=== PATIENT | male | born 1940 | race Caucasian/White ===

== ENCOUNTER 2018-05-24 06:57 | Observation (INO) ==
[2018-05-24] MEDS ORDERED: LIDOCAINE HCL 1% 20 ML VIAL ONE (07:24)
[2018-05-24] MEDS ORDERED: HEPARIN (PORCINE) 1000 UNIT/ML 10 ML (CATH LAB USE ONLY) ONE (08:11)
[2018-05-24] MEDS ORDERED: NiCARDipine HCL INJ 2.5 MG/ML 10 ML AMP ONE (08:11)
[2018-05-24] MEDS ORDERED: fentaNYL citrate 100 MCG/2 ML VIAL ONE (08:12)
[2018-05-24] MEDS ORDERED: MIDAZOLAM HCL 1 MG/ML 2ML VIAL ONE (08:12)
[2018-05-24] MEDS ORDERED: NITROGLYCERIN/D5W 100MCG/ML 20ML SYR ONE (08:12)
--- NOTE | 2018-05-24 08:14 | History & Physical Bridge Note ---
Date of Service May 24, 2018 History & Physical Bridge Note I have examined the patient, reviewed the History & Physical and in the interval since the performance of the History & Physical I have noted the following changes of clinical significance: no changes noted
--- NOTE | 2018-05-24 08:15 | Pre Anesthesia Assessment ---
Date of Service May 24, 2018 Pre Sedation Assessment Vital Signs Temp Pulse Resp BP Pulse Ox 05/24/18 07:22 36.5 C 85 16 192/105 H 97 Cardiovascular RRR, no murmur, no edema Respiratory normal respiratory effort, lungs clear to auscultation Pre-Sedation Airway Assessment Smoking Status: Former smoker Hx Sleep Apnea: No Short, Thick Neck: Yes Thyromental Distance: > or= 3.5 Finger Breadths Oral Cavity: + WNL Mallampati Class: III ASA: ASA3 NPO Status Date of Last Intake of Fluids: 05/23/18 Time of Last Intake of Fluids: 19:00 Date of Last Intake of Solid Food: 05/23/18 Time of Last Intake of Solid Foods: 19:00 Procedure Planning Contraindications for Sedation: none Current Medications Reviewed: Yes Notes The planned sedation has been discussed with the patient. Informed Consent was obtained. I have identified the patient, determined the appropriateness of sedation and have assessed the patient immediately prior to the procedure. All medicine(s) and interventions are by my order.
--- NOTE | 2018-05-24 09:49 | Post Anesthesia Assessment ---
Date of Service May 24, 2018 Post Sedation Assessment Vital Signs Temp Pulse Resp BP Pulse Ox 05/24/18 07:22 36.5 C 85 16 192/105 H 97 Post Sedation Plan On clinical assessment, the patient appears to have tolerated the sedation without complications. Patient is recovering as anticipated. Patient will continue to be monitored by nursing and may be discharged when sedation discharge criteria are met per below protocol. Upon Completions of procedure and additional 15 minutes continue every 5 minute vital signs and the P.A.R. score; then discharge to a Phase I or Fast Track to Phase II per the following guidelines: * Discharge Patient to appropriate Phase II area if PAR is 8 or greater or return to pre- procedure baseline. The post - procedure orders will be as directed. * If PAR score is less than 8 or not return to pre-procedure baseline then patient will follow Phase I monitoring till PAR is reached for Phase II. The Phase I may be done in procedure room or may call to secure a Phase I area. * If naloxone or flumazenil are used for reversal, hold in Phase I for continued monitoring from when last reversal dose was given for a minimum of 60 minutes or longer pending the nurse and/or physician discretion of patient condition before discharge to Phase II. Please call the Sedation Physician to re-evaluate and complete post-note for discharge to Phase II area. Do NOT discharge from procedure sedation or Phase 1 until post- sedation evaluation note is complete by procedure /sedation MD Sedation Discharge Instructions to be given to the patient at discharge to home.
--- NOTE | 2018-05-24 09:49 | Cardiac Catheterization ---
Cardiac Cath Procedure Full Procedure Date May 24, 2018 Pre-Procedure Diagnosis Pre-Procedure Diagnosis: Positive Stress Test and CAD AUC Score AUC Score: 7 Post-Procedure Diagnosis Post-Procedure Diagnosis: Severe CAD Procedure(s) Performed Procedure(s) Performed: Coronary Angiography and Left Heart Cath Head Of Precision Targeting Henrique Malloy DO Supervisor Mold Yard(s) Mary RTR Estimated Blood Loss Estimated Blood Loss: 5cc Medication(s) Medication(s): Fentanyl, Lidocaine 1% and Versed Summary of Findings 80% proximal LAD 80% mid PDA 60-70% proximal OM2 Hemodynamics Rest Ao:: 147/66/102 Final Ao: 175/83/121 LV: 171/6/25 Recommendations Recommendations: PCI without planned CABG Radiation Exposure (mGy) 1200 Contrast (mls) 65 Anesthesia Moderate sedation. Start 08. 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 Cardiac Status Clinical evaluation leading to the procedure CAD Presenation: Positive Stress Test Anginal Classification: CCS II Heart Failure: No Coronary Anatomy Dominant: Right Left Main (% Stenosis): Normal LAD (% Stenosis): Proximal (80%, ulcerated) D1 (% Stenosis): Ostial (60%, small 1.5mm vessel) D2 (% Stenosis): Mid (mild luminal irregularities, 10%, small 1.5mm vessel) Circumflex (% Stenosis): Mid (20%) and Distal (10%) OM1 (% Stenosis): Normal OM2 (% Stenosis): Proximal (60-70%) OM3 (% Stenosis): Ostial (50%, small 2mm vessel ) L PL1 (% Stenosis): Ostial (10%) RCA (% Stenosis): Proximal (40%), Mid (30%) and Distal (10%) R PDA (% Stenosis): Mid (80%) R PL1 (% Stenosis): Normal R PL2 (% Stenosis): Normal Diagnostic Physicians Name: Henrique Malloy DO Status: Elective Closure Device Percutaneous Entry Location: Radial (Unable to advance wire during access due to excessive radial spasm. Sheath was not placed.) Recommendations: PCI without planned CABG Intraprocedure Events Significant Disection: No Perforation: No
[2018-05-24] MEDS ORDERED: CLOPIDOGREL BISULFATE 300 MG TAB ONE (10:26)
--- NOTE | 2018-05-24 10:32 | Post Anesthesia Assessment ---
Date of Service May 24, 2018 Post Sedation Assessment Vital Signs Temp Pulse Resp BP Pulse Ox 05/24/18 07:22 36.5 C 85 16 192/105 H 97 Recovery Score Activity: Moves 4 extremities Respiration: Deep Breath/Cough Circulation: +/-20% PreAnes Value Consciousness: Fully Awake Oxygen Saturation: O2 needed for >90% Discharge Sedation Level of Care: Fast Track Phase II Post Sedation Plan On clinical assessment, the patient appears to have tolerated the sedation without complications. Patient is recovering as anticipated. Patient will continue to be monitored by nursing and may be discharged when sedation discharge criteria are met per below protocol. Upon Completions of procedure and additional 15 minutes continue every 5 minute vital signs and the P.A.R. score; then discharge to a Phase I or Fast Track to Phase II per the following guidelines: * Discharge Patient to appropriate Phase II area if PAR is 8 or greater or return to pre- procedure baseline. The post - procedure orders will be as directed. * If PAR score is less than 8 or not return to pre-procedure baseline then patient will follow Phase I monitoring till PAR is reached for Phase II. The Phase I may be done in procedure room or may call to secure a Phase I area. * If naloxone or flumazenil are used for reversal, hold in Phase I for continued monitoring from when last reversal dose was given for a minimum of 60 minutes or longer pending the nurse and/or physician discretion of patient condition before discharge to Phase II. Please call the Sedation Physician to re-evaluate and complete post-note for discharge to Phase II area. Do NOT discharge from procedure sedation or Phase 1 until post- sedation evaluation note is complete by procedure /sedation MD Sedation Discharge Instructions to be given to the patient at discharge to home.
--- NOTE | 2018-05-24 10:38 | Cardiac Catheterization ---
Cardiac Cath Procedure Full Procedure Date May 24, 2018 Pre-Procedure Diagnosis Pre-Procedure Diagnosis: Positive Stress Test and CAD AUC Score AUC Score: 7 Post-Procedure Diagnosis Post-Procedure Diagnosis: Severe CAD Procedure(s) Performed Procedure(s) Performed: Coronary Angiography and Left Heart Cath Coordinator Mining Products Dewey Gorman MD Bag Cutter(s) Mary RTR Estimated Blood Loss Estimated Blood Loss: 10 Medication(s) Medication(s): Fentanyl, Heparin, Lidocaine 1%, Nicardipine, Nitroglycerin and Versed Summary of Findings 80% proximal LAD 80% mid PDA 60-70% proximal OM2 Indication: Abnormal stress test Access: 6 [place] right common femoral artery Catheters: EBU 4 guide, a guide liner Findings: For full details of patient's coronary angiography please cath report dictated by Dr. Malloy. Briefly, patient found to have multi vessel disease including a 80% diffuse stenosis involving his proximal to mid LAD. Decision to proceed with PCI. -- PCI -- Antithrombotic therapy: Heparin, clopidogrel Procedure: Left main cannulated with EBU 4.0 guide BMW wire passed across lesion into distal vessel Proximal/mid LAD lesion predilated with 2.5 compliant balloon LARA used to assess extent of disease, calcification. Noted to have severe disease extending almost to the ostium and past second diagonal in the mid segment with moderate calcification prior to second diagonal. With the aid of a guide liner a 3.0 x 38 mm Oswaldo drug-eluting stent was delivered across the lesion Stent post-dilated with 3.5 noncompliant balloon to high atmospheres LARA confirmed well-appossed, well expanded stent with no edge complications IC vasodilators administered for spasm Post procedure SURESH 3 flow, stent well expanded with minimal residual stenosis and no apparent cardiac complications. Arterial Closure: Angio-Seal Summary: 1. Successful PCI of proximal to mid LAD with single drug-eluting stent (3.0 x 38 mm Oswaldo; postdilated with 3.5 NC) Recommendations: To PCU for continued monitoring Loaded with clopidogrel 600 mg in laborer powerhouse Continue dual-antiplatelet therapy for at least 6 months Continue statin, and ASCVD risk factor modification Consult cardiac Rehab Hemodynamics Rest Ao:: 186/90/130 Final Ao: 167/77/113 LV: Recommendations Recommendations: PCI without planned CABG Specimens Specimens: None Radiation Exposure (mGy) 3726 Contrast (mls) 150 OPTi Fluids (cc crystalloids) Fluids (cc crystalloids): 215 Drains Drains: None Anesthesia Moderate Procedural Complication(s) None Disposition PCU 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 Cardiac Status Clinical evaluation leading to the procedure CAD Presenation: Positive Stress Test Anginal Classification: CCS II Heart Failure: No Cardiogenic Shock within 24 Hours: No Cardiac Arrest within 24 Hours: No Imaging Studies Past 6 Months: Yes Stress Studies Past 6 Months: Yes Stress Testing w/SPECT MPI: Yes - Positive Diagnostic Physicians Name: Gama Status: Elective Closure Device Percutaneous Entry Location: Radial Closure Device: Angio-Seal Recommendations: PCI without planned CABG PCI Indication: + Stress Test Lesion Segment Name: Proximal LAD Culprit Artery: Yes Stenosis Prior to Rx (%): 80-90 Chronic Total Occlusion: No IVUS: Yes FFR: No Pre-Procedure SURESH Flow: 3 Previously Treated Lesion: No Lesion Complexity: High/C Lesion Length (mm): 30 Thrombus Present: No Bifurcation Lesion: Yes Guidewire Across Lesion: Stenosis Post-Procedure (%): 0 Post-Procedure SURESH Flow : 3 Devices(s) Deployed: Yes Yes Intraprocedure Events Significant Disection: No Perforation: No
[2018-05-24] MEDS ORDERED: ONDANSETRON INJ 2 MG/ML 2 ML VIAL IV PRN (10:46)
[2018-05-24] MEDS ORDERED: ACETAMINOPHEN 325 MG TAB PO PRN (10:46)
[2018-05-24] MEDS ORDERED: SODIUM CHLORIDE 0.9% 1000ML 1,000 ML IV SCH (11:00)
[2018-05-24] MEDS: CARVEDILOL 6.25 MG TAB PO SCH ×2 (14:15→20:36)
[2018-05-24] MEDS: LOSARTAN POTASSIUM 25 MG TAB PO SCH (14:15)
[2018-05-24] MEDS ORDERED: ALLOPURINOL 100 MG TAB PO SCH (21:00)
[2018-05-24] MEDS ORDERED: LOVASTATIN 20 MG TAB PO SCH (21:00)
[2018-05-24] MEDS ORDERED: ASPIRIN 81 MG ECTAB PO SCH (21:00)
[2018-05-24] MEDS ORDERED: ATENOLOL 25 MG TABLET PO SCH (21:00)
[2018-05-24] MEDS ORDERED: CHOLECALCIFEROL 1,000 UNITS TAB PO SCH (21:00)
[2018-05-25 06:31] LABS: Basophils # (auto) 0.02 K/uL (0-0.2); Basophils % (auto) 0.3 %; Eosinophils # (auto) 0.18 K/uL (0-0.5); Eosinophils % (auto) 2.4 %; Hematocrit (blood only) 40.4 % (42-52); Immature Granulocytes # (auto) 0.02 K/uL (0.00-0.02); Immature Granulocytes % (auto) 0.3 %; Lymphocytes # (auto) 1.88 K/uL (1.2-3.4); Mean Corpuscular Hgb Conc 34.7 g/dL (32-36); Mean Corpuscular Volume 97.1 fL (80-100); Mean Platelet Volume 11.3 fL (7.4-10.4); Monocytes % (auto) 9.3 %; Neutrophils # (auto) 4.72 K/uL (1.4-6.5); Neutrophils % (auto) 62.7 %; Platelet Count 180 K/uL (130-400); RDW Coefficient of Variation 12.8 % (11.5-14.5); RDW Standard Deviation 45.5 fL (36.4-46.3); Red Blood Count 4.16 M/uL (4.7-6.1); White Blood Count 7.52 K/uL (4.8-10.8)
[2018-05-25 07:07] LABS: BUN Creatinine Ratio 19.9 (10-20); Calcium 9.2 mg/dl (8.5-10.1); Est GFR (African American) 76.4; Potassium 3.9 mmol/L (3.5-5.1)
[2018-05-25] MEDS: LOSARTAN POTASSIUM 25 MG TAB PO SCH (08:28)
[2018-05-25] MEDS: CARVEDILOL 6.25 MG TAB PO SCH (08:28)
--- NOTE | 2018-05-25 08:53 | Cardiology Progress Note ---
Date of Service May 25, 2018 Assessment & Plan (1) Presence of drug coated stent in LAD coronary artery: Continue dual antiplatelet therapy for 1 year post drug-eluting stent implantation, however, would consider single antiplatelet therapy after 6 months if necessary. Cardiac catheterization demonstrate residual moderate proximal obtuse marginal branch vessel disease as well as severe mid right PDA disease which was not amenable to PCI. Post LAD stent implantation there was likely plaque shift with now 30-40% ostial LAD stenosis. Patient remains asymptomatic. (2) Abnormal nuclear stress test: (3) Dyslipidemia, goal LDL below 70: Lovastatin discontinued in favor of atorvastatin. (4) Hypertension: Blood pressure labile during hospitalization. Atenolol discontinued in favor of carvedilol. Losartan titrated to 25 mg daily. Subjective Patient seen and examined at the bedside. No chest discomfort overnight. Feels well from a cardiovascular perspective. Blood pressure improved. Atenolol discontinued in favor of carvedilol. Losartan titrated to 25 mg daily. Lovastatin also discontinued in favor of atorvastatin. Patient has questions regarding alcohol use. Offers no other concerns/complaints at this time. Review of Systems All systems reviewed & are unremarkable except as noted in HPI & below Physical Exam 2 Vital Signs (Past 24 Hours): Last Vital Signs Temp 36.9 C 05/25/18 08:03 Pulse 74 05/25/18 08:03 Resp 18 05/25/18 08:03 BP 149/70 H 05/25/18 08:03 Pulse Ox 96 05/25/18 08:03 Physical Exam: General: NAD, AAO x3, well nourished. HEENT: Normocephalic. Atraumatic. Conjunctiva pink, no scleral icterus. Neck: No carotid bruits, the carotid upstrokes are brisk. No JVD. No HJR Heart: Regular normal S-1 and S-2 no S-3 or S-4 gallop. No murmurs or rub appreciated. PMI is not displaced. No RV heave. Lungs: Clear bilateral without rales , rhonchi, or wheeze. Abdomen: Normal bowel sounds. Soft. Nontender. No masses or organomegaly. No abdominal bruits. Extremities: No clubbing, cyanosis, or edema. Pulses: radial=2/4, Dorsalis pedis =2/4, posterior tibial=2/4. Neuro: Cranial nerves grossly intact. No focal motor deficit. _ (1) Hypertension Hypertension type: essential hypertension Qualified Code(s): I10 - Essential (primary) hypertension
[2018-05-25] MEDS ORDERED: CLOPIDOGREL BISULFATE 75 MG TAB PO SCH (09:00)
[2018-05-25] MEDS ORDERED: ATORVASTATIN 40 MG TAB PO SCH (09:00)
[2018-05-25] MEDS ORDERED: LOSARTAN POTASSIUM 25 MG TAB PO SCH (09:00)
--- NOTE | 2018-05-25 11:27 | Discharge Summary ---
Date of Service May 25, 2018 Admission HPI Patient admitted for cardiac catheterization due to abnormal Lexiscan nuclear stress test. Lexiscan nuclear stress test performed in setting of preoperative for stratification. Stress test suggested apical ischemia with elevated TID index. Admission Exam Per Admitting Provider General: NAD, AAO x3, well nourished. HEENT: Normocephalic. Atraumatic. Conjunctiva pink, no scleral icterus. Neck: No carotid bruits, the carotid upstrokes are brisk. No JVD. No HJR Heart: Regular normal S-1 and S-2 no S-3 or S-4 gallop. No murmurs or rub appreciated. PMI is not displaced. No RV heave. Lungs: Clear bilateral without rales , rhonchi, or wheeze. Abdomen: Normal bowel sounds. Soft. Nontender. No masses or organomegaly. No abdominal bruits. Extremities: No clubbing, cyanosis, or edema. Pulses: radial=2/4, Dorsalis pedis =2/4, posterior tibial=2/4. Neuro: Cranial nerves grossly intact. No focal motor deficit. Principal Diagnosis Principal Diagnosis CAD s/p DESHAWN to proximal LAD. Residual 40% ostial LAD, 70-80% mid RPDA, and 60% proximal OM managed medically. Discharge Exam General: NAD, AAO x3, well nourished. HEENT: Normocephalic. Atraumatic. Conjunctiva pink, no scleral icterus. Neck: No carotid bruits, the carotid upstrokes are brisk. No JVD. No HJR Heart: Regular normal S-1 and S-2 no S-3 or S-4 gallop. No murmurs or rub appreciated. PMI is not displaced. No RV heave. Lungs: Clear bilateral without rales , rhonchi, or wheeze. Abdomen: Normal bowel sounds. Soft. Nontender. No masses or organomegaly. No abdominal bruits. Extremities: No clubbing, cyanosis, or edema. Pulses: radial=2/4, Dorsalis pedis =2/4, posterior tibial=2/4. Neuro: Cranial nerves grossly intact. No focal motor deficit. Discharge Data Allergies Allergy/AdvReac Type Severity Reaction Status Date / Time KAYLI Inhibitors Allergy Unknown pt unsure Verified 05/03/18 11:34 Procedures Performed Operation Date: 05/24/18 08:00 Actual Procedures p Cath, Left with Cors and Vent - DO nikita Ace Cineradiography w/Routine Exam - DO nikita Ace IVUS Coronary Single Vessel - Dewey Gorman MD s Drug Eluting Stent SGl Vessel - Dewey Gorman MD Ordered Studies 05/24/18 06:59 CL Cath Imgs for PACS use only Routine Hospital Course (1) Presence of drug coated stent in LAD coronary artery: Continue dual antiplatelet therapy for 1 year post drug-eluting stent implantation, however, would consider single antiplatelet therapy after 6 months if necessary. Cardiac catheterization demonstrate residual moderate proximal obtuse marginal branch vessel disease as well as severe mid right PDA disease which was not amenable to PCI. Post LAD stent implantation there was likely plaque shift with now 30-40% ostial LAD stenosis. Patient remains asymptomatic. Outpatient cardiology follow-up in 3-4 weeks. Patient provided with prescriptions for atorvastatin, clopidogrel, carvedilol, and increased dose of losartan. Atenolol and lovastatin discontinued during hospitalization. (2) Abnormal nuclear stress test: (3) Dyslipidemia, goal LDL below 70: Lovastatin discontinued in favor of atorvastatin. (4) Hypertension: Blood pressure labile during hospitalization. Atenolol discontinued in favor of carvedilol. Losartan titrated to 25 mg daily. Total Time Total Time Spent Total Time Spent (In Minutes): 40 minutes Total Time Includes: Examination of the Patient, Discharge Planning, Medication Reconciliation and Communication With Other Providers Discharge Plan Discharge Items Patient Disposition: Home - Self-Care Reason For Visit: PCI Discharge Goals: Improve disease control Activity: Per 'Additional Instructions' section Non-emergency contact: Primary Care Provider and College Intern Call non-emergency contact if: you have any medication questions, your symptoms worsen and your pain is not controlled Follow-up/Referrals: Rafael Koehler DO [Primary Care Provider] - Diet: Carb Consistent or DM2 and Heart Healthy Addtl Provider Instructions: ACTIVITY RECOMMENDATIONS: Excess manipulation of the wrist should be avoided for the next 24-48 hours. * No lifting over 5 pounds for 5 days. * No strenuous activity such as bowling or tennis for 5 days. * Keep the site of the procedure covered with a bandage for 24 hours. *You may shower the day after the procedure. Do not take a tub bath or submerge the puncture site in water for the next 3 days. *Do not operate any motorized equipment for 3 days. *Limit stair climbing to 2 trips per day. SPECIAL CARE INSTRUCTIONS: The site may be slightly bruised and sore following your procedure. Should any of the following occur, contact the Dr. who performed your procedure. 1. Redness/inflammation, swelling, chills, or fever, or colored drainage at procedure site within 3-7 days after your procedure. 2. Coldness, discoloration, ongoing numbness, severe pain, or swelling. Expect mild tingling of hand and tenderness at the puncture site for up to three days. If this persists beyond three days, or other symptoms develop, notify the Dr. who performed your procedure. BLEEDING: If the procedure site on your wrist begins to bleed, do not panic 1. Place palm of hand just slightly above the insertion site to stop the bleeding. You may be able to feel your pulse as you hold pressure. Proceed to hospital for further evaluation. * If the bleeding from your groin, if there is a large amount of bleeding or spurting, call 911 ([address] drive yourself to the hospital). SKIN IRRITATION: * You may experience some redness and/or swelling in the area where radiation was administered. If any skin irritation occurs, please contact your family physician. FOLLOW UP VISIT: Keep any scheduled doctor appointments. Prescriptions: New atorvastatin 40 mg Tablet 40 mg PO QAM Qty: 30 RF: 6 carvedilol 6.25 mg Tablet 6.25 mg PO BID Qty: 60 RF: 6 clopidogrel 75 mg Tablet 75 mg PO QAM Qty: 30 RF: 6 losartan 25 mg Tablet 25 mg PO QAM Qty: 30 RF: 6 Continue allopurinol [Zyloprim] 100 mg Tablet 100 mg PO QPM RF: 0 aspirin [Aspirin Low Dose] 81 mg Tablet,Delayed Release (Dr/Ec) 81 mg PO QPM RF: 0 omeprazole magnesium [Prilosec OTC] 20 mg Tablet,Delayed Release (Dr/Ec) 20 mg PO QAM RF: 0 cholecalciferol (vitamin D3) [Vitamin D3] 2,000 unit Tablet 2,000 unit PO QPM RF: 0 Discontinued meloxicam [Mobic] 15 mg Tablet 15 mg PO QPM RF: 0 lovastatin 40 mg Tablet 40 mg PO PM RF: 0 atenolol [Tenormin] 25 mg Tablet 25 mg PO QPM RF: 0 losartan [Cozaar] 25 mg Tablet 12.5 mg PO QAM RF: 0 indomethacin 50 mg Capsule 50 mg PO TID RF: 0 Stand-Alone Forms: [facility]/Other Patient Handouts: Atorvastatin Calcium Oral tablet, Clopidogrel Bisulfate Oral tablet, Carvedilol Oral tablet, Stent Coronary Discharge Orders: Discharge Order (Routine); Ordered 05/25/18 Ordered By: Henrique Malloy Admission Data Admit Date/Time: 05/24/18 09:29 Attending Provider: Henrique Malloy Admit Provider: Henrique Malloy Primary Care Provider: Rafael Koehler Service: Telemetry Other Interventions: Discharge Summary Assessment (RN) Last Done: 05/25/18 09:10 DC Date/Time DO NOT enter until pt leaves facility: 05/25/18 11:03
== END 2018-05-25 11:03 | disposition home or self-care (01) ==
LOC: 2S 06:57 → CC 06:57

== ENCOUNTER 2019-07-02 06:30 | Inpatient (IN) ==
--- NOTE | 2019-06-12 16:34 | PAT Medication Instructions ---
Medication Instructions Date of Service June 12, 2019 Home Medications Medication Instructions Recorded carvedilol 6.25 mg PO BID #60 tab 05/25/18 losartan 25 mg PO QAM #30 tab 05/25/18 Prilosec OTC 20 mg PO QAM allopurinol [Zyloprim] 100 mg PO QAM aspirin [Aspirin Low Dose] 81 mg PO QPM cholecalciferol (vitamin D3) [Vitamin D3] 2,000 unit PO DAILY carvedilol 6.25 mg PO BID losartan 25 mg PO QAM atorvastatin 80 mg PO QAM benzonatate 100 mg PO UD PRN DO NOT take the morning of surgery cholecalciferol (vitamin D3) [Vitamin D3] 2,000 unit PO DAILY losartan 25 mg PO QAM benzonatate 100 mg PO UD PRN Take morning of surgery With a small sip of water, OTHERWISE NOTHING TO EAT OR DRINK AFTER MIDNIGHT: Prilosec OTC 20 mg PO QAM allopurinol [Zyloprim] 100 mg PO QAM carvedilol 6.25 mg PO BID atorvastatin 80 mg PO QAM Take evening before surgery aspirin [Aspirin Low Dose] 81 mg PO QPM carvedilol 6.25 mg PO BID benzonatate 100 mg PO UD PRN Other Notes If you have any questions please call us at [phone] or [phone] or [phone] or [phone]
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
[2019-06-13 15:12] LABS: Basophils # (auto) 0.02 K/uL (0-0.2); Basophils % (auto) 0.2 %; Eosinophils # (auto) 0.35 K/uL (0-0.5); Eosinophils % (auto) 4.1 %; Hematocrit (blood only) 40.6 % (42-52); Hemoglobin 13.7 g/dL (14.0-18.0); Immature Granulocytes # (auto) 0.06 K/uL (0.00-0.02); Immature Granulocytes % (auto) 0.7 %; Lymphocytes % (auto) 20.8 %; Mean Corpuscular Hemoglobin 33.6 pg (25-34); Mean Corpuscular Hgb Conc 33.7 g/dL (32-36); Mean Corpuscular Volume 99.5 fL (80-100); Mean Platelet Volume 11.3 fL (7.4-10.4); Monocytes # (auto) 1.16 K/uL (0.11-0.59); Monocytes % (auto) 13.4 %; Neutrophils # (auto) 5.25 K/uL (1.4-6.5); Neutrophils % (auto) 60.8 %; Platelet Count 206 K/uL (130-400); RDW Coefficient of Variation 13.4 % (11.5-14.5); RDW Standard Deviation 48.1 fL (36.4-46.3); Red Blood Count 4.08 M/uL (4.7-6.1); White Blood Count 8.64 K/uL (4.8-10.8)
[2019-06-13 15:24] LABS: BUN Creatinine Ratio 21.5 (10-20); Calcium 10.1 mg/dl (8.5-10.1); Creatinine Clr Calc Pharmacy 48.4 ml/min; Est GFR (Non-African American) 61.3; Potassium 4.5 mmol/L (3.5-5.1)
[2019-06-13 15:25] LABS: C Reactive Protein 0.72 mg/dl (0-0.29); Partial Thromboplastin Time 25.8 Seconds (21.0-31.0); Prothrombin Time 10.7 Seconds (9.0-12.0)
--- NOTE | 2019-06-27 23:34 | History and Physical Report ---
DATE OF ADMISSION: 07/02/2019 CHIEF COMPLAINT: Left knee pain, discomfort and instability. HISTORY OF PRESENT ILLNESS: The patient is an 79-year-old gentleman who presents for surgical treatment of his left knee. I had actually seen him a year ago and scheduled for surgery, but had to be canceled due to some cardiac issues. He had a cardiac stent placed about a year ago. He was on Plavix for a while and now off. He is asymptomatic from the cardiac standpoint and would like his left knee replaced. He is bothered by pain and discomfort, also instability. He has had injections, which help some with pain, do not help the instability. Shots have become less successful over time. He is concerned about falling. He would like to have his knee replaced. The patient does have a history of a knee arthroscopy 21 years ago in [place]. He also had his right knee replaced 17 years ago. PAST MEDICAL HISTORY: Includes, 1. Right bundle branch block. 2. Coronary artery disease status post cardiac stent placement a year ago. 3. Hypertension. 4. Diverticulitis. 5. COPD. 6. Gastroesophageal reflux disease. PAST SURGICAL HISTORY: Include, 1. Cardiac stent placement a year ago. 2. Shoulder surgery. 3. Colon procedure for intussusception. 4. Right knee replacement 17 years ago in [place]. 5. Left knee scope 20 years ago in [place]. ALLERGIES: None. CURRENT MEDICINES: Include: 1. Atenolol. 2. Prilosec. 3. Lovastatin. 4. Allopurinol. 5. Indomethacin. 6. Tylenol. 7. Vitamin D. 8. Aspirin. 9. Meloxicam. SOCIAL HISTORY: This is an 79-year-old male. He is . He does not smoke. FAMILY HISTORY: Noncontributory. REVIEW OF SYSTEMS: Significant for cardiac stent placement a year ago. He was initially put on Plavix but now off. Denies any current chest pain or shortness of breath. No history of DVT or PE. He did have a recent echo which showed no ischemia, but a scarred area of his heart. PHYSICAL EXAMINATION: GENERAL: Shows a pleasant elderly male. He looks to be in pretty good health. HEENT: Benign. NECK: Supple, no lymphadenopathy. LUNGS: Clear to auscultation. HEART: Has a regular rate and rhythm. ABDOMEN: Soft, nontender, nondistended. EXTREMITIES: Grossly neurovascularly intact except as follows: Examination of the left leg reveals the patient ambulates independently. Comes in wearing a knee support. He has got slight valgus alignment to his knee. He has got small knee effusion. Range of motion is 0-125. He does have a little bit of varus valgus laxity. A little bit of posterior laxity as well. Negative anterior drawer. No pivot shift. No pain with hip motion. He is neurologically intact. X-RAYS: X-rays of the left knee reviewed. Shows advanced left knee tricompartment DJD. He has got posterior tibial subluxation. ASSESSMENT: An 79-year-old male with left knee degenerative joint disease and instability and failed conservative care. We had scheduled him for surgery in the past but canceled due to cardiac issues. He now would like to proceed. PLAN: We are going to make sure he is cleared cardiac mc. Assuming he gets cleared, we will proceed with a left total knee replacement. The risks and benefits of this procedure were explained to the patient including, but not limited to, DVT, PE, , infection, neurological injury, vascular injury, bleeding problem, pain, limited range of motion, stiffness, failure to relieve symptoms, incomplete relief of symptoms, need for further surgery in the future, fracture, leg length inequality, nerve palsy, etc. The patient understands and desires to proceed. Informed consent was obtained. As far as discharge plans, he is hoping to be discharged to home using the [facility] home health program.
[~2019-07-02 06:30] MED LIST: ACETAMINOPHEN 500 MG TAB PO SCH; BUPIVACAINE 0.5 % 5 MG/1 ML PF 10ML VIAL ONE; BUPIVACAINE LIPOSOME/PF 266 MG, BUPIVACAINE/EPINEPHRINE 50 ML, SODIUM CHLORIDE 0.9% 30 ... INFIL SCH; CEFAZOLIN 2000MG 2,000 MG/15 ML SYR IV SCH; FAMOTIDINE 20 MG TAB PO SCH; GABAPENTIN 300 MG CAP PO SCH; LR 500ML BOLUS, THEN 15ML/HR IV SCH; LR 60ML/HR IV SCH; METOCLOPRAMIDE HCL 10 MG TABLET PO SCH; SCOPOLAMINE 1.5 MG TDSY TD SCH; TRANEXAMIC ACID 1,000 MG **IV Intra-op IV SCH
--- NOTE | 2019-07-02 06:52 | History & Physical Bridge Note ---
Date of Service July 02, 2019 History & Physical Bridge Note I have examined the patient, reviewed the History & Physical and in the interval since the performance of the History & Physical I have noted the following changes of clinical significance: no changes noted
[2019-07-02] MEDS ORDERED: MIDAZOLAM HCL 1 MG/ML 2ML VIAL ONE (07:38)
[2019-07-02] MEDS ORDERED: fentaNYL citrate 100 MCG/2 ML VIAL ONE (07:39)
[2019-07-02] MEDS ORDERED: BUPIVACAINE LIPOSOME 1.3% 266 MG/20 ML VIAL ONE (09:01)
[2019-07-02] MEDS ORDERED: BUPIVACAINE/EPINEPHRINE 0.25% 1:200,000 30 ML VIAL ONE (09:01)
[2019-07-02] MEDS ORDERED: SODIUM CHLORIDE 0.9% PF 50 ML VIAL ONE (09:01)
[2019-07-02] MEDS ORDERED: BACITRACIN INJ 50,000 UNIT VIAL ONE (09:01)
[2019-07-02] MEDS ORDERED: PROPOFOL IV EMULSION 10 MG/ML 20 ML VIAL IV ONE (10:02)
[2019-07-02] MEDS ORDERED: LIDOCAINE HCL 2% 2 ML VIAL/AMP(20MG/ML) INFIL ONE (10:02)
[2019-07-02] MEDS ORDERED: PHENYLEPHRINE 100MCG/ML 5ML SYR ONE (10:03)
[2019-07-02] MEDS ORDERED: ONDANSETRON INJ 2 MG/ML 2 ML VIAL ONE (10:03)
--- NOTE | 2019-07-02 11:02 | Post Operative Brief Note ---
PG Immediate Post Op with CF Date of Surgery July 02, 2019 Pre & Post Diagnosis Operation Date: 07/02/19 08:50 Pre-Op Diagnosis: Left Knee Advanced Degenerative Joint Disease Post-Op Diagnosis: Left Knee Advanced Degenerative Joint Disease I identified the patient and participated in the time-out.: Yes Procedure Operation Date: 07/02/19 08:50 Actual Procedures p Left Total Knee Arthroplasty(Left) - Noe Snow MD Surgeon Noe Snow MD Regional Engineer Jorden, PAC Estimated Blood Loss 50 Findings Consistent with Post-Op Diagnosis Fluids 1500 cc Specimens Specimen Description: A. Left Knee Bone and Tissue Drains Herman Catheter (A 16 Indonesian herman catheter was inserted by KRISTIN Mauro, without difficulty, clear yellow urine obtained, output to be monitored by Anesthesia.) Anesthesia Type Spinal MAC Complications none Disposition Accompanied Patient To Recovery: No Disposition: Recovery Room
--- NOTE | 2019-07-02 11:16 | Operative Report ---
Post Operative Report Pre & Post Diagnosis Operation Date: 07/02/19 08:50 Pre-Op Diagnosis: Left Knee Advanced Degenerative Joint Disease Post-Op Diagnosis: Left Knee Advanced Degenerative Joint Disease I identified the patient and participated in the time-out.: Yes Procedure Operation Date: 07/02/19 08:50 Actual Procedures p Left Total Knee Arthroplasty(Left) - Noe Snow MD Surgeon Noe Snow MD Neuro Intensivist Physician Jorden, PAC Estimated Blood Loss 50 Findings Consistent with Post-Op Diagnosis Operative findings revealed advanced left knee tricompartment DJD. He had grade 4 disease in all 3 compartments. He did not have the eburnation but just cartilage loss. He had a valgus deformity to his knee. He had a very dysplastic bone septic of the tibia with very hypoplastic tibial plateau and a reverse angle to the articular surface along with a very distally a displaced the tibial tubercle. Fluids 1500 cc. Specimens Left knee sent for pathology. Drains None. Anesthesia Type Spinal MAC Complications none Disposition Accompanied Patient To Recovery: No Disposition: Recovery Room Indications Patient is an 79-year-old fairly active gentleman is had a long history of knee problems. He underwent a right knee replacement done many years ago in [place]. O over the past several years he developed increased pain discomfort and deformity in his left knee. Failed conservative care. That we had actually scheduled for knee replacement a year ago but his work-up showed some coronary artery disease and he had a stent placed. He is now been cleared for surgery would like to proceed with left knee replacement. Description of Procedure Operative implants consisted of: 1. Biomet Vanguard size 62.5 left Po stabilized femoral component. 2. Biomet size 63 tibial tray. 3. 18 mm posterior bite polyethylene insert. 4. 28 x 8 all poly-patella. Patient was taken to the operating room identified and placed on the operating room table in the supine position. All contact areas were meticulously padded. A spinal anesthetic and abductor canal block had been provided in the holding area. Argueta catheter was placed in sterile fashion. Left thigh tip was then placed in the left lower extremity was then prepped and draped in usual sterile fashion. The left leg was elevated and exsanguinated with the use of an Esmarch and a turn was placed at 300 mmHg. An anterior approach to the left knee was then performed to longitudinal incision centered over the patella. Sharp dissection was carried through subcutaneous tissues down to the extensor mechanism. Medial parapatellar arthrotomy incision was made. Some subperiosteal dissection was carried out medially. The fat pad was resected from each patella tendon. Lateral patellofemoral ligament was released. Patella was subluxated laterally and the knee was flexed. The osteophytes were taken off the distal femur. The ACL and PCL were then released from the distal femur the tibia subluxated anteriorly. External tibial alignment jig was then placed in the interface the tibia and adjusted 12 mm medially. The proximal tibial cut was made to remove about 4 to 5 mm of bone from the most efficient aspect medial side. He had a reverse slope to his tibia so I took a fairly significant piece off posteriorly. The tibia had a very dysplastic appearance and it sized to a size 63. We had to downsize in order to not have overhang. Attention drawn the femur. The distal femur was entered with sharp drill bit and the iintramedullary canal was suction. A left 5 degree valgus cutting guide was placed. This femoral cutting block was pinned in place. Distal femoral cut was made to take an additional 3 mm of bone off the distal femur. Femur was then sized to a size 62.5. We did downsize this slightly. The AP cutting block was pinned parallel to the epicondylar axis which was 6 degrees of external rotation. The anterior cut, anterior chamfer, posterior cut, posterior chamfer cuts were made. Box cutting guide was placed and just slightly lateral and the box cut was made. The knee was flexed. The remnants of the medial lateral menisci were excised. The osteophytes were taken off the posterior aspect of the femur. I did have to release the popliteus knee in order to equalize the flexion gap. A trial femoral component was placed for the tibial tray was pinned in maximum external rotation and the drill and stem punch we used to create defect in proximal tib- fib tibial tray. The knee was then trialed an 18 mm insert fit most appropriately. Attention drawn the patella. The patella was cleaned of all soft tissue. Patella thickness measured 20 mm in thickness and was cut down 13 to a size of a size 28 patella. Locals were drilled for the 28 patella. Lateral osteophyte was removed. Patella button was placed. Knee was taken through range of motion patella tracked nicely with no thumbs test. Attention drawn toward placing the permanent components. All trial components were removed. Bone plug was placed in the disc femur limit blood loss put a double batch Palacos G cement was mixed. Biomet Vanguard size 62.5 left posterior by femoral component, size 63 tibial tray, and 18 mm posterior box polyethylene insert, and a 28 x 8 all poly-patella then cement in place. Knee was brought out into full extension total cement hardened. Final cement check was then performed. Pericapsular tissues were injected with total 100 cc of combination of 20 cc of Exparel, 30 cc of normal saline, 50 cc of quarter percent Marcaine with epinephrine. Patient did receive 1 g of tranexamic acid per the tourniquet was then let down for final tourniquet time of 62 minutes. Hemostasis assured use electrocautery. The wounds once again irrigated and the extensor mechanism then closed with combination 1 PDS suture #1 Vicryl suture in a [id number] fashion. Extensor mechanism checked found to be intact the subcutaneous tissue then closed with 2 Dexon suture in a buried interrupted fashion skin was closed skin freddy. Leg was then cleaned dried a sterile dressing composed of Xeroform, 4 x 4's, sterile cast padding, Yariel bandage were applied. Patient then transferred to the recovery in stable condition. Patient tolerated the procedure well no complications. I attest to the content of the Intraoperative Record and any orders documented therein. Any exceptions are noted below.
--- NOTE | 2019-07-02 11:33 | XRay Report ---
XR knee LT 1 or 2V routine HISTORY: 79 years-old Male Surgical Post Op left knee total joint arthroplasty. History of degenerat rohini joint disease COMPARISON: Left knee radiographs 05/03/2018 TECHNIQUE: 2 views of the left knee FINDINGS: Left knee total joint arthroplasty and patella resurfacing. Satisfactory alignment without acute frac ture or retained foreign body. Anterior midline skin freddy are noted along with surgical drainage c atheter and expected postsurgical soft tissue swelling with deep tissue air. Vascular calcifications are noted. IMPRESSION: Satisfactory alignment of the left knee total joint arthroplasty with expected postsurgic al findings. ACT 112: Negative or not required by law. The above report was generated using voice recognition software. It may contain grammatical, syntax o r spelling errors. Electronically signed by: Kwaku Ross M.D. 07/02/2019 11:32 AM
--- NOTE | 2019-07-02 12:06 | Anesthesiology Progress Note ---
Date of Service July 02, 2019 Anesthesia Post Procedure Vital Signs Vital Signs: Temp Pulse Pulse Resp BP Pulse Ox 07/02/19 11:55 61 12 147/77 H 97 07/02/19 11:45 55 L 12 146/80 H 96 07/02/19 11:35 55 L 18 148/81 H 95 07/02/19 11:25 61 12 149/71 H 97 07/02/19 11:15 63 18 129/83 96 07/02/19 11:08 98.6 F 65 18 119/65 96 07/02/19 07:22 97.7 F 78 18 183/92 H 97 Transfer of Care Handoff Completed per policy Notes Mental Status: alert / awake / arousable and participated in evaluation Patient Amnestic to Procedure: Yes Nausea / Vomiting: adequately controlled Pain: adequately controlled Airway Patency, RR, SpO2: stable & adequate BP & HR: stable & adequate Hydration State: stable & adequate Neuraxial Anesthesia: was administered and sensory block is resolving Anesthetic Complications: no major complications apparent and Pt Satisfied with anesthetic care
[2019-07-02] MEDS ORDERED: fentaNYL citrate 100 MCG/2 ML VIAL IV PRN (12:31)
[2019-07-02] MEDS ORDERED: ePHEDrine sulfate 50 MG/ML AMP IV PRN (12:31)
[2019-07-02] MEDS ORDERED: ONDANSETRON INJ 2 MG/ML 2 ML VIAL IV PRN ×2 (12:31→12:42)
[2019-07-02] MEDS ORDERED: ATROPINE SULFATE 0.1 MG/ML 10ML SYR IV PRN (12:31)
[2019-07-02] MEDS ORDERED: ALUMINUM/MAGNESIUM SUSP 30 ML UDC PO PRN (12:42)
[2019-07-02] MEDS ORDERED: METOCLOPRAMIDE HCL INJ 5 MG/ML 2 ML VIAL IV PRN (12:42)
[2019-07-02] MEDS ORDERED: HYDROmorphone INJ 0.5 MG/0.5 ML SYR IV PRN (12:42)
[2019-07-02] MEDS ORDERED: bisacodyL 10 MG SUPP PR PRN (12:42)
[2019-07-02] MEDS ORDERED: TAMSULOSIN HCL 0.4 MG CAP PO PRN (12:42)
[2019-07-02] MEDS ORDERED: NALOXONE HCL 0.4 MG/1 ML VIAL/CARP IV PRN (12:42)
[2019-07-02] MEDS ORDERED: BENZONATATE 100 MG CAPSULE PO PRN (12:42)
[2019-07-02] MEDS ORDERED: MAGNESIUM HYDROXIDE SUSP 30 ML UDC PO PRN (12:42)
[2019-07-02] MEDS: SODIUM CHLORIDE 0.9% 1000ML 1,000 ML IV SCH ×2 (13:54→22:19)
[2019-07-02] MEDS: ACETAMINOPHEN 500 MG TAB PO SCH ×2 (13:55→22:19)
[2019-07-02] MEDS: KETOROLAC TROMETHAMINE 15 MG/ML VIAL IV SCH ×2 (13:55→19:27)
[2019-07-02] MEDS: CHECK SCOPOLAMINE PATCH PLACEMENT SCH (16:31)
[2019-07-02] MEDS: CEFAZOLIN 1000MG 1,000 MG/7.5 ML SYR IV SCH (16:32)
[2019-07-02] MEDS ORDERED: TRANEXAMIC ACID / 0.7% NACL 1,000 MG/100 ML BAG IV SCH (17:06)
--- NOTE | 2019-07-02 18:04 | Progress Note ---
DATE: 07/02/2019 SUBJECTIVE: An 79-year-old elderly gentleman postop from a left knee replacement. He is doing well. Not having any pain yet. Just getting the function and feeling back in his legs. No chest pain or shortness of breath. Not feeling dizzy or lightheaded. OBJECTIVE: VITAL SIGNS: Temperature 36.4. Vital signs stable. GENERAL: Pleasant elderly male. He is sitting up in bed, appears awake, alert and oriented. LUNGS: Clear to auscultation. HEART: Has a regular rate and rhythm. ABDOMEN: Soft, nontender, nondistended. EXTREMITIES: Grossly neurovascularly intact except as follows: Examination of the left lower extremity reveals the leg to be well aligned. Dressing is clean, dry and intact. There is no drainage. He can dorsiflex and plantarflex his foot and his toes appropriately. Still has a limited numbness to sensation. He has got brisk refill. X-RAYS: X-rays of the left knee from recovery room were reviewed. It shows left cemented posterior stabilized total knee arthroplasty. Components are in good position. There are no signs of problems. ASSESSMENT: An 79-year-old gentleman postop from a left knee replacement, doing pretty well. Pain is controlled. He is neurologically intact. PLAN: 1. DVT prophylaxis including thigh-high TEDs, SCDs, and aspirin twice a day. 2. PT/OT. Weight bear as tolerated. Left total knee protocol. 3. Pain control, doing well with current pain regimen. 4. IV antibiotics x24 hours. 5. Disposition: He is planning to be discharged home with some home health once adequately recovered and medically stable.
[2019-07-02] MEDS: ASCORBIC ACID 500 MG TAB PO SCH (18:13)
[2019-07-02] MEDS: FERROUS GLUCONATE 324 MG TAB PO SCH (18:13)
[2019-07-02] MEDS: ASPIRIN 81 MG ECTAB PO SCH (20:04)
[2019-07-02] MEDS: carvediloL 6.25 MG TAB PO SCH (20:04)
[2019-07-02] MEDS: SENNA 8.6 MG TAB PO SCH (20:04)
[2019-07-02] MEDS: DOCUSATE SODIUM 100 MG CAP PO SCH (20:04)
[2019-07-03] MEDS: CEFAZOLIN 1000MG 1,000 MG/7.5 ML SYR IV SCH (01:24)
[2019-07-03] MEDS: KETOROLAC TROMETHAMINE 15 MG/ML VIAL IV SCH ×4 (01:25→19:45)
[2019-07-03] MEDS: CHECK SCOPOLAMINE PATCH PLACEMENT SCH (01:25)
[2019-07-03] MEDS: ACETAMINOPHEN 500 MG TAB PO SCH ×3 (05:09→21:26)
[2019-07-03 06:09] LABS: Hematocrit (blood only) 37.3 % (42-52); Hemoglobin 12.5 g/dL (14.0-18.0); Mean Corpuscular Hemoglobin 33.7 pg (25-34); Mean Corpuscular Hgb Conc 33.5 g/dL (32-36); Mean Corpuscular Volume 100.5 fL (80-100); Mean Platelet Volume 12.1 fL (7.4-10.4); Platelet Count 121 K/uL (130-400); RDW Coefficient of Variation 13.7 % (11.5-14.5); RDW Standard Deviation 49.8 fL (36.4-46.3); Red Blood Count 3.71 M/uL (4.7-6.1); White Blood Count 8.12 K/uL (4.8-10.8)
[2019-07-03 06:10] LABS: Platelet Estimate Decreased (Normal)
[2019-07-03 06:19] LABS: BUN Creatinine Ratio 20.2 (10-20); Calcium 8.5 mg/dl (8.5-10.1); Creatinine Clr Calc Pharmacy 49.7 ml/min; Est GFR (African American) 73.4; Est GFR (Non-African American) 63.3; Potassium 4.2 mmol/L (3.5-5.1)
[2019-07-03] MEDS: carvediloL 6.25 MG TAB PO SCH ×2 (08:55→21:23)
[2019-07-03] MEDS: DOCUSATE SODIUM 100 MG CAP PO SCH ×2 (08:55→21:24)
[2019-07-03] MEDS: FERROUS GLUCONATE 324 MG TAB PO SCH ×2 (08:55→17:55)
[2019-07-03] MEDS: CHOLECALCIFEROL 1,000 UNITS 25 MCG TAB PO SCH (08:55)
[2019-07-03] MEDS: LOSARTAN POTASSIUM 25 MG TAB PO SCH (08:55)
[2019-07-03] MEDS: ASPIRIN 81 MG ECTAB PO SCH ×2 (08:55→21:25)
[2019-07-03] MEDS: PANTOprazole 40 MG TAB PO SCH (08:55)
[2019-07-03] MEDS: allopurinoL 100 MG TAB PO SCH (08:56)
[2019-07-03] MEDS: ATORVASTATIN 40 MG TAB PO SCH (08:56)
[2019-07-03] MEDS: ASCORBIC ACID 500 MG TAB PO SCH ×2 (08:56→17:54)
[2019-07-03] MEDS: MULTIVITAMIN TAB PO SCH (08:56)
[2019-07-03] MEDS: TRAMADOL HCL 50 MG TABLET PO PRN ×2 (09:10→18:41)
--- NOTE | 2019-07-03 14:53 | Progress Note ---
DATE: 07/03/2019 SUBJECTIVE: 79-year-old gentleman postop day #1 from a left knee replacement. He is doing well. Therapy has gone well. His pain is controlled. No chest pain or shortness of breath. Not feeling dizzy or lightheaded. OBJECTIVE: VITAL SIGNS: Temperature 36.5. Vital signs stable. GENERAL: Shows a pleasant elderly male. He is sitting up in bed and talking his and looks pretty comfortable. EXTREMITIES: Examination of the left leg reveals it to be well aligned. Dressing is clean, dry, and intact. He can dorsiflex and plantarflex his foot appropriately. He is neurologically intact. LABORATORY DATA: Hemoglobin is 12.5. Hematocrit 37.3. Electrolytes are stable. ASSESSMENT: An 79-year-old gentleman postop day #1 from a left knee replacement, doing pretty well. Pain is controlled. He is neurologically intact. PLAN: 1. DVT prophylaxis including thigh-high TEDs, SCDs, and aspirin twice a day. 2. PT/OT. Weight bear as tolerated. Left total knee protocol. 3. Pain control, doing pretty well with current pain regimen. 4. Disposition: Plan to discharge to home with some home health once adequately recovered and medically stable.
[2019-07-03] MEDS: SENNA 8.6 MG TAB PO SCH (21:25)
[2019-07-04] MEDS: KETOROLAC TROMETHAMINE 15 MG/ML VIAL IV SCH ×2 (01:45→08:20)
[2019-07-04] MEDS: ACETAMINOPHEN 500 MG TAB PO SCH (05:46)
--- NOTE | 2019-07-04 08:08 | Progress Note ---
DATE: 07/04/2019 SUBJECTIVE: An 79-year-old gentleman postop day 2 from a left knee replacement. He is doing pretty well. Pain is controlled. Therapy has gone pretty well. He tells me he is ready to go home. Denies any chest pain or shortness of breath. Not feeling dizzy or lightheaded. OBJECTIVE: VITAL SIGNS: Temperature 36.5. Vital signs stable. GENERAL: Shows a pleasant elderly male. He is lying in bed, looks pretty comfortable. He is awake, alert and oriented. EXTREMITIES: Examination of the left leg reveals the leg to be well aligned. Dressing is clean, dry and intact. Fairly mild swelling. He can dorsiflex and plantarflex his foot appropriately. He is neurologically intact. ASSESSMENT: An 79-year-old gentleman postop day 2 from left knee replacement, doing pretty well. His pain is controlled. He is neurologically intact. He has had no cardiac issues. PLAN: 1. DVT prophylaxis including thigh-high TEDs, SCDs, and aspirin twice a day. 2. PT/OT. Weight bear as tolerated. Left total knee protocol. 3. Pain control, doing well with current pain regimen. 4. Disposition: Plan to discharge to home with some home health later today.
[2019-07-04] MEDS: allopurinoL 100 MG TAB PO SCH (08:20)
[2019-07-04] MEDS: CHOLECALCIFEROL 1,000 UNITS 25 MCG TAB PO SCH (08:20)
[2019-07-04] MEDS: ATORVASTATIN 40 MG TAB PO SCH (08:21)
[2019-07-04] MEDS: ASCORBIC ACID 500 MG TAB PO SCH (08:21)
[2019-07-04] MEDS: ASPIRIN 81 MG ECTAB PO SCH (08:21)
[2019-07-04] MEDS: PANTOprazole 40 MG TAB PO SCH (08:21)
[2019-07-04] MEDS: FERROUS GLUCONATE 324 MG TAB PO SCH (08:21)
[2019-07-04] MEDS: LOSARTAN POTASSIUM 25 MG TAB PO SCH (08:21)
[2019-07-04] MEDS: carvediloL 6.25 MG TAB PO SCH (08:21)
[2019-07-04] MEDS: MULTIVITAMIN TAB PO SCH (08:21)
[2019-07-04] MEDS: DOCUSATE SODIUM 100 MG CAP PO SCH (08:22)
--- NOTE | 2019-07-08 15:46 | Discharge Summary ---
ADMITTING PHYSICIAN AND SURGEON: Dr. Noe Snow. ADMITTING DIAGNOSIS: Left knee degenerative joint disease. SURGERY PERFORMED: Left total knee arthroplasty. SECONDARY DIAGNOSES: Right bundle branch block, coronary artery disease, hypertension, diverticulitis, COPD, gastroesophageal reflux disease. CONSULTS: None obtained. HISTORY AND PHYSICAL EXAMINATION: Well-documented in the patient's chart. HOSPITAL COURSE: The patient was admitted on 07/02/2019, underwent total knee arthroplasty, tolerated the procedure well. There were no complications. He was transferred to the PACU postoperatively and later to the orthopedic floor for further care. He was given Ancef for antibiotic prophylaxis, OKSANA stockings, SCDs and aspirin for DVT prophylaxis. Hemoglobin, hematocrit and vital signs were monitored during his hospital stay and remained stable, did not require any blood transfusions. There were no complications. By postoperative day 2, he was tolerating a regular diet, pain was controlled with oral pain medicine. He was participating in physical therapy. On postop day 2, he was discharged home, set up with home health services, given printed discharge instructions as well as new prescriptions for extra strength Tylenol, aspirin and tramadol. Continue his home medicines. Continue physical therapy, weightbearing as tolerated, OKSANA stockings. Follow up approximately 2 weeks postop or sooner if there are any problems or concerns.
== END 2019-07-04 10:32 | disposition home health service (06) | DRG 470 ==
LOC: ASU 06:30 → 3E 11:07

== ENCOUNTER 2021-05-09 03:42 | Inpatient (IN) ==
--- NOTE | 2021-05-09 04:16 | Emergency Department Note ---
Impression & Plan Elevated troponin, Anxiety ADMIT ED Provider Note HPI: The patient is an 81-year-old gentleman who presents the emergency department with multiple issues. Patient states that he has felt very anxious and "off" for the past 2 weeks. His is at the bedside and provides further history. She states that the patient is been very low energy, states that he recently was diagnosed with some form of bladder cancer which she believes has been the inciting event causing him to be feeling more depressed and anxious. Patient states over the past 2 weeks he has felt very anxious, states that he is having difficulty sleeping tonight. Patient states he has felt a sensation of chest "pressure" that is been on and off for the past several weeks as well. States it is fairly dull, states it worsens when he lays flat. Patient also states he has had a headache now for 5 days. States it is resolved with Tylenol. On arrival to the ED the patient has no focal deficits, he is alert and oriented, he is otherwise in no acute distress. ROS: -Psychiatric: Anxiety -Cardio: Nonspecific chest discomfort -Neuro: Headaches *10 point review systems was conducted and is otherwise negative unless stated above *Outpatient medications and allergy history reviewed PE: General: Alert, NAD HEENT: Normocephalic, atraumatic, trachea midline Eyes: Extraocular eye movement is intact, no scleral erythema Pulmonary: Clear to auscultation bilaterally, no wheezing Cardio: Regular rate and rhythm GI: Abdomen is soft, nontender : No suprapubic tenderness MSK: No evidence of trauma or malformation of the extremities, no edema Skin: No evidence of rash Neuro: Alert, no focal deficits Psychiatric: Cooperative emergency medicine medical director: - An order was placed for continuous cardiac monitoring - Patient was noted to be in sinus rhythm with rate of 75 frequent PVCs noted EKG: Rate: 76 Rhythm: Sinus rhythm Intervals: QTC 515 ms, otherwise within normal limits ST changes: No ST elevation Time: 0431 CT HEAD: Impression: No acute intracranial hemorrhage. Chronic periventricular ischemic demyelination changes seen due to small vessel disease. Radiologist: Drake Younger MD Medical Decision Making: Patient presented to the emergency department with multiple issues, stating he has been having some anxiety and difficulty sleeping tonight. He does complain of various physical issues as well including a headache for 5 days, states he is also had some intermittent chest "pressure". Patient is hemodynamically stable on arrival, he is otherwise in no acute distress. I did obtain CT imaging of the head that does not show any evidence of an acute intracranial process. Lab work is obtained that appears largely baseline however troponin was slightly elevated at 0.12. Patient does not have any active chest pressure but he does complain of some intermittent chest pressure is atypical in nature over the past 2 weeks. Patient does have a history of coronary artery disease. Given this he was given aspirin here in the ED, will plan for admission to the hospitalist service through [facility] for further care. Patient is in agreement to the above plan, on my reassessment he is feeling a nxious, he was given a dose of oral Ativan for this, will defer heparin drip at this time to the inpatient service. He is not actively having chest pain at this time. Patient and his at the bedside were updated and informed of the above, they are in agreement to the above plan for admission. Patient was admitted in stable condition. COVID-19 test is pending at the time of admission. * Diagnosis: Anxiety, atypical chest discomfort, elevated troponin * Disposition: Admission Critical care time: 32 minutes -Management of elevated troponin in the setting of intermittent chest disco mfort, interpretation of diagnostic studies including EKG, time spent at the bedside, discussion with the patient and family, discussion with other healthcare providers and arrangement of admission Kai Abarca DO Emergency Medicine Past Med/Surg History Medical History Aortic root enlargement CAD (coronary artery disease) DJD (degenerative joint disease) GERD (gastroesophageal reflux disease) Gout High cholesterol Hypertension Ischemic cardiomyopathy Urinary frequency Surgical History H/O exploratory laparotomy History of cardiac cath History of colonoscopy History of left knee replacement History of surgery Hx of hernia repair Hx of shoulder surgery Status post right knee replacement Family History Sister No problems noted. Brother No problems noted. Other Diabetes Social History Smoking Status: Former smoker Second Hand Exposure: Yes (SPOUSE USED TO SMOKE); Hx Alcohol Use: Yes (3-4 glasses wine before dinner) Alcohol type: wine Hx Substance Use: No Preferred Language: [place] Communication Ability: Effective Sleep Tech Required: No Beliefs That Will Affect Care: None marital status: Current Living Situation: Spouse current occupational status: retired Feels Safe at Home: Yes Assistive Devices: Cane Allergies Allergies Allergy/AdvReac Type Severity Reaction Status Date / Time KAYLI Inhibitors Allergy Unknown Pt Verified 04/12/21 12:50 unsure-UNKNOWN Home Meds Home Medications Medication Instructions Recorded Confirmed allopurinol 100 mg tablet 100 mg PO QAM 04/30/18 04/12/21 (Zyloprim) cholecalciferol (vitamin D3) 50 2,000 unit PO QPM 04/30/18 04/12/21 mcg (2,000 unit) tablet (Vitamin D3) omeprazole magnesium 20 mg 20 mg PO QAM 04/30/18 04/12/21 tablet,delayed release (Prilosec OTC) atorvastatin 40 mg tablet (Lipitor) 80 mg PO QAM 06/11/19 04/12/21 aspirin 81 mg tablet,delayed 81 mg PO QPM 01/11/21 04/12/21 release isosorbide mononitrate 30 mg 30 mg PO QAM 01/11/21 04/12/21 tablet,extended release 24 hr losartan 25 mg tablet (Cozaar) 25 mg PO BID 01/11/21 04/12/21 tamsulosin 0.4 mg capsule 0.4 mg PO QPM 01/11/21 04/12/21 carvedilol 6.25 mg tablet (Coreg) 6.25 mg PO BID 01/25/21 04/12/21 Previous Rx's Medication Instructions Recorded amoxicillin 500 mg tablet 2,000 mg PO ONCE #4 tab 12/26/19 oxybutynin chloride 5 mg tablet 5 mg PO Q8H PRN #20 tab 01/25/21 oxycodone-acetaminophen 7.5 mg-325 1 tab PO Q8H PRN #7 tab 01/25/21 mg tablet (Percocet) phenazopyridine 200 mg tablet 200 mg PO Q8H PRN #10 tab 01/25/21 (Pyridium) Results & Data (ED) Vital Signs Vital Signs - 24 hr 05/09/21 03:53 Temperature 36.6 C Temperature Source Temporal Artery Scan Pulse Rate 74 Respiratory Rate 20 Blood Pressure 174/91 H Blood Pressure Mean 118 Pulse Oximetry 96 Oxygen Delivery Method Room Air Sepsis Recent Fever Within 48 Hours No Sepsis New/Unexplained Change in Mental Status N/A Sepsis Action Taken by Nursing No Action Required Laboratory Data Result diagrams: 05/09/21 05:35 05/09/21 05:35 Lab Results 05/09/21 05/09/21 Range/Units 05:35 05:35 WBC 6.44 (4.8-10.8) K/uL RBC 3.89 L (4.7-6.1) M/uL Hgb 13.1 L (14.0-18.0) g/dL Hct 39.4 L (42-52) % MCV 101.3 H (80-100) fL MCH 33.7 (25-34) pg MCHC 33.2 (32-36) g/dL RDW Std Deviation 51.7 H (36.4-46.3) fL RDW Coeff of Dominic 14.0 (11.5-14.5) % Plt Count 141 (130-400) K/uL MPV 11.7 H (7.4-10.4) fL Immature Gran % (Auto) 0.0 % Neut % (Auto) 63.0 % Lymph % (Auto) 24.1 % [place] % (Auto) 10.1 % Eos % (Auto) 2.5 % Baso % (Auto) 0.3 % Neut # (Auto) 4.06 (1.4-6.5) K/uL Lymph # (Auto) 1.55 (1.2-3.4) K/uL [place] # (Auto) 0.65 H (0.11-0.59) K/uL Eos # (Auto) 0.16 (0-0.5) K/uL Baso # (Auto) 0.02 (0-0.2) K/uL Immature Gran # (Auto) 0.00 (0.00-0.02) K/uL Sodium 138 (136-145) mmol/L Potassium 4.1 (3.5-5.1) mmol/L Chloride 108 H (98-107) mmol/L Carbon Dioxide 25 (21-32) mmol/L Anion Gap 5.0 (3-11) BUN 22 H (7-18) mg/dl Creatinine 1.05 (0.6-1.4) mg/dl Est Cr Clr Drug Dosing 49.8 ml/min Est GFR ( Amer) 75.7 ml/min Est GFR (Non-Af Amer) 65.3 ml/min BUN/Creatinine Ratio 20.7 H (10-20) Glucose 95 (70-99) mg/dl Calcium 9.4 (8.5-10.1) mg/dl Total Bilirubin 0.6 (0.2-1) mg/dl AST 43 H (15-37) U/L ALT 60 (12-78) Alkaline Phosphatase 74 (45-117) U/L Troponin I 0.120 H* (0-0.045) ng/ml Total Protein 6.7 (6.4-8.2) gm/dl Albumin 3.4 (3.4-5.0) gm/dl Globulin 3.3 (2.5-4.0) gm/dl Albumin/Globulin Ratio 1.0 (0.9-2) Lipase 183 (73-393) U/L TSH 2.880 (0.300-4.500) uIu/ml Discharge Plan Visit Data Chief Complaint: Anxiety Stated Complaint: ANXIETY,CAN'T SLEEP,HEADACHES ED Provider: Kai Abarca Discharge Problem: Elevated troponin, Anxiety Forms Stand Alone Forms: My [facility], Suicide Prevention Resources Prescriptions Prescriptions: No Action amoxicillin 500 mg tablet 2,000 mg PO ONCE Qty: 4 RF: 3 allopurinol [Zyloprim] 100 mg Tablet 100 mg PO QAM RF: 0 omeprazole magnesium [Prilosec OTC] 20 mg Tablet,Delayed Release (Dr/Ec) 20 mg PO QAM RF: 0 cholecalciferol (vitamin D3) [Vitamin D3] 2,000 unit Tablet 2,000 unit PO QPM RF: 0 atorvastatin [Lipitor] 40 mg tablet 80 mg PO QAM RF: 0 losartan [Cozaar] 25 mg tablet 25 mg PO BID RF: 0 tamsulosin 0.4 mg capsule 0.4 mg PO QPM RF: 0 aspirin [Aspir-81] 81 mg Tablet,Delayed Release (Dr/Ec) 81 mg PO QPM RF: 0 isosorbide mononitrate 30 mg Tablet Extended Release 24 Hr 30 mg PO QAM RF: 0 oxycodone-acetaminophen [Percocet] 7.5-325 mg tablet 1 tab PO Q8H PRN (Reason: pain) Qty: 7 RF: 0 carvedilol [Coreg] 6.25 mg tablet 6.25 mg PO BID RF: 0 phenazopyridine [Pyridium] 200 mg tablet 200 mg PO Q8H PRN (Reason: pain) Qty: 10 RF: 0 oxybutynin chloride 5 mg tablet 5 mg PO Q8H PRN (Reason: bladder spasms) Qty: 20 RF: 0 Referrals Referrals: Rafael Koehler DO [Physician] -
[2021-05-09 05:53] LABS: Basophils # (auto) 0.02 K/uL (0-0.2); Basophils % (auto) 0.3 %; Eosinophils # (auto) 0.16 K/uL (0-0.5); Eosinophils % (auto) 2.5 %; Hematocrit (blood only) 39.4 % (42-52); Hemoglobin 13.1 g/dL (14.0-18.0); Lymphocytes # (auto) 1.55 K/uL (1.2-3.4); Lymphocytes % (auto) 24.1 %; Mean Corpuscular Hemoglobin 33.7 pg (25-34); Mean Corpuscular Hgb Conc 33.2 g/dL (32-36); Mean Corpuscular Volume 101.3 fL (80-100); Mean Platelet Volume 11.7 fL (7.4-10.4); Monocytes # (auto) 0.65 K/uL (0.11-0.59); Monocytes % (auto) 10.1 %; Neutrophils # (auto) 4.06 K/uL (1.4-6.5); Platelet Count 141 K/uL (130-400); RDW Standard Deviation 51.7 fL (36.4-46.3); Red Blood Count 3.89 M/uL (4.7-6.1); White Blood Count 6.44 K/uL (4.8-10.8)
[2021-05-09 06:10] LABS: Albumin Level 3.4 gm/dl (3.4-5.0); BUN Creatinine Ratio 20.7 (10-20); Calcium 9.4 mg/dl (8.5-10.1); Creatinine Clr Calc Pharmacy 49.8 ml/min; Est GFR (African American) 75.7 ml/min; Est GFR (Non-African American) 65.3 ml/min; Potassium 4.1 mmol/L (3.5-5.1)
[2021-05-09 06:24] LABS: Bilirubin,Total 0.6 mg/dl (0.2-1); Globulin 3.3 gm/dl (2.5-4.0); Thyroid Stimulating Hormone 2.88 uIu/ml (0.300-4.500); Total Protein 6.7 gm/dl (6.4-8.2); Troponin I 0.12 ng/ml (0-0.045)
[2021-05-09] MEDS ORDERED: ASPIRIN CHEW 324 MG PO STA (06:38)
[2021-05-09] MEDS ORDERED: LORazepam 0.5 MG TAB PO STA (06:51)
[2021-05-09 07:08] LABS: Appearance Urine Clear (Clear); Bacteria Urine Automated Negative (Negative); Bilirubin Urine Negative (Negative); Blood Urine Negative (Negative); Color Urine Yellow; Epithelial Cell Urine Auto >30 /lpf (0-5); Glucose Urine UA Negative (Negative); Ketones Urine Trace (Negative); Leukocyte Esterase Urine Negative (Negative); Nitrite Urine Negative (Negative); Protein Urine 1+ (Negative); RBC Urine Automated 0-4 /hpf (0-4); Specific Gravity Urine 1.023 (1.000-1.030); Urobilinogen Urine Negative (Negative)
[2021-05-09] MEDS ORDERED: Heparin IV Adult Wt-Based Standard WITH Bolus Protocol IV STA (09:12)
--- NOTE | 2021-05-09 09:12 | CT Scan Report ---
CT OF THE HEAD WITHOUT CONTRAST CLINICAL HISTORY: Headache x 5 days COMPARISON STUDY: Head CT January 10, 2020. CT DOSE: 614.27 mGy.cm TECHNIQUE: Helical axial images of the head were obtained without IV contrast. Automated exposure con trol was utilized for the study. A dose lowering technique was utilized adhering to the principles o f ALARA. FINDINGS: No acute intracranial hemorrhage, midline shift or mass effect is present. Extensive white matter hypodensities are similar to prior exam. The ventricular system is unremarkable. The basal cis terns are patent. No extra-axial collections are present. There are no findings to suggest acute dura l sinus thrombosis or acute territorial infarct. No significant calvarial abnormalities are present. Visualized portions of the sinuses and mastoid air cells are clear. IMPRESSION: No acute intracranial findings. No significant change in appearance of the brain. ACT 112: Negative or not required by law. Electronically signed by: Radu Palmer M.D. 05/09/2021 9:10 AM
--- NOTE | 2021-05-09 09:13 | XRay Report ---
XR chest 1V portable CLINICAL HISTORY: Atypical chest pain. COMPARISON STUDY: Chest CT January 10, 2020. Chest radiograph January 14, 2021. FINDINGS: Lung volumes are normal. There is no pneumothorax or pleural effusion. Mild left basilar op acity is noted. Cardiomegaly is unchanged. There is no evidence for pulmonary edema. IMPRESSION: 1. Mild left basilar opacity which favors atelectasis. 2. Cardiomegaly without evidence for pulmonary edema. ACT 112: Negative or not required by law. Electronically signed by: Radu Palmer M.D. 05/09/2021 9:12 AM
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
[2021-05-09] MEDS ORDERED: Heparin IVP from UFH Protocol (WITH Bolus) IV ONE (09:45)
[2021-05-09] MEDS ORDERED: Heparin Adult STANDARD Wt-Based Dextrose 5% 25,000 units/500 mL IV SCH (09:45)
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
[2021-05-09] MEDS ORDERED: METOPROLOL TARTRATE 1 MG/ML VIAL IV STA ×2 (10:32→23:35)
[2021-05-09] MEDS: NITROGLYCERIN 2% OINTMENT 30GM TUBE EXT SCH ×4 (10:45→23:54)
[2021-05-09] MEDS: METOPROLOL TARTRATE 50 MG TAB PO SCH ×2 (10:45→21:59)
[2021-05-09] MEDS: ATORVASTATIN 40 MG TAB PO SCH (12:10)
[2021-05-09] MEDS: ISOSORBIDE MONO EXTENDED REL 30 MG TABCR PO SCH (12:10)
[2021-05-09] MEDS: LOSARTAN POTASSIUM 50 MG TAB PO SCH ×2 (12:10→21:59)
--- NOTE | 2021-05-09 13:07 | Electrocardiogram Report ---
Test Reason : Blood Pressure : / mmHG Vent. Rate : 076 BPM Atrial Rate : 076 BPM P-R Int : 160 ms QRS Dur : 136 ms QT Int : 458 ms P-R-T Axes : 057 -31 -20 degrees QTc Int : 515 ms Sinus rhythm with frequent Premature ventricular complexes Left axis deviation Right bundle branch block Moderate voltage criteria for LVH, may be normal variant Abnormal ECG When compared with ECG of 14-JAN-2021 12:42, Premature ventricular complexes are now Present Confirmed by Jag Warner ([id number]) on 05/09/2021 1:07:25 PM Referred By: REFERRED SELF Confirmed By:Jag Warner
[2021-05-09] MEDS ORDERED: OXYBUTYNIN CHLORIDE 5 MG TAB PO PRN (17:49)
[2021-05-09] MEDS ORDERED: PHENAZOPYRIDINE HCL 200 MG TAB PO PRN (17:49)
[2021-05-09] MEDS: ACETAMINOPHEN 325 MG TAB PO PRN (19:50)
[2021-05-09] MEDS: TAMSULOSIN HCL 0.4 MG CAP PO SCH (21:15)
[2021-05-09] MEDS: allopurinoL 100 MG TAB PO SCH ×2 (21:15→21:20)
[2021-05-09] MEDS: HEPARIN SOD 5,000 UNIT/0.5 ML VIAL SQ SCH (21:16)
[2021-05-09] MEDS: CHOLECALCIFEROL 1,000 UNITS 25 MCG TAB PO SCH (21:16)
[2021-05-09] MEDS: LORazepam 0.5 MG TAB PO PRN (21:59)
[2021-05-09] MEDS ORDERED: Nursing to Pharmacy Communication SCH (23:00)
[2021-05-09] MEDS ORDERED: LORazepam 0.25 MG/0.5 ML VIAL IV STA (23:34)
[2021-05-10] MEDS ORDERED: MAGNESIUM SULFATE / D5W 1 GM/100 ML BAG IV ONE (01:45)
[2021-05-10] MEDS: LOSARTAN POTASSIUM 50 MG TAB PO SCH ×2 (04:34→19:54)
[2021-05-10] MEDS: HEPARIN SOD 5,000 UNIT/0.5 ML VIAL SQ SCH ×3 (05:48→21:41)
[2021-05-10] MEDS: NITROGLYCERIN 2% OINTMENT 30GM TUBE EXT SCH ×4 (05:49→23:58)
[2021-05-10] MEDS: METOPROLOL TARTRATE 50 MG TAB PO SCH ×2 (07:47→19:53)
[2021-05-10] MEDS: PANTOprazole 40 MG TAB PO SCH (07:47)
[2021-05-10] MEDS: allopurinoL 100 MG TAB PO SCH (07:47)
[2021-05-10 09:08] LABS: Hematocrit (blood only) 46.7 % (42-52); Hemoglobin 15.3 g/dL (14.0-18.0); Mean Corpuscular Hemoglobin 33.4 pg (25-34); Mean Corpuscular Hgb Conc 32.8 g/dL (32-36); Mean Platelet Volume 12.1 fL (7.4-10.4); Platelet Count 154 K/uL (130-400); RDW Coefficient of Variation 14.1 % (11.5-14.5); RDW Standard Deviation 52.3 fL (36.4-46.3); Red Blood Count 4.58 M/uL (4.7-6.1); White Blood Count 7.34 K/uL (4.8-10.8)
[2021-05-10 09:40] LABS: BUN Creatinine Ratio 18.4 (10-20); Calcium 9.8 mg/dl (8.5-10.1); Est GFR (African American) 72.4 ml/min; Est GFR (Non-African American) 62.4 ml/min; Potassium 3.8 mmol/L (3.5-5.1)
[2021-05-10 09:45] LABS: Troponin I 0.143 ng/ml (0-0.045)
[2021-05-10] MEDS: ATORVASTATIN 40 MG TAB PO SCH (09:45)
[2021-05-10] MEDS: ISOSORBIDE MONO EXTENDED REL 30 MG TABCR PO SCH (09:45)
--- NOTE | 2021-05-10 09:53 | Cardiology Progress Note ---
Date of Service May 10, 2021 Assessment & Plan (1) Hypertensive urgency: (2) Elevated troponin: (3) Presence of drug coated stent in LAD coronary artery: (4) Frequent PVCs: Plan: 81-year-old patient with history of coronary disease presented to the emergency department with hypertensive urgency, symptomatic PVCs, and chest pressure. Troponins mildly elevated. No new regional wall motion abnormality per echocardiogram with evidence of hypertensive heart disease. No ischemic ECG changes. Carvedilol discontinued in favor of metoprolol for treatment of symptomatic premature ventricular complexes. PVC burden has improved overnight. Resting heart rate now in the 60-70s. Losartan titrated to 50 mg twice daily. Blood pressure remains elevated this morning, however, patient has not received a.m. dose of isosorbide monohydrate. Consider addition of low-dose calcium channel lori therapy, amlodipine 2.5 mg daily, pending assessment of blood pressure today. Repeat twelve-lead ECG. Review of outpatient medical records reveals recent nuclear stress test negative for inducible ischemia. Patient has a known severe right posterior descending artery stenosis which is not amenable to PCI. There is no evidence of anterior ischemia per Lexiscan nuclear stress test. Continue inpatient management. Possible discharge in 24-48 hours. Admission and Anticipated Discharge Date Admission Date: May 09, 2021 Subjective Patient seen and examined at the bedside. Slept well last night. Telemetry reveals sinus rhythm with a heart rate ranging from 60-70 bpm with occasional premature ventricular complexes. Palpitations improved with transition of carvedilol to metoprolol. Blood pressure elevated this morning. Patient admits to anxiety and headaches prior to admission. Recently completed treatment for bladder cancer on . Denies orthopnea, PND, or lower extremity edema. Echocardiogram demonstrating hypertensive heart disease with preserved LV systolic function. Review of Systems Review of Systems: All systems reviewed & are unremarkable except as noted in Subjective Physical Exam Constitutional: well developed and well nourished; not ill appearing Respiratory: normal respiratory effort; no respiratory distress and no labored breathing Auscultation: lungs clear to auscultation bilaterally; no crackles, no rales, no rhonchi and no wheezes Cardiovascular: Rate/Rhythm: regular rate and regular rhythm (Occasional ectopy) Heart Sounds: normal S1 and normal S2; no murmur Vessels: no JVD and no carotid bruit Gastrointestinal (Abdomen): Inspection/Auscultation: abdomen normal to inspection and normal bowel sounds; abdomen not distended Percussion/Palpation: abdomen soft; abdomen nontender, no guarding and abdomen not rigid Neurologic: CN's II-XI intact bilaterally and moves all extremities; no focal motor deficits Motor/Sensory: no tremor Psychiatric: A+Ox3, euthymic affect Results & Data ([facility]) Vital Signs (Past 12 Hours) Vital Signs Temp Pulse Pulse Resp BP BP BP 05/10/21 07:46 36.9 C 88 18 196/114 H 05/10/21 07:13 80 05/10/21 06:20 161/73 H 05/10/21 05:46 71 183/88 H 05/10/21 04:34 184/93 H 05/10/21 04:17 73 174/89 H 05/10/21 03:15 36.6 C 76 18 167/78 H 05/10/21 01:10 65 120/74 05/10/21 00:32 77 103/62 05/09/21 23:55 81 172/98 H 05/09/21 23:48 88 88 187/110 H 187/110 H 05/09/21 22:50 36.9 C 89 16 180/92 H 05/09/21 22:49 189/95 H 05/09/21 22:19 87 05/09/21 21:57 93 H 209/84 H Pulse Ox 05/10/21 07:46 95 05/10/21 07:13 05/10/21 06:20 05/10/21 05:46 05/10/21 04:34 05/10/21 04:17 05/10/21 03:15 93 05/10/21 01:10 05/10/21 00:32 05/09/21 23:55 05/09/21 23:48 05/09/21 22:50 90 05/09/21 22:49 05/09/21 22:19 05/09/21 21:57
--- NOTE | 2021-05-10 15:59 | Hospitalist Progress Note ---
Date of Service May 10, 2021 Assessment & Plan (1) Elevated troponin: (2) Pressure in chest: Plan: Present on admission with intermittent pressure like chest pain that worsening when lying flat on his back and associated with SOB Possible related to hypertensive urgency Need to r/o ACS Troponin on admission 0.12 ->0.17->0.14 EKG showed frequent PVCs with no acute ischemic changes ( read by me) Received Aspirin 324 mg in the ER Cardiology on board On admission losartan increased to 50 mg twice daily and carvedilol was changed to metoprolol 50 mg twice daily Continue Nitropaste and Imdur Cardiology consult - Dr. Walker was notified Order was placed to start on IV heparin drip, but after discussed with cardiology heparin drip was discontinued Will keep NPO until eval by cardiology Continue losartan, aspirin, statin, and carvedilol and Imdur Check Lipid panel in am Continue monitor closely in Tele Hypertensive Urgency BP elevated might be due to anxiety case discussed with cardio that recommended to increase Losartan to 50mg BID Will start on nitro paste and metoprolol tartrate 50mg BID Will give IV Lopressor 5mg x1 Continue monitor BP Bladder Cancer Currently undergoing therapy with BCG Continue Flomax and Pyridium Anxiety Possible due to the recent health issues Consider SSRI, will defer to PCP received Ativan in the ER Will add prn Ativan while inpatient Headache Possible related to lack of sleep CT head showed no acute intracranial abnormality Tylenol prn Dyslipidemia Continue statin Will check Lipid panel in am Aortic root aneurysm Moderate aortic root enlargement, 4.[address], 4.3 cm prior echo 09/2020 DVT px on Heparin drip Code status Full code ( but does not want to stay connect on machine for too long ) Admission and Anticipated Discharge Date Admission Date: May 09, 2021 Subjective Patient was seen and examined for follow-up of pressure-like chest discomfort and elevated blood pressure Lying in bed with no acute distress Patient said that he had a good night sleep last night Denies any chest pain, palpitation, dizziness, shortness of breath. Review of Systems Review of Systems: All systems reviewed & are unremarkable except as noted in Subjective Physical Exam Physical Exam: General- No acute distress Head- atraumatic Eyes- PERRL, EOMI, ENT- oropharynx clear Neck- supple, no JVD Lungs- clear to auscultation Heart- regular rhythm; no murmur Abdomen- normal bowel sounds, soft, nontender Extremities- no calf tenderness Neuro- alert, oriented x 3; PERRL, EOMI; no facial palsy; no dysarthria Skin- warm & dry Results & Data Results & Data ([facility]) Vital Signs (Past 12 Hours) Vital Signs Temp Pulse Pulse Resp BP BP Pulse Ox 05/10/21 14:53 69 05/10/21 12:00 36.9 C 70 20 164/81 H 98 05/10/21 09:48 79 145/75 H 05/10/21 07:46 36.9 C 88 18 196/114 H 95 05/10/21 07:13 80 05/10/21 06:20 161/73 H 05/10/21 05:46 71 183/88 H 05/10/21 04:34 184/93 H 05/10/21 04:17 73 174/89 H
--- NOTE | 2021-05-10 16:00 | Electrocardiogram Report ---
Test Reason : Blood Pressure : / mmHG Vent. Rate : 063 BPM Atrial Rate : 063 BPM P-R Int : 180 ms QRS Dur : 136 ms QT Int : 468 ms P-R-T Axes : 088 -30 -49 degrees QTc Int : 478 ms Sinus rhythm with Premature atrial complexes Left axis deviation Non-specific intra-ventricular conduction block Cannot rule out Septal infarct , age undetermined T wave abnormality, consider anterolateral ischemia Abnormal ECG When compared with ECG of 09-MAY-2021 04:31, Premature ventricular complexes are no longer Present Premature atrial complexes are now Present Non-specific intra-ventricular conduction block has replaced Right bundle branch block Minimal criteria for Septal infarct are now Present Confirmed by Jag Warner ([id number]) on 05/10/2021 3:59:29 PM Referred By: REFERRED SELF Confirmed By:Jag Warner
[2021-05-10] MEDS: CHOLECALCIFEROL 1,000 UNITS 25 MCG TAB PO SCH (19:53)
[2021-05-10] MEDS: ASPIRIN 81 MG ECTAB PO SCH (19:53)
[2021-05-10] MEDS: TAMSULOSIN HCL 0.4 MG CAP PO SCH (19:53)
[2021-05-10] MEDS: LORazepam 0.5 MG TAB PO PRN (19:56)
[2021-05-11] MEDS: NITROGLYCERIN 2% OINTMENT 30GM TUBE EXT SCH (06:01)
[2021-05-11] MEDS: HEPARIN SOD 5,000 UNIT/0.5 ML VIAL SQ SCH ×3 (06:01→21:11)
[2021-05-11 08:57] LABS: BUN Creatinine Ratio 16.9 (10-20); Calcium 9.2 mg/dl (8.5-10.1); Creatinine Clr Calc Pharmacy 52.9 ml/min; Est GFR (African American) 81.3 ml/min; Est GFR (Non-African American) 70.1 ml/min; Magnesium 1.8 mg/dl (1.8-2.4); Potassium 3.9 mmol/L (3.5-5.1)
[2021-05-11] MEDS: LOSARTAN POTASSIUM 50 MG TAB PO SCH ×2 (09:01→20:21)
[2021-05-11] MEDS: PANTOprazole 40 MG TAB PO SCH (09:01)
[2021-05-11] MEDS: ISOSORBIDE MONO EXTENDED REL 30 MG TABCR PO SCH (09:01)
[2021-05-11] MEDS: METOPROLOL TARTRATE 25 MG TAB PO SCH ×2 (09:01→20:20)
[2021-05-11] MEDS: ATORVASTATIN 40 MG TAB PO SCH (09:01)
[2021-05-11] MEDS: allopurinoL 100 MG TAB PO SCH (09:01)
--- NOTE | 2021-05-11 09:29 | Cardiology Progress Note ---
Date of Service May 11, 2021 Assessment & Plan (1) Hypertensive urgency: (2) Elevated troponin: (3) Presence of drug coated stent in LAD coronary artery: (4) Frequent PVCs: Plan: Titrate metoprolol to 75 mg twice daily. Continue isosorbide monohydrate 30 mg daily, and losartan 50 mg twice daily (titrated from 25 mg twice daily on admission). Consider addition of low-dose calcium channel lori therapy, amlodipine 2.5 mg daily, pending assessment of blood pressure today. Review of outpatient medical records reveals recent nuclear stress test negative for inducible ischemia. Patient has a known severe right posterior descending artery stenosis which is not amenable to PCI. There is no evidence of anterior ischemia per Lexiscan nuclear stress test. No new regional wall motion abnormalities per resting echocardiogram this admission. Monitor blood pressure today. Consider discharge later today if blood pressure improved. Discontinue Ativan due to confusion/sundowning reported last evening. Admission and Anticipated Discharge Date Admission Date: May 09, 2021 Subjective Patient seen and examined at the bedside. Received a dose of Ativan last night with resultant confusion. Notes some chest discomfort in the evening as well. Denies orthopnea or PND. Telemetry reveals sinus rhythm with PACs and PVCs. B lood pressure remains labile and elevated this morning. He has yet to receive his a.m. medications. Requesting discharge if possible. Review of Systems Review of Systems: All systems reviewed & are unremarkable except as noted in Subjective Physical Exam Constitutional: well developed and well nourished; not ill appearing Respiratory: normal respiratory effort; no respiratory distress and no labored breathing Auscultation: lungs clear to auscultation bilaterally; no crackles, no rales, no rhonchi and no wheezes Cardiovascular: Rate/Rhythm: regular rate and regular rhythm (Occasional ectopy) Heart Sounds: normal S1 and normal S2; no murmur Vessels: no JVD and no carotid bruit Gastrointestinal (Abdomen): Inspection/Auscultation: abdomen normal to inspection and normal bowel sounds; abdomen not distended Percussion/Palpation: abdomen soft; abdomen nontender, no guarding and abdomen not rigid Neurologic: CN's II-XI intact bilaterally and moves all extremities; no focal motor deficits Motor/Sensory: no tremor Psychiatric: A+Ox3, euthymic affect Results & Data ([facility]) Vital Signs (Past 12 Hours) Vital Signs Temp Pulse Pulse Resp BP BP Pulse Ox 05/11/21 07:43 87 05/11/21 07:09 36.7 C 96 H 20 190/79 H 96 05/11/21 03:30 36.6 C 72 20 161/87 H 95 05/10/21 23:25 36.7 C 71 22 158/75 H 91
[2021-05-11] MEDS: ACETAMINOPHEN 325 MG TAB PO PRN (20:19)
[2021-05-11] MEDS: CHOLECALCIFEROL 1,000 UNITS 25 MCG TAB PO SCH (20:20)
[2021-05-11] MEDS: TAMSULOSIN HCL 0.4 MG CAP PO SCH (20:21)
[2021-05-11] MEDS: ASPIRIN 81 MG ECTAB PO SCH (20:22)
[2021-05-11] MEDS ORDERED: MELATONIN 3 MG TAB PO PRN (21:19)
--- NOTE | 2021-05-11 23:10 | Hospitalist Progress Note ---
Date of Service May 11, 2021 Assessment & Plan (1) Elevated troponin: (2) Pressure in chest: Plan: Present on admission with intermittent pressure like chest pain that worsening when lying flat on his back and associated with SOB Possible related to hypertensive urgency Need to r/o ACS Troponin on admission 0.12 ->0.17->0.14 EKG showed frequent PVCs with no acute ischemic changes ( read by me) Received Aspirin 324 mg in the ER, continue aspirin 81 mg daily Cardiology on board losartan increased to 50 mg twice daily and carvedilol was changed to metoprolol 50 mg twice daily Metoprolol increased to 75mg BID Discontinued Nitropaste Clinically improved significantly Continue monitor closely in Tele Hypertensive Urgency BP elevated might be due to anxiety Continue losartan to 50mg BID Metoprolol increased to 75 mg twice daily Continue monitor BP Bladder Cancer Currently undergoing therapy with BCG Continue Flomax and Pyridium Anxiety Possible due to the recent health issues Consider SSRI, will defer to PCP Ativan discontinued since patient became confused after received Ativan Headache Possible related to lack of sleep CT head showed no acute intracranial abnormality Tylenol prn Resolved Dyslipidemia Continue statin Chol 145/ LDL 55 and HDL 65 Aortic root aneurysm Moderate aortic root enlargement, 4.[address], 4.3 cm prior echo 09/2020 DVT px onHeparin subcu Code status Full code ( but does not want to stay connect on machine for too long ) Disposition Plan to discharge home if blood pressure stable Admission and Anticipated Discharge Date Admission Date: May 09, 2021 Subjective Patient was seen and examined for follow-up of pressure-like chest discomfort and elevated blood pressure Lying in bed with no acute distress BP has been fluctuated Denies any chest pain, palpitation, dizziness, shortness of breath. Review of Systems Review of Systems: All systems reviewed & are unremarkable except as noted in Subjective Physical Exam Physical Exam: General- No acute distress Head- atraumatic Eyes- PERRL, EOMI, ENT- oropharynx clear Neck- supple, no JVD Lungs- clear to auscultation Heart- regular rhythm; no murmur Abdomen- normal bowel sounds, soft, nontender Extremities- no calf tenderness Neuro- alert, oriented x 3; PERRL, EOMI; no facial palsy; no dysarthria Skin- warm & dry Results & Data Results & Data ([facility]) Vital Signs (Past 12 Hours) Vital Signs Temp Pulse Pulse Resp BP Pulse Ox 12/07/21 19:41 36.5 C 62 22 162/75 H 96 05/11/21 16:10 67 05/11/21 14:51 36.4 C L 73 18 149/80 H 94
[2021-05-12] MEDS: HEPARIN SOD 5,000 UNIT/0.5 ML VIAL SQ SCH (05:26)
[2021-05-12] MEDS: LOSARTAN POTASSIUM 50 MG TAB PO SCH (08:17)
[2021-05-12] MEDS: PANTOprazole 40 MG TAB PO SCH (08:17)
[2021-05-12] MEDS: ISOSORBIDE MONO EXTENDED REL 30 MG TABCR PO SCH (08:18)
[2021-05-12] MEDS: METOPROLOL TARTRATE 25 MG TAB PO SCH (08:18)
[2021-05-12] MEDS: allopurinoL 100 MG TAB PO SCH (08:18)
[2021-05-12] MEDS: ATORVASTATIN 40 MG TAB PO SCH (08:19)
--- NOTE | 2021-05-12 10:38 | Cardiology Progress Note ---
Date of Service May 12, 2021 Assessment & Plan (1) Hypertensive urgency: (2) Elevated troponin: (3) Presence of drug coated stent in LAD coronary artery: (4) Frequent PVCs: Plan: Continue metoprolol 75 mg twice daily, isosorbide monohydrate 30 mg daily, and losartan 50 mg twice daily (titrated from 25 mg twice daily on admission). Consider addition of low-dose calcium channel lori therapy, amlodipine 2.5 mg daily, in the outpatient setting. Recent nuclear stress test negative for inducible ischemia 09/29/20. Patient has a known severe right posterior descending artery stenosis which is not amenable to PCI. Continue medical management. Outpatient cardiology follow-up in 2 weeks. Addendum: Contacted by nursing due to bradycardia. ECG demonstrating sinus bradycardia. Reduce metoprolol tartrate to 50 mg twice daily. Admission and Anticipated Discharge Date Admission Date: May 11, 2021 Subjective Patient seen and examined the bedside. Reports feeling anxious last evening. No recurrent chest discomfort or unusual shortness of breath. Telemetry reveals sinus rhythm with frequent premature supraventricular complexes. Patient denies palpitations, lightheadedness, or dizziness. Review of Systems Review of Systems: All systems reviewed & are unremarkable except as noted in Subjective Physical Exam Constitutional: well developed and well nourished; not ill appearing Respiratory: normal respiratory effort; no respiratory distress and no labored breathing Auscultation: lungs clear to auscultation bilaterally; no crackles, no rales, no rhonchi and no wheezes Cardiovascular: Rate/Rhythm: regular rate and regular rhythm (Occasional ectopy) Heart Sounds: normal S1 and normal S2; no murmur Vessels: no JVD and no carotid bruit Gastrointestinal (Abdomen): Inspection/Auscultation: abdomen normal to inspection and normal bowel sounds; abdomen not distended Percussion/Palpation: abdomen soft; abdomen nontender, no guarding and abdomen not rigid Neurologic: CN's II-XI intact bilaterally and moves all extremities; no focal motor deficits Motor/Sensory: no tremor Psychiatric: A+Ox3, euthymic affect Results & Data ([facility]) Vital Signs (Past 12 Hours) Vital Signs Temp Pulse Pulse Pulse Resp BP BP 05/12/21 08:19 70 47 L 140/76 05/12/21 07:50 77 05/12/21 03:29 36.6 C 80 18 154/79 H 05/11/21 23:27 36.4 C L 61 18 141/69 H 05/11/21 22:36 83 Pulse Ox 05/12/21 08:19 05/12/21 07:50 05/12/21 03:29 91 05/11/21 23:27 95 05/11/21 22:36
--- NOTE | 2021-05-12 16:18 | Electrocardiogram Report ---
Test Reason : Blood Pressure : / mmHG Vent. Rate : 048 BPM Atrial Rate : 048 BPM P-R Int : 176 ms QRS Dur : 134 ms QT Int : 504 ms P-R-T Axes : 102 -30 -47 degrees QTc Int : 450 ms Sinus bradycardia Left axis deviation Left ventricular hypertrophy with QRS widening Cannot rule out Septal infarct (cited on or before 10-MAY-2021) T wave abnormality, consider anterolateral ischemia T wave abnormality, consider inferior ischemia Abnormal ECG When compared with ECG of 10-MAY-2021 09:34, Premature atrial complexes are no longer Present Confirmed by Jag Warner ([id number]) on 05/12/2021 4:18:05 PM Referred By: REFERRED SELF Confirmed By:Jag Warner
[2021-05-12] MEDS ORDERED: METOPROLOL TARTRATE 50 MG TAB PO SCH (21:00)
== END 2021-05-12 14:54 | disposition home or self-care (01) | DRG 305 ==
LOC: ED 03:42 → EDINP 03:42 → 2S 17:40 → SUATTDRO 05-11 23:42

== ENCOUNTER 2021-05-19 10:40 | Observation (INO) ==
--- NOTE | 2021-05-19 12:17 | XRay Report ---
XR chest 1V portable HISTORY: 81 years-old Male Chest Pain acute atypical chest pain with weakness COMPARISON: Chest radiograph 05/09/2021 TECHNIQUE: Portable AP view the chest FINDINGS: Cardiac silhouette is mildly enlarged. Ill-defined opacity of the right lung apex is likely artifactu al. Unchanged interstitial coarsening. Chronic blunting of the costophrenic angles. Mild linear left basilar atelectasis/scarring. No pneumothorax, overt pulmonary edema or lobar airspace consolidation. Degenerative changes of the shoulders and spine. IMPRESSION: Cardiomegaly with mild left basilar atelectasis/scarring. ACT 112: Negative or not required by law. The above report was generated using voice recognition software. It may contain grammatical, syntax o r spelling errors. Electronically signed by: Kory Ross M.D. 05/19/2021 12:16 PM
[2021-05-19 12:26] LABS: Basophils # (auto) 0.02 K/uL (0-0.2); Basophils % (auto) 0.2 %; Eosinophils # (auto) 0.24 K/uL (0-0.5); Eosinophils % (auto) 2.6 %; Hematocrit (blood only) 38.9 % (42-52); Hemoglobin 12.5 g/dL (14.0-18.0); Immature Granulocytes # (auto) 0.03 K/uL (0.00-0.02); Immature Granulocytes % (auto) 0.3 %; Lymphocytes # (auto) 1.79 K/uL (1.2-3.4); Lymphocytes % (auto) 19.4 %; Mean Corpuscular Hemoglobin 32.6 pg (25-34); Mean Corpuscular Hgb Conc 32.1 g/dL (32-36); Mean Corpuscular Volume 101.6 fL (80-100); Monocytes % (auto) 15.2 %; Neutrophils # (auto) 5.75 K/uL (1.4-6.5); Neutrophils % (auto) 62.3 %; Platelet Count 181 K/uL (130-400); RDW Coefficient of Variation 14.1 % (11.5-14.5); RDW Standard Deviation 52.6 fL (36.4-46.3); Red Blood Count 3.83 M/uL (4.7-6.1); White Blood Count 9.23 K/uL (4.8-10.8)
[2021-05-19 13:15] LABS: Albumin Level 3.2 gm/dl (3.4-5.0); BUN Creatinine Ratio 20.7 (10-20); Calcium 9.6 mg/dl (8.5-10.1); Creatinine Clr Calc Pharmacy 51.3 ml/min; Est GFR (African American) 78.4 ml/min; Est GFR (Non-African American) 67.7 ml/min
[2021-05-19 13:23] LABS: Albumin Globulin Ratio 0.9 (0.9-2); Bilirubin,Total 0.6 mg/dl (0.2-1); Globulin 3.4 gm/dl (2.5-4.0); Total Protein 6.6 gm/dl (6.4-8.2); Troponin I 0.059 ng/ml (0-0.045)
[2021-05-19 13:58] LABS: Potassium 4.3 mmol/L (3.5-5.1)
[2021-05-19] MEDS ORDERED: FUROSEMIDE 40 MG/4 ML VIAL IV ONE (14:24)
[2021-05-19] MEDS ORDERED: AMIODARONE 200 MG TAB PO ONE (14:26)
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
[2021-05-19] MEDS ORDERED: NITROGLYCERIN SL 0.4 MG/TAB TAB SL PRN (17:32)
[2021-05-19] MEDS ORDERED: ACETAMINOPHEN 325 MG TAB PO PRN (17:32)
[2021-05-19] MEDS ORDERED: PHENAZOPYRIDINE HCL 200 MG TAB PO PRN (17:32)
[2021-05-19] MEDS ORDERED: OXYBUTYNIN CHLORIDE 5 MG TAB PO PRN (17:32)
[2021-05-19] MEDS: LOSARTAN POTASSIUM 50 MG TAB PO SCH (20:05)
[2021-05-19] MEDS: TAMSULOSIN HCL 0.4 MG CAP PO SCH (20:05)
[2021-05-19] MEDS: AMIODARONE 200 MG TAB PO SCH (20:05)
[2021-05-19] MEDS: CHOLECALCIFEROL 1,000 UNITS 25 MCG TAB PO SCH (20:05)
[2021-05-19] MEDS: HEPARIN SOD 5,000 UNIT/0.5 ML VIAL SQ SCH (20:06)
[2021-05-19] MEDS: ASPIRIN 81 MG ECTAB PO SCH (20:06)
[2021-05-19] MEDS: carvediloL 6.25 MG TAB PO SCH (20:06)
[2021-05-20 03:07] LABS: Hematocrit (blood only) 39.4 % (42-52); Hemoglobin 13.1 g/dL (14.0-18.0); Mean Corpuscular Hemoglobin 33.8 pg (25-34); Mean Corpuscular Hgb Conc 33.2 g/dL (32-36); Mean Corpuscular Volume 101.5 fL (80-100); Mean Platelet Volume 11.4 fL (7.4-10.4); Platelet Count 173 K/uL (130-400); RDW Coefficient of Variation 13.9 % (11.5-14.5); RDW Standard Deviation 52.1 fL (36.4-46.3); Red Blood Count 3.88 M/uL (4.7-6.1); White Blood Count 8.02 K/uL (4.8-10.8)
[2021-05-20 03:26] LABS: BUN Creatinine Ratio 20.1 (10-20); Calcium 9.7 mg/dl (8.5-10.1); Creatinine Clr Calc Pharmacy 43.6 ml/min; Est GFR (African American) 64.4 ml/min; Est GFR (Non-African American) 55.6 ml/min; Potassium 3.7 mmol/L (3.5-5.1)
[2021-05-20 03:40] LABS: Troponin I 0.066 ng/ml (0-0.045)
[2021-05-20] MEDS: AMIODARONE 200 MG TAB PO SCH ×3 (07:07→22:27)
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
[2021-05-20] MEDS: allopurinoL 100 MG TAB PO SCH (09:12)
[2021-05-20] MEDS: ATORVASTATIN 40 MG TAB PO SCH (09:12)
[2021-05-20] MEDS: ISOSORBIDE MONO EXTENDED REL 30 MG TABCR PO SCH (09:13)
[2021-05-20] MEDS: HEPARIN SOD 5,000 UNIT/0.5 ML VIAL SQ SCH ×2 (09:15→20:58)
[2021-05-20] MEDS: LOSARTAN POTASSIUM 50 MG TAB PO SCH ×2 (09:20→20:54)
[2021-05-20] MEDS: PANTOprazole 40 MG TAB PO SCH (09:20)
[2021-05-20] MEDS: carvediloL 6.25 MG TAB PO SCH ×2 (10:10→20:55)
--- NOTE | 2021-05-20 10:14 | Cardiology Progress Note ---
Date of Service May 20, 2021 Assessment & Plan (1) Frequent PVCs: (2) PAC (premature atrial contraction): (3) Pressure in chest: (4) Elevated troponin: (5) Acute on chronic heart failure with preserved ejection fraction (HFpEF): Plan: Add furosemide 20 mg with 10 mEq of potassium supplementation daily. Metoprolol discontinued in favor of carvedilol to improve blood pressure control. Continue amiodarone 200 mg twice daily for suppression of frequent ventricular and supraventricular ectopy. Repeat LFTs and TSH in 3 months. Continue to monitor blood pressure until after lunch. If patient remains asymptomatic with reasonably controlled blood pressure, he may be discharged to home with close outpatient cardiology follow-up in 1 week. All questions answered to patient satisfaction. He is agreeable to the current plan. Admission and Anticipated Discharge Date Admission Date: May 19, 2021 Subjective Patient seen and examined at bedside. Received 40 mg of intravenous Lasix yesterday in the ER with significant diuresis per discussion with patient. His urine output was not recorded. Was able to sleep last night without recurrent chest pressure or orthopnea. Telemetry continues to demonstrate frequent PVCs and PACs. Received 2 doses of amiodarone thus far. Metoprolol transition to carvedilol. Blood pressure remains elevated, however, labile. Review of Systems Review of Systems: All systems reviewed & are unremarkable except as noted in Subjective Physical Exam Constitutional: well developed and well nourished; no acute distress Respiratory: normal respiratory effort; no respiratory distress, no labored breathing and no retractions Auscultation: no crackles, no rales, no rhonchi and no wheezes Cardiovascular: Rate/Rhythm: regular rate and regular rhythm Heart Sounds: normal S1, normal S2 and + murmur (2/6 systolic ejection murmur heard best at the base) Gastrointestinal (Abdomen): Inspection/Auscultation: abdomen normal to inspection and normal bowel sounds; abdomen not distended Percussion/Palpation: abdomen soft; abdomen nontender, no guarding and abdomen not rigid Neurologic: CN's II-XI intact bilaterally and moves all extremities; no focal motor deficits Motor/Sensory: no tremor Psychiatric: A+Ox3, euthymic affect Results & Data ([facility]) Vital Signs (Past 12 Hours) Vital Signs Temp Pulse Resp BP Pulse Ox 05/20/21 09:25 36.7 C 82 20 160/100 H 97 05/20/21 07:51 36.8 C 67 20 160/108 H 96 05/20/21 05:15 71 18 149/87 H 97 05/20/21 00:47 68 18 148/78 H 95
[2021-05-20] MEDS ORDERED: FUROSEMIDE 40 MG/4 ML VIAL IV ONE (14:33)
--- NOTE | 2021-05-20 15:21 | Hospitalist Progress Note ---
Date of Service May 20, 2021 Assessment & Plan (1) Pressure in chest: (2) Frequent PVCs: (3) CAD (coronary artery disease): Plan: Patient is 81 yr male with H/O CAD s/p stent LAD, H/O severe right posterior descending artery stenosis not amenable to PCI and managed medically, history negative nuclear stress 09/29/2020, history PVCs, HTN, dyslipidemia, bladder CA, anxiety, H/0 aortic root aneurysm, presented to ER with complaint of orthopnea and chest pain. Symptomatic Ventricular and Supraventricular ectopy Continue Amiodarone 200mg BID Metoprolol discontinued Started on Carvedilol Monitor electrolytes and replace as needed Appreciate Cardiology Input CAD S/P Stent Continue aspirin, isosorbide, losartan, atorvastatin Cardiology on board (4) Acute on chronic heart failure with preserved ejection fraction (HFpEF): Plan: CXR: Cardiomegaly with mild left basilar atelectasis/scarring. Received IV lasix Monitor I's & O's, daily weight, low sodium diet Continue diuretics (5) Hypertension: Plan: Stable Continue losartan, carvedilol Monitor (6) Dyslipidemia: Plan: Continue atorvastatin (7) Bladder cancer: Plan: Following with [facility] urology Continue Flomax (8) Aortic root enlargement: Plan: Moderate aortic root enlargement, 4.[address], 4.3 cm prior echo 09/2020 Monitor DVT Px Heparin SQ Code Status Full Code Admission and Anticipated Discharge Date Admission Date: May 19, 2021 Subjective Patient is seen and examined at bedside States chest pain resolved Reports transient dyspnea this afternoon Denies any dizziness, nausea, vomiting, abd pain Discussed with Cardiology today Offers no other complaints Review of Systems Review of Systems: All systems reviewed & are unremarkable except as noted in Subjective Physical Exam Physical Exam: Physical Exam: Vitals signs as noted above General Appearance:Moderately built and nourished, no apparent distress Head: normocephalic, Atraumatic Eyes: normal inspection, EOMI Neck: supple, Trachea midline Respiratory/Chest: Normal breath sounds, Basal Crackles Cardiovascular: S1, S2, + murmur Abdomen/GI:Soft, Non tender, Bowel sounds present Extremities/Musculoskeletal:normal inspection, no edema Neurologic/Psych:AAOX3, grossly no focal neurological deficits Skin: normal color, warm Results & Data Results & Data ([facility]) Vital Signs (Past 12 Hours) Vital Signs Temp Pulse Resp BP Pulse Ox 05/20/21 14:43 69 20 130/53 L 97 05/20/21 11:21 36.9 C 73 20 130/53 L 94 05/20/21 09:25 36.7 C 82 20 160/100 H 97 05/20/21 07:51 36.8 C 67 20 160/108 H 96 05/20/21 05:15 71 18 149/87 H 97 Laboratory Results Short CBC 05/20/21 Range/Units 02:56 WBC 8.02 (4.8-10.8) K/uL Hgb 13.1 L (14.0-18.0) g/dL Hct 39.4 L (42-52) % Plt Count 173 (130-400) K/uL BMP 05/20/21 02:56 Sodium 140 Potassium 3.7 Chloride 107 Carbon Dioxide 29 BUN 24 H Creatinine 1.20 Glucose 91 Calcium 9.7 Cardiac Enzymes 05/19/21 05/20/21 05/20/21 Range/Units 18:06 02:56 02:56 Troponin I 0.068 H* Cancelled 0.066 H* (0-0.045) ng/ml (1) Hypertension Hypertension type: essential hypertension Qualified Code(s): I10 - Essential (primary) hypertension
[2021-05-20] MEDS: TAMSULOSIN HCL 0.4 MG CAP PO SCH (20:54)
[2021-05-20] MEDS: CHOLECALCIFEROL 1,000 UNITS 25 MCG TAB PO SCH (20:54)
[2021-05-20] MEDS: ASPIRIN 81 MG ECTAB PO SCH (20:58)
[2021-05-21] MEDS: AMIODARONE 200 MG TAB PO SCH (05:55)
[2021-05-21 08:37] LABS: BUN Creatinine Ratio 18.3 (10-20); Calcium 9.9 mg/dl (8.5-10.1); Creatinine Clr Calc Pharmacy 37.9 ml/min; Est GFR (African American) 54.4 ml/min; Est GFR (Non-African American) 46.9 ml/min; Potassium 3.9 mmol/L (3.5-5.1)
[2021-05-21] MEDS: LOSARTAN POTASSIUM 50 MG TAB PO SCH (08:40)
[2021-05-21] MEDS: PANTOprazole 40 MG TAB PO SCH (08:41)
[2021-05-21] MEDS: ATORVASTATIN 40 MG TAB PO SCH (08:41)
[2021-05-21] MEDS: allopurinoL 100 MG TAB PO SCH (08:41)
[2021-05-21] MEDS: ISOSORBIDE MONO EXTENDED REL 30 MG TABCR PO SCH (08:41)
[2021-05-21] MEDS: HEPARIN SOD 5,000 UNIT/0.5 ML VIAL SQ SCH (08:42)
[2021-05-21] MEDS ORDERED: FUROSEMIDE 20 MG TAB PO SCH (09:00)
[2021-05-21] MEDS: carvediloL 6.25 MG TAB PO SCH (10:17)
--- NOTE | 2021-05-21 10:44 | Cardiology Progress Note ---
Date of Service May 21, 2021 Assessment & Plan (1) Frequent PVCs: (2) PAC (premature atrial contraction): (3) Pressure in chest: (4) Elevated troponin: (5) Acute on chronic heart failure with preserved ejection fraction (HFpEF): Plan: Continue furosemide 20 mg daily. Repeat basic metabolic panel as an outpatient in 1 week. Metoprolol discontinued in favor of carvedilol. Blood pressure control improved. Continue amiodarone 200 mg twice daily for suppression of frequent ventricular and supraventricular ectopy. Repeat LFTs and TSH in 3 months. Patient may be discharged to home. Outpatient cardiology follow-up in 1 week. All questions answered to patient satisfaction. He is agreeable to the current plan. Admission and Anticipated Discharge Date Admission Date: May 19, 2021 Subjective Patient seen examined the bedside. Slept well overnight. No recurrent chest discomfort or palpitations. Telemetry reveals sinus rhythm with frequent PACs and PVCs. Blood pressure control improved. Review of Systems Review of Systems: All systems reviewed & are unremarkable except as noted in Subjective Physical Exam Constitutional: well developed and well nourished; no acute distress Respiratory: normal respiratory effort; no respiratory distress, no labored breathing and no retractions Auscultation: no crackles, no rales, no rhonchi and no wheezes Cardiovascular: Rate/Rhythm: regular rate and regular rhythm Heart Sounds: normal S1, normal S2 and + murmur (2/6 systolic ejection murmur heard best at the base) Gastrointestinal (Abdomen): Inspection/Auscultation: abdomen normal to inspection and normal bowel sounds; abdomen not distended Percussion/Palpation: abdomen soft; abdomen nontender, no guarding and abdomen not rigid Neurologic: CN's II-XI intact bilaterally and moves all extremities; no focal motor deficits Motor/Sensory: no tremor Psychiatric: A+Ox3, euthymic affect Results & Data ([facility]) Vital Signs (Past 12 Hours) Vital Signs Temp Pulse Pulse Pulse Resp BP Pulse Ox 05/21/21 10:15 50 L 123/65 05/21/21 07:36 36.8 C 55 L 56 L 18 144/70 H 97 05/21/21 04:00 36.7 C 60 18 114/60 95
--- NOTE | 2021-05-21 12:25 | Hospitalist Progress Note ---
Date of Service May 21, 2021 Assessment & Plan (1) Pressure in chest: (2) Frequent PVCs: (3) CAD (coronary artery disease): Plan: Patient is 81 yr male with H/O CAD s/p stent LAD, H/O severe right posterior descending artery stenosis not amenable to PCI and managed medically, history negative nuclear stress 09/29/2020, history PVCs, HTN, dyslipidemia, bladder CA, anxiety, H/0 aortic root aneurysm, presented to ER with complaint of orthopnea and chest pain. Symptomatic Ventricular and Supraventricular ectopy Continue Amiodarone 200mg BID Metoprolol discontinued Started on Carvedilol Monitor electrolytes and replace as needed Appreciate Cardiology Input Needs repeat LFTs and TSH in 3 months Needs repeat BMP in 1 week Needs follow up with Cardiology upon discharge in 1 week CAD S/P Stent Continue aspirin, isosorbide, losartan, atorvastatin Cardiology on board (4) Acute on chronic heart failure with preserved ejection fraction (HFpEF): Plan: CXR: Cardiomegaly with mild left basilar atelectasis/scarring. Received IV lasix Monitor I's & O's, daily weight, low sodium diet Continue lasix 20mg daily (5) Hypertension: Plan: Stable Continue losartan, carvedilol Monitor (6) Dyslipidemia: Plan: Continue atorvastatin (7) Bladder cancer: Plan: [place] [facility] [place] Continue Flomax (8) Aortic root enlargement: Plan: Moderate aortic root enlargement, 4.[address], 4.3 cm prior echo 09/2020 Monitor DVT Px Heparin SQ Code Status Full Code Admission and Anticipated Discharge Date Admission Date: May 19, 2021 Subjective Patient is seen and examined at bedside Doing well today Offers no new complaints Denies chest pain, dyspnea, dizziness, nausea, abd pain Eager to get discharged Review of Systems Review of Systems: All systems reviewed & are unremarkable except as noted in Subjective Physical Exam Physical Exam: Physical Exam: Vitals signs as noted above General Appearance:Moderately built and nourished, no apparent distress Head: normocephalic, Atraumatic Eyes: normal inspection, EOMI Neck: supple, Trachea midline Respiratory/Chest: Normal breath sounds, CTA Cardiovascular: S1, S2, + murmur Abdomen/GI:Soft, Non tender, Bowel sounds present Extremities/Musculoskeletal:normal inspection, no edema Neurologic/Psych:AAOX3, grossly no focal neurological deficits Skin: normal color, warm Results & Data Results & Data ([facility]) Vital Signs (Past 12 Hours) Vital Signs Temp Pulse Pulse Pulse Resp BP Pulse Ox 05/21/21 11:16 36.5 C 58 L 17 130/72 95 05/21/21 10:15 50 L 123/65 05/21/21 07:36 36.8 C 55 L 56 L 18 144/70 H 97 05/21/21 04:00 36.7 C 60 18 114/60 95 Laboratory Results BMP 05/21/21 08:00 Sodium 138 Potassium 3.9 Chloride 104 Carbon Dioxide 28 BUN 25 H Creatinine 1.38 Glucose 105 H Calcium 9.9 (1) Hypertension Hypertension type: essential hypertension Qualified Code(s): I10 - Essential (primary) hypertension
--- NOTE | 2021-05-21 12:37 | Discharge Summary ---
Date of Service May 21, 2021 Admission HPI Per Admitting Provider Patient is 81 y/o M with PMH CAD s/p stent LAD, H/O severe right posterior descending artery stenosis not amenable to PCI and managed medically, history negative nuclear stress 09/29/2020, history PVCs, HTN, dyslipidemia, bladder CA, anxiety, H/0 aortic root aneurysm, presented to ER with complaint of orthopnea and chest pain. Patient with recent hospitalization 05/09/2021-05/12/2021 for chest pain, elevated troponin, hypertensive urgency. During hospitalization carvedilol was changed to metoprolol and his losartan was increased. Patient states since discharge has had continued intermittent chest pain. He reports past 3 days has been having difficulty sleeping and reports palpitations. He states he has been having exertional shortness of breath last several days. Denies any chest pain currently. Denies fever/chills, diaphoresis, N/V/D/C, PARK, dizziness, syncope, vision changes, neck pain, cough, sore throat, choking, otalgia, rhinorrhea, abdominal pain, paresthesias, weakness, extremity weakness, extremity edema, rashes, urinary symptoms. Today in ER pt afebrile, vitals stable. Troponin: 0.059 (was 0.1 during last admission). EKG: sinus bradycardia, rate 56, PVCs, inverted T waves inferior also seen on prior EKG 05/12/21. Cardiology -Dr Malloy recommends medication changes with discontinuation of metoprolol and starting amiodarone. Admission Exam Per Admitting Provider Physical Exam Physical Exam: General: no distress, WDWN Head: normocephalic, atraumatic Eyes: conjunctiva non-injected, anicteric, exophthalmus ENT: normal inspection external ears, nose, mucous membranes moist Neck: supple, trachea midline Lungs: clear, no respiratory distress, +rales bases CV: RRR, +systolic murmur, no pretibial edema Abd: normal BS, soft, non-tender Ext: no cyanosis, no calf tenderness Neuro: A&O x 3, no focal deficits noted, normal affect Skin: warm, dry Principal Diagnosis Symptomatic Ventricular and Supraventricular ectopy Acute on chronic heart failure with preserved ejection fraction Discharge Data Allergies Allergy/AdvReac Type Severity Reaction Status Date / Time KAYLI Inhibitors Allergy Unknown Pt Verified 05/09/21 07:18 unsure-UNKNOWN Consultations 05/19/21 14:24 Consult Cardiology Stat 05/19/21 14:27 ED Decision to Admit Stat 05/19/21 17:32 Consult Cardiology Routine Hospital Course (1) Pressure in chest: (2) Frequent PVCs: (3) CAD (coronary artery disease): Patient is 81 yr male with H/O CAD s/p stent LAD, H/O severe right posterior descending artery stenosis not amenable to PCI and managed medically, history negative nuclear stress 09/29/2020, history PVCs, HTN, dyslipidemia, bladder CA, anxiety, H/0 aortic root aneurysm, presented to ER with complaint of orthopnea and chest pain. Symptomatic Ventricular and Supraventricular ectopy Continue Amiodarone 200mg BID Metoprolol discontinued Started on Carvedilol Monitor electrolytes and replace as needed Appreciate Cardiology Input Needs repeat LFTs and TSH in 3 months Needs repeat BMP in 1 week Needs follow up with Cardiology upon discharge in 1 week CAD S/P Stent Continue aspirin, isosorbide, losartan, atorvastatin Cardiology on board (4) Acute on chronic heart failure with preserved ejection fraction (HFpEF): CXR: Cardiomegaly with mild left basilar atelectasis/scarring. Received IV lasix Monitor I's & O's, daily weight, low sodium diet Continue lasix 20mg daily (5) Hypertension: Stable Continue losartan, carvedilol Monitor (6) Dyslipidemia: Continue atorvastatin (7) Bladder cancer: Following with [facility] [place]rology Continue Flomax (8) Aortic root enlargement: Moderate aortic root enlargement, 4.[address], 4.3 cm prior echo 09/2020 Monitor DVT Px Heparin SQ Code Status Full Code Total Time Total Time Spent Total Time Spent (In Minutes): 40 minutes Discharge Plan Discharge Items Patient Disposition: Home - Self-Care Reason For Visit: CP Discharge Diagnosis: Symptomatic Ventricular and Supraventricular ectopy Acute on chronic heart failure with preserved ejection fraction Activity: Per Instructions section Exercise/Sports: Gradually increase as tolerated Non-emergency contact: Primary Care Provider and Scrubber System Attendant Call non-emergency contact if: you have any medication questions, your symptoms worsen, your pain is concerning for you and you have a fever Follow-up/Referrals: [facility] Cardiology [Other] (The [facility] will call you for an appointment for follow up.) Roberta Monroy MD [Primary Care Provider] - (Date & Time 05/26/2021 2:20 PM Provider Cuco Alamo PA-C Department General Internal Medicine [facility] ) Diet: Heart Healthy Addtl Attending Provider Instructions: Follow-up with your primary care physician on 05/26/2021 2:20 PM Follow-up with your Scrubber System Attendant Dr. Malloy on 05/26/21 at 8:00 AM Get Blood Test: 1) basic metabolic panel in 1 week and follow-up with your physician with results 2) liver function test, TSH in 3 months Seek immediate medical attention if your symptoms reoccur or worsen Please take all medications as instructed on discharge list below. Please call if you have any questions or problems. You can reach a [facility] hospitalist on duty at [facility] 24 hours a day by calling [phone] Call your Primary Care doctor if any of the following symptoms or problems start or get worse: * Shortness of breath or difficulty breathing * Wake up at night short of breath * Chest pain * Cough * Swelling of your hands, feet, or legs * More fatigued or tired with your normal activity * Palpitations - sudden fast heart beats WEIGHT * Weigh yourself every morning after using the bathroom. * Use the same scale. * Wear the same amount of clothing. * Write your weight down on a chart. * Call your Primary Care doctor if you gain more than 2-3 pounds in 1-2 days. MEDICATIONS * Use this discharge instruction sheet for medication instructions. * Take your medications at the time your doctor ordered. * Do not skip a dose of your medicines. * If you miss a dose of medicine, take it as soon as possible, but DO NOT DOUBLE A DOSE. * Read your medicine information when you get home. * Know all of the side effects of your medicine. If in doubt, ask your pharmacist * Call your Primary Care doctor's office if you have any side effects. * Be sure all of your doctors know what medicine and herbs you take (including cold, flu, and herbal medicine). Take the following with you to your follow-up doctor appointments: * Weight Chart * Medication List * List of questions Do not drink excessive alcohol, beer or wine. Pending Studies at Discharge: No Stand-Alone Forms: My [facility], Smoking Cessation Medications and DC Order Prescriptions: New amiodarone 200 mg Tablet 200 mg PO BID Qty: 60 RF: 0 carvedilol 6.25 mg Tablet 6.25 mg PO BID Qty: 60 RF: 0 furosemide 20 mg Tablet 20 mg PO QAM Qty: 30 RF: 0 Continued allopurinol [Zyloprim] 100 mg Tablet 100 mg PO QAM RF: 0 omeprazole magnesium [Prilosec OTC] 20 mg Tablet,Delayed Release (Dr/Ec) 20 mg PO QAM RF: 0 cholecalciferol (vitamin D3) [Vitamin D3] 2,000 unit Tablet 2,000 unit PO QPM RF: 0 atorvastatin [Lipitor] 40 mg tablet 80 mg PO QAM RF: 0 tamsulosin 0.4 mg capsule 0.4 mg PO QPM RF: 0 aspirin 81 mg Tablet,Delayed Release (Dr/Ec) 81 mg PO QPM RF: 0 isosorbide mononitrate 30 mg Tablet Extended Release 24 Hr 30 mg PO QAM RF: 0 phenazopyridine [Pyridium] 200 mg tablet 200 mg PO Q8H PRN (Reason: pain) Qty: 10 RF: 0 oxybutynin chloride 5 mg tablet 5 mg PO Q8H PRN (Reason: bladder spasms) Qty: 20 RF: 0 losartan 50 mg Tablet 50 mg PO BID 30 Days Qty: 60 RF: 2 Discontinued metoprolol tartrate 50 mg Tablet 50 mg PO BID 30 Days Qty: 60 RF: 2 Discharge Orders: Discharge Order (Routine); Ordered 05/21/21 Ordered By: Curt Hernandez Admission Data Admit Date/Time: 05/19/21 14:53 Attending Provider: Curt Hernandez Admit Provider: Andriy Loco Primary Care Provider: Roberta Monroy Other Providers: Henrique Malloy ; Andriy Loco
--- NOTE | 2021-05-21 20:33 | Electrocardiogram Report ---
Test Reason : Blood Pressure : / mmHG Vent. Rate : 056 BPM Atrial Rate : 056 BPM P-R Int : 168 ms QRS Dur : 136 ms QT Int : 488 ms P-R-T Axes : 065 -25 -31 degrees QTc Int : 470 ms Sinus bradycardia with occasional Premature ventricular complexes Left ventricular hypertrophy with QRS widening Cannot rule out Septal infarct (cited on or before 10-MAY-2021) Abnormal ECG When compared with ECG of 12-MAY-2021 11:41, Premature ventricular complexes are now Present Nonspecific T wave abnormality has replaced inverted T waves in Anterior leads Confirmed by German Bansal ([id number]) on 05/21/2021 8:33:07 PM Referred By: REFERRED SELF Confirmed By:German Bansal
[2021-05-21] MEDS ORDERED: AMIODARONE 200 MG TAB PO SCH (21:00)
--- NOTE | 2021-05-21 22:18 | Electrocardiogram Report ---
Test Reason : Blood Pressure : / mmHG Vent. Rate : 059 BPM Atrial Rate : 059 BPM P-R Int : 176 ms QRS Dur : 134 ms QT Int : 496 ms P-R-T Axes : 035 -34 -36 degrees QTc Int : 491 ms Sinus bradycardia with Premature atrial complexes Left axis deviation Right bundle branch block Minimal voltage criteria for LVH, may be normal variant Abnormal ECG When compared with ECG of 19-MAY-2021 12:17, (unconfirmed) Premature ventricular complexes are no longer Present Premature atrial complexes are now Present Right bundle branch block is now Present Minimal criteria for Septal infarct are no longer Present Confirmed by German Bansal ([id number]) on 05/21/2021 10:17:28 PM Referred By: REFERRED SELF Confirmed By:German Bansal
== END 2021-05-21 15:00 | disposition home or self-care (01) ==
LOC: EDINP 10:40 → ED 10:40 → SUATTDRO 14:53 → 2N 17:10

== ENCOUNTER 2021-11-14 13:37 | Observation (INO) ==
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
[2021-11-14 14:08] LABS: Basophils # (auto) 0.04 K/uL (0-0.2); Basophils % (auto) 0.5 %; Eosinophils # (auto) 0.68 K/uL (0-0.5); Eosinophils % (auto) 8.3 %; Hematocrit (blood only) 39.3 % (42-52); Hemoglobin 12.9 g/dL (14.0-18.0); Immature Granulocytes # (auto) 0.04 K/uL (0.00-0.02); Immature Granulocytes % (auto) 0.5 %; Lymphocytes # (auto) 1.28 K/uL (1.2-3.4); Lymphocytes % (auto) 15.6 %; Mean Corpuscular Hemoglobin 32.8 pg (25-34); Mean Corpuscular Hgb Conc 32.8 g/dL (32-36); Mean Platelet Volume 11.2 fL (7.4-10.4); Monocytes # (auto) 0.94 K/uL (0.11-0.59); Monocytes % (auto) 11.5 %; Neutrophils # (auto) 5.22 K/uL (1.4-6.5); Neutrophils % (auto) 63.6 %; Platelet Count 186 K/uL (130-400); RDW Coefficient of Variation 14.1 % (11.5-14.5); RDW Standard Deviation 51.3 fL (36.4-46.3); Red Blood Count 3.93 M/uL (4.7-6.1)
--- NOTE | 2021-11-14 14:11 | XRay Report ---
XR chest 1V portable CLINICAL HISTORY: syncope. Evaluate cardiopulmonary status COMPARISON STUDY: 05/19/2021 TECHNIQUE: 1 view of the chest FINDINGS: Single frontal view of the chest demonstrates the cardiomediastinal silhouette to be within normal li mits. There is a decreased inspiratory effort with elevation of the hemidiaphragms and crowding of th e bronchovascular markings at the lung bases and centrally. The lungs are clear of alveolar opacities . There is no evidence for pleural effusion. There is no evidence for vascular congestion. There is n o acute osseous pathology. IMPRESSION: 1. There is a decreased inspiratory effort with otherwise no acute chest disease. ACT 112: Negative or not required by law. Electronically signed by: Ubaldo Flores M.D. 11/14/2021 2:09 PM
[2021-11-14 14:24] LABS: Albumin Globulin Ratio 1.7 (0.9-2); Albumin Level 4.2 gm/dl (3.4-5.0); Bilirubin,Total 0.6 mg/dl (0.2-1.0); Calcium 9.9 mg/dl (8.5-10.1); Creatinine Clr Calc Pharmacy 35.6 ml/min; Est GFR (African American) 50.4 ml/min; Est GFR (Non-African American) 43.5 ml/min; Globulin 2.5 gm/dl (2.5-4.0); Magnesium 1.9 mg/dl (1.7-2.4); Potassium 4.5 mmol/L (3.5-5.1); Total Protein 6.7 gm/dl (6.0-8.3)
[2021-11-14 14:29] LABS: Troponin I High Sensitivity 41.2 pg/ml (0-20)
[2021-11-14 14:38] LABS: Thyroid Stimulating Hormone 11.095 uIu/ml (0.300-4.500)
--- NOTE | 2021-11-14 14:57 | CT Scan Report ---
CT head/brain wo con CLINICAL HISTORY: syncope COMPARISON STUDY: 05/09/2021 CT DOSE: 614.27 mGy.cm TECHNIQUE: Standard CT of the Brain was performed without IV contrast. A dose lowering technique was utilized adhering to the principles of ALARA. FINDINGS: Extraaxial space: There is no evidence for subdural hematoma. There are no extra-axial fluid collecti ons. Ventricles and cisterns: The ventricles are mildly to moderately dilated bilaterally. There is no rupesh dence for midline shift or mass effect. Parenchyma: There is no subarachnoid or intraparenchymal hemorrhage. There is no evidence for an acut e infarct or cerebral edema. There is mild cerebral cortical atrophy and decreased attenuation in the periventricular white matter representing remote small vessel disease. There are no gross mass lesio ns. Osseous structures: There is no evidence for an acute fracture. The visualized paranasal sinuses are clear. The mastoid air cells are clear bilaterally. Soft tissues: There is no evidence for focal soft tissue swelling. IMPRESSION: 1. No acute intracerebral pathology. 2. Cerebral cortical atrophy and remote small vessel disease. ACT 112: Negative or not required by law. Electronically signed by: Ubaldo Flores M.D. 11/14/2021 2:54 PM
[2021-11-14 15:17] LABS: T4 Free Thyroxine 0.97 ng/dl (0.61-1.60)
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
--- NOTE | 2021-11-14 17:32 | Electrocardiogram Report ---
Test Reason : Blood Pressure : / mmHG Vent. Rate : 048 BPM Atrial Rate : 048 BPM P-R Int : 208 ms QRS Dur : 150 ms QT Int : 572 ms P-R-T Axes : 043 -22 -12 degrees QTc Int : 510 ms Sinus bradycardia Right bundle branch block Moderate voltage criteria for LVH, may be normal variant Abnormal ECG When compared with ECG of 21-MAY-2021 20:21, Premature ventricular complexes are no longer Present Premature supraventricular complexes are no longer Present Vent. rate has decreased BY 31 BPM T wave inversion no longer evident in Anterior leads Confirmed by Vincent Owens ([id number]) on 11/14/2021 5:32:15 PM Referred By: REFERRED SELF Confirmed By:Hilario Owens
[2021-11-14 18:04] LABS: D Dimer 2160 ug/L FEU (0-500)
[2021-11-14] MEDS ORDERED: OPTIRAY 320 125ml IV ONE (19:13)
[2021-11-14] MEDS: ATORVASTATIN 40 MG TAB PO SCH (20:04)
[2021-11-14] MEDS: CHOLECALCIFEROL 1,000 UNITS 25 MCG TAB PO SCH (20:04)
[2021-11-14] MEDS: TAMSULOSIN HCL 0.4 MG CAP PO SCH (20:04)
[2021-11-14] MEDS: ASPIRIN 81 MG ECTAB PO SCH (20:05)
[2021-11-14] MEDS: LOSARTAN POTASSIUM 50 MG TAB PO SCH (20:05)
[2021-11-14] MEDS: carvediloL 6.25 MG TAB PO SCH (20:05)
--- NOTE | 2021-11-14 20:16 | CT Scan Report ---
CT angio chest PE protocol CLINICAL HISTORY: Shortness of breath. Syncopal episode. COMPARISON STUDY: Portable chest from 11/14/2021 CT DOSE: 319.40 mGy.cm TECHNIQUE: CT Angio of the chest was performed.followed by image post processing with coronal, and s agittal MIP reformats. Contrast Volume: Optiray 320, 102 ml FINDINGS: Vasculature: There is homogeneous perfusion of the pulmonary vasculature bilaterally. No intraluminal filling defects or evidence for pulmonary embolus is seen. Airway: The airway is clear. No endobronchial lesion is identified. Lungs: There is elevation of the hemidiaphragms with crowding the bronchovascular markings at the darren g bases. The lungs are otherwise clear of acute alveolar opacities, air bronchograms or pulmonary nod ules. Pleura: There is no evidence for pleural effusion. There is no evidence for pneumothorax. Mediastinum: There is no evidence for pathologic adenopathy. The heart size is within normal limits. There is prominent coronary artery calcification. The thoracic aorta is within normal limits. There i s atherosclerotic calcification of the aortic arch There is no evidence for pericardial effusion. Osseous structures: There is no acute osseous pathology. Impression: 1. No CTA evidence for pulmonary embolus. 2. No acute chest disease. 3. Elevation of hemidiaphragms with crowding the bronchovascular markings at the lung bases. 4. Coronary artery calcification. ACT 112: Negative or not required by law. Electronically signed by: Ubaldo Flores M.D. 11/14/2021 8:14 PM
[2021-11-14] MEDS: HEPARIN SOD 5,000 UNIT/0.5 ML VIAL SQ SCH (21:27)
[2021-11-15] MEDS: SERTRALINE HCL 50 MG TABLET PO SCH (07:36)
[2021-11-15] MEDS: allopurinoL 100 MG TAB PO SCH (07:37)
[2021-11-15] MEDS: ISOSORBIDE MONO EXTENDED REL 30 MG TABCR PO SCH (07:37)
[2021-11-15] MEDS: PANTOprazole 40 MG TAB PO SCH (07:37)
[2021-11-15] MEDS: LOSARTAN POTASSIUM 50 MG TAB PO SCH ×2 (07:37→20:14)
[2021-11-15] MEDS: AMIODARONE 200 MG TAB PO SCH (07:38)
[2021-11-15] MEDS: carvediloL 6.25 MG TAB PO SCH (07:38)
[2021-11-15 08:08] LABS: Appearance Urine Clear (Clear); Bacteria Urine Automated Negative (Negative); Bilirubin Urine Negative (Negative); Blood Urine Trace (Negative); Color Urine Yellow; Glucose Urine UA Negative (Negative); Ketones Urine Negative (Negative); Leukocyte Esterase Urine 1+ (Negative); Nitrite Urine Negative (Negative); Protein Urine Negative (Negative); RBC Urine Automated 0-4 /hpf (0-4); Specific Gravity Urine 1.037 (1.000-1.030); Urobilinogen Urine Negative (Negative); pH Urine 6.5 (4.5-7.5)
[2021-11-15 08:21] LABS: Basophils # (auto) 0.03 K/uL (0-0.2); Basophils % (auto) 0.3 %; Eosinophils # (auto) 0.44 K/uL (0-0.5); Eosinophils % (auto) 4.9 %; Hematocrit (blood only) 41.2 % (42-52); Hemoglobin 13.7 g/dL (14.0-18.0); Immature Granulocytes # (auto) 0.02 K/uL (0.00-0.02); Immature Granulocytes % (auto) 0.2 %; Lymphocytes # (auto) 1.64 K/uL (1.2-3.4); Lymphocytes % (auto) 18.4 %; Mean Corpuscular Hemoglobin 32.9 pg (25-34); Mean Corpuscular Hgb Conc 33.3 g/dL (32-36); Mean Corpuscular Volume 98.8 fL (80-100); Mean Platelet Volume 10.8 fL (7.4-10.4); Monocytes # (auto) 0.95 K/uL (0.11-0.59); Monocytes % (auto) 10.7 %; Neutrophils # (auto) 5.81 K/uL (1.4-6.5); Neutrophils % (auto) 65.5 %; Platelet Count 185 K/uL (130-400); RDW Coefficient of Variation 14.1 % (11.5-14.5); RDW Standard Deviation 50.4 fL (36.4-46.3); Red Blood Count 4.17 M/uL (4.7-6.1); White Blood Count 8.89 K/uL (4.8-10.8)
[2021-11-15] MEDS: HEPARIN SOD 5,000 UNIT/0.5 ML VIAL SQ SCH ×2 (08:21→20:44)
[2021-11-15 08:47] LABS: Troponin I High Sensitivity 49.1 pg/ml (0-20)
[2021-11-15 08:48] LABS: BUN Creatinine Ratio 19.7 (10-20); Calcium 10.2 mg/dl (8.5-10.1); Creatinine Clr Calc Pharmacy 41.2 ml/min; Est GFR (African American) 60.2 ml/min; Est GFR (Non-African American) 51.9 ml/min; Magnesium 1.9 mg/dl (1.7-2.4); Potassium 4.3 mmol/L (3.5-5.1)
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
[2021-11-15] MEDS: cefTRIAXone SODIUM 1,000 MG in DEXTROSE 5% 50 ML IV SCH (11:06)
[2021-11-15] MEDS ORDERED: HEPARIN (PORCINE) 1000 UNIT/ML 10 ML (CATH LAB USE ONLY) ONE ×2 (12:12→14:14)
[2021-11-15] MEDS ORDERED: niCARdipine HCL INJ 2.5 MG/ML 10 ML AMP ONE (12:12)
[2021-11-15] MEDS ORDERED: MIDAZOLAM HCL 1 MG/ML 2ML VIAL ONE ×2 (12:12→14:13)
[2021-11-15] MEDS ORDERED: fentaNYL citrate 100 MCG/2 ML VIAL ONE ×2 (12:12→14:13)
[2021-11-15] MEDS ORDERED: NITROGLYCERIN/D5W 100MCG/ML 20ML SYR ONE (12:13)
--- NOTE | 2021-11-15 13:19 | Pre Anesthesia Assessment ---
Date of Service November 15, 2021 Pre Sedation Assessment Vital Signs Temp Pulse Pulse Resp BP BP Pulse Ox 11/15/21 11:00 98.1 F 54 L 19 106/59 L 91 11/15/21 10:46 60 11/15/21 07:14 98.1 F 60 18 164/79 H 93 11/15/21 03:00 97.9 F 68 16 154/78 H 96 11/14/21 23:08 97.9 F 62 18 124/74 95 11/14/21 22:21 62 11/14/21 21:59 80 158/80 H 11/14/21 20:00 194/94 H 11/14/21 19:30 201/90 H 11/14/21 19:23 98.1 F 68 18 97 11/14/21 19:20 219/107 H 11/14/21 18:32 67 19 189/74 H 96 11/14/21 18:13 68 16 206/99 H 95 11/14/21 17:33 66 11/14/21 16:24 59 L 16 165/77 H 96 11/14/21 15:18 51 L 19 130/52 L 95 11/14/21 13:56 93 11/14/21 13:52 93 11/14/21 13:50 97.5 F L 49 L 14 124/73 93 Cardiovascular RRR, no murmur, no edema Respiratory normal respiratory effort, lungs clear to auscultation Pre-Sedation Airway Assessment Smoking Status: Never smoker Hx Sleep Apnea: No Hx Difficult Intubation: No Short, Thick Neck: No Thyromental Distance: > or= 3.5 Finger Breadths Oral Cavity: + WNL Mallampati Class: III ASA: ASA4 NPO Status Date of Last Intake of Fluids: 11/15/21 Time of Last Intake of Fluids: 08:00 Date of Last Intake of Solid Food: 11/15/21 Time of Last Intake of Solid Foods: 08:00 Procedure Planning Contraindications for Sedation: none Current Medications Reviewed: Yes Notes The planned sedation has been discussed with the patient. Informed Consent was obtained. I have identified the patient, determined the appropriateness of sedation and have assessed the patient immediately prior to the procedure. All medicine(s) and interventions are by my order.
--- NOTE | 2021-11-15 14:49 | Post Anesthesia Assessment ---
Date of Service November 15, 2021 Post Sedation Assessment Vital Signs Temp Pulse Pulse Resp BP Pulse Ox 11/15/21 14:43 54 L 15 119/71 92 11/15/21 11:00 98.1 F 54 L 19 106/59 L 91 11/15/21 10:46 60 11/15/21 07:14 98.1 F 60 18 164/79 H 93 11/15/21 03:00 97.9 F 68 16 154/78 H 96 11/14/21 23:08 97.9 F 62 18 124/74 95 11/14/21 22:21 62 11/14/21 21:59 80 158/80 H 11/14/21 20:00 194/94 H 11/14/21 19:30 201/90 H 11/14/21 19:23 98.1 F 68 18 97 11/14/21 19:20 219/107 H 11/14/21 18:32 67 19 189/74 H 96 11/14/21 18:13 68 16 206/99 H 95 11/14/21 17:33 66 11/14/21 16:24 59 L 16 165/77 H 96 11/14/21 15:18 51 L 19 130/52 L 95 Recovery Score Activity: Moves 4 extremities Respiration: Deep Breath/Cough Circulation: +/-20% PreAnes Value Consciousness: Fully Awake Oxygen Saturation: > 92% On Room Air Post Anesthesia Score: 10 Discharge Sedation Level of Care: Fast Track Phase II Post Sedation Plan On clinical assessment, the patient appears to have tolerated the sedation without complications. Patient is recovering as anticipated. Patient will continue to be monitored by nursing and may be discharged when sedation discharge criteria are met per below protocol. Upon Completions of procedure up to 15 minutes continue every 5 minute vital signs and the P.A.R. score; then discharge to a Phase I or Fast Track to Phase II per the following guidelines: * Discharge Patient to appropriate Phase II area if PAR is 8 or greater or return to pre- procedure baseline. The post - procedure orders will be as directed. * If PAR score is less than 8 or not return to pre-procedure baseline then patient will follow Phase I monitoring till PAR is reached for Phase II. The Phase I may be done in procedure room or may call to secure a Phase I area. * If naloxone or flumazenil are used for reversal, hold in Phase I for continued monitoring from when last reversal dose was given for a minimum of 60 minutes or longer pending the nurse and/or physician discretion of patient condition before discharge to Phase II. Please call the Sedation Physician to re-evaluate and complete post-note for discharge to Phase II area. Do NOT discharge from procedure sedation or Phase 1 until post- sedation evaluation note is complete by procedure /sedation MD Sedation Discharge Instructions to be given to the patient at discharge to home.
--- NOTE | 2021-11-15 15:07 | Cardiac Catheterization ---
[facility] Data: Lining [place]ch Cardiac Status Clinical evaluation leading to the procedure CAD Presenation: Sx unlikely to be ischemic Diagnostic Physicians Name: Vincent Gorman MD Closure Device Recommendations: Medical Therapy and/or Counseling Cardiac Cath Procedure Full Procedure Date November 15, 2021 Pre-Procedure Diagnosis Pre-Procedure Diagnosis: CAD and Cardiothoracic Symptom (Syncope) AUC Score AUC Score: 7 Post-Procedure Diagnosis Post-Procedure Diagnosis: Moderate CAD Procedure(s) Performed Procedure(s) Performed: Coronary Angiography and IVUS Farm Specialist Vincent Gorman MD Sub Acute Care Nurse(s) Van Estimated Blood Loss Estimated Blood Loss: 10 Medication(s) Medication(s): Fentanyl, Heparin, Lidocaine 1%, Nicardipine, Nitroglycerin and Versed Summary of Findings Indication: Syncope, new apical wall motion abnormality on echo. History of CAD with prior DESHAWN to proximal to mid LAD 05/2018. Access: 6 Fr right radial artery Catheters: Ada, diagnostic JL 4.5, EBU 4.0 Findings: LM -normal caliber, distal luminal irregularities LAD -medium caliber, 50% ostial stenosis, proximal to mid stent widely patent. Remainder of vessel without significant disease and extends to apex. Small D2 without significant disease. Circumflex -large caliber, 30% mid segment, distal vessel into large left PLB without disease. Medium OM1 with 50 to 60% proximal stenosis RCA -dominant, large caliber, 30 to 40% mid segment stenosis, distal vessel without disease. Medium RPDA with 50 to 60% mid segment stenosis. IVUS of LAD Initial attempt to cannulate left main with EBU 3.5 guide. EBU 3.5 guide became folded/twisted and unable to pass wire back through catheter Prior short sheath removed and 6 Fr 45 cm destination sheath slid over guide cath. Guide cath pulled back into destination sheath and axillary artery. Left main was then able to be cannulated with EBU 4.0 guide BMW wire placed into distal LAD [place] IVUS catheter placed into mid LAD Pullback revealed widely patent proximal LAD stent Ostial LAD with chronic, calcified eccentric plaque. Calculated CSA 5.0 mm2, measured stenosis 60-70%. Wire, catheter removed post procedure angiography revealed no complications. Arterial Closure: TR band Summary: 1. Moderate stable, chronic coronary artery disease -Calcified 60% ostial LAD (60 to 70% chronic, calcified disease by IVUS) Widely patent proximal to mid LAD stent 30% mid circumflex at takeoff of OM2 with 60% proximal OM2 disease 40% mid RCA. Small RPDA 60% mid Recommendations: No acute high risk CAD to explain syncopal event or new apical wall motion abnormality. Continue medical management of stable ischemic heart disease. If were to need PCI of ostial LAD disease in the future consider referral to tertiary center. Hemodynamics Rest Ao:: 142/70/102 Final Ao: 101/52/72 LV: -- Recommendations Recommendations: Medical Therapy and/or Counseling Specimens Specimens: None Radiation Exposure (mGy) 1422 Contrast (mls) 80 Anesthesia Moderate 2534-8921 Procedural Complication(s) None Disposition PCU I attest to the content of the Intraoperative Record and any orders documented therein. Any exceptions are noted below. [facility] Card Cath Procedure Codes Cardiac Catheterization Procedure 1: Cardiovascular Cath Procedures: 76124 Coronaries Therapeutic Services & Ancillary Proc Procedure 1: Cardiovascular Tx and Anc Procedures: 72236 IV Ultrasound (Coronary or Graft) Moderate Sedation Procedure 1: Sedation/Anesthesia: 30185 Mod Sedation by the same physician;Init15 Min Child Age 5 & Up Procedure 2: Sedation/Anesthesia: 70909 Mod Sedation by the same physician; Ea [id number] Minutes PG Care Time/CCT Total # of Minutes Spent Total Time Spent with Patient: Total time spent is greater than 50% in coordination of care (as documented) at patient's floor/unit and/or counseling patient:
[2021-11-15] MEDS ORDERED: SODIUM CHLORIDE 0.9% 1000ML 1,000 ML IV SCH (15:15)
--- NOTE | 2021-11-15 19:23 | Hospitalist Progress Note ---
Date of Service November 15, 2021 Assessment & Plan (1) Syncope: (2) Bladder tumor: Plan: #. Syncope- On the day of arrival, pt went for a walk w/ his for 5-10 min, came back feeling weak, while resting on the couch --> he passed out and doesn't remember until EMS was transfering him to "stretcher". Concern for cardiogenic. Work-up including labs, CT head, EKG unremarkable. Currently is in sinus rhythm. Admitting hs trops flat trended in 40s. C/t monitor on telemetry, orthostatic vitals, 11/15 ECHO: EF 45-50%, Gr 2 diastolic dysfxn. Anteroseptal and apical hypokinesis present. 11/15 s/p cardiac cath: Mod. stable CAD c/t monitor on tele. ? OP monitor. Card on board, appreciate recs. Carvedilol dose has been adjusted 3.125 mg twice daily Doubt seizure. Patient states he recently had PET/CT couple weeks ago and was said to be fine. Will have pacer pad in place. Check d dimer- if elevated, consider CT PE. #. Bladder cancer- on treatment [id number], due next monday. States recently had PET CT couple weeks ago #. UTI: admitting UA s/o UTI, f/u Cx, rocephin 11/15 #. Elevated TSH: #. 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 CKD3- Cr at baseline #. HTN- continue home meds with hold parameters #. 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 Follows with Dr Palma #. Chronic diastolic CHF- euvolemic. monitor #. DVT ppx- SCDs #. Dispo- Medsurg on tele #. Full code Admission and Anticipated Discharge Date Admission Date: November 14, 2021 Subjective Patient seen and examined at bedside as a follow-up of syncope and history of bladder cancer. Patient was lying in bed, on room air, NAD, no new acute events overnight. Patient reports eating okay. Patient denies any chest pain/headache/dizziness/belly pain/other review of symptoms. Patient reports feeling better back to baseline. Physical Exam Physical Exam: GENERAL: Alert and oriented x3. NAD, on RA. HEENT: No pallor, no icterus. Pupils equal, round and reactive to light. Oral mucosa moist. NECK: No JVD, no neck masses. HEART: S1 and S2 heard. Regular rate and rhythm. No murmur, no gallop. RESPIRATORY SYSTEM: Normal AP diameter. No accessory muscle use. No wheezing, no crackles. ABDOMEN: Soft, bowel sounds present, nontender, no distention. CENTRAL NERVOUS SYSTEM: No facial droop. Speech is clear. Obeys simple commands. Moves extremities. EXTREMITIES: No edema, no erythema seen. Results & Data Results & Data ([facility]) Vital Signs (Past 12 Hours) Vital Signs Temp Pulse Pulse Resp BP Pulse Ox 11/15/21 15:46 36.4 C L 52 L 19 113/67 96 11/15/21 15:44 55 L 11/15/21 15:02 55 L 15 110/56 L 92 11/15/21 14:54 52 L 15 96/53 L 94 11/15/21 14:43 54 L 15 119/71 92 11/15/21 11:00 36.7 C 54 L 19 106/59 L 91 11/15/21 10:46 60 11/15/21 07:14 36.7 C 60 18 164/79 H 93
[2021-11-15] MEDS: ATORVASTATIN 40 MG TAB PO SCH (20:09)
[2021-11-15] MEDS: ASPIRIN 81 MG ECTAB PO SCH (20:09)
[2021-11-15] MEDS: CHOLECALCIFEROL 1,000 UNITS 25 MCG TAB PO SCH (20:12)
[2021-11-15] MEDS: TAMSULOSIN HCL 0.4 MG CAP PO SCH (20:13)
[2021-11-15] MEDS: carvediloL 3.125 MG TAB PO SCH (20:44)
[2021-11-16] MEDS ORDERED: LEVOTHYROXINE SODIUM 50 MCG TABLET PO SCH (06:30)
[2021-11-16 07:02] LABS: Hematocrit (blood only) 38.4 % (42-52); Hemoglobin 12.8 g/dL (14.0-18.0); Mean Corpuscular Hemoglobin 32.8 pg (25-34); Mean Corpuscular Hgb Conc 33.3 g/dL (32-36); Mean Corpuscular Volume 98.5 fL (80-100); Mean Platelet Volume 11.2 fL (7.4-10.4); Platelet Count 179 K/uL (130-400); RDW Coefficient of Variation 14.3 % (11.5-14.5); RDW Standard Deviation 51.8 fL (36.4-46.3); White Blood Count 9.37 K/uL (4.8-10.8)
[2021-11-16 07:34] LABS: BUN Creatinine Ratio 17.5 (10-20); Calcium 9.8 mg/dl (8.5-10.1); Creatinine Clr Calc Pharmacy 41.5 ml/min; Est GFR (African American) 60.7 ml/min; Est GFR (Non-African American) 52.4 ml/min; Magnesium 1.8 mg/dl (1.7-2.4); Phosphorus 3.7 mg/dl (2.5-4.9); Potassium 4.1 mmol/L (3.5-5.1)
--- NOTE | 2021-11-16 07:50 | Cardiology Progress Note ---
Date of Service November 16, 2021 Assessment & Plan (1) Syncope: (2) Abnormal echocardiogram: (3) CAD (coronary artery disease): (4) Ischemic cardiomyopathy: (5) Chronic diastolic CHF (congestive heart failure), NYHA class 3: (6) Hypertension: Plan: New occurrence of syncope LOC ? x30-45 minutes from a seated position without pre/postdromal symptoms. New anteroseptal/apical WMA on inpatient echo with mildly reduced LVEF Known CAD, hx of LAD stent in 2018.- Cardiac cath on 11/15 showed no progression of chronic CAD. Medical management was advised. 1. Continue aspirin 81 mg daily as well as carvedilol, losartan, and Imdur as ordered. 2. During admission telemetry review was free of bradyarrhythmias, HB/Pauses, etc. Given his history and characteristics of his syncope there is certainly concern for arrhythmia. Bradycardia noted on monitor, reduce Coreg to 3.125 mg BID May need to consider outpatient monitor vs ? loop insert 3. Abnormal TSH, Free T4 normal- on chronic amiodarone therapy. Agree with thyroid supplementation. Case discussed with Dr. Elizabeth Cárdenas to [place] from cardiology standpoint, I will arrange follow up as an outpatient in our cardiology clinic. Admission and Anticipated Discharge Date Admission Date: November 14, 2021 Supervising Physician Co-Signing Physician Notes Patient seen and examined. Agree with plans as outlined above. No evidence of progression in ischemic heart disease by cardiac catheterization patient on appropriate medical therapies with adjustments as noted above Agree with plans for discharge today Subjective Medically complex 81-year-old male. Initially presented to the emergency department due to unexplained syncope from a seated position. Echocardiogram showed a new anterior septal/apical wall motion abnormality and patient underwent cardiac catheterization on 11/15. Imaging showed no progression of chronic CAD. He has a known calcified 60% ostial LAD lesion verified with IVUS. Proximal to mid LAD stent was widely patent. Commended medical management, summary copied below. Patient was hypotensive and bradycardic and carvedilol was reduced to 3.125 mg twice daily. Thyroid elevated at 11. Levothyroxine was started at 50 mcg daily by primary team. Chart reviewed. Tele reviewed. Patient seen and examined at bedside. Patient resting comfortably, eager to go home. Denies any acute concerns- no chest pain, shortness of breath, palpitations, dizziness, or syncope. Tele: SR 50-60s with PVCs Review of Systems Review of Systems: All systems reviewed & are unremarkable except as noted in HPI & below Physical Exam Physical Exam: General: No acute distress. A+Ox3. HEENT: Normocephalic. Atraumatic. Conjunctiva and sclera clear. NECK: No carotid bruits. No JVD. Carotid upstrokes are brisk. Heart: RRR. S1 and S2 noted without murmur, rubs, gallops. PMI non displaced. Lungs: Clear to auscultation. No wheezes, rhonchi, rales. Abdomen: Normal bowel sounds. Soft. Nontender. No masses or organomegaly. No abdominal bruits. Extremities: No edema. No clubbing or cyanosis. right radial cath side dressing c/d/i- no signs of hematoma. Good sensation. Pulses: radial=2/4, posterior tibial=2/4, dorsalis pedis = 2/4. NEURO: No focal deficits. PSYCH: Normal. Results & Data ([facility]) Vital Signs (Past 12 Hours) Vital Signs Temp Pulse Pulse Resp BP Pulse Ox 11/16/21 07:22 36.4 C L 56 L 18 164/79 H 94 11/16/21 07:09 58 L 11/16/21 04:30 36.7 C 57 L 14 166/80 H 95 11/16/21 04:17 59 L 11/15/21 22:32 36.5 C 57 L 20 147/69 H 96 Laboratory Results Cardiac Enzymes 11/15/21 Range/Units 07:54 Troponin I High Sens 49.1 H (0-20) pg/ml CBC 11/15/21 11/16/21 Range/Units 07:54 06:07 WBC 8.89 9.37 (4.8-10.8) K/uL RBC 4.17 L 3.90 L (4.7-6.1) M/uL Hgb 13.7 L 12.8 L (14.0-18.0) g/dL Hct 41.2 L 38.4 L (42-52) % Plt Count 185 179 (130-400) K/uL Neut # (Auto) 5.81 (1.4-6.5) K/uL Lymph # (Auto) 1.64 (1.2-3.4) K/uL [place] # (Auto) 0.95 H (0.11-0.59) K/uL Eos # (Auto) 0.44 (0-0.5) K/uL Baso # (Auto) 0.03 (0-0.2) K/uL Comprehensive Metabolic Panel 11/15/21 11/16/21 Range/Units 07:54 06:07 Sodium 137 136 (136-145) mmol/L Potassium 4.3 4.1 (3.5-5.1) mmol/L Chloride 105 103 (98-107) mmol/L Carbon Dioxide 25 28 (21-32) mmol/L BUN 25 H 22 (6-23) mg/dl Creatinine 1.27 1.26 (0.6-1.4) mg/dl Glucose 95 83 (70-99(Fasting)) mg/dl Calcium 10.2 H 9.8 (8.5-10.1) mg/dl Intake and Output 11/15/21 11/16/21 11/16/21 22:59 06:59 14:59 Intake Total 991.667 / 1346.667 Output Total 350 / 1300 700 / 1300 300 / 300 Balance 641.667 / 46.667 -700 / 46.667 -300 / -300 Intake: IV 716.667 / 776.667 Sodium Chloride 0.9% 1000ML 1, 716.667 / 716.667 000 ml @ 100 mls/hr IV .Q10H FIORDALIZA Rx#:[id number] Oral 275 / 570 Output: Urine 350 / 1300 700 / 1300 300 / 300 Diagnostic Findings Cardiac Cath 11/15/[address] Gorman 1. Moderate stable, chronic coronary artery disease -Calcified 60% ostial LAD (60 to 70% chronic, calcified disease by IVUS) Widely patent proximal to mid LAD stent 30% mid circumflex at takeoff of OM2 with 60% proximal OM2 disease 40% mid RCA. Small RPDA 60% mid Recommendations: No acute high risk CAD to explain syncopal event or new apical wall motion abnormality. Continue medical management of stable ischemic heart disease. If were to need PCI of ostial LAD disease in the future consider referral to tertiary center. (1) CAD (coronary artery disease) Associated angina: with unspecified form of angina Coronary Disease- Associated Artery/Lesion type: [place] artery [place] vs. transplanted heart: [place] heart Qualified Code(s): I25.119 - Atherosclerotic heart disease of [place] coronary artery with unspecified angina pectoris (2) Hypertension Hypertension type: primary hypertension Qualified Code(s): I10 - Essential (primary) hypertension
[2021-11-16] MEDS: LOSARTAN POTASSIUM 50 MG TAB PO SCH (09:37)
[2021-11-16] MEDS: AMIODARONE 200 MG TAB PO SCH (09:37)
[2021-11-16] MEDS: ISOSORBIDE MONO EXTENDED REL 30 MG TABCR PO SCH (09:37)
[2021-11-16] MEDS: allopurinoL 100 MG TAB PO SCH (09:37)
[2021-11-16] MEDS: SERTRALINE HCL 50 MG TABLET PO SCH (09:37)
[2021-11-16] MEDS: carvediloL 3.125 MG TAB PO SCH (09:38)
[2021-11-16] MEDS: HEPARIN SOD 5,000 UNIT/0.5 ML VIAL SQ SCH (09:38)
[2021-11-16] MEDS: PANTOprazole 40 MG TAB PO SCH (09:38)
[2021-11-16] MEDS: cefTRIAXone SODIUM 1,000 MG in DEXTROSE 5% 50 ML IV SCH (09:39)
--- NOTE | 2021-11-16 13:44 | Discharge Summary ---
Date of Service November 16, 2021 Admission HPI Per Admitting Provider 81 year old male with h/o bladder cancer currently under treatment, HTN, PVCs, CAD, who presented to the ED today after a syncopal episode at home. Patient went for a walk with his outside by his house and came back to the kitchen. While sitting in the kitchen, he passed out which he does not remember. Next thing he remembers is waking up on the floor with EMS by his side. No pre or postdromal symptoms. Denies any lightheadedness, dizziness, confusion, seizure- like activities, bowel bladder incontinence, tongue bite [place] fine immediately afterwards. No similar episode before. Presented to ED for evaluation. Currently feels fine. Took his morning medicines today. He had his breakfast. Admission Exam Per Admitting Provider General: Sitting comfortably in bed, not in distress, on room air HEENT: EOMI, GASPER, MMM Chest: Clear breath sounds bilaterally, no wheezes or crackles CVS: Regular rate and rhythm, normal heart sounds, no murmur Abdomen: Soft, non tender, not distended, normal bowel sounds Neuro: Awake, alert, oriented, conversing well, non focal Extremities: No cyanosis, clubbing or edema Principal Diagnosis Syncope, concern for arrhythmia. History of bladder cancer on treatment. UTI Discharge Exam GENERAL: Alert and oriented x3. NAD, on RA. HEENT: No pallor, no icterus. Pupils equal, round and reactive to light. Oral mucosa moist. NECK: No JVD, no neck masses. HEART: S1 and S2 heard. Regular rate and rhythm. No murmur, no gallop. RESPIRATORY SYSTEM: Normal AP diameter. No accessory muscle use. No wheezing, no crackles. ABDOMEN: Soft, bowel sounds present, nontender, no distention. CENTRAL NERVOUS SYSTEM: No facial droop. Speech is clear. Obeys simple commands. Moves extremities. EXTREMITIES: No edema, no erythema seen. Discharge Data Allergies Allergy/AdvReac Type Severity Reaction Status Date / Time No Known Allergies Allergy Unverified 11/14/21 15:47 Consultations 11/14/21 15:27 ED Decision to Admit Stat 11/14/21 15:49 Consult Cardiology Routine Procedures Performed Operation Date: 11/15/21 13:00 Actual Procedures p Cineradiography w/Routine Exam - Dewey Gorman MD p IVUS Coronary Single Vessel - Dewey Gorman MD s Cath, Coronaries ONLY (no LV) - Dewey Gorman MD Ordered Studies 11/14/21 13:53 CT head/brain wo con Stat 11/14/21 18:09 CT angio chest PE protocol Routine 11/15/21 11:07 CL Cath Imgs for PACS use only Routine 11/15/21 11:39 CL Cath Imgs for PACS use only Routine 11/15/21 14:55 CL IVUS Coronary Single Vessel Routine Hospital Course (1) Syncope: (2) Bladder tumor: 81 yo M was managed for the following: #. Syncope- On the day of arrival, pt went for a walk w/ his for 5-10 min, came back feeling weak, while resting on the couch --> he passed out and doesn't remember until EMS was transfering him to "stretcher". Concern for cardiogenic. Work-up including labs, CT head, EKG unremarkable. Currently is in sinus rhythm. Admitting hs trops flat trended in 40s. C/t monitor on telemetry, orthostatic vitals, 11/15 ECHO: EF 45-50%, Gr 2 diastolic dysfxn. Anteroseptal and apical hypokinesis present. 11/15 s/p cardiac cath: Mod. stable CAD Discussed with cardiology, patient will need likely outpatient heart rate m onitoring, patient need to follow-up with cardiology as an outpatient. Cardiology okay with discharge from the point of view. Patient not to drive until cleared by cardiology for concern of syncope likely due to arrhythmia. Carvedilol dose has been adjusted 3.125 mg twice daily Doubt seizure. Patient states he recently had PET/CT couple weeks ago and was said to be fine. D-dimer was elevated, CTA chest was negative for PE #. Bladder cancer- on treatment [id number], due next monday. States recently had PET CT couple weeks ago #. UTI: admitting UA s/o UTI, f/u Cx, rocephin 11/15. To be discharged on cefdinir for 3 more days. #. Elevated TSH: #. 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 CKD3- Cr at baseline #. HTN- continue home meds with hold parameters #. 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 Follows with Dr Palma #. Chronic diastolic CHF- euvolemic. monitor #. DVT ppx- SCDs #. Dispo- Medsurg on tele #. Full code Following instruction communicated to the patient at the point of discharge: Follow-up with your primary care physician within a week time. Follow-up with cardiology as an outpatient, cardiology office will be in contact with you. Because of concerns of your syncope likely due to arrhythmia, avoid driving until cleared by cardiology. You might need outpatient Zio patch monitoring or other forms of heart rate monitoring, further discussion as an outpatient with cardiology. Your carvedilol has been decreased to 3.125 mg twice a day. Follow-up for your bladder cancer treatment as prior. For UTI you will be discharged on few days of antibiotic, complete the course. You have been started on levothyroxine, a new medication for hypothyroidism. It is started for your likely amiodarone induced hypothyroidism. You will need a thyroid function test in 6 weeks, you will need further discussion with your PCP on dose adjustment of levothyroxine. Take your medications as prescribed. Total Time Total Time Spent Total Time Spent (In Minutes): 35 Discharge Plan Discharge Items Patient Disposition: Home - Self-Care Reason For Visit: SYNCOPE Discharge Diagnosis: Syncope, concern for arrhythmia. History of bladder cancer on treatment. UTI Activity: Resume your previous activity Activity Comment: Avoid driving until cleared by cardiology. Non-emergency contact: Primary Care Provider Call non-emergency contact if: you have any medication questions, your symptoms worsen and your temperature is above 101 Follow-up/Referrals: Roberta Segura MD [Primary Care Provider] - Diet: Heart Healthy Addtl Attending Provider Instructions: Follow-up with your primary care physician within a week time. Follow-up with cardiology as an outpatient, cardiology office will be in contact with you. Because of concerns of your syncope likely due to arrhythmia, avoid driving until cleared by cardiology. You might need outpatient Zio patch monitoring or other forms of heart rate monitoring, further discussion as an outpatient with cardiology. Your carvedilol has been decreased to 3.125 mg twice a day. Follow-up for your bladder cancer treatment as prior. For UTI you will be discharged on few days of antibiotic, complete the course. You have been started on levothyroxine, a new medication for hypothyroidism. It is started for your likely amiodarone induced hypothyroidism. You will need a thyroid function test in 6 weeks, you will need further discussion with your PCP on dose adjustment of levothyroxine. Take your medications as prescribed. Pending Studies at Discharge: Yes (Urine culture final results.) Stand-Alone Forms: My [facility], Smoking Cessation Medications and DC Order Prescriptions: New carvedilol 3.125 mg Tablet 3.125 mg PO BID Qty: 60 RF: 0 levothyroxine [Synthroid] 50 mcg Tablet 50 mcg PO DAILYBB Qty: 30 RF: 0 cefdinir 300 mg capsule 300 mg PO BID 3 Days Qty: 6 RF: 0 Continued allopurinol [Zyloprim] 100 mg Tablet 100 mg PO QAM RF: 0 omeprazole magnesium [Prilosec OTC] 20 mg Tablet,Delayed Release (Dr/Ec) 20 mg PO QAM RF: 0 cholecalciferol (vitamin D3) [Vitamin D3] 2,000 unit Tablet 2,000 unit PO QPM RF: 0 tamsulosin 0.4 mg capsule 0.4 mg PO QPM RF: 0 aspirin 81 mg Tablet,Delayed Release (Dr/Ec) 81 mg PO QPM RF: 0 isosorbide mononitrate 30 mg Tablet Extended Release 24 Hr 30 mg PO QAM RF: 0 atorvastatin 80 mg tablet 80 mg PO HS RF: 0 sertraline 50 mg tablet 50 mg PO QAM RF: 0 amiodarone 200 mg tablet 200 mg PO DAILY RF: 0 losartan 50 mg Tablet 50 mg PO BID 30 Days Qty: 60 RF: 2 Discontinued carvedilol 6.25 mg Tablet 6.25 mg PO BID Qty: 60 RF: 0 Discharge Orders: Discharge Order (Routine); Ordered 11/16/21 Ordered By: Lucas Hanley Admission Data Admit Date/Time: 11/14/21 17:56 Attending Provider: Lucas Hanley Admit Provider: Familia Mayo Primary Care Provider: Roberta Segura Other Providers: Familia Mayo ; Pedro Barrientos
== END 2021-11-16 15:11 | disposition home or self-care (01) ==
LOC: 2S 13:37 → ED 13:37 → SUATTDRO 17:56 → 2S 18:41
PROC: CLB.CCO (2021-11-15 13:00)

== ENCOUNTER 2023-12-20 12:00 | Inpatient (IN) ==
--- NOTE | 2023-12-20 12:47 | Emergency Department Note ---
Impression & Plan Near syncope, Acute kidney injury superimposed on chronic kidney disease, Non- ST elevation [place] (NSTEMI) ED Provider Note HISTORY OF PRESENT ILLNESS: Patient is an 83-year-old male presenting with hypotension. Patient reports that for the last 6 months every day at 10 AM he starts feeling woozy and lightheaded and goes to lay down for about an hour long nap. He states that he again gets the same sensation around 3 PM and lays down. He states that after about an hour he feels better and goes about his day. He states that today he was at the doctor's office to discuss potentially getting outpatient supplemental oxygen when he had another 1 of these episodes. His blood pressure was noted to be 68/42 in clinic. Patient denies any medication changes other than his Eliquis has been decreased recently. He denies any chest pain or shortness of breath with the episodes. He reports he feels lightheaded and dizzy and his vision gets a little bit blurry. On arrival to the ER, he reports his symptoms have completely resolved. He denies any recent fevers. Denies any nausea, vomiting or diarrhea. Reports has been eating and drinking without any issue. Patient reports a history of cardiac stent. He denies any history of DVT or PE. ROS: as above PHYSICAL EXAM: Constitutional: Patient appears in no acute distress. HENT: Head: Normocephalic and atraumatic. Eyes: EOMI, PERRL Mouth/Throat: Mucous membranes moist. Neck: Trachea midline. Neck supple. Cardiovascular: Paced. No murmurs, rubs or gallops. Intact distal pulses. Pulmonary/Chest: No respiratory distress. Breath sounds clear and equal bilaterally. No wheezes or rales. Abdominal: Abdomen soft, no tenderness, rebound or guarding. Musculoskeletal: No edema, tenderness or deformity noted. Skin: Warm and dry. No rash, erythema, pallor or cyanosis Psychiatric: Appropriate mood and affect for situation. Neurological: Alert and keenly responsive. CN II-XII grossly intact, moving all extremities equally and fully. MDM: - Vitals signs stable. - History obtained via patient. History as above. - Chronic conditions affecting care: CAD (s/p PCI); Afib; HTN; bladder cancer; HLD; hypothyroidism; hyperparathyroidism - Differential diagnoses include, but are not limited to: ACS; pneumonia; UTI; dehydration; dysrhythmia; electrolyte abnormality - Order placed for continuous cardiac monitoring. At this time, monitor showed rate of 60 bpm with paced rhythm, per my interpretation. - External medical records reviewed. [facility] internal medicine visit note from today was reviewed. Patient was seen for a follow-up appointment. He had a blood pressure of 60/42 and given his symptoms, they called 911 to get the patient sent to the ER. - EKG interpreted by myself showed atrial paced rhythm. Rate 84 bpm. - Laboratory workup interpreted by myself showed normal WBC; normal PT/INR; stable electrolytes; PIYUSH on CKD (Cr 1.68 - baseline around 1.4); elevated troponin (48.4); normal TSH; normal procalcitonin; normal lipase - UA negative for infection - Random cortisol level negative - CXR negative for pneumonia, per my interpretation - Unclear etiology for symptoms at this time. However, patient does look slightly dry on his laboratory workup. - Discussion was had with medical case worker about patient's case and need for admission - Hospitalist consulted for admission - Patient admitted to [facility] hospitalist service for further evaluation and management. ASSESSMENT AND PLAN: Diagnosis: near syncope; PIYUSH on CKD; NSTEMI Plan: admit Past Med/Surg History Problem List (Updated 12/20/23 @ 15:24 by Jessa Waters MD) Non-ST elevation [place] (NSTEMI) (Acute) Acute kidney injury superimposed on chronic kidney disease (Acute) Near syncope (Acute) Osteoporosis Pacemaker Medtronic, implanted 04/2022 at [facility]. Follows with Dr Ferraro. Pacer check 07/2022. Hypothyroidism Primary hyperparathyroidism Presence of drug coated stent in LAD coronary artery Dyslipidemia Ventricular ectopy present on electrocardiography (Acute) Chronic diastolic CHF (congestive heart failure), NYHA class 3 Aortic root enlargement Dilated ascending thoracic aorta, again measuring up to 4.1 cm in diameter per 09/[address] Normal caliber thoracic aorta with no evidence for a dissection per 06/[address] Bladder cancer (Acute) s/p surgery intervention and receives Keytruda infusion every 3 weeks (at [facility]) Hypertension (Acute) CAD (coronary artery disease) (Acute) CAD, status post DESHAWN to the prox LAD 05/24/2018 Plaque shifted noted at the time of intervention resulting in a 30-40% ostial LAD stenosis Residual 80% mid RPDA stenosis not amendable to PCI Chest heaviness, resolved with initiation of Imdur, negative nuclear stress 09/2020 Lexiscan nuclear stress demonstrated small posterior scar without ischemia, unchanged from 2019 and 2020 Stable moderate nonobstructive CAD per cardiac cath 11/2021 at [facility] Medical History (Updated 12/20/23 @ 15:24 by Jessa Waters MD) Hypercalcemia Anxiety "white coat syndrome" DJD (degenerative joint disease) GERD (gastroesophageal reflux disease) Well controlled and stable Gout No recent issues Surgical History (Updated 04/20/23 @ 16:52 by Jefferson Schumacher MD) Status post left knee replacement History of esophagogastroduodenoscopy (EGD) S/P cardiac pacemaker procedure 04/2022 History of bone marrow biopsy [facility] 2022 Status post right knee replacement History of surgery Multiple as child (r/t trauma, run over by tractor) History of cardiac cath 2017 > stent x1 11/2021 > no stents History of colonoscopy H/O exploratory laparotomy For intussusception Hx of hernia repair Hx of shoulder surgery right Family History Sister No problems noted. Brother No problems noted. Other Diabetes No family history of adverse response to anesthesia Social History Smoking Status: Never smoker Second Hand Exposure: No; Do You Dip or Chew Tobacco: No; Hx Alcohol Use: No (Quit 6+ months ago) Hx Substance Use: No Preferred Language: Maltese Communication Ability: Effective Abstracter Required: No Beliefs That Will Affect Care: None marital status: Current Living Situation: Spouse Current Living Situation Comment: current occupational status: retired Feels Safe at Home: Yes Assistive Devices: Cane Allergies Allergies Allergy/AdvReac Type Severity Reaction Status Date / Time KAYLI Inhibitors AdvReac Intermediate cough Verified 12/20/23 15:19 Home Meds Home Medications Medication Instructions Recorded Confirmed allopurinol 100 mg tablet 100 mg PO QAM 04/30/18 12/20/23 (Zyloprim) aspirin 81 mg tablet,delayed 81 mg PO QAM 01/11/21 12/20/23 release isosorbide mononitrate 30 mg 30 mg PO QAM 01/11/21 12/20/23 tablet,extended release 24 hr amiodarone 200 mg tablet (Pacerone) 200 mg PO QAM 11/14/21 12/20/23 atorvastatin 80 mg tablet (Lipitor) 80 mg PO QAM 11/14/21 12/20/23 ezetimibe 10 mg tablet (Zetia) 10 mg PO QAM 09/02/22 12/20/23 losartan 50 mg tablet (Cozaar) 50 mg PO DAILY 09/02/22 12/20/23 docusate sodium 100 mg capsule 100 mg PO BID 04/20/23 12/20/23 (Colace) acetaminophen 500 mg tablet 1,000 mg PO TID 12/20/23 12/20/23 (Tylenol Extra Strength) apixaban 5 mg tablet (Eliquis) 5 mg PO BID 12/20/23 12/20/23 bisacodyl 10 mg rectal suppository 10 mg PA DAILY PRN Constipation 12/20/23 12/20/23 carvedilol 6.25 mg tablet 6.25 mg PO BID 12/20/23 12/20/23 cholecalciferol (vitamin D3) 25 50 mcg PO QPM 12/20/23 12/20/23 mcg (1,000 unit) capsule (Vitamin D3) omeprazole 20 mg tablet,delayed 20 mg PO DAILY PRN 12/20/23 12/20/23 release HEARTBURN/INDIGESTION tamsulosin 0.4 mg capsule 0.4 mg PO QAM 12/20/23 12/20/23 wheat dextrin 1 gram chewable 1 tab PO DAILY 12/20/23 12/20/23 tablet (Benefiber Sugar Free (dextrin)) Previous Rx's Medication Instructions Recorded levothyroxine 50 mcg tablet 50 mcg PO DAILYBB #30 tabs 11/16/21 (Synthroid) Results & Data (ED) Vital Signs Vital Signs - 24 hr 12/20/23 12:00 12/20/23 12:03 12/20/23 12:09 Temperature 36.7 C Temperature Source Oral Pulse Rate 75 73 Pulse Rate from SpO2 Sensor Respiratory Rate 18 18 Blood Pressure 158/92 H 158/92 H Blood Pressure Mean 114 105 Pulse Oximetry 95 Oxygen Delivery Method Room Air Sepsis Recent Fever Within 48 Hours No Sepsis New/Unexplained Change in Mental Status No Sepsis Action Taken by Nursing No Action Required 12/20/23 12:30 12/20/23 12:30 12/20/23 12:30 Temperature Temperature Source Pulse Rate 61 Pulse Rate from SpO2 Sensor Respiratory Rate 20 Blood Pressure 102/66 102/66 Blood Pressure Mean 73 73 Pulse Oximetry Oxygen Delivery Method Sepsis Recent Fever Within 48 Hours Sepsis New/Unexplained Change in Mental Status Sepsis Action Taken by Nursing 12/20/23 12:33 12/20/23 12:41 12/20/23 13:00 Temperature Temperature Source Pulse Rate 83 Pulse Rate from SpO2 Sensor Respiratory Rate Blood Pressure 129/73 Blood Pressure Mean 91 Pulse Oximetry 95 Oxygen Delivery Method Room Air Sepsis Recent Fever Within 48 Hours Sepsis New/Unexplained Change in Mental Status Sepsis Action Taken by Nursing 12/20/23 13:03 12/20/23 13:24 12/20/23 13:30 Temperature Temperature Source Pulse Rate 60 65 Pulse Rate from SpO2 Sensor 65 Respiratory Rate 19 17 Blood Pressure 161/91 H Blood Pressure Mean 108 Pulse Oximetry 95 Oxygen Delivery Method Sepsis Recent Fever Within 48 Hours Sepsis New/Unexplained Change in Mental Status Sepsis Action Taken by Nursing 12/20/23 13:33 12/20/23 14:00 12/20/23 14:00 Temperature Temperature Source Pulse Rate 60 60 Pulse Rate from SpO2 Sensor 60 60 Respiratory Rate 17 16 Blood Pressure 151/82 H Blood Pressure Mean 96 Pulse Oximetry 97 94 Oxygen Delivery Method Sepsis Recent Fever Within 48 Hours Sepsis New/Unexplained Change in Mental Status Sepsis Action Taken by Nursing Laboratory Data 12/20/23 12:14 12/20/23 12:14 Lab Results 12/20/23 12/20/23 12/20/23 Range/Units 12:14 12:54 13:12 WBC 7.31 (4.8-10.8) K/ul RBC 3.73 L (4.70-6.10) M/uL Hgb 12.6 L (14.0-18.0) g/dl Hct 37.6 L (42.0-52.0) % MCV 100.8 H (80.0-100.0) fL MCH 33.8 (25.0-34.0) pg MCHC 33.5 (32.0-36.0) g/dL RDW Std Deviation 50.2 H (36.4-46.3) fL RDW Coeff of Dominic 13.6 (11.5-14.5) % Plt Count 175 (130-400) K/uL MPV 11.1 (9.4-12.4) fL Immature Gran % (Auto) 0.3 % Neut % (Auto) 61.9 % Lymph % (Auto) 21.9 % [place] % (Auto) 10.8 % Eos % (Auto) 4.7 % Baso % (Auto) 0.4 % Neut # (Auto) 4.53 (1.40-6.50) K/uL Lymph # (Auto) 1.60 (1.20-3.40) K/uL [place] # (Auto) 0.79 H (0.11-0.59) K/uL Eos # (Auto) 0.34 (0.00-0.50) K/uL Baso # (Auto) 0.03 (0.00-0.20) K/uL Immature Gran # (Auto) 0.02 (0.01-0.20) K/uL PT 11.1 (9.0-12.0) Seconds INR 1.0 (0.9-1.1) Sodium 137 (136-145) mmol/L Potassium 4.6 (3.5-5.1) mmol/L Chloride 104 (98-107) mmol/L Carbon Dioxide 27 (21-32) mmol/L Anion Gap 6 (3-11) BUN 30 H (6-23) mg/dl Creatinine 1.68 H (0.6-1.4) mg/dl Est Cr Clr Drug Dosing 30.1 ml/min Est GFR ( Amer) 42.3 ml/min Est GFR (Non-Af Amer) 36.5 ml/min BUN/Creatinine Ratio 17.9 (10-20) Glucose 113 H (70-99(Fasting)) mg/dl Lactate 1.5 (0.4-2.0) mmol/L Calcium 10.3 (8.6-10.3) mg/dl Magnesium 2.1 (1.7-2.4) mg/dl Total Bilirubin 0.6 (0.2-1.0) mg/dl AST 14 (13-39) U/L ALT 13 (7-52) U/L Alkaline Phosphatase 53 (34-104) U/L Total Creatine Kinase 74 (30-223) U/L Troponin I High Sens 48.4 H (0-20) pg/ml Total Protein 7.3 (6.0-8.3) gm/dl Albumin 4.2 (3.4-5.0) gm/dl Globulin 3.1 (2.5-4.0) gm/dl Albumin/Globulin Ratio 1.4 (0.9-2) Lipase 39 (11-82) U/L Procalcitonin 0.02 (0-0.5) ng/ml TSH 2.371 (0.300-4.500) uIu/ml Random Cortisol 10.18 mcg/dl Urine Color Yellow Urine Appearance Clear (Clear) Urine pH 6.5 (4.5-7.5) Ur Specific [place] 1.015 (1.000-1.030) Urine Protein Negative (Negative) Urine Glucose (UA) Negative (Negative) Urine Ketones Trace H (Negative) Urine Blood Negative (Negative) Urine Nitrite Negative (Negative) Urine Bilirubin Negative (Negative) Urine Urobilinogen Negative (Negative) Ur Leukocyte Esterase Trace H (Negative) Urine WBC (Auto) 0-5 (0-5) /hpf Urine RBC (Auto) 0-2 (0-2) /hpf U Hyaline Cast (Auto) 0-2 (0-2) /lpf U Epithel Cells (Auto) 0-2 (0-2) /hpf Urine Bacteria (Auto) None Seen (None Seen) 12/20/23 Range/Units 14:48 WBC (4.8-10.8) K/ul RBC (4.70-6.10) M/uL Hgb (14.0-18.0) g/dl Hct (42.0-52.0) % MCV (80.0-100.0) fL MCH (25.0-34.0) pg MCHC (32.0-36.0) g/dL RDW Std Deviation (36.4-46.3) fL RDW Coeff of Dominic (11.5-14.5) % Plt Count (130-400) K/uL MPV (9.4-12.4) fL Immature Gran % (Auto) % Neut % (Auto) % Lymph % (Auto) % [place] % (Auto) % Eos % (Auto) % Baso % (Auto) % Neut # (Auto) (1.40-6.50) K/uL Lymph # (Auto) (1.20-3.40) K/uL [place] # (Auto) (0.11-0.59) K/uL Eos # (Auto) (0.00-0.50) K/uL Baso # (Auto) (0.00-0.20) K/uL Immature Gran # (Auto) (0.01-0.20) K/uL PT (9.0-12.0) Seconds INR (0.9-1.1) Sodium (136-145) mmol/L Potassium (3.5-5.1) mmol/L Chloride (98-107) mmol/L Carbon Dioxide (21-32) mmol/L Anion Gap (3-11) BUN (6-23) mg/dl Creatinine (0.6-1.4) mg/dl Est Cr Clr Drug Dosing ml/min Est GFR ( Amer) ml/min Est GFR (Non-Af Amer) ml/min BUN/Creatinine Ratio (10-20) Glucose (70-99(Fasting)) mg/dl Lactate (0.4-2.0) mmol/L Calcium (8.6-10.3) mg/dl Magnesium (1.7-2.4) mg/dl Total Bilirubin (0.2-1.0) mg/dl AST (13-39) U/L ALT (7-52) U/L Alkaline Phosphatase (34-104) U/L Total Creatine Kinase (30-223) U/L Troponin I High Sens 38.6 H (0-20) pg/ml Total Protein (6.0-8.3) gm/dl Albumin (3.4-5.0) gm/dl Globulin (2.5-4.0) gm/dl Albumin/Globulin Ratio (0.9-2) Lipase (11-82) U/L Procalcitonin (0-0.5) ng/ml TSH (0.300-4.500) uIu/ml Random Cortisol mcg/dl Urine Color Urine Appearance (Clear) Urine pH (4.5-7.5) Ur Specific [place] (1.000-1.030) Urine Protein (Negative) Urine Glucose (UA) (Negative) Urine Ketones (Negative) Urine Blood (Negative) Urine Nitrite (Negative) Urine Bilirubin (Negative) Urine Urobilinogen (Negative) Ur Leukocyte Esterase (Negative) Urine WBC (Auto) (0-5) /hpf Urine RBC (Auto) (0-2) /hpf U Hyaline Cast (Auto) (0-2) /lpf U Epithel Cells (Auto) (0-2) /hpf Urine Bacteria (Auto) (None Seen) Administered Medications Discontinued Medications Sodium Chloride (Nss) 1,000 mls @ 999 mls/hr IV .[id number] ONE Stop: 12/20/23 15:15 Last Admin: 12/20/23 14:35 Dose: 999 mls/hr Documented By: DS Imaging Data Radiologist's Impression: Chest X-Ray 12/20/23 15:20 XR chest 1V portable CLINICAL HISTORY: hypotensive episode COMPARISON STUDY: Chest CT September 06, 2022. Chest radiograph and left rib series February 01, 2023. FINDINGS: Low lung unchanged. A right subclavian pacer remains in place. Cardiomegaly is unchanged. There is no evidence for pulmonary edema. There is no pneumothorax or pleural effusion. Mild left basilar opacity favors atelectasis. No consolidation is identified to suggest pneumonia. IMPRESSION: No acute cardiopulmonary findings. No change in appearance of the chest. ACT 112: Negative or not required by law. Electronically signed by: Raud Palmer M.D. 12/20/2023 3:46 PM Discharge Plan Visit Data Chief Complaint: Syncope (Near Syncope) ED Provider: Jessa Waters Discharge Problem: Near syncope, Acute kidney injury superimposed on chronic kidney disease, Non- ST elevation [place] (NSTEMI) Forms Stand Alone Forms: My [facility] Prescriptions Prescriptions: No Action docusate sodium [Colace] 100 mg capsule 100 mg PO BID allopurinol [Zyloprim] 100 mg Tablet 100 mg PO QAM aspirin 81 mg Tablet,Delayed Release (Dr/Ec) 81 mg PO QAM isosorbide mononitrate 30 mg Tablet Extended Release 24 Hr 30 mg PO QAM atorvastatin [Lipitor] 80 mg tablet 80 mg PO QAM amiodarone [Pacerone] 200 mg tablet 200 mg PO QAM levothyroxine [Synthroid] 50 mcg Tablet 50 mcg PO DAILYBB Qty: 30 0RF ezetimibe [Zetia] 10 mg Tablet 10 mg PO QAM losartan [Cozaar] 50 mg tablet 50 mg PO DAILY Rx Instructions: PER EXT MED HX. carvedilol 6.25 mg tablet 6.25 mg PO BID acetaminophen [Tylenol Extra Strength] 500 mg Tablet 1,000 mg PO TID bisacodyl 10 mg Suppository 10 mg PA DAILY MDD 1 SUPP/WEEK PRN (Reason: Constipation) cholecalciferol (vitamin D3) [Vitamin D3] 25 mcg (1,000 unit) Capsule 50 mcg PO QPM Benefiber Sugar Free (dextrin) 1 gram Tablet,Chewable 1 tab PO DAILY Rx Instructions: chew thoroughly before swallowing; do not swallow whole omeprazole 20 mg Tablet,Delayed Release (Dr/Ec) 20 mg PO DAILY PRN (Reason: HEARTBURN/INDIGESTION) Eliquis 5 mg Tablet 5 mg PO BID tamsulosin 0.4 mg capsule 0.4 mg PO QAM Referrals Referrals: Roberta Segura MD [Primary Care Provider] -
[2023-12-20 13:05] LABS: Basophils # (auto) 0.03 K/uL (0.00-0.20); Basophils % (auto) 0.4 %; Eosinophils # (auto) 0.34 K/uL (0.00-0.50); Eosinophils % (auto) 4.7 %; Hematocrit (blood only) 37.6 % (42.0-52.0); Hemoglobin 12.6 g/dl (14.0-18.0); Immature Granulocytes # (auto) 0.02 K/uL (0.01-0.20); Immature Granulocytes % (auto) 0.3 %; Lymphocytes % (auto) 21.9 %; Mean Corpuscular Hemoglobin 33.8 pg (25.0-34.0); Mean Corpuscular Hgb Conc 33.5 g/dL (32.0-36.0); Mean Corpuscular Volume 100.8 fL (80.0-100.0); Mean Platelet Volume 11.1 fL (9.4-12.4); Monocytes # (auto) 0.79 K/uL (0.11-0.59); Monocytes % (auto) 10.8 %; Neutrophils # (auto) 4.53 K/uL (1.40-6.50); Neutrophils % (auto) 61.9 %; Platelet Count 175 K/uL (130-400); RDW Coefficient of Variation 13.6 % (11.5-14.5); RDW Standard Deviation 50.2 fL (36.4-46.3); Red Blood Count 3.73 M/uL (4.70-6.10); White Blood Count 7.31 K/ul (4.8-10.8)
[2023-12-20 13:20] LABS: Albumin Globulin Ratio 1.4 (0.9-2); Albumin Level 4.2 gm/dl (3.4-5.0); BUN Creatinine Ratio 17.9 (10-20); Bilirubin,Total 0.6 mg/dl (0.2-1.0); Calcium 10.3 mg/dl (8.6-10.3); Creatinine Clr Calc Pharmacy 30.1 ml/min; Est GFR (African American) 42.3 ml/min; Est GFR (Non-African American) 36.5 ml/min; Globulin 3.1 gm/dl (2.5-4.0); Magnesium 2.1 mg/dl (1.7-2.4); Potassium 4.6 mmol/L (3.5-5.1); Total Protein 7.3 gm/dl (6.0-8.3)
[2023-12-20 13:25] LABS: Prothrombin Time 11.1 Seconds (9.0-12.0)
[2023-12-20 13:27] LABS: Troponin I High Sensitivity 48.4 pg/ml (0-20)
[2023-12-20 13:34] LABS: Thyroid Stimulating Hormone 2.371 uIu/ml (0.300-4.500)
[2023-12-20 13:45] LABS: Appearance Urine Clear (Clear); Bacteria Urine Automated None Seen (None Seen); Bilirubin Urine Negative (Negative); Blood Urine Negative (Negative); Cast Urine Automated 0-2 /lpf (0-2); Color Urine Yellow; Epithelial Cell Urine Auto 0-2 /hpf (0-2); Glucose Urine UA Negative (Negative); Ketones Urine Trace (Negative); Leukocyte Esterase Urine Trace (Negative); Nitrite Urine Negative (Negative); Protein Urine Negative (Negative); RBC Urine Automated 0-2 /hpf (0-2); Specific Gravity Urine 1.015 (1.000-1.030); Urobilinogen Urine Negative (Negative); WBC Urine Automated 0-5 /hpf (0-5); pH Urine 6.5 (4.5-7.5)
[2023-12-20] MEDS: SODIUM CHLORIDE 0.9% 1,000 ML IV ONE (14:35)
--- NOTE | 2023-12-20 14:49 | Electrocardiogram Report ---
Test Reason : Blood Pressure : / mmHG Vent. Rate : 084 BPM Atrial Rate : 084 BPM P-R Int : 292 ms QRS Dur : 170 ms QT Int : 438 ms P-R-T Axes : 000 -34 -08 degrees QTc Int : 517 ms Atrial-paced rhythm with prolonged AV conduction Left axis deviation Right bundle branch block Abnormal ECG When compared with ECG of 06-APR-2022 14:56, Electronic atrial pacemaker has replaced Sinus rhythm Confirmed by Jag Warner ([id number]) on 12/20/2023 2:49:08 PM Referred By: Confirmed By:Jag Warner
--- NOTE | 2023-12-20 15:26 | History & Physical Report ---
Date of Service December 20, 2023 Assessment & Plan (1) Near syncope: (2) CAD (coronary artery disease): (3) Hypertension: (4) Dyslipidemia: (5) Chronic diastolic CHF (congestive heart failure), NYHA class 3: (6) Pacemaker: (7) Bladder cancer: (8) Hypothyroidism: Plan: Syncope Chronic Diastolic CHF HTN HLD Atrial Fibrillation Cardiac Pacemaker in situ - Last echo completed in Jun 2023 showing EF of 55 %, grade II diastolic dysf unction, moderate aortic valve sclerosis, calcification of the left coronary f aortic calce cusp, mild aortic regurg, mild mitral regurg, mild tricuspid regurg, ascending thoracic aorta is mildly enlarged at 4.2 cm - Repect echo - BP meds including: carvedilol will reduce to 3.125, hold losartan, continue amiodarone for rate control - Orthostatic BPs, reported that it was 60/40 in outpt clinic, here is stable at 151/82 - Interrogate pacemaker - EKG reviewed and negative, old RBBB - Trend troponin, initial was 48--> 38, recheck 1 more set at 2000 - Lipids in Jun were normal - Cardiology consult for recurrent syncope - follows with [facility] [place] outpt - previously had a cardiac cath about 2 years ago when he presented for similar reasons, will defer to cards team if needs repeat cardiac cath/NPO after midnight. 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 1.6 on admission, chronic, stable Hx of Bladder Cancer - Following with Dr. Gonzalez outpatient urology -Recently underwent cystoscopy on 12/05/2023, pathology is negative for any malignancy seen, doing 3-month surveillance cystoscopies - hold tamsulosin in setting of profound hypotension, bladder scan prn DVT ppx: teds, scds, eliquis Lines: PIV x 1 FEN/GI: Allow HH diet for now CODE: DNR/DNI Dispo: From home, likely to remain in the hospital x 1-2 days A total of 77 minutes were spent with greater than 50% of that time face to face with the patient, personally reviewing all current laboratories, imaging studies, past medication reconciliation, outpatient chart review, and discussion with specialists to collaborate care for the patient with attending. Please see attending documentation for corrections and/or additions. History of Present Illness Chief Complaint: Syncopal episode Primary Care Provider: Roberta Segura MD This is an 83-year-old male with PMHx of atrial fibrillation, cardiac pacemaker in situ, CAD status post cardiac DESHAWN in LAD, history of hypotension, history of bladder cancer who presents to the hospital after being in the PCP office this morning where he had an episode of lightheadedness and dizziness. Patient has complaints of blurred vision/ floaters and weakness which started about 6 months ago, happening twice daily around 10 AM and again at 3 P. When this happens he then goes to lay down for 30 minutes to 1 hour and then feels improved. He does not recall if it is positional causing the dizziness. Denies any palpitations, flutter, or other issues with the weakness/visual changes, no chest pain. He takes his morning meds around 9am, and evening meds around 8 pm. Pt reports his appetite is good and is drinking without any issues. Patient is also on antihypertensive medications including Imdur, Coreg, and on amiodarone for rate control. His BP today was noted to be extremely low. In the clinic reported as 60/40. Upon EMS arrival to the clinic his blood pressure was normal, and he drove himself here to the ER as they recommended he come here for further workup. EKG is without any acute changes, blood pressure of 151/82. He thinks his pacemaker was interrogated last about 2 years ago. Allergies Allergy/AdvReac Type Severity Reaction Status Date / Time KAYLI Inhibitors AdvReac Intermediate cough Verified 12/20/23 15:19 Home Medications Medication Instructions Recorded Confirmed Type allopurinol 100 mg tablet 100 mg PO QAM 04/30/18 12/20/23 History (Zyloprim) aspirin 81 mg tablet,delayed 81 mg PO QAM 01/11/21 12/20/23 History release isosorbide mononitrate 30 mg 30 mg PO QAM 01/11/21 12/20/23 History tablet,extended release 24 hr amiodarone 200 mg tablet (Pacerone) 200 mg PO QAM 11/14/21 12/20/23 History atorvastatin 80 mg tablet (Lipitor) 80 mg PO QAM 11/14/21 12/20/23 History levothyroxine 50 mcg tablet 50 mcg PO DAILYBB #30 tabs 11/16/21 12/20/23 Rx (Synthroid) ezetimibe 10 mg tablet (Zetia) 10 mg PO QAM 09/02/22 12/20/23 History losartan 50 mg tablet (Cozaar) 50 mg PO DAILY 09/02/22 12/20/23 History docusate sodium 100 mg capsule 100 mg PO BID 04/20/23 12/20/23 History (Colace) acetaminophen 500 mg tablet 1,000 mg PO TID 12/20/23 12/20/23 History (Tylenol Extra Strength) apixaban 5 mg tablet (Eliquis) 5 mg PO BID 12/20/23 12/20/23 History bisacodyl 10 mg rectal suppository 10 mg WI DAILY PRN Constipation 12/20/23 12/20/23 History carvedilol 6.25 mg tablet 6.25 mg PO BID 12/20/23 12/20/23 History cholecalciferol (vitamin D3) 25 50 mcg PO QPM 12/20/23 12/20/23 History mcg (1,000 unit) capsule (Vitamin D3) omeprazole 20 mg tablet,delayed 20 mg PO DAILY PRN 12/20/23 12/20/23 History release HEARTBURN/INDIGESTION sertraline 50 mg tablet 50 mg PO DAILY 12/20/23 12/20/23 History tamsulosin 0.4 mg capsule 0.4 mg PO QAM 12/20/23 12/20/23 History wheat dextrin 1 gram chewable 1 tab PO DAILY 12/20/23 12/20/23 History tablet (Benefiber Sugar Free (dextrin)) Past Med/Surg History Problem List Non-ST elevation [place] (NSTEMI) (Acute) Acute kidney injury superimposed on chronic kidney disease (Acute) Near syncope (Acute) Osteoporosis Pacemaker Medtronic, implanted 04/2022 at [facility]. Follows with Dr Ferraro. Pacer check 07/2022. Hypothyroidism Primary hyperparathyroidism Presence of drug coated stent in LAD coronary artery Dyslipidemia Ventricular ectopy present on electrocardiography (Acute) Chronic diastolic CHF (congestive heart failure), NYHA class 3 Aortic root enlargement Dilated ascending thoracic aorta, again measuring up to 4.1 cm in diameter per 09/[address] Normal caliber thoracic aorta with no evidence for a dissection per 06/[address] Bladder cancer (Acute) s/p surgery intervention and receives Keytruda infusion every 3 weeks (at [facility]) Hypertension (Acute) CAD (coronary artery disease) (Acute) CAD, status post DESHAWN to the prox LAD 05/24/2018 Plaque shifted noted at the time of intervention resulting in a 30-40% ostial LAD stenosis Residual 80% mid RPDA stenosis not amendable to PCI Chest heaviness, resolved with initiation of Imdur, negative nuclear stress 09/2020 Lexiscan nuclear stress demonstrated small posterior scar without ischemia, unchanged from 2019 and 2020 Stable moderate nonobstructive CAD per cardiac cath 11/2021 at [facility] Medical History Hypercalcemia Anxiety "white coat syndrome" DJD (degenerative joint disease) GERD (gastroesophageal reflux disease) Well controlled and stable Gout No recent issues Surgical History Status post left knee replacement History of esophagogastroduodenoscopy (EGD) S/P cardiac pacemaker procedure 04/2022 History of bone marrow biopsy [facility] [place] 2022 Status post right knee replacement History of surgery Multiple as child (r/t trauma, run over by tractor) History of cardiac cath 2017 > stent x1 11/2021 > no stents History of colonoscopy H/O exploratory laparotomy For intussusception Hx of hernia repair Hx of shoulder surgery right Family History Sister No problems noted. Brother No problems noted. Other Diabetes No family history of adverse response to anesthesia Social History Smoking Status: Never smoker Second Hand Exposure: No; Do You Dip or Chew Tobacco: No; Hx Alcohol Use: No (Quit 6+ months ago) Hx Substance Use: No Preferred Language: Polish Communication Ability: Effective [employer] Required: No Beliefs That Will Affect Care: None marital status: Current Living Situation: Spouse Current Living Situation Comment: current occupational status: retired Feels Safe at Home: Yes Assistive Devices: Cane Review of Systems Review of Systems: Constitutional: No fever, sweats or chills, + dizziness Eyes: No diplopia, as per HPI with blurred vision/floaters prior to feeling dizziness ENT: normal hearing, no trouble swallowing Respiratory: No cough, sputum, dyspnea at rest or on exertion Cardiovascular: No chest pain, tightness or palpitations Abdomen: No pain, nausea, vomiting, diarrhea or constipation Musculoskeletal: No joint pain, calf pain, swelling Neurologic: No weakness, numbness/tingling, or balance problems Psychiatric: No anxiety or depression Skin: No rash or itch Physical Exam Physical Exam: General: awake, alert, no apparent distress Head: Normocephalic, atraumatic ENT: PERRL, EOMI, no pharyngeal exudate, mucous membranes moist Chest: Clear to auscultation, on room air, no adventitious breath sounds Cardiac: Regular rate and rhythm, no murmur, no JVD, normal peripheral pulses, good capillary refill Abdominal: NABS x 4 quadrants, soft, nondistended, nontender to palpation, no rebound or guarding Extremities: Normal inspection, no peripheral edema or erythema, calfs nontender to palpation Psych: Normal mood and affect Neuro: AAO x 3, strength intact bilaterally and rated 5/5, no motor deficits, s peech is clear, no peripheral sensory deficits Results & Data Results & Data Vital Signs (Past 12 Hours) Vital Signs Temp Pulse Resp BP Pulse Ox O2 Del Method 12/20/23 14:00 151/82 H 12/20/23 14:00 60 16 94 12/20/23 13:33 60 17 97 12/20/23 13:30 161/91 H 12/20/23 13:24 65 17 95 12/20/23 13:03 60 19 12/20/23 13:00 129/73 12/20/23 12:41 83 12/20/23 12:33 95 Room Air 12/20/23 12:30 102/66 12/20/23 12:30 102/66 12/20/23 12:30 61 20 12/20/23 12:09 73 18 12/20/23 12:03 158/92 H 12/20/23 12:00 36.7 C 75 18 158/92 H 95 Room Air Laboratory Results 0712/20/23 12/20/23 13:12 12:54 12:14 WBC 7.31 RBC 3.73 L Hgb 12.6 L Hct 37.6 L MCV 100.8 H MCH 33.8 MCHC 33.5 RDW Std Deviation 50.2 H RDW Coeff of Odminic 13.6 Plt Count 175 MPV 11.1 Immature Gran % (Auto) 0.3 Neut % (Auto) 61.9 Lymph % (Auto) 21.9 [place]k % (Auto) 10.8 Eos % (Auto) 4.7 Baso % (Auto) 0.4 Neut # (Auto) 4.53 Lymph # (Auto) 1.60 [place]k # (Auto) 0.79 H Eos # (Auto) 0.34 Baso # (Auto) 0.03 Immature Gran # (Auto) 0.02 PT 11.1 INR 1.0 Sodium 137 Potassium 4.6 Chloride 104 Carbon Dioxide 27 Anion Gap 6 BUN 30 H Creatinine 1.68 H Est Cr Clr Drug Dosing 30.1 Est GFR ( Amer) 42.3 Est GFR (Non-Af Amer) 36.5 BUN/Creatinine Ratio 17.9 Glucose 113 H Lactate 1.5 Calcium 10.3 Magnesium 2.1 Total Bilirubin 0.6 AST 14 ALT 13 Alkaline Phosphatase 53 Total Creatine Kinase 74 Troponin I High Sens 48.4 H Total Protein 7.3 Albumin 4.2 Globulin 3.1 Albumin/Globulin Ratio 1.4 Lipase 39 Procalcitonin 0.02 TSH 2.371 Random Cortisol 10.18 Urine Color Yellow Urine Appearance Clear Urine pH 6.5 Ur Specific [place] 1.015 Urine Protein Negative Urine Glucose (UA) Negative Urine Ketones Trace H Urine Blood Negative Urine Nitrite Negative Urine Bilirubin Negative Urine Urobilinogen Negative Ur Leukocyte Esterase Trace H Urine WBC (Auto) 0-5 Urine RBC (Auto) 0-2 U Hyaline Cast (Auto) 0-2 U Epithel Cells (Auto) 0-2 Urine Bacteria (Auto) None Seen ECG Additional Comments: Reviewed showing RBBB which is chronic, same from previous ekg in Apr 2022 Code Status & VTE Plan Code Status DNR/DNI Supervising Physician Co-Signing Physician Notes Patient is an 83-year-old male with history of paroxysmal A-fib on chronic anticoagulation with Eliquis, coronary artery disease, bladder cancer, gout, BPH, hypothyroidism and other medical problems presents with history of recurrent episodes of presyncopal which has been going on for at least last 6 months per patient. Patient states feeling very lightheaded dizzy/during the episodes and improves after lying down for few minutes. He also admits to have some floaters blurry vision during the episode but resolves. Denies any focal weakness, seizure-like activity, dizziness with change in position, bowel or bladder incontinence, palpitations, syncopal episodes, chest pain, dyspnea. Patient was noted to have blood pressure in 60s during his visit to his PCP office today. Please review HPI for complete details of presentation. I personally reviewed blood work and imaging studies. Chest x-ray showed no acute process. CT head currently pending. On exam patient is moderately built and nourished, elderly, no apparent distress, normocephalic atraumatic, EOMI, normal breath sounds, clear to auscultation, no pedal edema, abdomen soft, nontender, normal bowel sounds, alert, awake, oriented, grossly no focal deficits. Recurrent presyncopal episodes Likely orthostatic Hypotension on presentation Check resting echo Pacemaker and outpatient Check orthostatic vitals Will decrease carvedilol dose Will hold losartan, tamsulosin for now Monitor and adjust medications as needed Cardiology consulted Bladder scan as needed to monitor for any retention I personally interviewed and examined at bedside. Patient's care is coordinated with Oksana Weber PA-C. I have reviewed the advanced practitioner's documentation, and I agree with plan of care. Please refer to the documentation above for details of patient's presentation and for discussion of other issues. I spent a total of35 minutes coordinating, documenting, and providing care for this patient excluding time spent in the performance of separately billed services. (2) CAD (coronary artery disease) Associated angina: with unspecified form of angina Coronary Disease- Associated Artery/Lesion type: habematolel artery [place] vs. transplanted heart: habematolel heart Qualified Code(s): I25.119 - Atherosclerotic heart disease of habematolel coronary artery with unspecified angina pectoris (3) Hypertension Hypertension type: primary hypertension Qualified Code(s): I10 - Essential (primary) hypertension (7) Bladder cancer Bladder location: unspecified site Qualified Code(s): C67.9 - Malignant neoplasm of bladder, unspecified
--- NOTE | 2023-12-20 15:48 | XRay Report ---
XR chest 1V portable CLINICAL HISTORY: hypotensive episode COMPARISON STUDY: Chest CT September 06, 2022. Chest radiograph and left rib series February 01, 2023. FINDINGS: Low lung unchanged. A right subclavian pacer remains in place. Cardiomegaly is unchanged. T here is no evidence for pulmonary edema. There is no pneumothorax or pleural effusion. Mild left basi lar opacity favors atelectasis. No consolidation is identified to suggest pneumonia. IMPRESSION: No acute cardiopulmonary findings. No change in appearance of the chest. ACT 112: Negative or not required by law. Electronically signed by: Radu Palmer M.D. 12/20/2023 3:46 PM
[2023-12-20] MEDS ORDERED: bisacodyL 10 MG SUPP PR PRN (16:32)
[2023-12-20] MEDS ORDERED: ACETAMINOPHEN 325 MG TAB PO PRN (16:32)
[2023-12-20] MEDS ORDERED: ONDANSETRON INJ 2 MG/ML 2 ML VIAL IV PRN (16:32)
[2023-12-20] MEDS ORDERED: GLUCOSE 10 TAB/TUBE PO PRN (16:35)
[2023-12-20] MEDS ORDERED: CARBOHYDRATES FOR HYPOGLYCEMIA PO PRN (16:35)
[2023-12-20] MEDS ORDERED: GLUCAGON FOR INJ 1 MG VIAL SQ PRN (16:35)
[2023-12-20] MEDS ORDERED: GLUCOSE 40% GEL 15 GM TUBE PO PRN (16:35)
[2023-12-20] MEDS ORDERED: DEXTROSE 50% 50 ML SYRINGE IV PRN (16:35)
[2023-12-20] MEDS ORDERED: PANTOprazole 40 MG TAB PO PRN (16:47)
[2023-12-20] MEDS: SODIUM CHLORIDE 0.9% 1,000 ML IV STA (17:54)
[2023-12-20] MEDS: APIXABAN 5 MG TABLET PO SCH (20:56)
[2023-12-20] MEDS: DOCUSATE SODIUM 100 MG CAP PO SCH (20:56)
[2023-12-20] MEDS: CHOLECALCIFEROL 25 MCG (1000 UNITS) TAB PO SCH (20:56)
[2023-12-20] MEDS: carvediloL 3.125 MG TAB PO SCH (20:56)
[2023-12-20] MEDS: ACETAMINOPHEN 500 MG TAB PO SCH (20:56)
--- NOTE | 2023-12-20 21:50 | CT Scan Report ---
Exam(s): CT HEAD Without Contrast EXAM: CT Head Without Intravenous Contrast CLINICAL HISTORY: Reason for exam: Syncope. TECHNIQUE: Axial computed tomography images of the head/brain without intravenous contrast. CTDI is 36.05 mGy and DLP is 625.8 mGy-cm. Automated exposure control was utilized for the study. A dose lowering technique was utilized adhering to the principles of ALARA. COMPARISON: Comparison made to prior head CT from February 01, 2023. 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 No hemorrhage. Advanced nonspecific white matter changes. No edema. Ventricles: Moderate ventriculomegaly. Bones/joints: Unremarkable. No acute fracture. Soft tissues: Unremarkable. Sinuses: Unremarkable as visualized. No acute sinusitis. Mastoid air cells: Unremarkable as visualized. No mastoid effusion. IMPRESSION: No evidence of acute intracranial pathology. Electronically signed by: Rose Marie Sequeira MD 12/20/23 21:49 PM
[2023-12-21] MEDS: LEVOTHYROXINE SODIUM 50 MCG TABLET PO SCH (06:19)
[2023-12-21 06:41] LABS: Hematocrit (blood only) 37.2 % (42.0-52.0); Hemoglobin 12.3 g/dl (14.0-18.0); Mean Corpuscular Hemoglobin 33.2 pg (25.0-34.0); Mean Corpuscular Hgb Conc 33.1 g/dL (32.0-36.0); Mean Corpuscular Volume 100.3 fL (80.0-100.0); Mean Platelet Volume 10.5 fL (9.4-12.4); Platelet Count 162 K/uL (130-400); RDW Coefficient of Variation 13.4 % (11.5-14.5); RDW Standard Deviation 49.1 fL (36.4-46.3); Red Blood Count 3.71 M/uL (4.70-6.10); White Blood Count 6.82 K/ul (4.8-10.8)
[2023-12-21 07:00] LABS: BUN Creatinine Ratio 18.8 (10-20); Calcium 9.9 mg/dl (8.6-10.3); Creatinine Clr Calc Pharmacy 33.9 ml/min; Est GFR (African American) 48.9 ml/min; Est GFR (Non-African American) 42.2 ml/min; Potassium 4.6 mmol/L (3.5-5.1)
--- OUTSIDE RECORDS SUMMARY | 2023-12-21 07:20 | External Medical Summary | Summary of Care ---
Author Name Unknown Organization [facility] Address [address] [place] [address] Phone [phone] Care Team Providers Care Inter Com Installer Name Role Phone Roberta Segura MD Primary Care Provider [phone] Reason for Visit * Reason Comments Follow Up Twice a day vision g ets fuzzy, after patient lays down to rest for 30 min-has been happening about 6 months. Happens around 10am and 3pm. Hasn't had eye exam for one year Encounter Details Date Type Department Care Team (Late st Contact Info) Description 12/20/2023 10:40 AM EDT Office Visit General Internal Medicine [facility] [place] [address] [facility] [place] [address] Jayda Meade PA-C [address] [facility] [place] [address] Hypotension due to drugs*; Coronary artery disease involving north fork coronary artery of north fork heart without angina pectoris; Atrial fibrillation, unspecified type (HCC); Cardiac pacemaker in situ; Presence of drug coated stent in LAD coronary artery Allergies Active Allergy Reactions Criticality Noted Date Comments Yariel Inhibitors Cough Low 04/01/2008 Other reaction(s): Pt unsure-UNKNOWN Yariel Inhibitors Cough 01/10/2020 documented as of this encounter (statuses as of 12/20/2023) Medications Medication Sig Dispensed Refills Start Date End Date Status ASPIRIN 81 MG PO TABSIndications:HTN, goal to be determined one tab by mouth daily 34 5 5 Active TYLENOL 325 MG PO TABSIndications:Abdomi nal pain Two pills by mouth every 4 hours as needed for fever or pain 100 Tab 1 3 Active Additional Information Patient taking differently: 1,000 [id number], Informant: At Discharge, Reported on 04/18/2022 Tamsulosin HCl 0.4 MG Oral Capsule (Flomax) Take 1 Capsule by mouth in the morning. 1 Active Sertraline HCl 50 MG Oral Tablet (Zoloft)Indications:GA D (generalized anxiety disorder) TAKE 1 TABLET BY MOUTH ONCE DAILY 30 Tablet 11 2 Active Bisacodyl 10 MG Rectal Suppository (Dulcolax)Indications: Constipation, unspecified constipation type Administer 1 Suppository into the rectum daily as needed for Constipation. Do not use for more than 1 week. 10 Suppository 3 Active Docusate Sodium 100 MG Oral CapsuleIndications:Oth er constipation Take 1 Capsule by mouth in the morning and 1 Capsule before bedtime. 60 Capsule 11 3 Active Benefiber Oral PowderIndications:Othe r constipation 1 scoop in 8 oz water daily-st 11/25/2022 3 Active Additional Information Patient taking differently: gummies, Reported on 02/08/2023 Apixaban 5 MG Oral Tablet (Eliquis)Indications:N ew onset atrial fibrillation (HCC) Take 1 Tablet by mouth in the morning and 1 Tablet before bedtime. 60 Tablet 11 3 Active Carvedilol 6.25 MG Oral Tablet (Coreg)Indications:New onset atrial fibrillation (HCC),Coronary artery disease involving north fork coronary artery of north fork heart without angina pectoris,HTN, goal below 140/90 Take 1 Tablet by mouth in the morning and 1 Tablet before bedtime. 68 Tablet 11 3 Active Amiodarone HCl 200 MG Oral Tablet (Cordarone)Indications :Chest heaviness,Frequent PVCs TAKE 1 TABLET BY MOUTH ONCE DAILY 90 Tablet 3 3 Active Allopurinol 100 MG Oral Tablet (Zyloprim)Indications: Elevated uric acid in blood TAKE 1 TABLET BY MOUTH ONCE DAILY 90 Tablet 3 3 Active Omeprazole 20 MG Oral Capsule Delayed Release (PriLOSEC) --use as needed for heartburn (weaned off early 2022) 4 Active Vitamin D3 25 MCG (1000 UT) Oral Tablet (Vitamin D3)Indications:Hyperpa rathyroidism, primary (HCC),High risk for fracture due to osteoporosis by DEXA scan Take 2 Tablets by mouth every evening. --inc 07/14/2023 (goal VD 60 per Jorge) 1 Tablet 4 Active Atorvastatin Calcium 80 MG Oral Tablet (Lipitor)Indications:D yslipidemia, goal LDL below 160 TAKE 1 TABLET BY MOUTH ONCE DAILY 90 Tablet 3 4 Active Ezetimibe 10 MG Oral Tablet (Zetia)Indications:Dys lipidemia, goal LDL below 70 TAKE 1 TABLET BY MOUTH IN THE MORNING 90 Tablet 3 4 Active Levothyroxine Sodium 50 MCG Oral Tablet (Levoxyl)Indications:H ypothyroidism due to amiodarone Take 1 Tablet by mouth in the morning. (at least 30 min prior to breakfast or other meds). 100 Tablet 4 Active Isosorbide Mononitrate ER 30 MG Oral Tablet Extended Release 24 Hour (Imdur)Indications:Cor onary artery disease involving north fork coronary artery of north fork heart with angina pectoris (HCC),Chest heaviness,Aortic root enlargement (HCC),Dyslipidemia, goal LDL below 70,Right bundle branch block,Nonspecific abnormal electrocardiogram (ECG) (EKG) TAKE 1 TABLET BY MOUTH ONCE DAILY 90 Tablet 3 4 Active Losartan Potassium 50 MG Oral Tablet (Cozaar)Indications:Co ronary artery disease involving north fork coronary artery of north fork heart without angina pectoris,Hypotension due to drugs Take 0.5 Tablets by mouth every evening. --may from 07/15/2023 90 Tablet 4 Active documented as of this encounter (statuses as of 12/20/2023) Active Problems Problem Noted Date Diagnosed Date High risk for fracture due to osteoporosis by DE XA scan 08/17/2023 Hypercalcemia 07/21/2022 Overview: Per director recreation message- Bone Marrow Biopsy -Mgus with possible myelomaDr. 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 History of alcohol use 03/15/2022 Bronchiectasis without complication 03/15/2022 ISABELLA (generalized anxiety disorder) 09/13/2021 History of total bilateral knee replacement 09/03 History of gout 09/13/2021 BPH with obstruction/lower urinary tract symptom s 09/13/2021 Stage 3a chronic kidney disease 09/13/2021 Overview: Per CKD protocol Nonsustained paroxysmal ventricular tachycardia 06/14/2021 Frequent PVCs 06/14/2021 Pulmonary HTN 05/26/2021 Bladder cancer 05/26/2021 History of pneumothorax 01/15/2020 Overview: left History of fracture of rib 01/10/2020 Overview: 4th Aortic root enlargement 10/24/2018 Coronary artery disease invo lving north fork coronary artery of north fork heart without angina pectoris 06/14/2018 Presence of drug coated stent in LAD coronary ar steve 06/14/2018 Sensorineural hearing loss 01/14/2011 Chronic rhinitis 01/14/2011 History of tobacco use 01/14/2011 Dyslipidemia, goal LDL below 70 09/13/2010 Esophageal reflux 05/27/2008 COPD, mild 04/15/2008 NONTOX MULTINODUL GOITER 04/19/2006 Hyperparathyroidism, primary 04/19/2006 Overview: Nuclear Medicine Parathyroid Scan--05/01/07 --Impression: No definite parathyroid lesion is felt to be demonstrated by this exam ICD-10 update of inactive term Right bundle branch block 11/03/2004 Diverticulosis of colon Overview: 08/24--6 mm DCP, NBIH, tics. documented as of this encounter (statuses as of 12/20/2023) Resolved Problems Problem Noted Date Diagnosed Date Resolved Date Paroxysmal SVT (supraventricular tachycardia) 06/14/19 22 11/22/2021 Overview: More specified condition on pl Adjustment insomnia 06/14/2021 09/14/19 Fall from slip, trip, or stumble 01/10/2020 05/06/2020 Pneumomediastinum 01/10/2020 09/13/2021 Subcutaneous air 01/10/2020 01/27/2020 Primary osteoarthritis of left knee 06/14/2018 09/13/2021 CHRONIC IRRITATIVE PHARYNGITIS 01/14/2011 12/21/2016 Dyspnea and respiratory abnormality 01/14/2011 12/12/2017 Overview: ICD-10 update of inactive term Organic sleep disorder 01/14/201112/12 Chronic laryngitis 01/14/2011 7 HEART FAILURE, ETIOLOGY UNKNOWN 04/02/2009 02/08/2018 Overview: Per Heart Failure Taxonomy Protocol. EF 35 % VOICE DISTURBANCE,HOARSENESS 05/27/2008 12/12/2017 Chronic rhinitis 05/27/2008 11/27/2008 ACTIVE CASE MANAGEMENT-Selma Barker 02/05/2008 03/22/2010 Benign neoplasm of colon 05/03/200703/2018 Overview: adenomatous polyps--repeat 5 years CONGESTIVE HEART FAILURE 03/28/2006 Overview: Per Heart Failure Taxonomy Protocol. 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 documented as of this encounter (statuses as of 12/20/2023) Immunizations Name Administration Dates Next Due COVID-19 mRNA, LNP-s, No Pre serve, 2-Dose Series (Moderna) 08/06/2020,07/09/2020 COVID-19, mRNA, LNP-s, PF, B ooster, 100mcg/0.5mg (Moderna) 04/14/2021 H1N1 2009 Influenza, IM 05/26/2009 Pneumococcal Conjugate Vacc, 13 Valent (Prevnar) 11/05/2015 Pneumococcal Polysaccharide PPV23 (Pneumovax) 03/28/2006 Season Influenza, Quad, PF, Adjuvanted, 65+ Yrs, IM (FLUAD) 02/17/2020 Seasonal Influenza, PF, 6 M & above, IM , (FluLaval or Fluzone) 03/09/2018,03/05/2018 Seasonal Influenza, Quadriva lent Hd (Fluzone Hd) 03/16/2023,03/15/2022,03/05/2021 Seasonal Influenza, Quadriva lent, No Preserve, IM 02/17/2017 Seasonal Influenza, Split, I IV3, With Preserve, Inj 02/05/2015,02/17/2014,02/26/2013,03/05,02/21/2011,03/15/2010,03/12/20 09,04/01/2008,04/09/2007,03/28/2006 03/12/2010 Seasonal Influenza, Trivalen t, Adjuvanted, 65+ yrs 03/18/2019 Seasonal Influenza, Trivalen t, High Dose, No Preserve, IM 02/02/2016 TD - Tetanus/Diptheria (ADULT) 10/31/2007 TDAP (age 10 and older)(Boostrix) 01/10/2020, Varicella Zoster Vaccine (Adult) 08/07/2008 Zoster Vaccine Recombinant (Shingrix) 11/16/2020 ,05/27/2020 documented as of this encounter Social History Tobacco Use Types Packs/Day Years Used Date Smoking Tobacco: Never Smokeless Tobacco: Never Comments:1973 Alcohol Use Standard Drinks/Week Comments Not Currently 4 (1 standard drink = 0.6 oz pure alcohol) every day/3-5 glasses of wine per day PHQ-2 Answer Date Recorded PHQ Adult Total Score 0 11/25/2022 Hunger Vital Sign Answer Date Recorded Within the past 12 months, y ou worried that your food would run out before you got the money to buy more. Never true 11/26/19 23 Within the past 12 months, t he food you bought just didn't last and you didn't have money to get more. Never true 11/25/2022 Utilities Answer Date Recorded Do you have trouble paying y our heating, water, or electric bill? (Adult - for ages 18 years and over) Not on file 11/21/2023 Is your family able to pay t he heat, water, or electric bill? (Household - for ages 0-17 years) Not on file 11/21/2023 Does your family have access to good internet? (Household - for ages 0-17 years) Not on file 11/21/2023 Social Connections Answer Date Recorded How often do you feel lonely or isolated from those around you? (Adult - for ages 18 years and over) Not on file 11/21/2023 Sex and Gender Information Value Date Recorded Sex Assigned at Male 10/24/2018 1:07 PM EDT Gender Identity Male 10/24/2018 1:07 PM EDT Sexual Orientation Straight 10/24/2018 1: 07 PM EDT Job Start Date Occupation Industry Not on file Not on file Not on file documented as of this encounter Last Filed Vital Signs Vital Sign Reading Time Taken Comments Blood Pressure 78/40 12/20/2023 11:07 AM EDT Pulse 74 12/20/2023 10:49 AM EDT Temperature 36.3 C (97.4 F) 12/20/2023 10:49 AM E DT Respiratory Rate 16 12/20/2023 10:49 AM EDT Oxygen Saturation - - Inhaled Oxygen Concentration - - Weight 73.5 kg (162 lb) 12/20/2023 10:49 AM EDT Height 170.2 cm (5' 7") 12/20/2023 10:49 AM EDT Body Mass Index 25.37 12/20/2023 10:49 AM EDT documented in this encounter Functional Status Functional Status Response Date of Assess ment Are you deaf or do you have serious difficulty h earing? No 01/10/2020 Are you blind or do you have serious difficulty seeing, even when wearing glasses? No 01/10/2020 Do you have serious difficul ty walking or climbing stairs? (5 years old or older) No 01/10/2020 Do you have difficulty dress ing or bathing? (5 years old or older) No 01/10/2020 Because of a physical, menta l, or emotional condition, do you have difficulty doing errands alone such as visiting a doctor s office or shopping? (15 years old or older) No 01/10/20 20 Cognitive Status Response Date of Assessm ent Because of a physical, menta l, or emotional condition, do you have serious difficulty concentrating, remembering, or making decisions? (5 years old or older) No 01/10/2020 documented as of this encounter Progress Notes * Jayda Meade PA-C - 12/20/2023 10:58 AM EDT Images from the original note were not included. History of Present Illness Josue Adrian is a 83 year old male that presents for Follow Up (Twice a day vision gets fuzzy, after patient lays down to rest for 30 min-has been happening about 6 months. Happens around 10am and 3pm. Hasn't had eye exam for one year ) Pt here today with a c/o episodes of blurry vision. Started approx 6 months ago. Tends to occur twice per day--around 10 AM and again at 3 PM. Will also feel woozy at this time. He usually lays down for 30 min or so and then feels better. Pt with extensive cardiac hx--takes Eliquis for afib, has a pacemaker in place, as well as a stent.Is also on amiodarone, imdur, and coreg. Denies chest pain or SOB. No NVD. Denies any recent falls. Noted pt's BP is extremely low today. Pt accompanied by his today. Pt drove both of them here. is unable to drive due to macular degeneration. Review of Systems: See HPI for pertinent positives. All other review of systems is negative. Physical Exam Vitals: 12/20/23 1049 12/20/23 1107 Temp: 36.3 C (97.4 F) Pulse: 74 Resp: 16 BP: 60/42 78/40 BMI: 25.37 Physical Exam Constitutional: General: He is not in acute distress. Appearance: He is not diaphoretic. Cardiovascular: Rate and Rhythm: Normal rate and regular rhythm. Pulmonary: Effort: Pulmonary effort is normal. Breath sounds: Normal breath sounds. Musculoskeletal: Cervical back: Normal range of motion and neck supple. Skin: General: Skin is warm and dry. Neurological: General: No focal deficit present. Mental Status: He is alert. Mental status is at baseline. I have reviewed the following results: Assessment and Plan Hypotension due to drugs BP on recheck still very low. Given pt's comorbidities, cardiac hx, and the vision changes, pt needs to go to the ER for acute eval and care. Discussed case with Dr. Callaway who agrees with plan. Discussed with pt the safest way to get pt to ER is via ambulance--pt is agreeable with this. Coronary artery disease involving north fork coronary artery of north fork heart without angina pectoris Atrial fibrillation, unspecified type (HCC) Cardiac pacemaker in situ Presence of drug coated stent in LAD coronary artery Wrap-Up Nursing placed call to 911. Pt to go to ER from office for acute eval and management of his BP. Follow Up: Return if symptoms worsen or fail to improve. Time: I spent a total of 40-54 minutes (exact time 40 mins) on the date of service in preparation, delivery, and documentation of the care provided to Josue Adrian excluding any time spent in theperformance of separately billed services. documented in this encounter Nursing Notes * Alison Zhang LPN - 12/20/2023 10:49 AM EDT The patient has been properly identified by confirmation of name and date of . Chief Complaint Patient presents with Follow Up Twice a day vision gets fuzzy, after patient lays down to rest for 30 min-has been happening about 6 months. Happens around 10am and 3pm. Hasn't had eye exam for one year documented in this encounter Plan of Treatment Upcoming Encounters Date Type Department Care Team (Late st Contact Info) Description 01/08/2024 2:00 PM EDT Office Visit Orthopaedics [facility] [address] [place] [address] Storm Velasco DO [address] [place] [address] 02/14/2024 10:10 AM EDT Laboratory Laboratory [facility] [place] [address] [place] [address] [phone] [place] [facility] [address] [place] [address] [address] 02/21/2024 10:00 AM EDT Office Visit Hematology/Oncology [facility] [place] [address] [place] [phone] Kayley Bains MD [address] [facility] [place] [address] 02/26/2024 2:00 PM EDT Office Visit Cardiology, [facility] [address] [place] [address] Meche Nino PA-C [address] [facility] [id number] 08/08/2024 10:00 AM EST Office Visit Rheumatology [facility] [address] [place] [address] Cuco [place] PA-C [address] [place] [address] Health Maintenance Due Date Last Done Comments Albumin/Creatinine Ratio 1958 Alpha-1 Antitrypsin 1958 COVID-19 Vaccine ( season) 2023 04/14/2021, 08/06/2020, 07/09/2020 Depression Screening 11/26/2023 11/25/2022 *CXR OR CT FOR COPD EVER 12/17/2023 Influenza Vaccine (FLU shot) (#1) 2024 03/16/2023, 03/15/2022, 03/05/2021, Additional history exists CKD PHOS USE SMARTSET 48061 06/26/202406/06, 11/25/2022, 07/19/2022, Additional history exists DXA Scan 09/20/2024 09/20/2022, 09/03, 04/17/2012, Additional history exists CKD HGB USE SMARTSET 28243 10/17/202410/17, 06/26/2023, 06/26/2023, Additional history exists TSH 10/17/2024 10/18/2023, 06/06, 03/16/2023, Additional history exists O2 ASSESSMENT COMPLETED IN PAST YEAR FOR COPD 11/06/2024 11/07/2023 DTaP,Tdap,and Td Vaccines (3 - Td or Tdap) 01/09/2030 01/10/2020, 02/26/2013, 10/31/2007 Pneumococcal Vaccine: 65+ Years Completed 11/05/2015, 03/28/2006 Zoster Vaccines Completed 11/16/2020, 05/06, 08/07/2008 VITAMIN D LEVEL ONCE IN A LIFETIME-USE SMARTSET# [id number] Completed 06/26/2023, 11/25/2022, 07/19/2022, Additional history exists HPV (Gardasil) Vaccine Aged Out No lo nger eligible based on patient's age to complete this topic Hepatitis B Vaccine Aged Out No longe r eligible based on patient's age to complete this topic MENINGOCOCCAL (MENACTRA/MENVEO) Aged Out No longer eligible based on patient's age to complete this topic documented as of this encounter Medical Devices Not on filedocumented as of this encounter Visit Diagnoses Diagnosis Hypotension due to drugs- Primary Other iatrogenic hypotension Coronary artery disease involving north fork coronary artery of north fork heart without angina pectoris Atrial fibrillation, unspecified type (HCC) Cardiac pacemaker in situ Presence of drug coated stent in LAD coronary artery Postsurgical percutaneous transluminal coronary angioplasty status documented in this encounter Advance Directives * Full Code (Latest Code Status on File) Date Activated Date Inactivated Comments 01/10/2020 1:54 PM 01/17/2020 4:43 PM This order re flects the patients wishes and were consensually agreed upon. Question Answer Comments Discussion of Advance Directives occurred with: Not Discussed Does the patient have a Living Will? No Does the patient have Health Care Power of Attor oralia? No Care Teams Inter Com Installer Relationship Specialty Start Date End Date Roberta Segura MD [address] [facility] [place] [address] PCP - General Internal Medicine 03/05/21 documented as of this encounter
[2023-12-21] MEDS: ISOSORBIDE MONO EXTENDED REL 30 MG TABCR PO SCH (08:08)
[2023-12-21] MEDS: ASPIRIN 81 MG ECTAB PO SCH (08:08)
[2023-12-21] MEDS: EZETIMIBE 10 MG TAB PO SCH (08:08)
[2023-12-21] MEDS: SERTRALINE HCL 50 MG TABLET PO SCH (08:08)
[2023-12-21] MEDS: allopurinoL 100 MG TAB PO SCH (08:08)
[2023-12-21] MEDS: AMIODARONE 200 MG TAB PO SCH (08:08)
--- NOTE | 2023-12-21 08:20 | Cardiology Consultation ---
Date of Consultation December 21, 2023 Assessment & Plan (1) Near syncope: (2) Hypotension: (3) Elevated troponin: (4) Pacemaker: Plan Assessment: 83 year-old male presents with near-syncope symptoms and profound hypotension while in the PCP office. Presence of a Permanent pacemaker with most recent interrogation october 2023 demonstrating normal function. Request for cardiology evaluation. Plan: -Patient with cyclic near-syncopal symptoms including visual disturbances that are occurring daily around 10am with no regard to activity or rest. -Will obtain pacer interrogation today to assess for any arrhythmia or other concern. -Mild elevation in troponin in the absence of acute EKG changes or angina. Flat trend. Will obtain echocardiogram to assess overall structure and function. Assess for any new wall motion abnormality. -Euvolemic on exam. -Continue to monitor on telemetry and also with close BP monitoring. Suspect patient is having profound hypotension within 2 hours of taking his morning medications. 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 Dose adjustment with timing may be most appropriate. Give consideration to moving Losartan to evening dosing. -Continue Coreg, Losartan, Imdur,Amiodarone, Eliquis, ASA, and Zetia as per current dosing. -Exclude any possible infectious process such as UTI, per management of primary team Case has been discussed with Dr. Walker. Further recommendations regarding plan of care as per his assessment. I spent a total of 40 minutes on the date of service in preparation, delivery, documentation of the care provided to the patient excluding any time spent in the performance of separately billed services. RAMIREZ Corea [facility] Cardiology [facility] Supervising Physician Co-Signing Physician Notes Attending attestation: Case reviewed with the advanced practitioner. I have personally performed a history and physical examination on the patient. I have reviewed the advanced practitioner's documentation on the date of service referenced in note, and I agree with, and take responsibility for the plan of care. Subjective: Patient feeling subjectively improved at the time of my assessment at 6 PM on 12/21/2023 Data: Pacemaker interrogation reveals normal generator longevity, 12.2 years, stable lead impedance, no recent episodes of atrial fibrillation patient atrial paced 82.3% of the time, ventricular paced less than 0.1% of the time . no significant arrhythmias detected Echocardiogram with findings of small basal inferior and basal posterior wall motion abnormality with akinesis of the segments involved, LVEF 55%, mild aortic valve calcification without aortic stenosis, mild aortic regurgitation, mild tricuspid regurgitation, pulmonary systolic pressure mildly elevated, 48 mmHg, the aortic root is mildly elevated at 4.1 cm. Compared to previous study dated 11/15/2021 the inferior and posterior wall motion abnormality is unchanged. Impression/ Plan: Patient with labile hypertension, several systolic blood pressure readings first and this morning in excess of 200 mmHg, then, orthostatic vital signs taken during physical therapy and patient's systolic blood pressure decreased to the 90s with standing. Carvedilol dose reduced from 6.25 mg twice daily to 3.125 mg twice daily. It is noted that the patient had an extensive workup for syncope dating back to 2021. Cardiac catheterization performed that year in the setting of syncope and concerns of all motion abnormalities on echocardiogram, Zio patch revealed frequent PVCs and brief episodes of nonsustained VT in 2021, ultimately underwent implantation of dual-chamber permanent pacemaker and amiodarone added. No significant PVCs observed on telemetry thus far. Will observe blood pressure response while in hospital. I spent a total of [] minutes coordinating, documenting, and providing care for this patient excluding time spent in the performance of separately billed services or time spent by another provider. Noe Walker DO History of Present Illness Reason for Consultation: Recurrent Syncope Requesting Physician: Shobha Layton Attending Physician: Linda Doyle MD History of Present Illness HPI: Patient is a 83 year-old male who presents to the ED after being at the PCP office with complaints of lightheadedness and dizziness. PCP office reported blood pressures of 60/40 and he was sent for further evaluation. Patient has been having pre-syncopal symptoms for the past 6 months. He was last seen in our cardiology office and had reported similar symptoms describing "seeing spots in vision, both eyes, around 10am every morning" questioned if it is BP related, but does not check his BP. He was seen and evaluated by Abe kirk with no acute findings. chest Xray 12/20/23: IMPRESSION: No acute cardiopulmonary findings. No change in appearance of the chest. EKG on admission: Atrial Paced, left axis deviation, right BBB Rate 84 bpm PMHx: Past Medical History: 1. CAD, status post DESHAWN to the prox LAD 05/24/2018 a. Plaque shifted noted at the time of intervention resulting in a 30-40% ostial LAD stenosis b. Residual 80% mid RPDA stenosis not amendable to PCI c. Chest heaviness, resolved with initiation of Imdur, negative nuclear stress 09/2020 d. Lexiscan nuclear stress demonstrated small posterior scar without ischemia, unchanged from 2019 and 2020 e. Stable moderate nonobstructive CAD per cardiac cath 11/2021 at [facility] f. Ischemic cardiomyopathy, LVEF 45% 2. Chronic diastolic CHF, NYHA class 2-3 3. Palpitations, Frequent PVCs/sensed ventricular ectopy a. Improved on amiodarone, started 05/19 4. Syncope secondary to SSS, s/p dcp 04/06/[address] Nails 5. Moderate aortic root enlargement 6. Hypertensive heart disease with severe LVH 7. Dyslipidemia, LDL goal below 70 8. Mild mixed valvular heart disease 9. Bladder carcinoma, s/p immunotherapy treatments patient is resting comfortably in bed this morning without complaint. initial blood pressure reading was extremely high. Recheck after AM meds shows a dramatic difference. Patient had been hypertensive all night. Denies any chest pain, pressure, palpitations, shortness of breath, PND, pre-syncope, syncope or edema at time of today's exam. Review of telemetry shows Paced with no acute events overnight. Allergies Allergy/AdvReac Type Severity Reaction Status Date / Time KAYLI Inhibitors AdvReac Intermediate cough Verified 12/20/23 15:19 Home Medications Medication Instructions Recorded Confirmed Type allopurinol 100 mg tablet 100 mg PO QAM 04/30/18 12/20/23 History (Zyloprim) aspirin 81 mg tablet,delayed 81 mg PO QAM 01/11/21 12/20/23 History release isosorbide mononitrate 30 mg 30 mg PO QAM 01/11/21 12/20/23 History tablet,extended release 24 hr amiodarone 200 mg tablet (Pacerone) 200 mg PO QAM 11/14/21 12/20/23 History atorvastatin 80 mg tablet (Lipitor) 80 mg PO QAM 11/14/21 12/20/23 History levothyroxine 50 mcg tablet 50 mcg PO DAILYBB #30 tabs 11/16/21 12/20/23 Rx (Synthroid) ezetimibe 10 mg tablet (Zetia) 10 mg PO QAM 09/02/22 12/20/23 History losartan 50 mg tablet (Cozaar) 50 mg PO DAILY 09/02/22 12/20/23 History docusate sodium 100 mg capsule 100 mg PO BID 04/20/23 12/20/23 History (Colace) acetaminophen 500 mg tablet 1,000 mg PO TID 12/20/23 12/20/23 History (Tylenol Extra Strength) apixaban 5 mg tablet (Eliquis) 5 mg PO BID 12/20/23 12/20/23 History bisacodyl 10 mg rectal suppository 10 mg NV DAILY PRN Constipation 12/20/23 12/20/23 History carvedilol 6.25 mg tablet 6.25 mg PO BID 12/20/23 12/20/23 History cholecalciferol (vitamin D3) 25 50 mcg PO QPM 12/20/23 12/20/23 History mcg (1,000 unit) capsule (Vitamin D3) omeprazole 20 mg tablet,delayed 20 mg PO DAILY PRN 12/20/23 12/20/23 History release HEARTBURN/INDIGESTION sertraline 50 mg tablet 50 mg PO DAILY 12/20/23 12/20/23 History tamsulosin 0.4 mg capsule 0.4 mg PO HS 12/20/23 12/21/23 History wheat dextrin 1 gram chewable 1 tab PO DAILY 12/20/23 12/20/23 History tablet (Benefiber Sugar Free (dextrin)) Patient History Medical History Hypercalcemia Anxiety "white coat syndrome" DJD (degenerative joint disease) GERD (gastroesophageal reflux disease) Well controlled and stable Gout No recent issues Surgical History Status post left knee replacement History of esophagogastroduodenoscopy (EGD) S/P cardiac pacemaker procedure 04/2022 History of bone marrow biopsy [facility] [place] 2022 Status post right knee replacement History of surgery Multiple as child (r/t trauma, run over by tractor) History of cardiac cath 2017 > stent x1 11/2021 > no stents History of colonoscopy H/O exploratory laparotomy For intussusception Hx of hernia repair Hx of shoulder surgery right Family History Sister No problems noted. Brother No problems noted. Other Diabetes No family history of adverse response to anesthesia Social History Smoking Status: Never smoker Second Hand Exposure: No; Do You Dip or Chew Tobacco: No; Hx Alcohol Use: No (Quit 6+ months ago) Hx Substance Use: No Preferred Language: Guyanese Communication Ability: Effective Mutuel Clerk Required: No Beliefs That Will Affect Care: None marital status: Current Living Situation: Spouse Current Living Situation Comment: current occupational status: retired Feels Safe at Home: Yes Assistive Devices: Cane Review of Systems Review of Systems: All systems reviewed & are unremarkable except as noted in HPI & below Physical Exam Constitutional: well developed and well nourished; no acute distress and not ill appearing Respiratory: normal respiratory effort, lungs clear to auscultation Cardiovascular: Rate/Rhythm: regular rate and regular rhythm Heart Sounds: normal S1, normal S2 and + murmur (+1/6 systolic ) Vessels: dorsalis pedis pulses present; no JVD Skin: no rashes, warm and dry Psychiatric: A+Ox3, euthymic affect Results & Data Vital Signs (Past 12 Hours) Vital Signs Temp Pulse Pulse Resp BP Pulse Ox O2 Del Method 12/21/23 07:53 36.4 C L 73 18 207/108 H 97 Room Air 12/21/23 03:07 36.4 C L 60 16 174/84 H 96 Room Air 12/20/23 23:00 36.5 C 60 18 184/88 H 96 Room Air 12/20/23 21:50 60 Laboratory Results Cardiac Enzymes 12/20/23 12/20/23 Range/Units 14:48 20:00 Troponin I High Sens 38.6 H 48.8 H D (0-20) pg/ml CBC 12/21/23 Range/Units 06:18 WBC 6.82 (4.8-10.8) K/ul RBC 3.71 L (4.70-6.10) M/uL Hgb 12.3 L (14.0-18.0) g/dl Hct 37.2 L (42.0-52.0) % Plt Count 162 (130-400) K/uL Comprehensive Metabolic Panel 12/21/23 Range/Units 06:18 Sodium 140 (136-145) mmol/L Potassium 4.6 (3.5-5.1) mmol/L Chloride 107 (98-107) mmol/L Carbon Dioxide 27 (21-32) mmol/L BUN 28 H (6-23) mg/dl Creatinine 1.49 H (0.6-1.4) mg/dl Glucose 76 (70-99(Fasting)) mg/dl Calcium 9.9 (8.6-10.3) mg/dl Intake and Output 12/20/23 12/21/23 12/21/23 22:59 06:59 14:59 Intake Total 1000 / 1000 Output Total 100 / 1085 985 / 1085 Balance 900 / -85 -985 / -85 Intake: IV 1000 / 1000 Sodium Chloride 0.9% 1,000 ml @ 1000 / 1000 999 mls/hr IV .Q1H1M ONE Rx#: [id number] Output: Urine 100 / 1085 985 / 1085 Other: # Unmeasured Voids 1 Weight 73.6 kg 71.9 kg Weight Measurement Method [facility] Standing Scale Diagnostic Findings NM PYP scan 09/28/2324 Grade 0. Not suggestive of TTR amyloidosis. Echo 06/07/23 The examination is adequate to evaluate the referral indication. There was normal sinus rhythm during the examination. The wall thickness is severely increased in segments with normal wall motion. There is a moderate sized inferior and posterior wall motion abnormality with hypokinesis of the segments. The qualitative LV ejection fraction is 55-59% (normal). The left atrium is severely enlarged. The left ventricular diastolic function is moderately abnormal (grade II). Moderate aortic valve sclerosis is present. There is moderate focal calcification of the left coronary aortic valve cusp. Aortic stenosis is absent. Mild aortic valve regurgitation is present. Mild mitral regurgitation is present. Mild tricuspid regurgitation is present. The estimated pulmonary artery systolic pressure is 34mm Hg. The aortic root is mildly enlarged, 4.3 cm. The proximal ascending thoracic aorta is mildly enlarged, 4.2 cm. Compared to the report of the previous study dated 09/29/2022, the regional wall motion is relatively unchanged. The aortic root diameter was reported to be 4.3 cm at that time and the proximal ascending aorta diameter was reported to be 3.9 cm at that time. Cardiac cath 11/15/21 1. Moderate stable, Chronic CAD 2. Calcified 60% ostial LAD 3. Widely patent proximal to Mid-LAD stent 4. 30% mid circumflex at takeoff of Om@ with 60% proximal OM2 disease 5. 40% mid RCA. Small RPDA 60% mid. Most recent Heme/Onc Note Referred due to Abnormal SPEP/UPEP: November 07, 2023: ASSESSMENT: 83-year-old male with a complicated past medical history including COPD, coronary artery disease and history of heart failure, hypertensive heart disease, recurrent carcinoma of bladder failed BCG and was treated with the Keytruda. History is also significant for CKD was referred because of the abnormal urine immunofixation and elevated light chain. Patient's last echocardiogram was done on 06/07/2023 which shows normal ejection fraction and wall thickness increase with normal wall motion of the left ventricle. PYP scan was not suggestive of TTR amyloidosis. MRI of the heart is requested and the still pending. Patient has long history of coronary artery disease and heart problem. I do not think patient has cardiac amyloidosis. He also has history of underlying CKD with the elevated creatinine since 2020. I think the best option is to repeat his blood tests in 3 months including CBC, CMP, myeloma panel and 24 hour urine for Bence-Gorman protein and urine electrophoresis. Discussed with the patient and the in detail about diagnosis reviewed all the available blood tests and urine tests with him. After detailed discussion they agreed with the plan and requested test. We will also follow the result of the MRI of the heart. Device interrogation 10/18/2023: Normal Device Function Alerts or events: None Battery: 3.04V, 12.25 yrs Sensing, impedance and thresholds reviewed Programmed parameters reviewed Presenting rhythm APVS Heart Rate Histograms reviewed No significant changes noted
[2023-12-21 08:37] LABS: Folate (Folic Acid),Ser orPlas 13.45 ng/ml (>5.38)
[2023-12-21] MEDS: LOSARTAN POTASSIUM 50 MG TAB PO SCH (10:22)
[2023-12-21] MEDS: ATORVASTATIN 40 MG TAB PO SCH (10:22)
--- NOTE | 2023-12-21 12:24 | Hospitalist Progress Note ---
Date of Service December 21, 2023 Assessment & Plan (1) Near syncope: (2) CAD (coronary artery disease): (3) Hypertension: (4) Dyslipidemia: (5) Chronic diastolic CHF (congestive heart failure), NYHA class 3: (6) Pacemaker: (7) Bladder cancer: (8) Hypothyroidism: Plan: Syncope/Presyncope Chronic Diastolic CHF HTN HLD Atrial Fibrillation Cardiac Pacemaker in situ - repeat echo unchanged, EF 55% severe LVH pasp 48mmhg - BP meds including: carvedilol will reduce to 3.125, continue imdur, resume losartan as a.m. bp > 200 systolically, continue amiodarone for rate control - Orthostatic BPs, reported that it was 60/40 in outpt clinic, He was orthostatic in ED - Interrogate pacemaker - awaiting report - EKG reviewed and negative, old RBBB - Trend troponin, initial was 48--> 38-->48 - Lipids in Jun were normal - Cardiology consult for recurrent syncope - follows with [facility] as outpt -This a.m. pt SBP was > 200s, he received reduced dose coreg, imdur and losartan -He then worked with PT/OT and orthostatics were obtained, BP sitting 120/71, standing 97/63 HR 74 at around 1045ish* -will give 500ml fluid bolus and have staff repeat orthostatics, ? if imdur contributing -check BP q1hr to obtain more data points as BP fluctuating, discussed with Dr. Walker who agrees Hypothyroidism -Most recent TSH in October 2023 was 3.88, today is 2.37 -continue replacement CKD stg 3 - Baseline of 1.4-1.7 on outpt review - Cr. 1.6 on admission, 1.49 today -most recent outpt review cr has been 1.7 Hx of Bladder Cancer - Following with Dr. Gonzalez outpatient urology -Recently underwent cystoscopy on 12/05/2023, pathology is negative for any malignancy seen, doing 3-month surveillance cystoscopies - hold tamsulosin in setting of orthostasis, bladder scan prn DVT ppx: teds, scds, eliquis CODE: DNR/DNI Dispo: From home, likely to remain in the hospital x 1-2 days A total of 52 minutes was spent coordinating, documenting, and providing care for this patient excluding time spent in the performance of separately billed services. This included personally viewing all current laboratories and imaging studies, medication reconciliation, outpatient chart review, and discussion with specialists. Admission and Anticipated Discharge Date Admission Date: December 20, 2023 Supervising Physician Co-Signing Physician Notes I have discussed the case with the collaborating advanced practitioner. I agree with the above PN. I have reviewed and confirmed the patients medical history and the patients diagnosis and treatment plan with Abhilash GARCIA and agree with the information documented. Mr. Feliz admitted for evaluation of presyncopal episodes. Cardiology following. Reviewed recommendations. await pacer interogation, trend blood pressures and med timing, c/f hypotension post medication administration. will CTM and explore timing of medications. rest of plan as above I spent a total of 15 minutes coordinating, documenting, and providing care for this patient excluding time spent in the performance of separately billed services. All of the aforementioned completed outside of collaborating with the assigned advanced practitioner for a full treatment plan. I have reviewed the advanced practitioner's documentation, and I agree with, and take responsibility for the plan of care Subjective Pt was seen in room 231-1. F/U Dizziness/lightheaded/presyncope. He feels well resting in bed. He denies f/c/s, chest pain, sob, n/v/d. He is anxious to eat breakfast but upon my eval he was NPO awaiting cards eval. He states for the last 6 months he has been experiencing, "spells," at ~ 10 a.m. and 3p.m. where he feels lightheaded and dizziness. He has to go lay down and eventually sx resolve. He has had eye eval due to seeing, "spots," at [facility] and this was unremarkable. Review of Systems Review of Systems: All systems reviewed & are unremarkable except as noted in HPI & below Physical Exam Physical Exam: Gen: WD/WN, NAD, A&O x3 HEENT: Normocephalic, atraumatic, conjunctivae moist, sclerae anicteric, mucous membranes moist. Lung: Clear to Auscultation bilaterally, no wheezes/rales/rhonchi Heart: Regular rate, regular rhythm, no murmurs, rubs, or gallops Abdomen: Soft, NT, ND +BS x 4 Extremities: No edema Skin: Warm, no rash, negative turgor. Results & Data Results & Data Vital Signs (Past 12 Hours) Vital Signs Temp Pulse Resp BP Pulse Ox O2 Del Method 12/21/23 09:00 Room Air 12/21/23 07:53 36.4 C L 73 18 207/108 H 97 Room Air 12/21/23 03:07 36.4 C L 60 16 174/84 H 96 Room Air Laboratory Results I have independently reviewed and interpreted patient's labs, cbc, bmp, b12, folate Diagnostic Findings Echo:severe LVH, small sized basal inferior and posterior WMA with akinesis of basal segments, this is unchanged Medications Administered Current Inpatient Medications Acetaminophen (Acetaminophen 500 Mg Tab) 1,000 mg PO TID [facility] Stop: 01/19/24 20:59 Last Admin: 12/21/23 08:08 Dose: 1,000 mg Allopurinol (Allopurinol 100 Mg Tab) [facility] Stop: 01/20/24 08:59 Last Admin: 12/21/23 08:08 Dose: 100 mg Amiodarone HCl (Amiodarone 200 Mg Tab) 200 mg [facility] Stop: 01/20/24 08:59 Last Admin: 12/21/23 08:08 Dose: 200 mg Apixaban (Apixaban 5 Mg Tablet) 5 mg PO BID [facility] Stop: 01/19/24 20:59 Last Admin: 12/21/23 08:09 Dose: 5 mg Aspirin (Aspirin 81 Mg Ectab) 81 mg [facility] Stop: 01/20/24 08:59 Last Admin: 12/21/23 08:08 Dose: 81 mg Atorvastatin Calcium (Atorvastatin 40 Mg Tab) 80 [facility] Stop: 01/20/24 08:59 Last Admin: 12/21/23 10:22 Dose: 80 mg Bisacodyl (Bisacodyl 10 Mg Supp) 10 mg [place] DAILY PRN PRN Reason: Constipation Stop: 01/19/24 16:31 Carvedilol (Carvedilol 12.5 Mg Tab) 12.5 mg PO [facility]IDTHE [facility] Stop: 01/20/24 16:59 Dextrose (Dextrose 50% 50 Ml Syringe) 25 - 50 ml IV UD PRN; Protocol PRN Reason: Hypoglycemia Protocol Stop: 01/19/24 16:34 Docusate Sodium (Docusate Sodium 100 Mg Cap) 100 mg PO BID [facility] Stop: 01/19/24 20:59 Last Admin: 12/21/23 10:22 Dose: 100 mg Ezetimibe (Ezetimibe 10 Mg Tab) 10 mg PO QAM [facility] Stop: 01/20/24 08:59 Last Admin: 12/21/23 08:08 Dose: 10 mg Glucagon (Glucagon For Inj 1 Mg Vial) 1 mg SQ UD PRN; Protocol PRN Reason: Hypoglycemia Protocol Stop: 01/19/24 16:34 Glucose (Glucose 40% Gel 15 Gm Tube) 15 - 30 gm PO UD PRN; Protocol PRN Reason: Hypoglycemia Protocol Stop: 01/19/24 16:34 Glucose (Glucose 10 Tab/Tube) 4 - 8 tab PO UD PRN; Protocol PRN Reason: Hypoglycemia Treatment Stop: 01/19/24 16:34 Isosorbide Mononitrate (Isosorbide [place] Extended Rel 30 Mg Tabcr) 30 mg PO QAM [facility] Stop: 01/20/24 08:59 Last Admin: 12/21/23 08:08 Dose: 30 mg Levothyroxine Sodium (Levothyroxine Sodium 50 Mcg Tablet) 50 mcg PO DAILYBB [facility] Stop: 01/20/24 06:29 Last Admin: 12/21/23 06:19 Dose: 50 mcg Losartan Potassium (Losartan Potassium 50 Mg Tab) 50 mg PO DAILY [facility] Stop: 01/20/24 08:59 Last Admin: 12/21/23 10:22 Dose: 50 mg Miscellaneous (Carbohydrates For Hypoglycemia ) 15 - 30 gm PO UD PRN PRN Reason: Hypoglycemia Protocol Stop: 01/19/24 16:34 Ondansetron HCl (Ondansetron Inj 2 Mg/Ml 2 Ml Vial) 4 mg IV Q4H PRN PRN Reason: Nausea And Vomiting Stop: 01/19/24 16:31 Pantoprazole Sodium (Pantoprazole 40 Mg Tab) 40 mg PO DAILY PRN PRN Reason: HEARTBURN/INDIGESTION Stop: 01/19/24 16:46 Sertraline HCl (Sertraline Hcl 50 Mg Tablet) 50 mg PO DAILY [facility] Stop: 01/20/24 08:59 Last Admin: 12/21/23 08:08 Dose: 50 mg Vitamin D (Cholecalciferol 25 Mcg (1000 Units) Tab) 50 mcg PO QPM [facility] Stop: 01/19/24 20:59 Last Admin: 12/20/23 20:56 Dose: 50 mcg (2) CAD (coronary artery disease) Associated angina: with unspecified form of angina Coronary Disease- Associated Artery/Lesion type: [place] artery [place] vs. transplanted heart: [place] heart Qualified Code(s): I25.119 - Atherosclerotic heart disease of [place] coronary artery with unspecified angina pectoris (3) Hypertension Hypertension type: primary hypertension Qualified Code(s): I10 - Essential (primary) hypertension (7) Bladder cancer Bladder location: unspecified site Qualified Code(s): C67.9 - Malignant neoplasm of bladder, unspecified
[2023-12-21] MEDS: carvediloL 3.125 MG TAB PO ONE (12:41)
[2023-12-21] MEDS: SODIUM CHLORIDE 0.9% 500 ML IV ONE (13:13)
[2023-12-21] MEDS ORDERED: carvediloL 12.5 MG TAB PO SCH (17:00)
[2023-12-21] MEDS: carvediloL 3.125 MG TAB PO SCH (17:16)
--- NOTE | 2023-12-22 15:29 | Discharge Summary ---
Discharge Summary Date of Service December 22, 2023 Principal Dx & Hospital Course #1 = Principal Diagnosis (1) Near syncope: (2) CAD (coronary artery disease): (3) Hypertension: (4) Dyslipidemia: (5) Chronic diastolic CHF (congestive heart failure), NYHA class 3: (6) Pacemaker: (7) Bladder cancer: (8) Hypothyroidism: This is an 83-year-old male with PMHx of atrial fibrillation, cardiac pacemaker in situ, CAD status post cardiac DESHAWN in LAD, history of hypotension, history of bladder cancer who presents to the hospital after being in the PCP office this morning where he had an episode of lightheadedness and dizziness. Patient has complaints of blurred vision/ floaters and weakness which started about 6 months ago, happening twice daily around 10 AM and again at 3 P. When this happens he then goes to lay down for 30 minutes to 1 hour and then feels improved. He does not recall if it is positional causing the dizziness. Denies any palpitations, flutter, or other issues with the weakness/visual changes, no chest pain. He takes his morning meds around 9am, and evening meds around 8 pm. Pt reports his appetite is good and is drinking without any issues. Initially patient's carvedilol was reduced to 3.125 twice daily and his losartan was held. His Imdur was continued. In the morning on the day after admission his systolic blood pressure was greater than 200. His losartan was resumed and approximately an hour and a half after receiving medications he became orthostatic and systolic blood pressure ranged from 90-100. He was seen and evaluated by cardiology and was felt that symptoms likely were related to blood pressure me dications and therefore this needed adjusted. He received every hour blood pressures for 4 hours and his blood pressure remained labile. He did receive a 500 mL of IV fluid due to initial orthostasis. He underwent echocardiogram which revealed a preserved EF and a wall motion abnormality that was unchanged from echo in 2021. His pacemaker was interrogated and there was no concern for abnormal rhythm. It is also to note that patient underwent extensive workup for similar symptoms in 2021 including a cardiac catheterization as well as eventual pacemaker implantation. Cardiology recommends to continue Coreg at previous dose of 6.25 twice daily, discontinue isosorbide, change losartan from 50 mg daily to 25 mg twice daily and add Nitro-Dur 1% every 24 hours transdermal. Patient was educated regarding medication changes and is encouraged to monitor his blood pressure twice daily as well as if symptoms represent themselves. He is to keep a log of this and will need close follow-up with his primary care provider as well as cardiology. It is likely that further adjustments may need to be made. Patient was adamant to be discharged from hospital and would not remain present for further blood pressure monitoring to ensure accurate dosing. Notes For Next Care Provider Please follow up on patients blood pressure at follow up appointment. Pt is becoming orthostatic after morning medications. He will need close f/u with cardiology to continue to monitor this. Medication Changes From Visit STOP taking the medication, Isosorbide mononitrate. CHANGED MEDICATIONS: Losartan - This medication is no longer 50mg once daily, it is recommended you take this medication 25mg in the morning and 25mg at bedtime. A new prescription has been sent for this. NEW Medications: Nitro-Dur 0.1% apply transdermally once daily. If you start to feel lightheaded of dizzy immediately pull the patch off. Admission HPI Per Admitting Provider This is an 83-year-old male with PMHx of atrial fibrillation, cardiac pacemaker in situ, CAD status post cardiac DESHAWN in LAD, history of hypotension, history of bladder cancer who presents to the hospital after being in the PCP office this morning where he had an episode of lightheadedness and dizziness. Patient has complaints of blurred vision/ floaters and weakness which started about 6 months ago, happening twice daily around 10 AM and again at 3 P. When this happens he then goes to lay down for 30 minutes to 1 hour and then feels improved. He does not recall if it is positional causing the dizziness. Denies any palpitations, flutter, or other issues with the weakness/visual changes, no chest pain. He takes his morning meds around 9am, and evening meds around 8 pm. Pt reports his appetite is good and is drinking without any issues. Patient is also on antihypertensive medications including Imdur, Coreg, and on amiodarone for rate control. His BP today was noted to be extremely low. In the clinic reported as 60/40. Upon EMS arrival to the clinic his blood pressure was normal, and he drove himself here to the ER as they recommended he come here for further workup. EKG is without any acute changes, blood pressure of 151/82. He thinks his pacemaker was interrogated last about 2 years ago. Admission Exam Per Admitting Provider Physical Exam: General: awake, alert, no apparent distress Head: Normocephalic, atraumatic ENT: PERRL, EOMI, no pharyngeal exudate, mucous membranes moist Chest: Clear to auscultation, on room air, no adventitious breath sounds Cardiac: Regular rate and rhythm, no murmur, no JVD, normal peripheral pulses, good capillary refill Abdominal: NABS x 4 quadrants, soft, nondistended, nontender to palpation, no rebound or guarding Extremities: Normal inspection, no peripheral edema or erythema, calfs nontender to palpation Psych: Normal mood and affect Neuro: AAO x 3, strength intact bilaterally and rated 5/5, no motor deficits, speech is clear, no peripheral sensory deficits Discharge Exam Gen: WD/WN, NAD, A&O x3 HEENT: Normocephalic, atraumatic, conjunctivae moist, sclerae anicteric, mucous membranes moist. Lung: Clear to Auscultation bilaterally, no wheezes/rales/rhonchi Heart: Regular rate, regular rhythm, no murmurs, rubs, or gallops Abdomen: Soft, NT, ND +BS x 4 Extremities: No edema Skin: Warm, no rash, negative turgor. Updated Medication List Medication Instructions Recorded Confirmed Type allopurinol 100 mg tablet 100 mg PO QAM 04/30/18 12/20/23 History (Zyloprim) aspirin 81 mg tablet,delayed 81 mg PO QAM 01/11/21 12/20/23 History release amiodarone 200 mg tablet (Pacerone) 200 mg PO QAM 11/14/21 12/20/23 History atorvastatin 80 mg tablet (Lipitor) 80 mg PO QAM 11/14/21 12/20/23 History levothyroxine 50 mcg tablet 50 mcg PO DAILYBB #30 tabs 11/16/21 12/20/23 Rx (Synthroid) ezetimibe 10 mg tablet (Zetia) 10 mg PO QAM 09/02/22 12/20/23 History docusate sodium 100 mg capsule 100 mg PO BID 04/20/23 12/20/23 History (Colace) acetaminophen 500 mg tablet 1,000 mg PO TID 12/20/23 12/20/23 History (Tylenol Extra Strength) apixaban 5 mg tablet (Eliquis) 5 mg PO BID 12/20/23 12/20/23 History bisacodyl 10 mg rectal suppository 10 mg WA DAILY PRN Constipation 12/20/23 12/20/23 History cholecalciferol (vitamin D3) 25 50 mcg PO QPM 12/20/23 12/20/23 History mcg (1,000 unit) capsule (Vitamin D3) omeprazole 20 mg tablet,delayed 20 mg PO DAILY PRN 12/20/23 12/20/23 History release HEARTBURN/INDIGESTION sertraline 50 mg tablet 50 mg PO DAILY 12/20/23 12/20/23 History tamsulosin 0.4 mg capsule 0.4 mg PO HS 12/20/23 12/21/23 History wheat dextrin 1 gram chewable 1 tab PO DAILY 12/20/23 12/20/23 History tablet (Benefiber Sugar Free (dextrin)) carvedilol 6.25 mg tablet 3.125 mg (1/2 x 6.25 mg) PO BID 12/22/23 Rx #60 tabs losartan 25 mg tablet 25 mg PO BID #60 tabs 12/22/23 Rx nitroglycerin 0.1 mg/hr 1 patch transdermal DAILY #30 ea 12/22/23 Rx transdermal 24 hour patch (Nitro-Dur) Hospital Stay Data Consultations 12/20/23 15:22 ED Decision to Admit Stat 12/20/23 16:32 Consult Cardiology Routine Diagnostic Imagining Performed Chest X-Ray 12/20/23 15:20 XR chest 1V portable CLINICAL HISTORY: hypotensive episode COMPARISON STUDY: Chest CT September 06, 2022. Chest radiograph and left rib series February 01, 2023. FINDINGS: Low lung unchanged. A right subclavian pacer remains in place. Cardiomegaly is unchanged. There is no evidence for pulmonary edema. There is no pneumothorax or pleural effusion. Mild left basilar opacity favors atelectasis. No consolidation is identified to suggest pneumonia. IMPRESSION: No acute cardiopulmonary findings. No change in appearance of the chest. ACT 112: Negative or not required by law. Electronically signed by: Radu Palmer M.D. 12/20/2023 3:[address] 12/20/23 16:10 Exam(s): CT HEAD Without Contrast EXAM: CT Head Without Intravenous Contrast CLINICAL HISTORY: Reason for exam: Syncope. TECHNIQUE: Axial computed tomography images of the head/brain without intravenous contrast. CTDI is 36.05 mGy and DLP is 625.8 mGy-cm. Automated exposure control was utilized for the study. A dose lowering technique was utilized adhering to the principles of ALARA. COMPARISON: Comparison made to prior head CT from February 01, 2023. 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 No hemorrhage. Advanced nonspecific white matter changes. No edema. Ventricles: Moderate ventriculomegaly. Bones/joints: Unremarkable. No acute fracture. Soft tissues: Unremarkable. Sinuses: Unremarkable as visualized. No acute sinusitis. Mastoid air cells: Unremarkable as visualized. No mastoid effusion. IMPRESSION: No evidence of acute intracranial pathology. Electronically signed by: Rose Marie Sequeira MD 12/20/23 21:49 PM Pending Results Patient Have Any Pending Studies at Discharge: No Discharge Instructions Given to Patient (Per Discharging Provider) MEDICATION CHANGES: STOP taking the medication, Isosorbide mononitrate. CHANGED MEDICATIONS: Losartan - This medication is no longer 50mg once daily, it is recommended you take this medication 25mg in the morning and 25mg at bedtime. A new prescription has been sent for this. Coreg 6.25 to 3.125mg two times a day NEW Medications: Nitro-Dur 0.1% apply transdermally once daily. If you start to feel lightheaded of dizzy immediately pull the patch off. SUMMARY OF TEST RESULTS: You were admitted to the hospital due to feeling lightheaded and low blood pressure that occurs twice daily for the last several months. You were seen and evaluated by cardiology. It was felt this may be related to the timing of your blood pressure medications and these were adjusted. You had an US of your heart which showed a normal ejection fraction (pumping of the heart). This study was unchanged from your last echocardiogram in 2021. Your pacemaker was interrogated and no abnormal rhythms were found. PENDING TEST RESULTS: None RECOMMENDATIONS FOR FOLLOW-UP: Please follow up with your primary care provider as scheduled. It is also recommended you follow up with your Internal Sales Engineer upon discharge to continue to evaluate your blood pressure. Please obtain a blood pressure cuff and check your blood pressure twice daily, morning and evening. Please also check it when you feel lightheaded. Keep a log of this and take with you to your next Primary Care appointment. OTHER INSTRUCTIONS: Seek medical attention if you have: * temperature above 101 * chest pain or trouble breathing * abdominal pain, nausea, vomiting * diarrhea, dark stools or bloody stools * any unanswered questions or concerns Call 911 if symptoms are severe. Please take good care of yourself. It has been a pleasure taking care of you. Please take care of yourself. If you have any questions regarding your recent hospitalization please contact [facility] and request Shobha Sinhaist @ [phone]. Gracie Hung PA-C Total Time Total Time Spent Total Time Spent (In Minutes): 45 minutes Supervising Physician Co-Signing Physician Notes I have seen and discussed the case with the collaborating advanced practitioner. I agree with the above DC summary. I have reviewed and confirmed the patients medical history, the findings on physical examination, and the patients diagnosis and treatment plan with Abhilash GARCIA and agree with the information documented. I spent a total of 25 minutes coordinating, documenting, and providing care for this patient excluding time spent in the performance of separately billed services. All of the aforementioned completed outside of collaborating with the assigned advanced practitioner for a full treatment plan. Patient doing well and eager for discharge this afternoon. Pacemaker interrogation no significant arrhythmias detected Echocardiogram with findings of small basal inferior and basal posterior wall motion abnormality with akinesis of the segments involve Cardiology evaluated and suspects labile hypertension. Carvedilol dose reduced from 6.25 mg twice daily to 3.125 mg twice daily. Losartan changed to 25mg BID Nitro prn added Telemetry without arrhythmias.
[2023-12-22] MEDS ORDERED: LOSARTAN POTASSIUM 50 MG TAB PO SCH (21:00)
== END 2023-12-22 18:23 | disposition home or self-care (01) | DRG 312 ==
LOC: ED 12:00 → 2S 15:44 → SUATTDRO 15:44 → 2S 16:08

== ENCOUNTER 2024-08-03 11:14 | Inpatient (IN) ==
--- NOTE | 2024-08-03 11:21 | Emergency Department Note ---
Impression & Plan Upper GI bleed, Symptomatic anemia, Elevated troponin ED Provider Note NAME: SONJA ADRIAN AGE: 84 SEX: M : 1940 ARRIVES VIA: Ambulance INFORMANT: Patient ED PROVIDER(S): Howard Yeh DO CHIEF COMPLAINT: Weakness HPI: Patient is an 84-year-old male with a past medical history of osteoporosis, CAD with stent who presents to the ER as he felt weak this morning. He notes that every morning he checks his blood pressure. Then he takes his blood pressure medications. About half hour after taking his blood pressure medications he normally feels very weak. This comes and goes intermittently. Occurred today felt weaker than usual. He denies any dizziness. Did feel little lightheaded. No chest pain or shortness of breath preceding or following the event. No belly pain. No nausea, vomiting, or diarrhea. No dysuria, urgency, or frequency. This started around 830 lasted for about an hour. He is feeling better. No other exacerbating or remitting factors. EMS is present at bedside and provides additional history and notes that blood pressures were normal for them during transport. ADDITIONAL HISTORY OBTAINED:EMS is present at bedside and provides additional history and notes that blood pressures were normal for them during transport. Chronic Medical/Social Conditions Affecting Care: Per HPI PAST MEDICAL HISTORY:See Below PAST SURGICAL HISTORY:See Below FAMILY HISTORY:See Below SOCIAL HISTORY:See Below HOME MEDICATIONS:See Below ALLERGIES:See Below VITALS:See Below PHYSICAL EXAMINATION: GENERAL: Sitting up in bed, alert, well appearing, well nourished, no distress, non-toxic EYE EXAM: normal conjunctiva. PERRL and EOM's grossly intact. OROPHARYNX: no exudate, no erythema, lips, buccal mucosa, and tongue normal and mucous membranes are moist NECK: supple, no nuchal rigidity, no adenopathy, non-tender LUNGS: Clear to auscultation. Normal chest wall mechanics HEART: no murmurs, S1 normal and S2 normal ABDOMEN: abdomen soft, non-tender, normo-active bowel sounds, no masses, no rebound or guarding. RECTAL: HEM + black stools UPPER EXTREMITIES: upper extremities are grossly normal. LOWER EXTREMITIES: No pitting edema. NEURO EXAM: Normal sensorium, cranial nerves II-XII intact, normal speech, no weakness of arms, no weakness of legs. MEDICAL DECISION MAKING: Patient is a 84-year-old male who presents ER for the above-stated complaint. IV was established and blood work was obtained. Labs show no significant leukocytosis. Significant anemia at 6.5 down from 12. BMP with a creatinine 1.6 and an elevated BUN. Troponin mildly elevated. Rectal heme positive black stool. Patient was typed and crossed and ordered 2 units of PRBCs while in the ER. Discussed case with the hospitalist and patient was admitted for further workup of his upper GI bleed. Was placed on Protonix drip and bolus. Consults/Care Managements Discussions: Per [facility] Triage Nursing notes reviewed. Limited review of prior medical records performed Vital Signs: reviewed and remarkable for no significant abnormalities Differential diagnosis: Infection, dehydration, metabolic abnormality, hypo/hyperglycemia, electrolyte disturbance, anemia, hypoxia, cardiac sources, intracerebral event, toxicologic, neurologic, as well as other pathologies. ER treatment provided: See below Diagnostics interpreted by me include EKG and cardiac monitoring as listed below: -Cardiac Monitoring: An order was placed for continuous cardiac monitoring. The monitor shows a rate of 70 with paced rhythm. -ECG: Atrial paced rate of 77 Normal axis Right bundle branch block QTc 522 -Laboratory studies:Interpreted by me as stated above in MDM and shown below. Imaging studies: Xrays: As interpreted by me: Portable AP upright 1 view of the chest shows no focal infiltrate CTs show: none Procedures:none Critical Care: I have personally spent 44 minutes of critical care time in the direct management of this patient. This includes bedside care, interpretation of diagnostic studies, and testing, discussion with consultants, patient, and family members, and other required patient management activities. This 44 minutes is in excess of all separately billable procedures. 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 Normal caliber thoracic aorta with no evidence for a dissection per 06/[address] 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 Brother No problems noted. Other Diabetes No family history of adverse response to anesthesia Social History Smoking Status: Former smoker Second Hand Exposure: No; Do You Dip or Chew Tobacco: No; Hx Alcohol Use: No Hx Substance Use: No Preferred Language: Palestinian Communication Ability: Effective Smash Hand Required: No Beliefs That Will Affect Care: None marital status: Current Living Situation: Spouse Current Living Situation Comment: current occupational status: retired Feels Safe at Home: Yes Assistive Devices: Cane Allergies Allergies Allergy/AdvReac Type Severity Reaction Status Date / Time KAYLI Inhibitors AdvReac Intermediate cough Verified 12/20/23 15:19 Home Meds Home Medications Medication Instructions Recorded Confirmed allopurinol 100 mg tablet 100 mg PO UD 04/30/18 08/03/24 (Zyloprim) aspirin 81 mg tablet,delayed 81 mg PO QAM 01/11/21 08/03/24 release amiodarone 200 mg tablet (Pacerone) 200 mg PO QAM 11/14/21 08/03/24 atorvastatin 80 mg tablet (Lipitor) 80 mg PO UD 11/14/21 08/03/24 ezetimibe 10 mg tablet (Zetia) 10 mg PO QAM 09/02/22 08/03/24 docusate sodium 100 mg capsule 100 mg PO BID 04/20/23 08/03/24 (Colace) acetaminophen 500 mg tablet 1,000 mg PO TID 12/20/23 08/03/24 (Tylenol Extra Strength) apixaban 5 mg tablet (Eliquis) 5 mg PO BID 12/20/23 08/03/24 bisacodyl 10 mg rectal suppository 10 mg IA DAILY PRN Constipation 12/20/23 08/03/24 cholecalciferol (vitamin D3) 25 50 mcg PO QPM 12/20/23 08/03/24 mcg (1,000 unit) capsule (Vitamin D3) omeprazole 20 mg tablet,delayed 20 mg PO DAILY PRN 12/20/23 08/03/24 release HEARTBURN/INDIGESTION sertraline 50 mg tablet 50 mg PO UD 12/20/23 08/03/24 wheat dextrin 1 gram chewable 1 tab PO DAILY 12/20/23 08/03/24 tablet (Benefiber Sugar Free (dextrin)) carvedilol 6.25 mg tablet 3.125 mg PO UD 08/03/24 08/03/24 losartan 25 mg tablet 25 mg PO UD 08/03/24 08/03/24 metoprolol succinate 25 mg 0.5 mg PO HS 08/03/24 08/03/24 tablet,extended release 24 hr nitroglycerin 0.1 mg/hr 1 patch transdermal UD 08/03/24 08/03/24 transdermal 24 hour patch (Nitro-Dur) tamsulosin 0.4 mg capsule 0.4 mg PO HS 08/03/24 08/03/24 Previous Rx's Medication Instructions Recorded levothyroxine 50 mcg tablet 50 mcg PO DAILYBB #30 tabs 11/16/21 (Synthroid) Results & Data (ED) Vital Signs Vital Signs - 24 hr 08/03/24 11:21 08/03/24 11:33 08/03/24 11:39 Temperature 36.5 C Temperature Source Oral Pulse Rate 91 H 62 76 Pulse Rate from SpO2 Sensor 62 Respiratory Rate 16 14 15 Respiratory Effort / Characteristics Non-Labored Spontaneous Respiratory Depth Normal Respiratory Pattern Regular Blood Pressure 159/69 H Blood Pressure Mean 99 Blood Pressure Position Lying Pulse Oximetry 96 100 Oxygen Delivery Method Room Air Sepsis Recent Fever Within 48 Hours No Sepsis New/Unexplained Change in Mental Status N/A Sepsis Action Taken by Nursing No Action Required 08/03/24 11:41 08/03/24 11:45 08/03/24 12:09 Temperature Temperature Source Pulse Rate 61 60 Pulse Rate from SpO2 Sensor 61 62 Respiratory Rate 13 18 Respiratory Effort / Characteristics Respiratory Depth Respiratory Pattern Blood Pressure 134/73 Blood Pressure Mean 95 Blood Pressure Position Pulse Oximetry 100 98 Oxygen Delivery Method Sepsis Recent Fever Within 48 Hours Sepsis New/Unexplained Change in Mental Status Sepsis Action Taken by Nursing 08/03/24 12:15 08/03/24 12:30 08/03/24 12:30 Temperature Temperature Source Pulse Rate 67 60 Pulse Rate from SpO2 Sensor 67 Respiratory Rate 12 11 L Respiratory Effort / Characteristics Respiratory Depth Respiratory Pattern Blood Pressure 141/65 H Blood Pressure Mean 83 Blood Pressure Position Pulse Oximetry 97 Oxygen Delivery Method Sepsis Recent Fever Within 48 Hours Sepsis New/Unexplained Change in Mental Status Sepsis Action Taken by Nursing 08/03/24 12:34 08/03/24 13:03 08/03/24 13:18 Temperature Temperature Source Pulse Rate 60 65 60 Pulse Rate from SpO2 Sensor 60 Respiratory Rate 24 16 Respiratory Effort / Characteristics Respiratory Depth Respiratory Pattern Blood Pressure Blood Pressure Mean Blood Pressure Position Pulse Oximetry 96 Oxygen Delivery Method Sepsis Recent Fever Within 48 Hours Sepsis New/Unexplained Change in Mental Status Sepsis Action Taken by Nursing Laboratory Data 08/03/24 11:38 08/03/24 11:38 Lab Results 08/03/24 08/03/24 Range/Units 11:38 12:12 WBC 6.59 (4.8-10.8) K/ul RBC 2.16 L (4.70-6.10) M/uL Hgb 6.5 L* (14.0-18.0) g/dl Hct 20.9 L* (42.0-52.0) % MCV 96.8 (80.0-100.0) fL MCH 30.1 (25.0-34.0) pg MCHC 31.1 L (32.0-36.0) g/dL RDW Std Deviation 49.6 H (36.4-46.3) fL RDW Coeff of Dominic 13.9 (11.5-14.5) % Plt Count 213 (130-400) K/uL MPV 10.0 (9.4-12.4) fL Immature Gran % (Auto) 0.3 % Neut % (Auto) 67.2 % Lymph % (Auto) 20.9 % [place] % (Auto) 7.7 % Eos % (Auto) 3.6 % Baso % (Auto) 0.3 % Neut # (Auto) 4.42 (1.40-6.50) K/uL Lymph # (Auto) 1.38 (1.20-3.40) K/uL [place] # (Auto) 0.51 (0.11-0.59) K/uL Eos # (Auto) 0.24 (0.00-0.50) K/uL Baso # (Auto) 0.02 (0.00-0.20) K/uL Immature Gran # (Auto) 0.02 (0.01-0.20) K/uL Polychromasia 1+ Poikilocytosis Present Sodium 139 (136-145) mmol/L Potassium 4.0 (3.5-5.1) mmol/L Chloride 108 H (98-107) mmol/L Carbon Dioxide 26 (21-32) mmol/L Anion Gap 5 (3-11) BUN 34 H (6-23) mg/dl Creatinine 1.64 H (0.6-1.4) mg/dl Est Cr Clr Drug Dosing 30.2 ml/min eGFR 40.48 BUN/Creatinine Ratio 20.7 H (10-20) Glucose 95 (70-99(Fasting)) mg/dl Calcium 9.1 (8.6-10.3) mg/dl Total Bilirubin 0.4 (0.2-1.0) mg/dl AST 18 (13-39) U/L ALT 15 (7-52) U/L Alkaline Phosphatase 49 (34-104) U/L Troponin I High Sens 46.3 H (0-20) pg/ml Total Protein 6.6 (6.0-8.3) gm/dl Albumin 3.8 (3.4-5.0) gm/dl Globulin 2.8 (2.5-4.0) gm/dl Albumin/Globulin Ratio 1.4 (0.9-2) Lipase 49 (11-82) U/L Blood Type O Positive Antibody Screen NEGATIVE Crossmatch See Detail Administered Medications Discontinued Medications Sodium Chloride (Nss) 500 mls @ 999 mls/hr IV .Q31M ONE Stop: 08/03/24 11:51 Last Infusion: 08/03/24 16:27 Dose: Infused Documented By: Admin: 08/03/24 11:42 Dose: 999 mls/hr Documented By: MR Imaging Data Radiologist's Impression: Chest X-Ray 08/03/24 11:20 XR chest 1V portable CLINICAL HISTORY: Chest pain, nonspecific COMPARISON STUDY: Chest CT September 06, 2022. Chest radiograph December 20, 2023. FINDINGS: Right subclavian pacer is in place. Cardiomegaly is unchanged. There is no evidence for pulmonary edema. Mild left basilar opacity favors atelectasis. There is no consolidation to suggest pneumonia. IMPRESSION: No acute cardiopulmonary findings. No significant change in appearance of the chest. ACT 112: Negative or not required by law. Electronically signed by: Radu Palmer M.D. 08/03/2024 11:59 AM Discharge Plan Visit Data Chief Complaint: Weakness Stated Complaint: WEAKNESS, HTN ED Provider: Howard Yeh Discharge Problem: Upper GI bleed, Symptomatic anemia, Elevated troponin Patient Disposition: Admitted As Inpatient Discharge Instructions Interventions: ED Discharge Assessment Last Done: 08/03/24 15:55
--- OUTSIDE RECORDS SUMMARY | 2024-08-03 11:22 | External Medical Summary | Summary of Care ---
Author Name Unknown Organization [facility] Address [address] [place] [address] Phone [phone] Care Team Providers Care Roof Fixer Name Role Phone Roberta Segura MD Primary Care Provider [phone] Encounter Details Date Type Department Care Team (Late st Contact Info) Description 07/11/2024 Result Scan Unspecified Department Henrique Malloy, DO [address] [place] [address] <No scans attached> Allergies Active Allergy Reactions Criticality Noted Date Comments Yariel Inhibitors Cough Low 04/01/2008 Other reaction(s): Pt unsure-UNKNOWN Yariel Inhibitors Cough 01/10/2020 documented as of this encounter (statuses as of 07/11/2024) Medications ASPIRIN 81 MG PO TABSIndications: HTN, goal to be determined Take 1 Tablet by mouth. 01/01/24 Pt states takes twice daily morning and night 34 5 05/26/20 05 Active TYLENOL 325 MG PO TABSIndications: Abdominal pain Two pills by mouth every 4 hours as needed for fever or pain 100 Tab 1 02/27/20 13 Active Additional Information Patient taking differently: 1,000 [id number], Informant: At Discharge, Reported on 07/10/2024 Bisacodyl 10 MG Rectal Suppository (Dulcolax)Indica tions:Constipati on, unspecified constipation type Administer 1 Suppository into the rectum daily as needed for Constipation. Do not use for more than 1 week. 10 Suppository 09/23/19 23 Active Allopurinol 100 MG Oral Tablet (Zyloprim)Indica tions:Elevated uric acid in blood TAKE 1 TABLET BY MOUTH ONCE DAILY 90 Tablet 3 03/28/20 23 Active Vitamin D3 25 MCG (1000 UT) Oral Tablet (Vitamin D3)Indications:H yperparathyroidi sm, primary (HCC),High risk for fracture due to osteoporosis by DEXA scan Take 2 Tablets by mouth every evening. --inc 07/14/2023 (goal VD 60 per DrWinsome) 1 Tablet 07/14/19 24 Active Atorvastatin Calcium 80 MG Oral Tablet (Lipitor)Indicat ions:Dyslipidemi a, goal LDL below 160 TAKE 1 TABLET BY MOUTH ONCE DAILY 90 Tablet 3 10/16/19 24 Active Ezetimibe 10 MG Oral Tablet (Zetia)Indicatio ns:Dyslipidemia, goal LDL below 70 TAKE 1 TABLET BY MOUTH IN THE MORNING 90 Tablet 3 11/01/19 24 Active Tamsulosin HCl 0.4 MG Oral Capsule (Flomax) Take 1 Capsule by mouth at bedtime. 12/26/19 24 Active Benefiber Oral Tablet ChewableIndicati ons:Other constipation 2 daily--to inc to 3 2/d (6 g fiber/dose) up to 2 times daily 02/19/20 24 Active Apixaban 5 MG Oral Tablet (Eliquis)Indicat ions:New onset atrial fibrillation (HCC) Take 1 Tablet by mouth in the morning and 1 Tablet before bedtime. 180 Tablet 3 5 12:31 PM EST 02/22/20 24 Active Metoprolol Succinate ER 25 MG Oral Tablet Extended Release 24 Hour (toPROL XL) Take 0.5 Tablets by mouth every night at bedtime. 30 Tablet 5 03/19/20 24 Active Amiodarone HCl 200 MG Oral Tablet (Cordarone)Indic ations:Chest heaviness,Freque nt PVCs TAKE 1 TABLET BY MOUTH ONCE DAILY 90 Tablet 3 03/28/20 24 Active Levothyroxine Sodium 50 MCG Oral Tablet (Levoxyl)Indicat ions:Hypothyroid ism due to amiodarone Take 1 Tablet by mouth in the morning. (at least 30 min prior to breakfast or other meds). 100 Tablet 2 05/13/20 24 Active Diclofenac Sodium 1 % External Gel (Voltaren)Indica tions:Acute right-sided thoracic back pain Apply topically to affected area 3 times a day as needed for Pain, Mild. Apply to right mid back. 100 g 1 07/10/19 25 Active documented as of this encounter (statuses as of 07/11/2024) Active Problems Problem Noted Date Diagnosed Date Acute on chronic heart failu re with preserved ejection fraction (HFpEF) 05/10/2024 Acute renal failure 05/10/2024 Anxiety 05/10/2024 Chronic diastolic CHF (conge stive heart failure), NYHA class 3 05/10/2024 Constipation 05/10/2024 Diverticulitis 05/10/2024 DJD (degenerative joint disease) 05/10/2024 Dyslipidemia 05/10/2024 Fall 05/10/2024 Gout 05/10/2024 Hematuria 05/10/2024 Hypertension 05/10/2024 Near syncope 05/10/2024 Hypothyroidism 05/10/2024 Non-ST elevation [place] (NSTEMI) 05/10/2024 PAC (premature atrial contraction) 05/10/2024 Pacemaker 05/10/2024 S/P cardiac pacemaker procedure 05/10/2024 Syncope 05/10/2024 Urinary frequency 05/10/2024 Chronic kidney disease, stage 3b 01/15/2024 Overview: Per CKD protocol High risk for fracture due to osteoporosis by DE XA scan 08/17/2023 Hypercalcemia 07/21/2022 Overview (07/21/2022): Per maintenance scheduler message- Bone Marrow Biopsy -Mgus with possible myelomaDr. 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 History of alcohol use 03/15/2022 ISABELLA (generalized anxiety disorder) 09/13/2021 History of total bilateral knee replacement 09/03 History of gout 09/13/2021 BPH with obstruction/lower urinary tract symptom s 09/13/2021 Nonsustained paroxysmal ventricular tachycardia 06/14/2021 Frequent PVCs 06/14/2021 Pulmonary HTN 05/26/2021 Bladder cancer 05/26/2021 History of pneumothorax 01/15/2020 Overview (09/13/2021): left History of fracture of rib 01/10/2020 Overview (01/15/2020): 4th Aortic root enlargement 10/24/2018 Coronary artery disease invo lving [place] coronary artery of [place] heart without angina pectoris 06/14/2018 Presence of drug coated stent in LAD coronary ar steve 06/14/2018 Sensorineural hearing loss 01/14/2011 Chronic rhinitis 01/14/2011 History of tobacco use 01/14/2011 Dyslipidemia, goal LDL below 70 09/13/2010 Esophageal reflux 05/27/2008 COPD, mild 04/15/2008 NONTOX MULTINODUL GOITER 04/19/2006 Hyperparathyroidism, primary 04/19/2006 Overview (03/06/2017): Nuclear Medicine Parathyroid Scan--05/01/07 --Impression: No definite parathyroid lesion is felt to be demonstrated by this exam ICD-10 update of inactive term Right bundle branch block 11/03/2004 Diverticulosis of colon Overview (08/12/2021): 08/24--6 mm DCP, NBIH, tics. documented as of this encounter (statuses as of 07/11/2024) Resolved Problems Problem Noted Date Diagnosed Date Resolved Date Bronchiectasis without complication 03/15/2022 12/26/2023 Stage 3a chronic kidney disease 09/13/2021 01/18/2024 Overview: Per CKD protocol Paroxysmal SVT (supraventricular tachycardia) 06/14/19 22 11/22/2021 Overview (11/22/2021): More specified condition on pl Adjustment insomnia 06/14/2021 09/14/19 22 Fall from slip, trip, or stumble 01/10/2020 05/06/2020 Pneumomediastinum 01/10/2020 09/13/2021 Subcutaneous air 01/10/2020 01/27/2020 Primary osteoarthritis of left knee 06/14/2018 09/13/2021 CHRONIC IRRITATIVE PHARYNGITIS 01/14/2011 12/21/2016 Dyspnea and respiratory abnormality 01/14/2011 12/12/2017 Overview (03/28/2017): ICD-10 update of inactive term Organic sleep disorder 01/14/201112/12 Chronic laryngitis 01/14/2011 7 HEART FAILURE, ETIOLOGY UNKNOWN 04/02/2009 02/08/2018 Overview (04/02/2009): Per Heart Failure Taxonomy Protocol. EF 35 % VOICE DISTURBANCE,HOARSENESS 05/27/2008 12/12/2017 Chronic rhinitis 05/27/2008 11/27/2008 ACTIVE CASE MANAGEMENT-Selma Barker 02/05/2008 03/22/2010 Benign neoplasm of colon 05/03/200703/2018 Overview (05/08/2007): adenomatous polyps--repeat 5 years CONGESTIVE HEART FAILURE 03/28/2006 Overview (04/02/2009): Per Heart Failure Taxonomy Protocol. 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 documented as of this encounter (statuses as of 07/11/2024) Immunizations Name Administration Dates Next Due COVID-19 mRNA, LNP-s, No Pre serve, 2-Dose Series (Moderna) 08/06/2020,07/09/2020 COVID-19, mRNA, LNP-s, PF, B ooster, 100mcg/0.5mg (Moderna) 04/14/2021 H1N1 2009 Influenza, IM 05/26/2009 Pneumococcal Conjugate Vacc, 13 Valent (Prevnar) 11/05/2015 Pneumococcal Polysaccharide PPV23 (Pneumovax) 03/28/2006 Season Influenza, Quad, PF, Adjuvanted, 65+ Yrs, IM (FLUAD) 02/17/2020 Seasonal Influenza Vac., MDV , IM, 0.5 mL (Fluzone) 02/05/2015,02/17/2014,02/26/2013,03/05,02/21/2011,03/15/2010,03/12/20,04/01/2008,04/09/2007,03/28/2006 03/12/2010 Seasonal Influenza Virus Vac cine, Unspecified Formulation 03/15/2022 Seasonal Influenza, High Dos e, Trivalent, PF, IM (Fluzone HD) 02/06/2024,02/02/2016 Seasonal Influenza, PF, 6 M & above, IM , (FluLaval or Fluzone) 03/09/2018,03/05/2018 Seasonal Influenza, Quadriva lent Hd (Fluzone Hd) 03/16/2023,03/15/2022,03/05/2021 Seasonal Influenza, Quadriva lent, No Preserve, IM 02/17/2017 Seasonal Influenza, Trivalen t, Adjuvanted, 65+ YRS, PF, (Fluad) 03/18/2019 TD - Tetanus/Diptheria (ADULT) 10/31/2007 TDAP (age [...] Date Recorded PHQ Adult Total Score 0 12/26/2023 Hunger Vital Sign Answer Date Recorded Within the past 12 months, y ou worried that your food would run out before you got the money to buy more. Never true 12/26/19 24 Within the past 12 months, t he food you bought just didn't last and you didn't have money to get more. Never true 12/26/2023 Childcare Answer Date Recorded Do you feel overwhelmed with taking care of a child, family member or friend? No 12/26/2023 Does your family need help f inding childcare? (Household - for ages 0-17 years) Not on file 12/26/2023 Clothing Answer Date Recorded Have you been unable to get clothing when it was really needed? No 12/26/2023 Is your family able to get c lothes or diapers when needed? (Household - for ages 0-17 years) Not on file 12/26/2023 Personal Safety Answer Date Recorded Do you feel unsafe or have concerns for your saf ety? No 12/26/2023 Do you have concerns for you r family's safety? (Household - for ages 0-17 years) Not on file 12/26/2023 Utilities Answer Date Recorded Do you have trouble paying y our heating, water, or electric bill? No 12/26/2023 Is your family able to pay t he heat, water, or electric bill? (Household - for ages 0-17 years) Not on file 12/26/2023 Does your family have access to good internet? (Household - for ages 0-17 years) Not on file 12/26/2023 Employment Status Answer Date Recorded Are you unemployed or without regular income? No 12/26/2023 Does the household have a re gular source of income? (Household - for ages 0-17 years) Not on file 12/26/2023 Social Connections Answer Date Recorded How often do you feel lonely or isolated from th ose around you? Never 12/26/2023 Financial Resource Strain Answer Date R ecorded Do you have any trouble payi ng for your medications, or do you think you might in the future? No 12/26/2023 Does your family have troubl e paying for medicine? (Household - for ages 0-17 years) Not on file 12/26/2023 Transportation Needs Answer Date Record ed Do you have trouble getting a ride to medical visits or work? (Adult - for ages 18 years and over) Not on file 12/26/2023 Does your family have a hard time getting a ride to doctors visits? (Household - for ages 0-17 years) Not on file 12/26/2023 Has lack of transportation k ept you from medical appointments, meetings, work, or from getting things needed for daily living? Check all that apply. No 12/26/2023 Do you (or your family) have trouble finding or paying for a ride (transportation)? (Household - for ages 0-17 years) Not on file 12/26/2023 Housing Stability Answer Date Recorded Do you currently live in a s helter or have no steady place to sleep at night? No 12/26/2023 Do you think you are at risk of becoming homeless? (Adult - for ages 18 years and over) Not on file 12/26/2023 Does your family worry about paying for your home or becoming homeless? (Household - for ages 0-17 years) Not on file 0 12/26/2023 Are you homeless or worried that you might be in the future? No 12/26/2023 Are you (or your family) sammi eless or worried that you might be in the future? (Household - for ages 0-17 years) Not on file Food Insecurity Answer Date Recorded Do you need food for this week? No 12/26/2023 Are you able to get enough f ood for your family? (Household - for ages 0-17 years) Not on file 12/26/2023 Does your family need food t his week? (Household - for ages 0-17 years) Not on file 12/26/2023 Do you always have enough fo od for your family? (Household - for ages 0-17 years) Not on file 12/26/2023 Food Insecurity Answer Date Recorded Within the past 12 months, y ou worried that your food would run out before you got the money to buy more. Never true 12/26/19 24 Within the past 12 months, t he food you bought just didn't last and you didn't have money to get more. Never true 12/26/2023 Do you need food for this week? 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 Answer Date of Assessment Author No 01/10/2020 2:53 PM EDT Sandra Alejandro RN * Are you blind or do you have serious difficulty seeing, even when wearing glasses? Answer Date of Assessment Author No 01/10/2020 2:53 PM EDT Sandra Alejandro RN * Do you have serious difficulty walking or climbing stairs? (5 years old or older) Answer Date of Assessment Author No 01/10/2020 2:53 PM EDT Sandra Alejandro RN * Do you have difficulty dressing or bathing? (5 years old or older) Answer Date of Assessment Author No 01/10/2020 2:53 PM EDT Sandra Alejandro RN * Because of a physical, mental, or emotional condition, do you have difficulty doing errands alone such as visiting a doctors office or shopping? (15 years old or older) Answer Date of Assessment Author No 01/10/2020 2:53 PM EDT Sandra Alejandro RN documented as of this encounter Mental Status * Because of a physical, mental, or emotional condition, do you have serious difficulty concentrating, remembering, or making decisions? (5 years old or older) Answer Entry Date Author No 01/10/2020 2:53 PM EDT Sandra Alejandro RN documented in this encounter Plan of Treatment Upcoming Encounters Date Type Department Care Team (Late st Contact Info) Description 08/08/2024 10:00 AM EST Office Visit Rheumatology [facility] [address] [facility] [place] [phone] [place] PA-C [address] [facility] [place], [place] [address] 08/13/2024 10:00 AM EDT Laboratory Laboratory [facility] [address] [place] [phone] [facility] [address] [place], [place] [address] 08/14/2024 3:30 PM EDT Office Visit Cardiology, [facility] [address] [facility] [place] [address] Meche Nino PA-C [address] [place] [address] 08/20/2024 2:30 PM EDT Office Visit Hematology/Oncology [facility] [address] [facility] [place], [place] [phone] Kayley Bains MD [address] [facility] [place] [address] 08/26/2024 11:20 AM EDT Office Visit General Internal Medicine [facility] [address] [facility] [place] [address] Roberta Segura MD [address] [facility] [place], [place] [address] Health Maintenance Due Date Last Done Comments Alpha-1 Antitrypsin 1958 Adult Wellness Visit 11/16/2016 11/17/2015 COVID-19 Vaccine ( season) 2024 04/14/2021, 08/06/2020, 07/09/2020 DXA Scan 09/20/2024 09/20/2022, 09/03, 04/17/2012, Additional history exists Depression Screening 12/25/2024 12/26/2023 Albumin/Creatinine Ratio 02/13/2025 02/14/2024 CKD HGB USE SMARTSET 37171 02/13/202502/13, 02/14/2024, 10/18/2023, Additional history exists CKD PHOS USE SMARTSET 18624 02/13/202502/03, 06/26/2023, 11/25/2022, Additional history exists TSH 02/13/2025 02/14/2024, 10/03, 06/26/2023, Additional history exists O2 ASSESSMENT COMPLETED IN PAST YEAR FOR COPD 07/10/2025 07/10/2024 DTap/Tdap Vaccines (3 - Td or Tdap) 01/09/2030 01/10/2020, 02/26/2013, 10/31/2007 Pneumococcal Vaccine: 50+ Years Completed 11/05/2015, 03/28/2006 Zoster Vaccines Completed 11/16/2020, 05/06, 08/07/2008 Influenza Vaccine (FLU shot) Completed 08/2023, 02/06/2024, 03/16/2023, Additional history exists VITAMIN D LEVEL ONCE IN A LIFETIME-USE SMARTSET# [id number] Completed 02/14/2024, 06/26/2023, 11/25/2022, Additional history exists HPV (Gardasil) Vaccine Aged [...] Not on filedocumented as of this encounter Procedures Procedure Name Priority Date/Time Associated Diagnosis Comments CARDIOLOGY SCANNED RESULT 07/11/2024 documented in this encounter Results * CARDIOLOGY SCANNED RESULT (07/11/2024) 07/11/2024 Henrique Malloy DO OTHER Final Resul t documented in this encounter Advance Directives * [...] Power of Attor oralia? No Care Teams Roof Fixer Relationship Specialty Start Date End Date Roberta Segura MD [facility] [place] [address] PCP - General Internal Medicine 03/05/21 documented as of this encounter
--- OUTSIDE RECORDS SUMMARY | 2024-08-03 11:22 | External Medical Summary | Summary of Care ---
Author Name Unknown Organization [facility] Address [address] [place] [address] Phone [phone] Care Team Providers Care Paper Cone Maker Name Role Phone Roberta Segura MD Primary Care Provider [phone] Reason for Visit * Reason Onset Date Comments Fax Refill 07/18/2024 Encounter Details Date Type Department Care Team (Late st Contact Info) Description 07/18/2024 Telephone Cardiology, [facility] [address] [facility] [place] [address] Meche Nino PA-C [address] [facility] [place] [address] Fax Refill Allergies Active Allergy Reactions Criticality Noted Date Comments Yariel Inhibitors Cough Low 04/01/2008 Other reaction(s): Pt unsure-UNKNOWN Yariel Inhibitors Cough 01/10/2020 documented as of this encounter (statuses as of 07/18/2024) Medications ASPIRIN 81 MG PO TABSIndications: HTN, goal to be determined Take 1 Tablet by mouth. 01/01/24 Pt states takes twice daily morning and night 34 5 05/26/20 05 Active TYLENOL 325 MG PO TABSIndications: Abdominal pain Two pills by mouth every 4 hours as needed for fever or pain 100 Tab 1 02/27/20 13 Active Additional Information Patient taking differently: 1,000 [id number], Informant: At Discharge, Reported on 07/10/2024 Bisacodyl [...] (goal VD 60 per Jorge) 1 Tablet 07/14/19 24 Active Ezetimibe 10 MG Oral Tablet [...] back. 100 g 1 07/10/19 25 Active Atorvastatin Calcium 80 MG Oral Tablet (Lipitor)Indicat ions:Dyslipidemi a, goal LDL below 160 Take 1 Tablet by mouth in the morning. 90 Tablet 3 07/18/19 25 Active Atorvastatin Calcium 80 MG Oral Tablet (Lipitor)Indicat ions:Dyslipidemi a, goal LDL below 160 TAKE 1 TABLET BY MOUTH ONCE DAILY 90 Tablet 3 10/16/19 24 025 Discontin ued(Refil l) documented as of this encounter (statuses as of 07/18/2024) Active Problems Problem Noted Date Diagnosed Date Acute on chronic heart failu re with preserved ejection fraction (HFpEF) 05/10/2024 Acute renal failure 05/10/2024 Anxiety 05/10/2024 Chronic diastolic CHF (conge stive heart failure), NYHA class 3 05/10/2024 Constipation 05/10/2024 Diverticulitis 05/10/2024 DJD (degenerative joint disease) 05/10/2024 Dyslipidemia 05/10/2024 Fall 05/10/2024 Gout 05/10/2024 Hematuria 05/10/2024 Hypertension 05/10/2024 Near syncope 05/10/2024 Hypothyroidism 05/10/2024 Non-ST elevation MT (NSTEMI) 05/10/2024 PAC (premature atrial contraction) 05/10/2024 Pacemaker 05/10/2024 S/P cardiac pacemaker procedure 05/10/2024 Syncope 05/10/2024 Urinary frequency 05/10/2024 Chronic kidney disease, stage 3b 01/15/2024 Overview: Per CKD protocol High risk for fracture due to osteoporosis by DE XA scan 08/17/2023 Hypercalcemia 07/21/2022 Overview (07/21/2022): Per equipment scheduler message- Bone Marrow Biopsy -Mgus with [...] enlargement 10/24/2018 Coronary artery disease invo lving [place] coronary artery of [place] heart without angina pectoris 06/14/2018 Presence of [...] as of this encounter (statuses as of 07/18/2024) Resolved Problems Problem Noted Date Diagnosed Date Resolved Date Bronchiectasis without complication 03/15/2022 12/26/2023 Stage 3a chronic kidney disease 09/13/2021 01/18/2024 Overview: Per CKD protocol Paroxysmal SVT (supraventricular tachycardia) 06/14/1911/22/2021 Overview (11/22/2021): More specified condition on pl [...] as of this encounter (statuses as of 07/18/2024) Immunizations Name Administration Dates Next Due COVID-19 [...] Entry Date Author No 01/10/2020 2:53 PM SAIDAT Sandra Alejandro RN documented in this encounter Miscellaneous Notes * Telephone Encounter - Meche Nino PA-C - 07/18/2024 2:12 PM EST Order signed. * Telephone Encounter - Roland Main LPN - 07/18/2024 1:49 PM EST Did you pend patient's preferred pharmacy and medication before forwarding?yes [facility]acy: [facility] [address] Pending Prescriptions: Disp Refills Atorvastatin Calcium 80 MG Oral Tablet (L*90 Tab*3 Sig: Take 1 Tablet by mouth in the morning. Last Visit: 02/02/2024 (in office), Visit date not found (telemedicine) Next Visit: 08/14/2024 If no future appointments scheduled, and last appointment is greater than a year ago, please schedule patient for a follow-up appointment Last date the medication was ordered: 10/16/23 Is this request for a controlled substance?No Urine Drug Screen: Results for orders placed or performed during the hospital encounter of 01/10/20 TOX SCREEN, URINE, W/ CONFIRMATION Result Value Amphetamine POSITIVE (A) Benzodiazepines NEGATIVE THC-COOH Confirmation, U NEGATIVE Cocaine Metabolite NEGATIVE HYDROCODONE NEGATIVE Morphine / Codeine NEGATIVE METHADONE METABOLITE NEGATIVE OXYCODONE POSITIVE (A) TOX COMMENT THE ABOVE SCREENING RESULTS ARE PRESUMPTIVE AND CAN ONLY BE USED FOR MEDICAL PURPOSES. POSITIVE RESULTS REFLEX TO CONFIRMATORY TESTING. Cutoff Concentration *Note: Due to a large number of results and/or encounters for the requested time period, some results have not been displayed. A complete set of results can be found in Results Review. Patient Phone Numbers Labs: Lab Results Component Value Date/Time CREAT 1.4 (H) 02/14/2024 10:29 AM CREAT 1.24 09/13/2022 12:00 AM CREAT 0.9 01/17/2020 08:40 AM POTASSIUM 4.3 02/14/2024 10:29 AM POTASSIUM 4.4 09/13/2022 12:00 AM POTASSIUM 4.4 01/17/2020 08:40 AM TSH 2.16 02/14/2024 10:29 AM TSH 1.721 09/13/2022 12:00 AM TSH 1.43 01/11/2020 05:50 AM LDL 42 02/14/2024 10:29 AM LDL 39 06/26/2023 01:10 PM LDL 66 06/16/2020 08:30 AM LDL NOT APPLICABLE 06/16/2020 08:30 AM LDLCALC 60 06/21/2022 12:00 AM ALT 18 02/14/2024 10:29 AM ALT 22 01/14/2019 09:03 AM documented in this encounter Plan of Treatment Upcoming Encounters Date Type Department Care Team (Late st Contact Info) Description 08/08/2024 10:00 AM EST Office Visit Rheumatology [facility] [address] [facility] [place] [phone] Cuco Al[place] PA-C [address] [facility] [place] [address] 08/13/2024 10:00 AM EDT Laboratory Laboratory [facility] [address] [place] [phone] [facility] [address] [place] [address] 08/14/2024 3:30 PM EDT Office Visit Cardiology, [facility] [address] [facility] [place] [address] Meche Nino PA-C [address] [facility] [place] [id number] 08/20/2024 2:30 PM EDT Office Visit Hematology/Oncology [facility] [address] [place] [phone] Kayley Bains MD [address] [facility] [place] [address] 08/26/2024 11:20 AM EDT Office Visit General Internal Medicine [facility] [address] [place] [address] Roberta Segura MD [address] [facility] [place] [address] Health Maintenance Due Date Last Done Comments Alpha-1 Antitrypsin 1958 Adult Wellness Visit 11/16/2016 11/17/2015 COVID-19 Vaccine ( season) 2024 04/14/2021, 08/06/2020, 07/09/2020 DXA Scan 09/20/2024 09/20/2022, 09/03, 04/17/2012, Additional history exists Depression Screening 12/25/2024 12/26/2023 Albumin/Creatinine Ratio 02/13/2025 02/14/2024 CKD HGB USE SMARTSET 67566 02/13/202502/13, 02/14/2024, 10/18/2023, Additional history exists CKD PHOS USE SMARTSET 82532 02/13/202502/03, 06/26/2023, 11/25/2022, Additional history exists TSH [...] D LEVEL ONCE IN A LIFETIME-USE SMARTSET# 72566 Completed 02/14/2024, 06/26/2023, 11/25/2022, Additional history exists [...] as of this encounter Visit Diagnoses Diagnosis Dyslipidemia, goal LDL below 160 Other and unspecified hyperlipidemia documented in this encounter Advance Directives * [...] Power of Attor oralia? No Care Teams Paper Cone Maker Relationship Specialty Start Date End Date Roberta Segura MD [address] [place] [address] PCP - General Internal Medicine 03/05/21 documented as of this encounter
[2024-08-03] MEDS: SODIUM CHLORIDE 0.9% 500 ML IV ONE (11:42)
[2024-08-03] MEDS ORDERED: SODIUM CHLORIDE 0.9% 50 ML IV PRN (11:56)
[2024-08-03] MEDS ORDERED: SODIUM CHLORIDE 0.9% 100 ML IV PRN (11:56)
[2024-08-03 11:59] LABS: Hematocrit (blood only) 20.9 % (42.0-52.0); Hemoglobin 6.5 g/dl (14.0-18.0); Mean Corpuscular Hemoglobin 30.1 pg (25.0-34.0); Mean Corpuscular Hgb Conc 31.1 g/dL (32.0-36.0); Mean Corpuscular Volume 96.8 fL (80.0-100.0); Platelet Count 213 K/uL (130-400); RDW Coefficient of Variation 13.9 % (11.5-14.5); RDW Standard Deviation 49.6 fL (36.4-46.3); Red Blood Count 2.16 M/uL (4.70-6.10); White Blood Count 6.59 K/ul (4.8-10.8)
--- NOTE | 2024-08-03 12:00 | XRay Report ---
XR chest 1V portable CLINICAL HISTORY: Chest pain, nonspecific COMPARISON STUDY: Chest CT September 06, 2022. Chest radiograph December 20, 2023. FINDINGS: Right subclavian pacer is in place. Cardiomegaly is unchanged. There is no evidence for pul monary edema. Mild left basilar opacity favors atelectasis. There is no consolidation to suggest pneu monia. IMPRESSION: No acute cardiopulmonary findings. No significant change in appearance of the chest. ACT 112: Negative or not required by law. Electronically signed by: Radu Palmer M.D. 08/03/2024 11:59 AM
[2024-08-03 12:11] LABS: Albumin Globulin Ratio 1.4 (0.9-2); Albumin Level 3.8 gm/dl (3.4-5.0); BUN Creatinine Ratio 20.7 (10-20); Bilirubin,Total 0.4 mg/dl (0.2-1.0); Calcium 9.1 mg/dl (8.6-10.3); Creatinine Clr Calc Pharmacy 30.2 ml/min; Globulin 2.8 gm/dl (2.5-4.0); Total Protein 6.6 gm/dl (6.0-8.3)
[2024-08-03 12:14] LABS: Basophils # (auto) 0.02 K/uL (0.00-0.20); Basophils % (auto) 0.3 %; Eosinophils # (auto) 0.24 K/uL (0.00-0.50); Eosinophils % (auto) 3.6 %; Immature Granulocytes # (auto) 0.02 K/uL (0.01-0.20); Immature Granulocytes % (auto) 0.3 %; Lymphocytes # (auto) 1.38 K/uL (1.20-3.40); Lymphocytes % (auto) 20.9 %; Monocytes # (auto) 0.51 K/uL (0.11-0.59); Monocytes % (auto) 7.7 %; Neutrophils # (auto) 4.42 K/uL (1.40-6.50); Neutrophils % (auto) 67.2 %; Poikilocytosis Present; Polychromasia 1+
[2024-08-03 12:17] LABS: Troponin I High Sensitivity 46.3 pg/ml (0-20)
[2024-08-03] MEDS ORDERED: ACETAMINOPHEN 325 MG TAB PO PRN (13:18)
[2024-08-03] MEDS ORDERED: ONDANSETRON INJ 2 MG/ML 2 ML VIAL IV PRN (13:18)
[2024-08-03] MEDS ORDERED: POLYETHYLENE (MIRALAX) 17 GM PACK PO PRN (13:18)
--- NOTE | 2024-08-03 13:38 | History & Physical Report ---
Date of Service August 03, 2024 Assessment & Plan (1) Anemia: (2) Upper GI bleed: Plan #Weakness likely 2/2 normocytic anemia w/positive FOBT, eliquis administration and change in bowel habits #PIYUSH on CKD likely 2/2 dehydration -transfuse 2u -PPI ggt started in ED transition to IV BID when able -consider GI consult based on response to the above -trend hgb -hold eliquis and aspirin -tele -ct abd pelv w/o contrast for now -outpatient GI consult, consider colonoscopy #NSTEMI likely type 2 in the setting of the above -trend trops to downtrend #Htn #Orthostatic hypotension/pre-syncope -hydralazine >180/100 #AF s/p PPM #CAD s/p DESHAWN #HLD, HFpEF #Hypothyroidism -home meds Consider IVF after blood transfusion NPO for now PPI ggt then BID Hold A/C History of Present Illness Primary Care Provider: Roberta Segura MD 84M pmh AF s/p PMM, CAD s/p DESHAWN, htn, bladder ca, orthostatic hypotension/pre- syncope, HLD, HFpEF, hypothyroidism who presents with weakness. Of note patient with significant history of weakness/hypotension likely 2/2 cardiac medication/antihypertensive administration, with recent admission 12/26 as well in 2021 at which time cardiac evaluation was performed, including angiogram and PPM placement. During this episode, patient states that this AM he felt weak. Regularly feels weak about a half hour after taking his BP medication, but today felt weaker than normal. Denies other symptoms including cp, sob, abd pain, recent change in his bowel habits, melena or hematochezia. Symptoms today lasted for about an hour, after which patient felt better. BP was normal via EMS on transport. In the ED, FOBT was done and positive for black stools. Patient states that he has not had a colonoscopy in many years, but they have never been abnormal. No Fhx or personal history of colon ca or other GI problems. He does state, however, that in the last 2-3 years he has been increasingly constipated, BM q2- 3d and previously he was QD. Allergies Allergy/AdvReac Type Severity Reaction Status Date / Time KAYLI Inhibitors AdvReac Intermediate cough Verified 12/20/23 15:19 Home Medications Medication Instructions Recorded Confirmed Type allopurinol 100 mg tablet 100 mg PO UD 04/30/18 08/03/24 History (Zyloprim) aspirin 81 mg tablet,delayed 81 mg PO QAM 01/11/21 08/03/24 History release amiodarone 200 mg tablet (Pacerone) 200 mg PO QAM 11/14/21 08/03/24 History atorvastatin 80 mg tablet (Lipitor) 80 mg PO UD 11/14/21 08/03/24 History levothyroxine 50 mcg tablet 50 mcg PO DAILYBB #30 tabs 11/16/21 08/03/24 Rx (Synthroid) ezetimibe 10 mg tablet (Zetia) 10 mg PO QAM 09/02/22 08/03/24 History docusate sodium 100 mg capsule 100 mg PO BID 04/20/23 08/03/24 History (Colace) acetaminophen 500 mg tablet 1,000 mg PO TID 12/20/23 08/03/24 History (Tylenol Extra Strength) apixaban 5 mg tablet (Eliquis) 5 mg PO BID 12/20/23 08/03/24 History bisacodyl 10 mg rectal suppository 10 mg NH DAILY PRN Constipation 12/20/23 08/03/24 History cholecalciferol (vitamin D3) 25 50 mcg PO QPM 12/20/23 08/03/24 History mcg (1,000 unit) capsule (Vitamin D3) omeprazole 20 mg tablet,delayed 20 mg PO DAILY PRN 12/20/23 08/03/24 History release HEARTBURN/INDIGESTION sertraline 50 mg tablet 50 mg PO UD 12/20/23 08/03/24 History wheat dextrin 1 gram chewable 1 tab PO DAILY 12/20/23 08/03/24 History tablet (Benefiber Sugar Free (dextrin)) carvedilol 6.25 mg tablet 3.125 mg PO UD 08/03/24 08/03/24 History losartan 25 mg tablet 25 mg PO UD 08/03/24 08/03/24 History metoprolol succinate 25 mg 0.5 mg PO 08/03/24 08/03/24 History tablet,extended release 24 hr nitroglycerin 0.1 mg/hr 1 patch transdermal UD 08/03/24 08/03/24 History transdermal 24 hour patch (Nitro-Dur) tamsulosin 0.4 mg capsule 0.4 mg PO 08/03/24 08/03/24 History Past Med/Surg History Problem List (Updated 08/03/24 @ 13:30 by Davie Shaw MD) Upper GI bleed Anemia Osteoporosis Primary hyperparathyroidism Presence of drug coated stent in LAD coronary artery Ventricular ectopy present on electrocardiography (Acute) Aortic root enlargement Dilated ascending thoracic aorta, again measuring up to 4.1 cm in diameter per 09/[address] Normal caliber thoracic aorta with no evidence for a dissection per 06/[address] Medical History Hypercalcemia Anxiety "white coat syndrome" DJD (degenerative joint disease) GERD (gastroesophageal reflux disease) Well controlled and stable Gout No recent issues Surgical History Status post left knee replacement History of esophagogastroduodenoscopy (EGD) S/P cardiac pacemaker procedure 04/2022 [facility] Status post right knee replacement History of surgery Multiple as child (r/t trauma, run over by tractor) History of cardiac cath 2017 > stent x1 11/2021 > no stents History of colonoscopy H/O exploratory laparotomy For intussusception Hx of hernia repair Hx of shoulder surgery right Family History Sister No problems noted. Brother No problems noted. Other Diabetes No family history of adverse response to anesthesia Social History Smoking Status: Former smoker Second Hand Exposure: No; Do You Dip or Chew Tobacco: No; Hx Alcohol Use: No (Quit 6+ months ago) Hx Substance Use: No Preferred Language: Tajik Communication Ability: Effective Foundry Hand Required: No Beliefs That Will Affect Care: None marital status: Current Living Situation: Spouse Current Living Situation Comment: current occupational status: retired Feels Safe at Home: Yes Assistive Devices: Cane Review of Systems Constitutional: no sweats, no fatigue, no malaise and no weakness Respiratory: no cough and no dyspnea Cardiovascular: no chest pain and no palpitations Gastrointestinal: + change in bowel habits, + change in st ools and + constipation; no abdominal pain, no heartburn, no nausea, no vomiting, no dysphagia, no blood in stools and no melena Physical Exam Constitutional: WD/WN, vitals as above Respiratory: normal respiratory effort, lungs clear to auscultation Cardiovascular: RRR, no murmur, no edema Gastrointestinal (Abdomen): normal bowel sounds, soft, nontender, no hepatosplenomegaly Results & Data Results & Data Vital Signs (Past 12 Hours) Vital Signs Temp Pulse Resp BP Pulse Ox O2 Del Method 08/03/24 12:34 60 08/03/24 11:21 36.5 C 91 H 16 159/69 H 96 Room Air Laboratory Results Abnormal lab results 08/03/24 08/03/24 Range/Units 11:38 12:12 RBC 2.16 L (4.70-6.10) M/uL Hgb 6.5 L* (14.0-18.0) g/dl Hct 20.9 L* (42.0-52.0) % MCHC 31.1 L (32.0-36.0) g/dL RDW Std Deviation 49.6 H (36.4-46.3) fL Chloride 108 H (98-107) mmol/L BUN 34 H (6-23) mg/dl Creatinine 1.64 H (0.6-1.4) mg/dl BUN/Creatinine Ratio 20.7 H (10-20) Troponin I High Sens 46.3 H (0-20) pg/ml Crossmatch See Detail Diagnostic Findings Chest X-Ray 08/03/24 11:20 XR chest 1V portable CLINICAL HISTORY: Chest pain, nonspecific COMPARISON STUDY: Chest CT September 06, 2022. Chest radiograph December 20, 2023. FINDINGS: Right subclavian pacer is in place. Cardiomegaly is unchanged. There is no evidence for pulmonary edema. Mild left basilar opacity favors atelectasis. There is no consolidation to suggest pneumonia. IMPRESSION: No acute cardiopulmonary findings. No significant change in ap pearance of the chest. ACT 112: Negative or not required by law. Electronically signed by: Radu Palmer M.D. 08/03/2024 11:59 AM Code Status & VTE Plan VTE Prophylaxis Plan VTE Prophylaxis will be ordered: No Reason for no VTE drug order: Contraindicated
[2024-08-03] MEDS ORDERED: hydrALAZINE HCL 20 MG/ML VIAL IV PRN (13:42)
--- NOTE | 2024-08-03 14:22 | CT Scan Report ---
HISTORY: GIB EK TECHNIQUE: Helical CT imaging of the abdomen and pelvis was performed without the use of IV contrast. Images are presented in axial, sagittal, and coronal reformats. COMPARISON: CT the abdomen pelvis without contrast dated 10/09/2022. FINDINGS: Cardiomegaly. Coronary artery calcifications are present. Trace pleural effusions. Bibasilar airspace opacities may reflect fibrosis or pneumonia. The liver, gallbladder, spleen, adrenal glands, and pancreas are unremarkable. The stomach and duodenum are unremarkable. The small bowel loops are normal in caliber. Normal caliber appendix is identified. Extensive colonic diverticulosis. Question mild inflammation along the proximal sigmoid colon suspicious for mild acute uncomplicated diverticulitis. Moderate atherosclerotic vascular disease with severe stenosis along the SMA and involving both renal arteries. Ectasia of the infrarenal abdominal aorta. No abdominal aortic aneurysm. No suspicious lymphadenopathy. No nephrolithiasis or hydronephrosis. No bladder calculi. The urinary bladder is unremarkable. Enlarged prostate measuring 5.6 cm in diameter. No free pelvic fluid. Fat-containing left inguinal hernia. Small fat-containing umbilical hernia. Soft tissues of the body wall are unremarkable. Partially included fixation hardware about the right proximal femur. Degenerative changes of the spine. Mild degenerative changes of the hips and pelvis. IMPRESSION: 1. Extensive colonic diverticulosis. Mild inflammation along the proximal sigmoid colon suggesting mild acute uncomplicated diverticulitis. 2. Trace pleural effusions. Bibasilar interstitial opacities may represent pulmonary fibrosis or pneumonia. 3. Marked prostatomegaly. Recommend correlation with serum PSA. 4. Numerous chronic and/or incidental findings as above. Electronically signed by Rashad aClvert 08-03-2024 2:21 PM
--- NOTE | 2024-08-03 16:18 | Communication Note ---
Date of Service: August 03, 2024 Called to the bedside because patient's BP rani significantly after receiving his transfusion. On my evaluation patient sitting comfortably in bed, now s/p 1u pRBC, VSS besides BP 189/105 No complaints, including, fever, chills, cp, sob, palpitations, any issues at all Auscultation reveals no wheezes, rales or crackles Clinical suspicion for acute transfusion reaction is low, but will get CXR/BNP, discontinue second unit pRBC, repeat H&H now Patient states his BP runs 160s-170s at home, suspicion this current BP represents his true regular BP after volume resuscitation He states he feels better after transfusion, further supporting this conclusion
[2024-08-03 17:16] LABS: Blood Urine Negative (Negative)
[2024-08-03] MEDS ORDERED: carvediloL 3.125 MG TAB PO SCH ×2 (17:20→21:00)
[2024-08-03 17:27] LABS: Appearance Urine Clear (Clear); Bacteria Urine Automated None Seen (None Seen); Bilirubin Urine Negative (Negative); Blood Urine Negative (Negative); Color Urine Yellow; Epithelial Cell Urine Auto 0-2 /hpf (0-2); Glucose Urine UA Negative (Negative); Ketones Urine Negative (Negative); Leukocyte Esterase Urine Trace (Negative); Nitrite Urine Negative (Negative); Protein Urine Negative (Negative); RBC Urine Automated 0-2 /hpf (0-2); Specific Gravity Urine 1.013 (1.000-1.030); Urobilinogen Urine Negative (Negative); WBC Urine Automated 0-5 /hpf (0-5)
[2024-08-03] MEDS: ACETAMINOPHEN 500 MG TAB PO SCH (17:55)
[2024-08-03] MEDS: hydrALAZINE HCL 20 MG/ML VIAL IV PRN (17:56)
[2024-08-03] MEDS: METOPROLOL TARTRATE 1 MG/ML VIAL IV STA (18:41)
[2024-08-03] MEDS: cefTRIAXone SODIUM 1,000 MG/50 ML BAG IV STA (18:42)
[2024-08-03] MEDS: PANTOprazole 80 MG in DEXTROSE 5% 100 ML IV ONE (18:42)
[2024-08-03] MEDS: PANTOprazole 40 MG in DEXTROSE 5% MINI-B 100 ML IV SCH (19:00)
[2024-08-03] MEDS: PANTOPRAZOLE BOLUS/DRIP IV STA (19:10)
[2024-08-03] MEDS: metroNIDAZOLE 500 MG/100 ML BAG IV SCH (19:31)
[2024-08-03] MEDS: CHOLECALCIFEROL 25 MCG (1000 UNITS) TAB PO SCH (20:17)
[2024-08-03] MEDS: LOSARTAN POTASSIUM 25 MG TAB PO SCH (20:18)
[2024-08-03] MEDS: TAMSULOSIN HCL 0.4 MG CAP PO SCH (20:18)
[2024-08-03] MEDS: DOCUSATE SODIUM 100 MG CAP PO SCH (20:21)
[2024-08-03] MEDS: METOPROLOL SUCC 25MG EXT REL TAB PO SCH (20:58)
[2024-08-03] MEDS ORDERED: METOPROLOL SUCC 25MG EXT REL TAB PO SCH (21:00)
[2024-08-04] MEDS: LEVOTHYROXINE SODIUM 50 MCG TABLET PO SCH (06:29)
[2024-08-04 06:52] LABS: Hemoglobin 7.3 g/dl (14.0-18.0); Mean Corpuscular Hemoglobin 29.9 pg (25.0-34.0); Mean Corpuscular Hgb Conc 31.7 g/dL (32.0-36.0); Mean Corpuscular Volume 94.3 fL (80.0-100.0); Mean Platelet Volume 9.5 fL (9.4-12.4); Platelet Count 206 K/uL (130-400); RDW Coefficient of Variation 14.5 % (11.5-14.5); RDW Standard Deviation 49.9 fL (36.4-46.3); Red Blood Count 2.44 M/uL (4.70-6.10); White Blood Count 5.36 K/ul (4.8-10.8)
[2024-08-04 07:40] LABS: Albumin Globulin Ratio 1.4 (0.9-2); Albumin Level 3.3 gm/dl (3.4-5.0); BUN Creatinine Ratio 18.1 (10-20); Bilirubin,Total 0.5 mg/dl (0.2-1.0); Calcium 8.7 mg/dl (8.6-10.3); Creatinine Clr Calc Pharmacy 35.9 ml/min; Globulin 2.4 gm/dl (2.5-4.0); Potassium 4.3 mmol/L (3.5-5.1); Total Protein 5.7 gm/dl (6.0-8.3)
[2024-08-04] MEDS ORDERED: POLYETHYLENE (MIRALAX) 17 GM PACK PO PRN (08:01)
[2024-08-04] MEDS: EZETIMIBE 10 MG TAB PO SCH (08:17)
[2024-08-04] MEDS: AMIODARONE 200 MG TAB PO SCH (08:18)
[2024-08-04] MEDS: SERTRALINE HCL 50 MG TABLET PO SCH (08:18)
[2024-08-04] MEDS: ATORVASTATIN 40 MG TAB PO SCH (08:18)
[2024-08-04] MEDS: allopurinoL 100 MG TAB PO SCH (08:18)
[2024-08-04] MEDS: NITROGLYCERIN 0.1 MG/HR PATCH TD SCH (08:18)
[2024-08-04 08:51] LABS: Troponin I High Sensitivity 55.1 pg/ml (0-20)
[2024-08-04] MEDS ORDERED: PSYLLIUM or GUAR GUM FIBER 4GM PACKET PO SCH (09:00)
[2024-08-04 12:49] LABS: Hematocrit (blood only) 25.5 % (42.0-52.0); Mean Corpuscular Hemoglobin 30.2 pg (25.0-34.0); Mean Corpuscular Hgb Conc 31.4 g/dL (32.0-36.0); Mean Corpuscular Volume 96.2 fL (80.0-100.0); Mean Platelet Volume 9.8 fL (9.4-12.4); Platelet Count 209 K/uL (130-400); RDW Coefficient of Variation 14.4 % (11.5-14.5); RDW Standard Deviation 50.4 fL (36.4-46.3); Red Blood Count 2.65 M/uL (4.70-6.10); White Blood Count 6.71 K/ul (4.8-10.8)
--- NOTE | 2024-08-04 12:51 | Hospitalist Progress Note ---
Date of Service August 04, 2024 Assessment & Plan (1) Elevated troponin: (2) Upper GI bleed: (3) Presence of drug coated stent in LAD coronary artery: Plan #Weakness likely 2/2 normocytic anemia w/positive FOBT, eliquis administration and change in bowel habits #PIYUSH on CKD likely 2/2 dehydration, resolved -transfuse 2u -PPI ggt started in ED transition to IV BID when able -consider GI consult based on response to the above -trend hgb -hold eliquis and aspirin -GI consulted, consideration for EGD -stop flagyl given only mild diverticular disease with no evidence of complications #NSTEMI likely type 2 in the setting of the above -resolved #Orthostatic hypotension/pre-syncope -stop nitro patch #AF s/p PPM #CAD s/p DESHAWN #HLD, HFpEF #Hypothyroidism -home meds Feeding/fluids: NPO for now Analgesia: tylenol Sedation: na Thromboprophylaxis: SCD Head up position: na Ulcer prophylaxis: protonix Glycemic control: na Spontaneous breathing trial: na Bowel care: miralax prn Indwelling catheter removal: na Deescalation of antibiotics: stop flagyl I spent a total of 50 minutes in direct patient care, including [id number] time with the patient and/or family, reviewing medical records, ordering and reviewing diagnostic tests, and coordinating care with other healthcare providers. This time includes: history taking, physical examination, medical decision making, counseling, ECG interpretation, imaging interpretation, lab interpretation, orders, and education, excluding time spent in the performance of separately billed services. Admission and Anticipated Discharge Date Admission Date: August 03, 2024 Subjective Patient seen and examined at bedside. Patient doing well today. He states this came out of nowhere. He states he has been having frequent black stools. He continues to have black stools. He also states he has been getting lightheaded. Review of Systems Review of Systems: CONSTITUTIONAL: lightheaded EYES: Patient denies any visual symptoms. EARS, NOSE, AND THROAT: No difficulties with hearing. No symptoms of rhinitis or sore throat. CARDIOVASCULAR: Patient denies chest pains, palpitations, orthopnea and p aroxysmal nocturnal dyspnea. RESPIRATORY: No dyspnea on exertion, no wheezing or cough. GI: melena noted : No urinary hesitancy or dribbling. No nocturia or urinary frequency. No abnormal urethral discharge. MUSCULOSKELETAL: No myalgias or arthralgias. NEUROLOGIC: No chronic headaches, no seizures. Patient denies numbness, tingling or weakness. PSYCHIATRIC: Patient denies problems with mood disturbance. No problems with anxiety. ENDOCRINE: No excessive urination or excessive thirst. DERMATOLOGIC: Patient denies any rashes or skin changes. Physical Exam Physical Exam: Gen: A&O 3 NAD HEENT: NCAT, EOMI, not icteric. External ears normal. No rhinorrhea. Moist mucous membranes. Neck: Supple, full range of motion, no observable masses, No meningeal sign. Lungs: No Respiratory distress. CV: RRR, no edema. Abdomen: Soft, nondistended, No rebound tenderness. MSK: No joint swelling, no redness. Skin: No rashes, petechiae, lesions. Normal color per patient. Neuro: Normal Gait, Grossly intact. Psych: Appropriate for situation. Results & Data Results & Data Vital Signs (Past 12 Hours) Vital Signs Temp Pulse Pulse Resp BP Pulse Ox O2 Del Method 08/04/24 11:40 72 18 104/65 96 Room Air 08/04/24 08:11 36.5 C 58 L 18 149/71 H 95 Room Air 08/04/24 08:00 61 08/04/24 04:01 36.5 C 64 18 174/74 H 98 Room Air Laboratory Results -personally reviewed, Hgb significantly below baseline but higher than admission, creatinine improved to baseline Medications Administered Acetaminophen (Acetaminophen 500 Mg Tab) 1,000 mg PO TID [facility] Stop: 09/02/24 17:19 Last Admin: 08/04/24 08:17 Dose: 1,000 mg Documented By: Admin: 08/03/24 20:20 Dose: 1,000 mg Documented By: Admin: 08/03/24 17:55 Dose: 1,000 mg Documented By: TYLER Allopurinol (Allopurinol 100 Mg Tab) 100 mg PO DAILY [facility] Stop: 09/03/24 08:59 Last Admin: 08/04/24 08:18 Dose: 100 mg Documented By: TYLER Amiodarone HCl (Amiodarone 200 Mg Tab) 200 mg PO QAM [facility] Stop: 09/03/24 08:59 Last Admin: 08/04/24 08:18 Dose: 200 mg Documented By: TYLER Atorvastatin Calcium (Atorvastatin 40 Mg Tab) 80 mg PO DAILY [facility] Stop: 09/03/24 08:59 Last Admin: 08/04/24 08:18 Dose: 80 mg Documented By: TYLER Ezetimibe (Ezetimibe 10 Mg Tab) 10 mg PO QAM [facility] Stop: 09/03/24 08:59 Last Admin: 08/04/24 08:17 Dose: 10 mg Documented By: TYLER Pantoprazole Sodium 40 mg/ (Dextrose) 100 mls @ 20 mls/hr IV Q5H [facility] Stop: 09/02/24 12:44 Last Admin: 08/04/24 09:57 Dose: 8 mg/hr, 20 mls/hr Documented By: Infusion: 08/04/24 09:18 Dose: Infused Documented By: Admin: 08/04/24 04:18 Dose: 8 mg/hr, 20 mls/hr Documented By: Infusion: 08/04/24 04:18 Dose: Infused Documented By: Admin: 08/04/24 04:15 Dose: 8 mg/hr, 20 mls/hr Documented By: Infusion: 08/04/24 04:14 Dose: Infused Documented By: Admin: 08/03/24 22:58 Dose: 8 mg/hr, 20 mls/hr Documented By: Infusion: 08/03/24 22:58 Dose: Infused Documented By: Admin: 08/03/24 19:00 Dose: 8 mg/hr, 20 mls/hr Documented By: TYLER Metronidazole (Flagyl) 500 mg in 100 mls @ 100 mls/hr IV Q12H [facility]; Protocol Stop: 08/05/24 15:29 Last Infusion: 08/04/24 05:41 Dose: Infused Documented By: Admin: 08/04/24 04:32 Dose: 100 mls/hr Documented By: Infusion: 08/03/24 20:37 Dose: Infused Documented By: Admin: 08/03/24 19:31 Dose: 100 mls/hr Documented By: KF Levothyroxine Sodium (Levothyroxine Sodium 50 Mcg Tablet) 50 mcg PO DAILYBB [facility] Stop: 09/03/24 06:29 Last Admin: 08/04/24 06:29 Dose: 50 mcg Documented By: KEYA Losartan Potassium (Losartan Potassium 25 Mg Tab) 25 mg PO BID [facility] Stop: 09/02/24 20:59 Last Admin: 08/04/24 08:18 Dose: 25 mg Documented By: Admin: 08/03/24 20:18 Dose: 25 mg Documented By: KEYA Metoprolol Succinate (Metoprolol Succ 25mg Ext Rel Tab) 12.5 mg PO HS [facility] Stop: 09/02/24 20:59 Last Admin: 08/03/24 20:58 Dose: 12.5 mg Documented By: KEYA Miscellaneous (Remove Nitro-Dur Patch) 1 each N/A DAILY@2100 [facility] Stop: 09/02/24 20:59 Last Admin: 08/03/24 20:19 Dose: Not Given Documented By: KEYA Sertraline HCl (Sertraline Hcl 50 Mg Tablet) 50 mg PO DAILY [facility] Stop: 09/03/24 08:59 Last Admin: 08/04/24 08:18 Dose: 50 mg Documented By: TYLER Tamsulosin HCl (Tamsulosin Hcl 0.4 Mg Cap) 0.4 mg PO [facility] Stop: 09/02/24 20:59 Last Admin: 08/03/24 20:18 Dose: 0.4 mg Documented By: KEYA Vitamin D (Cholecalciferol 25 Mcg (1000 Units) Tab) 50 mcg PO QPM [facility] Stop: 09/02/24 20:59 Last Admin: 08/03/24 20:17 Dose: 50 mcg Documented By: KEYA
[2024-08-05 07:57] LABS: Basophils # (auto) 0.02 K/uL (0.00-0.20); Basophils % (auto) 0.3 %; Eosinophils # (auto) 0.21 K/uL (0.00-0.50); Eosinophils % (auto) 3.6 %; Hematocrit (blood only) 23.6 % (42.0-52.0); Hemoglobin 7.3 g/dl (14.0-18.0); Immature Granulocytes # (auto) 0.01 K/uL (0.01-0.20); Immature Granulocytes % (auto) 0.2 %; Lymphocytes # (auto) 1.17 K/uL (1.20-3.40); Lymphocytes % (auto) 20.2 %; Mean Corpuscular Hemoglobin 29.1 pg (25.0-34.0); Mean Corpuscular Hgb Conc 30.9 g/dL (32.0-36.0); Mean Platelet Volume 9.7 fL (9.4-12.4); Monocytes # (auto) 0.54 K/uL (0.11-0.59); Monocytes % (auto) 9.3 %; Neutrophils # (auto) 3.85 K/uL (1.40-6.50); Neutrophils % (auto) 66.4 %; Platelet Count 208 K/uL (130-400); RDW Coefficient of Variation 14.2 % (11.5-14.5); RDW Standard Deviation 47.5 fL (36.4-46.3); Red Blood Count 2.51 M/uL (4.70-6.10)
[2024-08-05 08:23] LABS: Polychromasia 1+
--- NOTE | 2024-08-05 11:07 | Gastrointestinal Consultation ---
Date of Consultation August 05, 2024 Assessment & Plan (1) Symptomatic anemia: Plan 84 year old male w/ history of atrial fibrillation, cardiac pacemaker, CAD s/p DESHAWN in LAD, bladder cancer, orthostatic hypotension/pre-syncope, HLD, HFpEF, hypothyroidism, TA on 2021 colonoscopy, anticoagulated on ASA and Eliquis admitted through the ED on 08/03 w/ symptomatic anemia, HGB 6.5 s/p 1 unit RBC. GI was asked to evaluate for GI bleeding given report of heme-positive dark stools. CT imaging reveals ?diverticulitis and also ?pneumonia. He has remained hemodynamically stable overnight w/o evidence of active GI bleeding. He endorses chronic constipation, moving stools every 3 days - endorses last BM was yesterday. Recommend medical optimization prior to endoscopic evaluation as there are no signs of aggressive GI bleeding upon evaluation. - Trend H&H - Monitor and document GI output - IV PPI bolus/drip - Transfuse PRN per primary team - Hold ASA/Eliquis if able - Discussed possible EGD/Colonoscopy - Timing TBD given report of diverticulitis on imaging, PNA on imaging - Last dose of ASA/Eliquis 08/03/24 I spent a total of 60 minutes on the date of service in review of patient's record, and previously obtained information in person and appropriate medical visit, discussion and education of plan, with patient and/or caregiver, placing orders for tests/referral/procedures as medically necessary and documentation of pertinent clinical information in patient's medical records for their visit today. History of Present Illness Reason for Consultation: GI bleed Requesting Physician: Cuauhtemoc Mondragon MD Attending Physician: Cuauhtemoc Mondragon MD History of Present Illness 84 year old male w/ history of atrial fibrillation, cardiac pacemaker, CAD s/p DESHAWN in LAD, bladder cancer, orthostatic hypotension/pre-syncope, HLD, HFpEF, hypothyroidism, TA on 2021 colonoscopy, anticoagulated on ASA and Eliquis admitted through the ED on 08/03 w/ symptomatic anemia, HGB 6.5 s/p 1 unit RBC. GI was asked to evaluate for GI bleeding. Stools were noted to be dark and heme positive in the ED. He does not recall any previous episodes of rectal bleeding, melena, coffee ground emesis or hematemesis. He does question if his stool have appeared dark since starting eliquis about 6 months ago. He does endorse some constipation - suggest moving his stools every 2/3 days. Denies any abd pain. No nausea/vomiting. CT w/ ?diverticulitis ?pneumonia. HGB 6.5 --> 1 unit --> 7.3 --> 8 --> 7.3 BUN 25 Troponin 51 --> 58 --> 52 CTAP 2024: Extensive colonic diverticulosis. Mild inflammation along the proximal sigmoid colon suggesting mild acute uncomplicated diverticulitis. Trace pleural effusions. Bibasilar interstitial opacities may represent pulmonary fibrosis or pneumonia. Marked prostatomegaly. Recommend correlation with serum PSA. Colonoscopy 2021: The examined portion of the ileum was normal. - One 6 mm polyp in the descending colon, removed with a cold snare. Resected and retrieved. - Diverticulosis in the entire examined colon. - Non-bleeding internal hemorrhoids. EGD 2010: Normal esophagus. - Z-line regular, 40 cm from the incisors. This was biopsied. - Gastric mucosal abnormality characterized by erythema. This was biopsied. - Normal examined duodenum. Allergies Allergy/AdvReac Type Severity Reaction Status Date / Time KAYLI Inhibitors AdvReac Intermediate cough Verified 12/20/23 15:19 Home Medications Medication Instructions Recorded Confirmed Type allopurinol 100 mg tablet 100 mg PO UD 04/30/18 08/03/24 History (Zyloprim) aspirin 81 mg tablet,delayed 81 mg PO QAM 01/11/21 08/03/24 History release amiodarone 200 mg tablet (Pacerone) 200 mg PO QAM 11/14/21 08/03/24 History atorvastatin 80 mg tablet (Lipitor) 80 mg PO UD 11/14/21 08/03/24 History levothyroxine 50 mcg tablet 50 mcg PO DAILYBB #30 tabs 11/16/21 08/03/24 Rx (Synthroid) ezetimibe 10 mg tablet (Zetia) 10 mg PO QAM 09/02/22 08/03/24 History docusate sodium 100 mg capsule 100 mg PO BID 04/20/23 08/03/24 History (Colace) acetaminophen 500 mg tablet 1,000 mg PO TID 12/20/23 08/03/24 History (Tylenol Extra Strength) apixaban 5 mg tablet (Eliquis) 5 mg PO BID 12/20/23 08/03/24 History bisacodyl 10 mg rectal suppository 10 mg NM DAILY PRN Constipation 12/20/23 08/03/24 History cholecalciferol (vitamin D3) 25 50 mcg PO QPM 12/20/23 08/03/24 History mcg (1,000 unit) capsule (Vitamin D3) omeprazole 20 mg tablet,delayed 20 mg PO DAILY PRN 12/20/23 08/03/24 History release HEARTBURN/INDIGESTION sertraline 50 mg tablet 50 mg PO UD 12/20/23 08/03/24 History wheat dextrin 1 gram chewable 1 tab PO DAILY 12/20/23 08/03/24 History tablet (Benefiber Sugar Free (dextrin)) carvedilol 6.25 mg tablet 3.125 mg PO UD 08/03/24 08/03/24 History losartan 25 mg tablet 25 mg PO UD 08/03/24 08/03/24 History metoprolol succinate 25 mg 0.5 mg PO HS 08/03/24 08/03/24 History tablet,extended release 24 hr nitroglycerin 0.1 mg/hr 1 patch transdermal UD 08/03/24 08/03/24 History transdermal 24 hour patch (Nitro-Dur) tamsulosin 0.4 mg capsule 0.4 mg PO HS 08/03/24 08/03/24 History Patient History Medical History Hypercalcemia Anxiety "white coat syndrome" DJD (degenerative joint disease) GERD (gastroesophageal reflux disease) Well controlled and stable Gout No recent issues Surgical History Status post left knee replacement History of esophagogastroduodenoscopy (EGD) S/P cardiac pacemaker procedure 04/2022 History of bone marrow biopsy [place] 2022 Status post right knee replacement History of surgery Multiple as child (r/t trauma, run over by tractor) History of cardiac cath 2017 > stent x1 11/2021 > no stents History of colonoscopy H/O exploratory laparotomy For intussusception Hx of hernia repair Hx of shoulder surgery right Family History Sister No problems noted. Brother No problems noted. 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 Physical Exam Constitutional: WD/WN, vitals as above Respiratory: normal respiratory effort Gastrointestinal (Abdomen): normal bowel sounds, soft, nontender, no hepatosplenomegaly Skin: no rashes, warm and dry Results & Data Vital Signs (Past 12 Hours) Vital Signs Temp Pulse Pulse Resp BP BP Pulse Ox 08/05/24 08:00 61 08/05/24 07:19 97.5 F L 60 18 169/81 H 98 08/05/24 03:27 98.2 F 84 17 144/88 H 94 08/04/24 23:40 98.4 F 72 17 141/88 H 98 O2 Del Method 08/05/24 08:00 08/05/24 07:19 Room Air 08/05/24 03:27 Room Air 08/04/24 23:40 Room Air PG Care Time/CCT Total # of Minutes Spent Total Time Spent with Patient: Total time spent is greater than 50% in coordination of care (as documented) at patient's floor/unit and/or counseling patient: Coding Level of Care Code 76259 INT INP/OBS CARE 2/55MIN Diagnoses Symptomatic anemia D64.9
--- NOTE | 2024-08-05 14:00 | Electrocardiogram Report ---
Test Reason : Blood Pressure : */* mmHG Vent. Rate : 77 BPM Atrial Rate : 77 BPM P-R Int : 288 ms QRS Dur : 176 ms QT Int : 462 ms P-R-T Axes : 22 -26 -27 degrees QTcB Int : 522 ms Atrial-paced rhythm with prolonged AV conduction Right bundle branch block Abnormal ECG When compared with ECG of 20-Dec-2023 12:04, T wave inversion more evident in Anterior leads Confirmed by German Bansal ([id number]) on 08/05/2024 2:00:20 PM Referred By: REFERRED SELF Confirmed By: German Bansal
--- NOTE | 2024-08-05 16:42 | Hospitalist Progress Note ---
Date of Service August 05, 2024 Assessment & Plan (1) Elevated troponin: (2) Upper GI bleed: (3) Presence of drug coated stent in LAD coronary artery: Plan Risk Stratification: NSQUIP: Patient is low/medium risk for a low risk procedure. Cardiac risk is acceptable at 0.3%. For optimization: echo ordered, chest xray unremarkable, ECG has atrial paced rhythm. Pulmonary Risk Utilizing ARISCAT Score: low risk at 16 points #Weakness likely 2/2 normocytic anemia w/positive FOBT, eliquis administration and change in bowel habits #PIYUSH on CKD likely 2/2 dehydration, resolved -transfuse 2u -PPI ggt started in ED transition to IV BID when able -consider GI consult based on response to the above -trend hgb -hold eliquis and aspirin -GI consulted, EGD on 08/06/2024, NPO after midnight #NSTEMI likely type 2 in the setting of the above -resolved #Orthostatic hypotension/pre-syncope -stop nitro patch #AF s/p PPM #CAD s/p DESHAWN #HLD, HFpEF #Hypothyroidism -home meds Feeding/fluids: NPO for now Analgesia: tylenol Sedation: na Thromboprophylaxis: SCD Head up position: na Ulcer prophylaxis: protonix Glycemic control: na Spontaneous breathing trial: na Bowel care: miralax prn Indwelling catheter removal: na Deescalation of antibiotics: na I spent a total of 50 minutes in direct patient care, including [id number] time with the patient and/or family, reviewing medical records, ordering and reviewing diagnostic tests, and coordinating care with other healthcare providers. This time includes: history taking, physical examination, medical decision making, counseling, ECG interpretation, imaging interpretation, lab interpretation, orders, and education, excluding time spent in the performance of separately billed services. Admission and Anticipated Discharge Date Admission Date: August 03, 2024 Subjective Patient seen and examined at bedside. Patient doing ok today, would like to get scope as soon as possible. Review of Systems 2 Review of Systems: CONSTITUTIONAL: lightheaded, improved EYES: Patient denies any visual symptoms. EARS, NOSE, AND THROAT: No difficulties with hearing. No symptoms of rhinitis or sore throat. CARDIOVASCULAR: Patient denies chest pains, palpitations, orthopnea and paroxysmal nocturnal dyspnea. RESPIRATORY: No dyspnea on exertion, no wheezing or cough. GI: melena noted : No urinary hesitancy or dribbling. No nocturia or urinary frequency. No abnormal urethral discharge. MUSCULOSKELETAL: No myalgias or arthralgias. NEUROLOGIC: No chronic headaches, no seizures. Patient denies numbness, tingling or weakness. PSYCHIATRIC: Patient denies problems with mood disturbance. No problems with anxiety. ENDOCRINE: No excessive urination or excessive thirst. DERMATOLOGIC: Patient denies any rashes or skin changes. Physical Exam 2 Physical Exam: Gen: A&O 3 NAD HEENT: NCAT, EOMI, not icteric. External ears normal. No rhinorrhea. Moist mucous membranes. Neck: Supple, full range of motion, no observable masses, No meningeal sign. Lungs: No Respiratory distress. CV: RRR, no edema. Abdomen: Soft, nondistended, No rebound tenderness. MSK: No joint swelling, no redness. Skin: No rashes, petechiae, lesions. Normal color per patient. Neuro: Normal Gait, Grossly intact. Psych: Appropriate for situation. Results & Data Results & Data Vital Signs (Past 12 Hours) Vital Signs Temp Pulse Pulse Resp BP BP Pulse Ox 08/05/24 15:29 36.4 C L 59 L 18 119/66 97 08/05/24 11:24 36.3 C L 64 18 165/85 H 98 08/05/24 08:00 61 08/05/24 07:19 36.4 C L 60 18 169/81 H 98 O2 Del Method 08/05/24 15:29 Room Air 08/05/24 11:24 Room Air 08/05/24 08:00 08/05/24 07:19 Room Air Laboratory Results -personally reviewed, hgb decreased from post transfusion CBC Medications Administered Acetaminophen (Acetaminophen 500 Mg Tab) 1,000 mg PO TID [facility] Stop: 09/02/24 17:19 Last Admin: 08/05/24 16:06 Dose: 1,000 mg Documented By: Admin: 08/05/24 07:23 Dose: 1,000 mg Documented By: Admin: 08/04/24 20:38 Dose: 1,000 mg Documented By: Admin: 08/04/24 15:01 Dose: 1,000 mg Documented By: Admin: 08/04/24 08:17 Dose: 1,000 mg Documented By: Admin: 08/03/24 20:20 Dose: 1,000 mg Documented By: Admin: 08/03/24 17:55 Dose: 1,000 mg Documented By: TYLER Allopurinol (Allopurinol 100 Mg Tab) 100 mg PO DAILY [facility] Stop: 09/03/24 08:59 Last Admin: 08/05/24 07:24 Dose: 100 mg Documented By: Admin: 08/04/24 08:18 Dose: 100 mg Documented By: TYLER Amiodarone HCl (Amiodarone 200 Mg Tab) 200 mg PO QAM [facility] Stop: 09/03/24 08:59 Last Admin: 08/05/24 07:24 Dose: 200 mg Documented By: Admin: 08/04/24 08:18 Dose: 200 mg Documented By: TYLER Atorvastatin Calcium (Atorvastatin 40 Mg Tab) 80 mg PO DAILY [facility] Stop: 09/03/24 08:59 Last Admin: 08/05/24 07:24 Dose: 80 mg Documented By: Admin: 08/04/24 08:18 Dose: 80 mg Documented By: TYLER Ezetimibe (Ezetimibe 10 Mg Tab) 10 mg PO QAM [facility] Stop: 09/03/24 08:59 Last Admin: 08/05/24 07:24 Dose: 10 mg Documented By: Admin: 08/04/24 08:17 Dose: 10 mg Documented By: TYLER Pantoprazole Sodium 40 mg/ (Dextrose) 100 mls @ 20 mls/hr IV Q5H [facility] Stop: 09/02/24 12:44 Last Admin: 08/05/24 16:06 Dose: 8 mg/hr, 20 mls/hr Documented By: Infusion: 08/05/24 16:06 Dose: Infused Documented By: Admin: 08/05/24 11:19 Dose: 8 mg/hr, 20 mls/hr Documented By: Infusion: 08/05/24 11:19 Dose: Infused Documented By: Admin: 08/05/24 06:19 Dose: 8 mg/hr, 20 mls/hr Documented By: Infusion: 08/05/24 06:19 Dose: Infused Documented By: Admin: 08/05/24 04:00 Dose: 8 mg/hr, 20 mls/hr Documented By: Infusion: 08/05/24 01:40 Dose: Infused Documented By: Admin: 08/04/24 20:39 Dose: 8 mg/hr, 20 mls/hr Documented By: Infusion: 08/04/24 20:34 Dose: Infused Documented By: Admin: 08/04/24 15:00 Dose: 8 mg/hr, 20 mls/hr Documented By: Infusion: 08/04/24 14:57 Dose: Infused Documented By: Admin: 08/04/24 09:57 Dose: 8 mg/hr, 20 mls/hr Documented By: Infusion: 08/04/24 09:18 Dose: Infused Documented By: Admin: 08/04/24 04:18 Dose: 8 mg/hr, 20 mls/hr Documented By: Infusion: 08/04/24 04:18 Dose: Infused Documented By: Admin: 08/04/24 04:15 Dose: 8 mg/hr, 20 mls/hr Documented By: Infusion: 08/04/24 04:14 Dose: Infused Documented By: Admin: 08/03/24 22:58 Dose: 8 mg/hr, 20 mls/hr Documented By: Infusion: 08/03/24 22:58 Dose: Infused Documented By: Admin: 08/03/24 19:00 Dose: 8 mg/hr, 20 mls/hr Documented By: TYLER Levothyroxine Sodium (Levothyroxine Sodium 50 Mcg Tablet) 50 mcg PO DAILYBB [facility] Stop: 09/03/24 06:29 Last Admin: 08/05/24 06:19 Dose: 50 mcg Documented By: Admin: 08/04/24 06:29 Dose: 50 mcg Documented By: KEYA Losartan Potassium (Losartan Potassium 25 Mg Tab) 25 mg PO BID [facility] Stop: 09/02/24 20:59 Last Admin: 08/05/24 07:24 Dose: 25 mg Documented By: Admin: 08/04/24 20:38 Dose: 25 mg Documented By: Admin: 08/04/24 08:18 Dose: 25 mg Documented By: Admin: 08/03/24 20:18 Dose: 25 mg Documented By: KEYA Metoprolol Succinate (Metoprolol Succ 25mg Ext Rel Tab) 12.5 mg PO HS [facility] Stop: 09/02/24 20:59 Last Admin: 08/04/24 20:38 Dose: 12.5 mg Documented By: Admin: 08/03/24 20:58 Dose: 12.5 mg Documented By: KEYA Miscellaneous (Remove Nitro-Dur Patch) 1 each N/A DAILY@2100 [facility] Stop: 09/02/24 20:59 Last Admin: 08/04/24 20:35 Dose: Not Given Documented By: Admin: 08/03/24 20:19 Dose: Not Given Documented By: KEYA Sertraline HCl (Sertraline Hcl 50 Mg Tablet) 50 mg PO DAILY [facility] Stop: 09/03/24 08:59 Last Admin: 08/05/24 07:24 Dose: 50 mg Documented By: Admin: 08/04/24 08:18 Dose: 50 mg Documented By: TYLER Tamsulosin HCl (Tamsulosin Hcl 0.4 Mg Cap) 0.4 mg PO [facility] Stop: 09/02/24 20:59 Last Admin: 08/04/24 20:38 Dose: 0.4 mg Documented By: Admin: 08/03/24 20:18 Dose: 0.4 mg Documented By: KEYA Vitamin D (Cholecalciferol 25 Mcg (1000 Units) Tab) 50 mcg PO QPM [facility] Stop: 09/02/24 20:59 Last Admin: 08/04/24 20:38 Dose: 50 mcg Documented By: Admin: 08/03/24 20:17 Dose: 50 mcg Documented By: KEYA
--- NOTE | 2024-08-06 10:24 | Gastroenterology Progress Note ---
Date of Service August 06, 2024 Assessment & Plan (1) Symptomatic anemia: Plan 84 year old male w/ history of atrial fibrillation, cardiac pacemaker, CAD s/p DESHAWN in LAD, bladder cancer, orthostatic hypotension/pre-syncope, HLD, HFpEF, hypothyroidism, TA on 2021 colonoscopy, anticoagulated on ASA and Eliquis admitted through the ED on 08/03 w/ symptomatic anemia, HGB 6.5 s/p 1 unit RBC. GI was asked to evaluate for GI bleeding given report of heme-positive dark stools. CT imaging reveals ?diverticulitis and also ?pneumonia. He has remained hemodynamically stable overnight w/o evidence of active GI bleeding. He endorses chronic constipation, moving stools every 3 days - endorses last BM was yesterday. Recommend medical optimization prior to endoscopic evaluation as there are no signs of aggressive GI bleeding upon evaluation. - NPO for EGD this AM - Trend H&H - Monitor and document GI output - IV PPI bolus/drip - Transfuse PRN per primary team - Hold ASA/Eliquis We appreciate assistance in the management of any serological abnormality and corrections to include: hemoglobin >7, INR <2, platelets >50,000, potassium levels >3.5 but <5.3, and sodium levels within 5 points of the reference range prior to endoscopic evaluation. Admission and Anticipated Discharge Date Admission Date: August 03, 2024 Supervising Physician Co-Signing Physician Notes I saw and examined this patient with our nurse practitioner and agree with her assessment and plan. Persistent anemia possible GI bleed. Will proceed with upper endoscopy for further evaluation. Subjective Pt was seen and evaluated, chart reviewed. No BMs. No abd pain. No nausea/vomiting. NPO for EGD. Review of Systems Review of Systems: All other findings negative except as noted in HPI. Physical Exam Constitutional: WD/WN, vitals as above Respiratory: normal respiratory effort Cardiovascular: Rate/Rhythm: regular rate Gastrointestinal (Abdomen): normal bowel sounds, soft, nontender, no hepatosplenomegaly Skin: no rashes, warm and dry Results & Data Results & Data Vital Signs (Past 12 Hours) Vital Signs Temp Pulse Pulse Resp BP Pulse Ox O2 Del Method 08/06/24 08:00 61 08/06/24 07:31 97.7 F 59 L 18 156/75 H 97 Room Air Laboratory Results 08/05/24 Range/Units 14:03 B-Natriuretic Peptide 600 H (0-100) pg/ml PG Care Time/CCT Total # of Minutes Spent Total Time Spent with Patient: Total time spent is greater than 50% in coordination of care (as documented) at patient's floor/unit and/or counseling patient: Coding Level of Care Code None Diagnoses Symptomatic anemia D64.9
--- NOTE | 2024-08-06 12:50 | Anesthesiology Consultation ---
Date of Service August 06, 2024 Assessment & Plan Chart Review Chart Review: Acceptable Risk for Surgery and Patient NOT seen in Pre Admission Testing Consults Requested none ASA ASA4 Proposed Anesthesia Anesthesia Type: MAC Risk / Benefits Reviewed With: PT / POA / Parent / Guardian, Accepts Plan and Informed Consent Obtained History Surgery Operation Date: 08/06/24 17:00 Proposed Procedures p Esophagogastroduodenoscopy Dr. Mike Mckeon MD Height/Weight Height: 5 ft 7 in Weight: 69 kg Allergies Allergy/AdvReac Type Severity Reaction Status Date / Time KAYLI Inhibitors AdvReac Intermediate cough Verified 12/20/23 15:19 Medications Home Medications Medication Instructions Recorded Confirmed Last Taken allopurinol 100 mg tablet 100 mg PO UD 04/30/18 08/03/24 12/20/23 (Zyloprim) aspirin 81 mg tablet,delayed 81 mg PO QAM 01/11/21 08/03/24 12/19/23 release amiodarone 200 mg tablet (Pacerone) 200 mg PO QAM 11/14/21 08/03/24 12/20/23 atorvastatin 80 mg tablet (Lipitor) 80 mg PO UD 11/14/21 08/03/24 12/20/23 levothyroxine 50 mcg tablet 50 mcg PO DAILYBB #30 tabs 11/16/21 08/03/24 12/20/23 (Synthroid) ezetimibe 10 mg tablet (Zetia) 10 mg PO QAM 09/02/22 08/03/24 12/20/23 docusate sodium 100 mg capsule 100 mg PO BID 04/20/23 08/03/24 12/20/23 08:00 (Colace) acetaminophen 500 mg tablet 1,000 mg PO TID 12/20/23 08/03/24 12/20/23 08:00 (Tylenol Extra Strength) apixaban 5 mg tablet (Eliquis) 5 mg PO BID 12/20/23 08/03/24 12/20/23 08:00 bisacodyl 10 mg rectal suppository 10 mg HI DAILY PRN Constipation 12/20/23 08/03/24 Unknown cholecalciferol (vitamin D3) 25 50 mcg PO QPM 12/20/23 08/03/24 12/19/23 mcg (1,000 unit) capsule (Vitamin D3) omeprazole 20 mg tablet,delayed 20 mg PO DAILY PRN 12/20/23 08/03/24 Unknown release HEARTBURN/INDIGESTION sertraline 50 mg tablet 50 mg PO 12/20/23 08/03/24 12/20/23 wheat dextrin 1 gram chewable 1 tab PO DAILY 12/20/23 08/03/24 12/20/23 tablet (Benefiber Sugar Free (dextrin)) carvedilol 6.25 mg tablet 3.125 mg PO 08/03/24 08/03/24 Unknown losartan 25 mg tablet 25 mg PO 08/03/24 08/03/24 Unknown metoprolol succinate 25 mg 0.5 mg PO 08/03/24 08/03/24 Unknown tablet,extended release 24 hr nitroglycerin 0.1 mg/hr 1 patch transdermal 08/03/24 08/03/24 Unknown transdermal 24 hour patch (Nitro-Dur) tamsulosin 0.4 mg capsule 0.4 mg PO 08/03/24 08/03/24 Unknown Active Medications Generic Name Dose Route Start Last Admin Trade Name Manoloq PRN Reason Stop Dose Admin Acetaminophen 1,000 mg 08/03/24 17:20 08/06/24 08:03 Acetaminophen 500 Mg Tab PO 09/02/24 17:19 1,000 mg TID FIORDALIZA Administration Allopurinol 100 mg 08/04/24 09:00 08/06/24 08:04 Allopurinol 100 Mg Tab PO 09/03/24 08:59 100 mg DAILY FIORDALIZA Administration Amiodarone HCl 200 mg 08/04/24 09:00 08/06/24 08:05 Amiodarone 200 Mg Tab PO 09/03/24 08:59 200 mg QAM FIORDALIZA Administration Atorvastatin Calcium 80 mg 08/04/24 09:00 08/06/24 08:04 Atorvastatin 40 Mg Tab PO 09/03/24 08:59 80 mg DAILY FIORDALIZA Administration Ezetimibe 10 mg 08/04/24 09:00 08/06/24 08:04 Ezetimibe 10 Mg Tab PO 09/03/24 08:59 10 mg QAM FIORDALIZA Administration Pantoprazole Sodium 40 mg/ 100 mls @ 20 mls/hr 08/03/24 12:45 08/06/24 10:35 Dextrose IV 09/02/24 12:44 8 mg/hr Q5H FIORDALIZA 20 mls/hr Administration 8 MG/HR Levothyroxine Sodium 50 mcg 08/04/24 06:30 08/06/24 06:06 Levothyroxine Sodium 50 Mcg Tablet PO 09/03/24 06:29 50 mcg DAILYBB FIORDALIZA Administration Losartan Potassium 25 mg 08/03/24 21:00 08/05/24 07:24 Losartan Potassium 25 Mg Tab PO 09/02/24 20:59 25 mg BID FIORDALIZA Administration Metoprolol Succinate 12.5 mg 08/03/24 21:00 08/05/24 20:58 Metoprolol Succ 25mg Ext Rel Tab PO 09/02/24 20:59 12.5 mg HS FIORDALIZA Administration Miscellaneous 1 each 08/03/24 21:00 08/05/24 20:58 Remove Nitro-Dur Patch N/A 09/02/24 20:59 Not Given DAILY@2100 FIORDALIZA Sertraline HCl 50 mg 08/04/24 09:00 08/06/24 08:05 Sertraline Hcl 50 Mg Tablet PO 09/03/24 08:59 50 mg DAILY FIORDALIZA Administration Tamsulosin HCl 0.4 mg 08/03/24 21:00 08/05/24 20:58 Tamsulosin Hcl 0.4 Mg Cap PO 09/02/24 20:59 0.4 mg HS FIORDALIZA Administration Vitamin D 50 mcg 08/03/24 21:00 08/05/24 20:58 Cholecalciferol 25 Mcg (1000 Units) Tab PO 09/02/24 20:59 50 mcg QPM FIORDALIZA Administration NPO Date Last Intake of Fluids: 08/06/24 Time Last Intake of Fluids: 08:00 Date Last Intake of Solids: 08/05/24 Past Medical History Medical History Hypercalcemia Anxiety "white coat syndrome" DJD (degenerative joint disease) GERD (gastroesophageal reflux disease) Well controlled and stable Gout No recent issues Exercise / Class Metabolic Activity II 4-5 Yardwork/Stairs/Walk up hill Past Family History Family History Sister No problems noted. Brother No problems noted. Other Diabetes No family history of adverse response to anesthesia Past Surgical History Surgical History Status post left knee replacement History of esophagogastroduodenoscopy (EGD) S/P cardiac pacemaker procedure 04/2022 History of bone marrow biopsy [facility] 2022 Status post right knee replacement History of surgery Multiple as child (r/t trauma, run over by tractor) History of cardiac cath 2017 > stent x1 11/2021 > no stents History of colonoscopy H/O exploratory laparotomy For intussusception Hx of hernia repair Hx of shoulder surgery right Past Anesthesia History No Hx of Anesthesia Complications and No Family Hx of Anesthesia Complications History of PONV No Hx of PONV and No Hx of Motion Sickness Social History Smoking Status: Former smoker tobacco type: cigarettes Do You Dip or Chew Tobacco: No Hx Alcohol Use: No Alcohol type: wine alcohol intake frequency: 3 or more drinks per day Hx Substance Use: No substance use type: does not use Physical Exam Vital Signs Last Vital Signs Temp 36.8 C 08/06/24 12:42 Pulse 62 08/06/24 12:42 Resp 16 08/06/24 12:42 BP 147/86 H 08/06/24 12:42 Pulse Ox 97 08/06/24 12:42 O2 Del Method Room Air 08/06/24 12:42 ENMT Mouth: no dentition abnormality Thyromental Distance: > or= 3.5 Finger Breadths Mallampati Class: II Neck normal visual inspection Respiratory normal respiratory effort Auscultation: lungs clear to auscultation bilaterally Cardiovascular Rate/Rhythm: regular rate and regular rhythm Psychiatric Orientation: alert Testing Laboratory Results 08/05/24 07:24 08/04/24 06:33 Urine Color Yellow 08/03/24 15:49 Urine Appearance Clear (Clear) 08/03/24 15:49 Urine pH 6.0 (4.5-7.5) 08/03/24 15:49 Ur Specific [place] 1.013 (1.000-1.030) 08/03/24 15:49 Urine Protein Negative (Negative) 08/03/24 15:49 Urine Glucose (UA) Negative (Negative) 08/03/24 15:49 Urine Ketones Negative (Negative) 08/03/24 15:49 Urine Nitrite Negative (Negative) 08/03/24 15:49 Ur Leukocyte Esterase Trace (Negative) H 08/03/24 15:49 Urine WBC (Auto) 0-5 /hpf (0-5) 08/03/24 15:49 Urine RBC (Auto) 0-2 /hpf (0-2) 08/03/24 15:49 U Hyaline Cast (Auto) 3-5 /lpf (0-2) H 08/03/24 15:49 U Epithel Cells (Auto) 0-2 /hpf (0-2) 08/03/24 15:49 Urine Bacteria (Auto) None Seen (None Seen) 08/03/24 15:49 Blood Type O Positive 08/03/24 12:12 Antibody Screen NEGATIVE 08/03/24 12:12
--- NOTE | 2024-08-06 13:36 | GI REPORT ---
[facility] Patient: SONJA ADRIAN : 1940 Sex at : Male Age: 84 Years Procedure: Upper GI endoscopy Date: 08/06/2024 Attending Physician: Reggie Mckeon MD Referring MD: Referred Tomas Indications: Medications: - Monitored Anesthesia Care Complications: - No immediate complications. Procedure: - Prior to the procedure, a History and Physical was performed, and patient medications and allergies were reviewed. The patient's tolerance of previous anesthesia was also reviewed. The risks and benefits of the procedure and the sedation options and risks were discussed with the patient. All questions were answered, and informed consent was obtained. [Anticoagulant Agents] [Days Prior to Procedure]. [ASA Grade]. After reviewing the risks and benefits, the patient was deemed in satisfactory condition to undergo the procedure. - The egd scope was introduced through the mouth and advanced to the second part of the duodenum. - The upper GI endoscopy was accomplished without difficulty. - The patient tolerated the procedure well. Findings: - A mild Schatzki ring was found at the gastroesophageal junction. - The entire examined stomach was normal. - One diminutive sessile polyp with no bleeding was found in the second portion of the duodenum. Biopsies were taken with a cold forceps for histology. Impression: - Mild Schatzki ring. - Normal stomach. - One duodenal polyp. Biopsied. Recommendation: - Resume previous diet. - Patient has a contact number available for emergencies. The signs and symptoms of potential delayed complications were discussed with the patient. Return to normal activities tomorrow. Written discharge instructions were provided to the patient. Procedure Code(s): - 23560, Esophagogastroduodenoscopy, flexible, transoral; with biopsy, single or multiple Diagnosis Code(s): - K22.2, Esophageal obstruction - K31.7, Polyp of stomach and duodenum CPT(R) - 2023 copyright [employer]. All Rights Reserved. The CPT codes, CCI edits and ICD codes generated are intended as suggestions and were generated based on input data. These codes are preliminary and upon supervisor instrument repair review may be revised to meet current compliance and payer requirements. The provider is responsible for the final determination of appropriate codes, and modifiers. Reggie Mckeon MD This document has been electronically signed. Note Initiated:08/06/2024 Note Completed:08/06/2024 1:36 PM \\[id number]
--- NOTE | 2024-08-06 14:00 | Anesthesiology Progress Note ---
Date of Service August 06, 2024 Anesthesia Post Procedure Vital Signs Vital Signs: Temp Pulse Pulse Resp BP BP Pulse Ox 08/06/24 13:52 60 16 84/47 L 96 08/06/24 13:38 63 16 95/53 L 98 08/06/24 12:42 36.8 C 62 16 147/86 H 97 08/06/24 11:44 36.3 C L 65 17 167/79 H 94 08/06/24 08:00 61 08/06/24 07:31 36.5 C 59 L 18 156/75 H 97 08/05/24 20:58 36.4 C L 59 L 18 164/77 H 97 08/05/24 17:45 65 08/05/24 15:29 36.4 C L 59 L 18 119/66 97 O2 Del Method 08/06/24 13:52 Room Air 08/06/24 13:38 Room Air 08/06/24 12:42 Room Air 08/06/24 11:44 Room Air 08/06/24 08:00 08/06/24 07:31 Room Air 08/05/24 20:58 Room Air 08/05/24 17:45 08/05/24 15:29 Room Air Transfer of Care Handoff Completed per policy Notes Mental Status: alert / awake / arousable Patient Amnestic to Procedure: Yes Nausea / Vomiting: adequately controlled Pain: adequately controlled Airway Patency, RR, SpO2: stable & adequate BP & HR: stable & adequate Hydration State: stable & adequate Anesthetic Complications: no major complications apparent
[2024-08-06] MEDS: LIDOCAINE 2% 2 ML VIAL/AMP(20MG/ML) INFIL ONE ×2 (14:57)
[2024-08-06] MEDS: PROPOFOL IV EMULSION 10 MG/ML 20 ML VIAL IV ONE (14:57)
--- NOTE | 2024-08-06 15:54 | Hospitalist Progress Note ---
Date of Service August 06, 2024 Assessment & Plan (1) Elevated troponin: (2) Upper GI bleed: (3) Presence of drug coated stent in LAD coronary artery: Plan #Weakness likely 2/2 normocytic anemia w/positive FOBT, eliquis administration and change in bowel habits #PIYUSH on CKD likely 2/2 dehydration, resolved -transfused 2u -PPI ggt started in ED transition to IV BID when able -consider GI consult based on response to the above -trend hgb -hold eliquis and aspirin -GI consulted, EGD on 08/06/2024, NPO after midnight #NSTEMI likely type 2 in the setting of the above -resolved #Orthostatic hypotension/pre-syncope -stop nitro patch #AF s/p PPM #CAD s/p DESHAWN #HLD, HFpEF #Hypothyroidism -home meds Feeding/fluids: regular diet, clear diet after midnight Analgesia: tylenol Sedation: na Thromboprophylaxis: SCD Head up position: na Ulcer prophylaxis: protonix Glycemic control: na Spontaneous breathing trial: na Bowel care: miralax prn Indwelling catheter removal: na Deescalation of antibiotics: na I spent a total of 45 minutes in direct patient care, including [id number] time with the patient and/or family, reviewing medical records, ordering and reviewing diagnostic tests, and coordinating care with other healthcare providers. This time includes: history taking, physical examination, medical decision making, counseling, ECG interpretation, imaging interpretation, lab interpretation, orders, and education, excluding time spent in the performance of separately billed services. Admission and Anticipated Discharge Date Admission Date: August 03, 2024 Subjective Patient seen and examined at bedside. Mr. Feliz very pleased to be getting EGD. Ready for colonoscopy whenever it occurs. Review of Systems Review of Systems: CONSTITUTIONAL: fatigue EYES: Patient denies any visual symptoms. EARS, NOSE, AND THROAT: No difficulties with hearing. No symptoms of rhinitis or sore throat. CARDIOVASCULAR: Patient denies chest pains, palpitations, orthopnea and paroxysmal nocturnal dyspnea. RESPIRATORY: No dyspnea on exertion, no wheezing or cough. GI: melena noted : No urinary hesitancy or dribbling. No nocturia or urinary frequency. No abnormal urethral discharge. MUSCULOSKELETAL: No myalgias or arthralgias. NEUROLOGIC: No chronic headaches, no seizures. Patient denies numbness, tingling or weakness. PSYCHIATRIC: Patient denies problems with mood disturbance. No problems with anxiety. ENDOCRINE: No excessive urination or excessive thirst. DERMATOLOGIC: Patient denies any rashes or skin changes. Physical Exam Physical Exam: Gen: A&O 3 NAD HEENT: NCAT, EOMI, not icteric. External ears normal. No rhinorrhea. Moist mucous membranes. Neck: Supple, full range of motion, no observable masses, No meningeal sign. Lungs: No Respiratory distress. CV: RRR, no edema. Abdomen: Soft, nondistended, No rebound tenderness. MSK: No joint swelling, no redness. Skin: No rashes, petechiae, lesions. Normal color per patient. Neuro: Normal Gait, Grossly intact. Psych: Appropriate for situation. Results & Data Results & Data Vital Signs (Past 12 Hours) Vital Signs Temp Pulse Pulse Resp BP BP Pulse Ox 08/06/24 14:10 118/61 08/06/24 14:02 63 121/59 L 08/06/24 13:55 60 94/53 L 08/06/24 13:52 60 16 84/47 L 96 08/06/24 13:38 63 16 95/53 L 98 08/06/24 12:42 36.8 C 62 16 147/86 H 97 08/06/24 11:44 36.3 C L 65 17 167/79 H 94 08/06/24 08:00 61 08/06/24 07:31 36.5 C 59 L 18 156/75 H 97 O2 Del Method 08/06/24 14:10 08/06/24 14:02 08/06/24 13:55 08/06/24 13:52 Room Air 08/06/24 13:38 Room Air 08/06/24 12:42 Room Air 08/06/24 11:44 Room Air 08/06/24 08:00 08/06/24 07:31 Room Air
[2024-08-06 16:59] LABS: Hematocrit (blood only) 27.2 % (42.0-52.0); Hemoglobin 8.8 g/dl (14.0-18.0); Mean Corpuscular Hemoglobin 30.2 pg (25.0-34.0); Mean Corpuscular Hgb Conc 32.4 g/dL (32.0-36.0); Mean Corpuscular Volume 93.5 fL (80.0-100.0); Mean Platelet Volume 9.7 fL (9.4-12.4); Platelet Count 260 K/uL (130-400); RDW Coefficient of Variation 13.7 % (11.5-14.5); RDW Standard Deviation 46.6 fL (36.4-46.3); Red Blood Count 2.91 M/uL (4.70-6.10); White Blood Count 6.31 K/ul (4.8-10.8)
[2024-08-07 06:51] LABS: Hematocrit (blood only) 25.3 % (42.0-52.0); Mean Corpuscular Hemoglobin 29.4 pg (25.0-34.0); Mean Corpuscular Hgb Conc 31.6 g/dL (32.0-36.0); Mean Platelet Volume 9.8 fL (9.4-12.4); Platelet Count 231 K/uL (130-400); RDW Coefficient of Variation 13.7 % (11.5-14.5); RDW Standard Deviation 46.5 fL (36.4-46.3); Red Blood Count 2.72 M/uL (4.70-6.10); White Blood Count 7.36 K/ul (4.8-10.8)
[2024-08-07 07:10] LABS: BUN Creatinine Ratio 14.9 (10-20); Creatinine Clr Calc Pharmacy 32.2 ml/min; Potassium 4.3 mmol/L (3.5-5.1)
--- NOTE | 2024-08-07 14:09 | Hospitalist Progress Note ---
Date of Service August 07, 2024 Assessment & Plan (1) Elevated troponin: (2) Upper GI bleed: (3) Presence of drug coated stent in LAD coronary artery: Plan #Weakness likely 2/2 normocytic anemia w/positive FOBT, eliquis administration and change in bowel habits #PIYUSH on CKD likely 2/2 dehydration, resolved -transfused 2 units this admission -EGD unremarkable for cause of bleed Plan: -stop protonix drip, switch to protonix in AM -GI consulted, recommending colonoscopy, prep ordered -trend hgb -hold eliquis and aspirin #NSTEMI likely type 2 in the setting of the above -resolved #Orthostatic hypotension/pre-syncope -stopped nitro patch #AF s/p PPM #CAD s/p DESHAWN #HLD, HFpEF #Hypothyroidism -home meds Feeding/fluids: clear liquids, bowel prep Analgesia: tylenol Sedation: na Thromboprophylaxis: SCD Head up position: na Ulcer prophylaxis: protonix Glycemic control: na Spontaneous breathing trial: na Bowel care: miralax prn Indwelling catheter removal: na Deescalation of antibiotics: na I spent a total of 45 minutes in direct patient care, including [id number] time with the patient and/or family, reviewing medical records, ordering and reviewing diagnostic tests, and coordinating care with other healthcare providers. This time includes: history taking, physical examination, medical decision making, counseling, ECG interpretation, imaging interpretation, lab in terpretation, orders, and education, excluding time spent in the performance of separately billed services. Admission and Anticipated Discharge Date Admission Date: August 03, 2024 Subjective Patient seen and examined at bedside. Patient doing well today. He states he is going to do the colonoscopy tomorrow as recommended. Review of Systems Review of Systems: CONSTITUTIONAL: fatigue, slightly improved from prior EYES: Patient denies any visual symptoms. EARS, NOSE, AND THROAT: No difficulties with hearing. No symptoms of rhinitis or sore throat. CARDIOVASCULAR: Patient denies chest pains, palpitations, orthopnea and paroxysmal nocturnal dyspnea. RESPIRATORY: No dyspnea on exertion, no wheezing or cough. GI: melena noted : No urinary hesitancy or dribbling. No nocturia or urinary frequency. No abnormal urethral discharge. MUSCULOSKELETAL: No myalgias or arthralgias. NEUROLOGIC: No chronic headaches, no seizures. Patient denies numbness, tingling or weakness. PSYCHIATRIC: Patient denies problems with mood disturbance. No problems with anxiety. ENDOCRINE: No excessive urination or excessive thirst. DERMATOLOGIC: Patient denies any rashes or skin changes. Physical Exam Physical Exam: Gen: A&O 3 NAD HEENT: NCAT, EOMI, not icteric. External ears normal. No rhinorrhea. Moist mucous membranes. Neck: Supple, full range of motion, no observable masses, No meningeal sign. Lungs: No Respiratory distress. CV: RRR, no edema. Abdomen: Soft, nondistended, No rebound tenderness. MSK: No joint swelling, no redness. Skin: No rashes, petechiae, lesions. Normal color per patient. Neuro: Normal Gait, Grossly intact. Psych: Appropriate for situation. Results & Data Results & Data Vital Signs (Past 12 Hours) Vital Signs Temp Pulse Resp BP Pulse Ox O2 Del Method 08/07/24 11:57 36.6 C 60 18 105/52 L 95 Room Air 08/07/24 07:42 36.3 C L 60 18 156/76 H 96 Room Air Laboratory Results -personally reviewed, hgb levels have stabilized Medications Administered Acetaminophen (Acetaminophen 500 Mg Tab) 1,000 mg PO TID [facility] Stop: 09/02/24 17:19 Last Admin: 08/07/24 13:53 Dose: 1,000 mg Documented By: Admin: 08/07/24 09:24 Dose: 1,000 mg Documented By: Admin: 08/06/24 20:53 Dose: 1,000 mg Documented By: Admin: 08/06/24 14:57 Dose: 1,000 mg Documented By: Admin: 08/06/24 08:03 Dose: 1,000 mg Documented By: Admin: 08/05/24 20:58 Dose: 1,000 mg Documented By: Admin: 08/05/24 16:06 Dose: 1,000 mg Documented By: Admin: 08/05/24 07:23 Dose: 1,000 mg Documented By: Admin: 08/04/24 20:38 Dose: 1,000 mg Documented By: Admin: 08/04/24 15:01 Dose: 1,000 mg Documented By: Admin: 08/04/24 08:17 Dose: 1,000 mg Documented By: Admin: 08/03/24 20:20 Dose: 1,000 mg Documented By: Admin: 08/03/24 17:55 Dose: 1,000 mg Documented By: TYLER Allopurinol (Allopurinol 100 Mg Tab) 100 mg PO DAILY FIORDALIZA Stop: 09/03/24 08:59 Last Admin: 08/07/24 09:24 Dose: 100 mg Documented By: Admin: 08/06/24 08:04 Dose: 100 mg Documented By: Admin: 08/05/24 07:24 Dose: 100 mg Documented By: Admin: 08/04/24 08:18 Dose: 100 mg Documented By: TYLER Amiodarone HCl (Amiodarone 200 Mg Tab) 200 mg PO QAM FIORDALIZA Stop: 09/03/24 08:59 Last Admin: 08/07/24 09:25 Dose: 200 mg Documented By: Admin: 08/06/24 08:05 Dose: 200 mg Documented By: Admin: 08/05/24 07:24 Dose: 200 mg Documented By: Admin: 08/04/24 08:18 Dose: 200 mg Documented By: TYLER Atorvastatin Calcium (Atorvastatin 40 Mg Tab) 80 mg PO DAILY FIORDALIZA Stop: 09/03/24 08:59 Last Admin: 08/07/24 09:25 Dose: 80 mg Documented By: Admin: 08/06/24 08:04 Dose: 80 mg Documented By: Admin: 08/05/24 07:24 Dose: 80 mg Documented By: Admin: 08/04/24 08:18 Dose: 80 mg Documented By: TYLER Ezetimibe (Ezetimibe 10 Mg Tab) 10 mg PO QAM FIORDALIZA Stop: 09/03/24 08:59 Last Admin: 08/07/24 09:25 Dose: 10 mg Documented By: Admin: 08/06/24 08:04 Dose: 10 mg Documented By: Admin: 08/05/24 07:24 Dose: 10 mg Documented By: Admin: 08/04/24 08:17 Dose: 10 mg Documented By: TYLER Pantoprazole Sodium 40 mg/ (Dextrose) 100 mls @ 20 mls/hr IV Q5H FIORDALIZA Stop: 09/02/24 12:44 Last Admin: 08/07/24 13:54 Dose: 8 mg/hr, 20 mls/hr Documented By: Infusion: 08/07/24 13:54 Dose: Infused Documented By: Admin: 08/07/24 09:26 Dose: 8 mg/hr, 20 mls/hr Documented By: Infusion: 08/07/24 09:26 Dose: Infused Documented By: Admin: 08/07/24 05:49 Dose: 8 mg/hr, 20 mls/hr Documented By: Infusion: 08/07/24 05:48 Dose: Infused Documented By: Admin: 08/07/24 00:36 Dose: 8 mg/hr, 20 mls/hr Documented By: Infusion: 08/06/24 23:28 Dose: Infused Documented By: Admin: 08/06/24 18:28 Dose: 8 mg/hr, 20 mls/hr Documented By: Infusion: 08/06/24 17:51 Dose: Infused Documented By: Infusion: 08/06/24 15:00 Dose: 8 mg/hr, 20 mls/hr Documented By: Infusion: 08/06/24 12:45 Dose: 0 mg/hr, 0 mls/hr Documented By: Admin: 08/06/24 10:35 Dose: 8 mg/hr, 20 mls/hr Documented By: Infusion: 08/06/24 10:35 Dose: Infused Documented By: Admin: 08/06/24 06:05 Dose: 8 mg/hr, 20 mls/hr Documented By: Infusion: 08/06/24 06:05 Dose: Infused Documented By: Admin: 08/06/24 01:36 Dose: 8 mg/hr, 20 mls/hr Documented By: Infusion: 08/06/24 01:36 Dose: Infused Documented By: Admin: 08/05/24 20:56 Dose: 8 mg/hr, 20 mls/hr Documented By: Infusion: 08/05/24 20:56 Dose: Infused Documented By: Admin: 08/05/24 16:06 Dose: 8 mg/hr, 20 mls/hr Documented By: Infusion: 08/05/24 16:06 Dose: Infused Documented By: Admin: 08/05/24 11:19 Dose: 8 mg/hr, 20 mls/hr Documented By: Infusion: 08/05/24 11:19 Dose: Infused Documented By: K Admin: 08/05/24 06:19 Dose: 8 mg/hr, 20 mls/hr Documented By: Infusion: 08/05/24 06:19 Dose: Infused Documented By: Admin: 08/05/24 04:00 Dose: 8 mg/hr, 20 mls/hr Documented By: Infusion: 08/05/24 01:40 Dose: Infused Documented By: Admin: 08/04/24 20:39 Dose: 8 mg/hr, 20 mls/hr Documented By: Infusion: 08/04/24 20:34 Dose: Infused Documented By: Admin: 08/04/24 15:00 Dose: 8 mg/hr, 20 mls/hr Documented By: Infusion: 08/04/24 14:57 Dose: Infused Documented By: Admin: 08/04/24 09:57 Dose: 8 mg/hr, 20 mls/hr Documented By: Infusion: 08/04/24 09:18 Dose: Infused Documented By: Admin: 08/04/24 04:18 Dose: 8 mg/hr, 20 mls/hr Documented By: Infusion: 08/04/24 04:18 Dose: Infused Documented By: Admin: 08/04/24 04:15 Dose: 8 mg/hr, 20 mls/hr Documented By: Infusion: 08/04/24 04:14 Dose: Infused Documented By: Admin: 08/03/24 22:58 Dose: 8 mg/hr, 20 mls/hr Documented By: Infusion: 08/03/24 22:58 Dose: Infused Documented By: Admin: 08/03/24 19:00 Dose: 8 mg/hr, 20 mls/hr Documented By: TYLER Levothyroxine Sodium (Levothyroxine Sodium 50 Mcg Tablet) 50 mcg PO DAILYBB FIORDALIZA Stop: 09/03/24 06:29 Last Admin: 08/07/24 06:13 Dose: 50 mcg Documented By: Admin: 08/06/24 06:06 Dose: 50 mcg Documented By: Admin: 08/05/24 06:19 Dose: 50 mcg Documented By: Admin: 08/04/24 06:29 Dose: 50 mcg Documented By: KF Losartan Potassium (Losartan Potassium 25 Mg Tab) 25 mg PO BID FIORDALIZA Stop: 09/02/24 20:59 Last Admin: 08/05/24 07:24 Dose: 25 mg Documented By: Admin: 08/04/24 20:38 Dose: 25 mg Documented By: Admin: 08/04/24 08:18 Dose: 25 mg Documented By: Admin: 08/03/24 20:18 Dose: 25 mg Documented By: KEYA Metoprolol Succinate (Metoprolol Succ 25mg Ext Rel Tab) 12.5 mg PO FIORDALIZA Stop: 09/02/24 20:59 Last Admin: 08/06/24 20:54 Dose: 12.5 mg Documented By: Admin: 08/05/24 20:58 Dose: 12.5 mg Documented By: Admin: 08/04/24 20:38 Dose: 12.5 mg Documented By: Admin: 08/03/24 20:58 Dose: 12.5 mg Documented By: KEYA Miscellaneous (Remove Nitro-Dur Patch) 1 each N/A DAILY@2100 FIORDALIZA Stop: 09/02/24 20:59 Last Admin: 08/06/24 19:04 Dose: Not Given Documented By: Admin: 08/05/24 20:58 Dose: Not Given Documented By: Admin: 08/04/24 20:35 Dose: Not Given Documented By: Admin: 08/03/24 20:19 Dose: Not Given Documented By: KEYA Sertraline HCl (Sertraline Hcl 50 Mg Tablet) 50 mg PO DAILY FIORDALIZA Stop: 09/03/24 08:59 Last Admin: 08/07/24 09:25 Dose: 50 mg Documented By: Admin: 08/06/24 08:05 Dose: 50 mg Documented By: Admin: 08/05/24 07:24 Dose: 50 mg Documented By: Admin: 08/04/24 08:18 Dose: 50 mg Documented By: TYLER Tamsulosin HCl (Tamsulosin Hcl 0.4 Mg Cap) 0.4 mg PO HS FIORDALIZA Stop: 09/02/24 20:59 Last Admin: 08/06/24 20:53 Dose: 0.4 mg Documented By: Admin: 08/05/24 20:58 Dose: 0.4 mg Documented By: Admin: 08/04/24 20:38 Dose: 0.4 mg Documented By: Admin: 08/03/24 20:18 Dose: 0.4 mg Documented By: KEYA Vitamin D (Cholecalciferol 25 Mcg (1000 Units) Tab) 50 mcg PO QPM FIORDALIZA Stop: 09/02/24 20:59 Last Admin: 08/06/24 20:53 Dose: 50 mcg Documented By: Admin: 08/05/24 20:58 Dose: 50 mcg Documented By: Admin: 08/04/24 20:38 Dose: 50 mcg Documented By: Admin: 08/03/24 20:17 Dose: 50 mcg Documented By: KEYA
--- NOTE | 2024-08-07 14:37 | Gastroenterology Progress Note ---
Date of Service August 07, 2024 Assessment & Plan (1) Anemia: Plan: 84 year old male w/ history of atrial fibrillation, cardiac pacemaker, CAD s/p DESHAWN in LAD, bladder cancer, orthostatic hypotension/pre-syncope, HLD, HFpEF, hypothyroidism, TA on 2021 colonoscopy, anticoagulated on ASA and Eliquis admitted through the ED on 08/03 w/ symptomatic anemia, HGB 6.5 s/p 1 unit RBC. s/p EGD w/o source of UGI bleeding, agreeable to colonoscopy - Clear liquids today - NPO after midnight - Colonoscopy 08/08/24 - Trend H&H - Monitor and document GI output - Transfuse PRN per primary team - Hold ASA/Eliquis We appreciate assistance in the management of any serological abnormality and corrections to include: hemoglobin >7, INR <2, platelets >50,000, potassium levels >3.5 but <5.3, and sodium levels within 5 points of the reference range prior to endoscopic evaluation. I spent a total of 40 minutes on the date of service in review of patient's record, and previously obtained information in person and appropriate medical visit, discussion and education of plan, with patient and/or caregiver, placing orders for tests/referral/procedures as medically necessary and documentation of pertinent clinical information in patient's medical records for their visit today. Admission and Anticipated Discharge Date Admission Date: August 03, 2024 Supervising Physician Co-Signing Physician Notes I saw and examined this patient with our nurse practitioner and agree with her assessment and plan. Upper endoscopy yesterday unrevealing for etiology of anemia and bleeding. In light of this we will proceed with colonoscopy to rule out a colonic source. Subjective Pt was seen and evaluated, chart reviewed. Feeling well. Agreeable to colonoscopy. Review of Systems Review of Systems: All other findings negative except as noted in HPI. Physical Exam Constitutional: WD/WN, vitals as above Respiratory: normal respiratory effort, lungs clear to auscultation Cardiovascular: RRR, no murmur, no edema Gastrointestinal (Abdomen): normal bowel sounds, soft, nontender, no hepatosplenomegaly Skin: no rashes, warm and dry Results & Data Results & Data Vital Signs (Past 12 Hours) Vital Signs Temp Pulse Resp BP Pulse Ox O2 Del Method 08/07/24 11:57 97.9 F 60 18 105/52 L 95 Room Air 08/07/24 07:42 97.3 F L 60 18 156/76 H 96 Room Air Laboratory Results 08/07/24 08/06/24 Range/Units 06:34 16:33 WBC 7.36 6.31 (4.8-10.8) K/ul RBC 2.72 L 2.91 L (4.70-6.10) M/uL Hgb 8.0 L 8.8 L (14.0-18.0) g/dl Hct 25.3 L 27.2 L (42.0-52.0) % MCV 93.0 93.5 (80.0-100.0) fL MCH 29.4 30.2 (25.0-34.0) pg MCHC 31.6 L 32.4 (32.0-36.0) g/dL RDW Std Deviation 46.5 H 46.6 H (36.4-46.3) fL RDW Coeff of Dominic 13.7 13.7 (11.5-14.5) % Plt Count 231 260 (130-400) K/uL MPV 9.8 9.7 (9.4-12.4) fL Sodium 136 (136-145) mmol/L Potassium 4.3 (3.5-5.1) mmol/L Chloride 106 (98-107) mmol/L Carbon Dioxide 27 (21-32) mmol/L Anion Gap 3 (3-11) BUN 23 (6-23) mg/dl Creatinine 1.54 H (0.6-1.4) mg/dl Est Cr Clr Drug Dosing 32.2 ml/min eGFR 43.66 BUN/Creatinine Ratio 14.9 (10-20) Glucose 85 (70-99(Fasting)) mg/dl Calcium 9.0 (8.6-10.3) mg/dl PG Care Time/CCT Total # of Minutes Spent Total Time Spent with Patient: Total time spent is greater than 50% in coordination of care (as documented) at patient's floor/unit and/or counseling patient: Coding Level of Care Code 20616 SUB INP/OBS CARE 2/35MIN Diagnoses Anemia D64.9
[2024-08-07] MEDS: LAVAGE SOLUTION 4000ML PO SCH (17:03)
[2024-08-08 06:32] LABS: Hematocrit (blood only) 23.6 % (42.0-52.0); Hemoglobin 7.6 g/dl (14.0-18.0); Mean Corpuscular Hemoglobin 29.6 pg (25.0-34.0); Mean Corpuscular Hgb Conc 32.2 g/dL (32.0-36.0); Mean Corpuscular Volume 91.8 fL (80.0-100.0); Mean Platelet Volume 9.7 fL (9.4-12.4); Platelet Count 224 K/uL (130-400); RDW Coefficient of Variation 13.7 % (11.5-14.5); RDW Standard Deviation 45.8 fL (36.4-46.3); Red Blood Count 2.57 M/uL (4.70-6.10); White Blood Count 5.47 K/ul (4.8-10.8)
[2024-08-08 07:07] LABS: BUN Creatinine Ratio 13.6 (10-20); Calcium 8.9 mg/dl (8.6-10.3); Creatinine Clr Calc Pharmacy 35.4 ml/min; Magnesium 1.9 mg/dl (1.7-2.4); Phosphorus 2.8 mg/dl (2.5-4.9); Potassium 3.8 mmol/L (3.5-5.1)
--- NOTE | 2024-08-08 08:21 | Anesthesiology Consultation ---
Date of Service August 08, 2024 Assessment & Plan (1) Encounter for pre-operative examination: Chart Review Chart Review: Acceptable Risk for Surgery and Patient NOT seen in Pre Admission Testing Consults Requested none History Surgery Operation Date: 08/06/24 17:00 Proposed Procedures p Esophagogastroduodenoscopy Dr. Mike Mckeon MD Operation Date: 08/08/24 16:30 Proposed Procedures p Colonoscopy Dr. Mike Mckeon MD Height/Weight Height: 5 ft 7 in Weight: 70.8 kg Allergies Allergy/AdvReac Type Severity Reaction Status Date / Time KAYLI Inhibitors AdvReac Intermediate cough Verified 12/20/23 15:19 Medications Home Medications Medication Instructions Recorded Confirmed Last Taken allopurinol 100 mg tablet 100 mg PO UD 04/30/18 08/03/24 12/20/23 (Zyloprim) aspirin 81 mg tablet,delayed 81 mg PO QAM 01/11/21 08/03/24 12/19/23 release amiodarone 200 mg tablet (Pacerone) 200 mg PO QAM 11/14/21 08/03/24 12/20/23 atorvastatin 80 mg tablet (Lipitor) 80 mg PO UD 11/14/21 08/03/24 12/20/23 levothyroxine 50 mcg tablet 50 mcg PO DAILYBB #30 tabs 11/16/21 08/03/24 12/20/23 (Synthroid) ezetimibe 10 mg tablet (Zetia) 10 mg PO QAM 09/02/22 08/03/24 12/20/23 docusate sodium 100 mg capsule 100 mg PO BID 04/20/23 08/03/24 12/20/23 08:00 (Colace) acetaminophen 500 mg tablet 1,000 mg PO TID 12/20/23 08/03/24 12/20/23 08:00 (Tylenol Extra Strength) apixaban 5 mg tablet (Eliquis) 5 mg PO BID 12/20/23 08/03/24 12/20/23 08:00 bisacodyl 10 mg rectal suppository 10 mg SD DAILY PRN Constipation 12/20/23 08/03/24 Unknown cholecalciferol (vitamin D3) 25 50 mcg PO QPM 12/20/23 08/03/24 12/19/23 mcg (1,000 unit) capsule (Vitamin D3) omeprazole 20 mg tablet,delayed 20 mg PO DAILY PRN 12/20/23 08/03/24 Unknown release HEARTBURN/INDIGESTION sertraline 50 mg tablet 50 mg PO UD 12/20/23 08/03/24 12/20/23 wheat dextrin 1 gram chewable 1 tab PO DAILY 12/20/23 08/03/24 12/20/23 tablet (Benefiber Sugar Free (dextrin)) carvedilol 6.25 mg tablet 3.125 mg PO 08/03/24 08/03/24 Unknown losartan 25 mg tablet 25 mg PO 08/03/24 08/03/24 Unknown metoprolol succinate 25 mg 0.5 mg PO 08/03/24 08/03/24 Unknown tablet,extended release 24 hr nitroglycerin 0.1 mg/hr 1 patch transdermal 08/03/24 08/03/24 Unknown transdermal 24 hour patch (Nitro-Dur) tamsulosin 0.4 mg capsule 0.4 mg PO 08/03/24 08/03/24 Unknown polyethylene glycol 3350 17 gram 17 g PO DAILY PRN constipation #14 08/07/24 Unknown oral powder packet (Miralax) ea Active Medications Generic Name Dose Route Start Last Admin Trade Name Freq PRN Reason Stop Dose Admin Acetaminophen 1,000 mg 08/03/24 17:20 08/07/24 20:56 Acetaminophen 500 Mg Tab PO 09/02/24 17:19 1,000 mg TID FIORDALIZA Administration Allopurinol 100 mg 08/04/24 09:00 08/07/24 09:24 Allopurinol 100 Mg Tab PO 09/03/24 08:59 100 mg DAILY FIORDALIAZ Administration Amiodarone HCl 200 mg 08/04/24 09:00 08/07/24 09:25 Amiodarone 200 Mg Tab PO 09/03/24 08:59 200 mg QAM FIORDALIZA Administration Atorvastatin Calcium 80 mg 08/04/24 09:00 08/07/24 09:25 Atorvastatin 40 Mg Tab PO 09/03/24 08:59 80 mg DAILY FIORDALIZA Administration Ezetimibe 10 mg 08/04/24 09:00 08/07/24 09:25 Ezetimibe 10 Mg Tab PO 09/03/24 08:59 10 mg QAM FIORDALIZA Administration Levothyroxine Sodium 50 mcg 08/04/24 06:30 08/08/24 05:58 Levothyroxine Sodium 50 Mcg Tablet PO 09/03/24 06:29 50 mcg DAILYBB FIORDALIZA Administration Losartan Potassium 25 mg 08/03/24 21:00 08/05/24 07:24 Losartan Potassium 25 Mg Tab PO 09/02/24 20:59 25 mg BID FIORDALIZA Administration Metoprolol Succinate 12.5 mg 08/03/24 21:00 08/07/24 20:56 Metoprolol Succ 25mg Ext Rel Tab PO 09/02/24 20:59 12.5 mg HS FIORDALIZA Administration Sertraline HCl 50 mg 08/04/24 09:00 08/07/24 09:25 Sertraline Hcl 50 Mg Tablet PO 09/03/24 08:59 50 mg DAILY FIORDALIZA Administration Tamsulosin HCl 0.4 mg 08/03/24 21:00 08/07/24 20:56 Tamsulosin Hcl 0.4 Mg Cap PO 09/02/24 20:59 0.4 mg HS FIORDALIZA Administration Vitamin D 50 mcg 08/03/24 21:00 08/07/24 20:56 Cholecalciferol 25 Mcg (1000 Units) Tab PO 09/02/24 20:59 50 mcg QPM FIORDALIZA Administration Past Medical History Medical History (Updated 08/08/24 @ 08:33 by Matthew Campos MD) Encounter for pre-operative examination Elevated troponin Hypotension Non-ST elevation [place] (NSTEMI) Acute kidney injury superimposed on chronic kidney disease Near syncope Hypothyroidism Pacemaker Medtronic, implanted 04/2022 at [facility]. Follows with Dr Ferraro. Pacer check 07/2022. Chronic diastolic CHF (congestive heart failure), NYHA class 3 Bladder cancer s/p surgery intervention and receives Keytruda infusion every 3 weeks (at [facility]) Dyslipidemia CAD (coronary artery disease) CAD, status post DESHAWN to the prox LAD 05/24/2018 Plaque shifted noted at the time of intervention resulting in a 30-40% ostial LAD stenosis Residual 80% mid RPDA stenosis not amendable to PCI Chest heaviness, resolved with initiation of Imdur, negative nuclear stress 09/2020 Lexiscan nuclear stress demonstrated small posterior scar without ischemia, unchanged from 2019 and 2020 Stable moderate nonobstructive CAD per cardiac cath 11/2021 at [facility] Hypertension Hypercalcemia Anxiety "white coat syndrome" DJD (degenerative joint disease) GERD (gastroesophageal reflux disease) Well controlled and stable Gout No recent issues Past Family History Family History Sister No problems noted. Brother No problems noted. Other Diabetes No family history of adverse response to anesthesia Past Surgical History Surgical History Status post left knee replacement History of esophagogastroduodenoscopy (EGD) S/P cardiac pacemaker procedure 04/2022 History of bone marrow biopsy [facility] [place] 2022 Status post right knee replacement History of surgery Multiple as child (r/t trauma, run over by tractor) History of cardiac cath 2017 > stent x1 11/2021 > no stents History of colonoscopy H/O exploratory laparotomy For intussusception Hx of hernia repair Hx of shoulder surgery right Social History Smoking Status: Former smoker tobacco type: cigarettes Do You Dip or Chew Tobacco: No Hx Alcohol Use: No Alcohol type: wine alcohol intake frequency: 3 or more drinks per day Hx Substance Use: No substance use type: does not use Physical Exam Vital Signs Last Vital Signs Temp 36.6 C 08/07/24 19:43 Pulse 60 08/08/24 00:45 Resp 18 08/07/24 16:40 BP 158/75 H 08/07/24 19:43 Pulse Ox 95 08/07/24 19:43 O2 Del Method Room Air 08/07/24 19:56 Testing Laboratory Results 08/08/24 05:57 08/08/24 05:57 Urine Color Yellow 08/03/24 15:49 Urine Appearance Clear (Clear) 08/03/24 15:49 Urine pH 6.0 (4.5-7.5) 08/03/24 15:49 Ur Specific Ernest 1.013 (1.000-1.030) 08/03/24 15:49 Urine Protein Negative (Negative) 08/03/24 15:49 Urine Glucose (UA) Negative (Negative) 08/03/24 15:49 Urine Ketones Negative (Negative) 08/03/24 15:49 Urine Nitrite Negative (Negative) 08/03/24 15:49 Ur Leukocyte Esterase Trace (Negative) H 08/03/24 15:49 Urine WBC (Auto) 0-5 /hpf (0-5) 08/03/24 15:49 Urine RBC (Auto) 0-2 /hpf (0-2) 08/03/24 15:49 U Hyaline Cast (Auto) 3-5 /lpf (0-2) H 08/03/24 15:49 U Epithel Cells (Auto) 0-2 /hpf (0-2) 08/03/24 15:49 Urine Bacteria (Auto) None Seen (None Seen) 08/03/24 15:49 Blood Type O Positive 08/03/24 12:12 Antibody Screen NEGATIVE 08/03/24 12:12 Electrocardiogram Date: 08/03/24 DICTATED BY: German Bansal MD Test Reason : Blood Pressure : */* mmHG Vent. Rate : 77 BPM Atrial Rate : 77 BPM P-R Int : 288 ms QRS Dur : 176 ms QT Int : 462 ms P-R-T Axes : 22 -26 -27 degrees QTcB Int : 522 ms Atrial-paced rhythm with prolonged AV conduction Right bundle branch block Abnormal ECG When compared with ECG of 20-Dec-2023 12:04, T wave inversion more evident in Anterior leads Confirmed by German Bansal ([id number]) on 08/05/2024 2:00:20 PM Chest X-Ray Date: 08/03/24 XR chest 1V portable CLINICAL HISTORY: Chest pain, nonspecific COMPARISON STUDY: Chest CT September 06, 2022. Chest radiograph December 20, 2023. FINDINGS: Right subclavian pacer is in place. Cardiomegaly is unchanged. There is no evidence for pulmonary edema. Mild left basilar opacity favors atelectasis. There is no consolidation to suggest pneumonia. IMPRESSION: No acute cardiopulmonary findings. No significant change in appearance of the chest. Echocardiogram Date: 08/05/24 EF 55-60% Severe LVH LA severely dilated Mild Grade 3 DD Mod AR Mod TR Pulm pressures 56mm Hg.
--- NOTE | 2024-08-08 09:02 | Gastroenterology Progress Note ---
Date of Service August 08, 2024 Assessment & Plan (1) Anemia: Plan: 84 year old male w/ history of atrial fibrillation, cardiac pacemaker, CAD s/p DESHAWN in LAD, bladder cancer, orthostatic hypotension/pre-syncope, HLD, HFpEF, hypothyroidism, TA on 2021 colonoscopy, anticoagulated on ASA and Eliquis admitted through the ED on 08/03 w/ symptomatic anemia, HGB 6.5 s/p 1 unit RBC. s/p EGD w/o source of UGI bleeding, NPO for colonoscopy - Maintain NPO status for Colonoscopy 08/08/24 - Trend H&H - Monitor and document GI output - Transfuse PRN per primary team - Hold ASA/Eliquis We appreciate assistance in the management of any serological abnormality and corrections to include: hemoglobin >7, INR <2, platelets >50,000, potassium levels >3.5 but <5.3, and sodium levels within 5 points of the reference range prior to endoscopic evaluation. Admission and Anticipated Discharge Date Admission Date: August 03, 2024 Supervising Physician Co-Signing Physician Notes I saw and examined this patient with our nurse practitioner and agree with her assessment and plan. No overt bleeding. Endoscopy unrevealing except for a small duodenal polyp pathology was pending. Will proceed with colonoscopy today. Subjective Sitting on bedside commode. Tolerated about 1/2 bowel prep. Stools are liquid but he is unsure of color. Review of Systems Review of Systems: All other findings negative except as noted in HPI. Physical Exam Constitutional: WD/WN, vitals as above Respiratory: normal respiratory effort Cardiovascular: RRR, no murmur, no edema Gastrointestinal (Abdomen): normal bowel sounds, soft, nontender, no hepatosplenomegaly Skin: no rashes, warm and dry Results & Data Results & Data Vital Signs (Past 12 Hours) Vital Signs Temp Pulse Pulse Resp BP Pulse Ox O2 Del Method 08/08/24 08:37 97.3 F L 67 18 161/67 H 95 Room Air 08/08/24 00:45 60 Laboratory Results 08/08/24 Range/Units 05:57 WBC 5.47 (4.8-10.8) K/ul RBC 2.57 L (4.70-6.10) M/uL Hgb 7.6 L (14.0-18.0) g/dl Hct 23.6 L (42.0-52.0) % MCV 91.8 (80.0-100.0) fL MCH 29.6 (25.0-34.0) pg MCHC 32.2 (32.0-36.0) g/dL RDW Std Deviation 45.8 (36.4-46.3) fL RDW Coeff of Dominic 13.7 (11.5-14.5) % Plt Count 224 (130-400) K/uL MPV 9.7 (9.4-12.4) fL Sodium 138 (136-145) mmol/L Potassium 3.8 (3.5-5.1) mmol/L Chloride 105 (98-107) mmol/L Carbon Dioxide 28 (21-32) mmol/L Anion Gap 5 (3-11) BUN 19 (6-23) mg/dl Creatinine 1.40 (0.6-1.4) mg/dl Est Cr Clr Drug Dosing 35.4 ml/min eGFR 48.95 BUN/Creatinine Ratio 13.6 (10-20) Glucose 85 (70-99(Fasting)) mg/dl Calcium 8.9 (8.6-10.3) mg/dl Phosphorus 2.8 (2.5-4.9) mg/dl Magnesium 1.9 (1.7-2.4) mg/dl PG Care Time/CCT Total # of Minutes Spent Total Time Spent with Patient: Total time spent is greater than 50% in coordination of care (as documented) at patient's floor/unit and/or counseling patient: Coding Level of Care Code None Diagnoses Anemia D64.9
[2024-08-08 09:52] VITALS: TEMP 97.7
--- NOTE | 2024-08-08 11:14 | GI REPORT ---
[facility] Patient: SONJA ADRIAN : 1940 Sex at : Male Age: 84 Years Procedure: Colonoscopy Date: 08/08/2024 Attending Physician: Reggie Mckeon MD Referring MD: Fede Childs Md Indications: - Gastrointestinal bleeding Medications: - Monitored Anesthesia Care Complications: - No immediate complications. Procedure: - Prior to the procedure, a History and Physical was performed, and patient medications and allergies were reviewed. The patient's tolerance of previous anesthesia was also reviewed. The risks and benefits of the procedure and the sedation options and risks were discussed with the patient. All questions were answered, and informed consent was obtained. [Anticoagulant Agents] [Days Prior to Procedure]. [ASA Grade]. After reviewing the risks and benefits, the patient was deemed in satisfactory condition to undergo the procedure. - The adult colonoscope was introduced through the anus and advanced to the terminal ileum, with identification of the appendiceal orifice and ileocecal valve. - The colonoscopy was performed without difficulty. - The patient tolerated the procedure well. - The quality of the bowel preparation was [Prep Quality]. - [Anatomical Structures] photographed. Findings: - Multiple [Opening] diverticula were found in the entire colon. - Two sessile polyps were found in the sigmoid colon. The polyps were diminutive (1-3 mm) in size. These polyps were removed with a piecemeal technique using a cold biopsy forceps. Resection was complete, and retrieval was complete. - No other significant abnormalities were identified in a careful examination of the remainder of the colon. - The terminal ileum appeared normal. Impression: - Diverticulosis in the entire examined colon. - Two diminutive (1-3 mm) polyps in the sigmoid colon, removed piecemeal using a cold biopsy forceps. Resected and retrieved. - The examined portion of the ileum was normal. Recommendation: - Resume previous diet. - Patient has a contact number available for emergencies. The signs and symptoms of potential delayed complications were discussed with the patient. Return to normal activities tomorrow. Written discharge instructions were provided to the patient. Procedure Code(s): - 52285, Colonoscopy, flexible; with biopsy, single or multiple Diagnosis Code(s): - K92.2, Gastrointestinal hemorrhage, unspecified - D12.5, Benign neoplasm of sigmoid colon - K57.30, Diverticulosis of large intestine without perforation or abscess without bleeding CPT(R) - 2023 copyright [employer]. All Rights Reserved. The CPT codes, CCI edits and ICD codes generated are intended as suggestions and were generated based on input data. These codes are preliminary and upon gas scrubber operator review may be revised to meet current compliance and payer requirements. The provider is responsible for the final determination of appropriate codes, and modifiers. Reggie Mckeon MD This document has been electronically signed. Note Initiated:08/08/2024 Note Completed:08/08/2024 11:07 AM \\[email or web address]\Results\[email or web address]\[id number]
[2024-08-08 11:32] VITALS: RESP 18; O2SAT 95
[2024-08-08] MEDS: PANTOprazole 40 MG TAB PO SCH (11:33)
[2024-08-08] MEDS: PHENYLEPHRINE 100MCG/ML 5ML SYR ONE (12:32)
[2024-08-08] MEDS: PROPOFOL IV EMULSION 10 MG/ML 20 ML VIAL IV ONE (12:32)
[2024-08-08] MEDS: LIDOCAINE 2% 2 ML VIAL/AMP(20MG/ML) INFIL ONE (12:32)
--- NOTE | 2024-08-08 13:10 | Anesthesiology Progress Note ---
Date of Service August 08, 2024 Anesthesia Post Procedure Vital Signs Vital Signs: Temp Pulse Pulse Pulse Resp BP BP 08/08/24 11:30 36.5 C 73 18 176/83 H 08/08/24 11:15 61 16 150/75 H 08/08/24 11:00 60 16 140/69 08/08/24 10:45 67 16 114/59 L 08/08/24 09:49 36.5 C 89 16 164/60 H 08/08/24 08:37 36.3 C L 67 18 161/67 H 08/08/24 00:45 60 08/07/24 19:56 08/07/24 19:43 36.6 C 66 158/75 H 08/07/24 16:40 36.4 C L 64 18 169/75 H Pulse Ox O2 Del Method 08/08/24 11:30 95 Room Air 08/08/24 11:15 97 Room Air 08/08/24 11:00 96 Room Air 08/08/24 10:45 95 Room Air 08/08/24 09:49 95 Room Air 08/08/24 08:37 95 Room Air 08/08/24 00:45 08/07/24 19:56 Room Air 08/07/24 19:43 95 Room Air 08/07/24 16:40 92 Room Air Transfer of Care Handoff Completed per policy Notes Mental Status: alert / awake / arousable and participated in evaluation Patient Amnestic to Procedure: Yes Nausea / Vomiting: adequately controlled Pain: adequately controlled Airway Patency, RR, SpO2: stable & adequate BP & HR: stable & adequate Hydration State: stable & adequate Anesthetic Complications: no major complications apparent and Pt Satisfied with anesthetic care
[2024-08-08 13:48] VITALS: BP 139/74
--- NOTE | 2024-08-08 15:12 | Discharge Summary ---
Date of Service August 08, 2024 Admission HPI Per Admitting Provider 84M pmh AF s/p PMM, CAD s/p DESHAWN, htn, bladder ca, orthostatic hypotension/pre- syncope, HLD, HFpEF, hypothyroidism who presents with weakness. Of note patient with significant history of weakness/hypotension likely 2/2 cardiac medication/antihypertensive administration, with recent admission 12/26 as well in 2021 at which time cardiac evaluation was performed, including angiogram and PPM placement. During this episode, patient states that this AM he felt weak. Regularly feels weak about a half hour after taking his BP medication, but today felt weaker than normal. Denies other symptoms including cp, sob, abd pain, recent change in his bowel habits, melena or hematochezia. Symptoms today lasted for about an hour, after which patient felt better. BP was normal via EMS on transport. In the ED, FOBT was done and positive for black stools. Patient states that he has not had a colonoscopy in many years, but they have never been abnormal. No Fhx or personal history of colon ca or other GI problems. He does state, however, that in the last 2-3 years he has been increasingly constipated, BM q2- 3d and previously he was QD. Admission Exam Per Admitting Provider Constitutional: WD/WN, vitals as above Respiratory: normal respiratory effort, lungs clear to auscultation Cardiovascular: RRR, no murmur, no edema Gastrointestinal (Abdomen): normal bowel sounds, soft, nontender, no hepatosplenomegaly Principal Diagnosis Acute Blood Loss Anemia, unknown etiology Discharge Exam Gen: A&O 3 NAD HEENT: NCAT, EOMI Neck: Supple Lungs: No Respiratory distress. CTAB. CV: RRR, no edema. Abdomen: Soft, nondistended, No tenderness on palp. MSK: moves extremities Skin: warm, dry Neuro: awake, alert, speech fluent, answers appropriately, moves extremities Psych: Appropriate for situation. Discharge Data Allergies Allergy/AdvReac Type Severity Reaction Status Date / Time KAYLI Inhibitors AdvReac Intermediate cough Verified 12/20/23 15:19 Consultations 08/03/24 12:22 ED Decision to Admit Stat 08/04/24 14:10 Consult Gastroenterology Routine Procedures Performed Operation Date: 08/08/24 16:30 Actual Procedures p Colonoscopy Polypectomy(Not Applicable) - Reggie Mckeon MD Ordered Studies 08/03/24 13:40 CT abd pelvis wo con Routine FINDINGS: Cardiomegaly. Coronary artery calcifications are present. Trace pleural effusions. Bibasilar airspace opacities may reflect fibrosis or pneumonia. The liver, gallbladder, spleen, adrenal glands, and pancreas are unremarkable. The stomach and duodenum are unremarkable. The small bowel loops are normal in caliber. Normal caliber appendix is identified. Extensive colonic diverticulosis. Question mild inflammation along the proximal sigmoid colon suspicious for mild acute uncomplicated diverticulitis. Moderate atherosclerotic vascular disease with severe stenosis along the SMA and involving both renal arteries. Ectasia of the infrarenal abdominal aorta. No abdominal aortic aneurysm. No suspicious lymphadenopathy. No nephrolithiasis or hydronephrosis. No bladder calculi. The urinary bladder is unremarkable. Enlarged prostate measuring 5.6 cm in diameter. No free pelvic fluid. Fat-containing left inguinal hernia. Small fat-containing umbilical hernia. Soft tissues of the body wall are unremarkable. Partially included fixation hardware about the right proximal femur. Degenerative changes of the spine. Mild degenerative changes of the hips and pelvis. IMPRESSION: 1. Extensive colonic diverticulosis. Mild inflammation along the proximal sigmoid colon suggesting mild acute uncomplicated diverticulitis. 2. Trace pleural effusions. Bibasilar interstitial opacities may represent pulmonary fibrosis or pneumonia. 3. Marked prostatomegaly. Recommend correlation with serum PSA. 4. Numerous chronic and/or incidental findings as above. Hospital Course (1) Elevated troponin: (2) Upper GI bleed: (3) Presence of drug coated stent in LAD coronary artery: Plan #Weakness likely 2/2 normocytic anemia w/positive FOBT, eliquis administration and change in bowel habits #PIYUSH on CKD likely 2/2 dehydration, resolved -received blood transfusion on admission -EGD unremarkable for cause of bleed Plan: -stop protonix drip, switch to PO protonix in AM -GI consulted, recommending colonoscopy - s/p colonoscopy today 08/08/2024 - Findings: - Multiple [Opening] diverticula were found in the entire colon. - Two sessile polyps were found in the sigmoid colon. The polyps were diminutive (1-3 mm) in size. These polyps were removed with a piecemeal technique using a cold biopsy forceps. Resection was complete, and retrieval was complete. - No other significant abnormalities were identified in a careful examination of the remainder of the colon. - The terminal ileum appeared normal. Impression: - Diverticulosis in the entire examined colon. - Two diminutive (1-3 mm) polyps in the sigmoid colon, removed piecemeal using a cold biopsy forceps. Resected and retrieved. - The examined portion of the ileum was normal. Recommendation: - Resume previous diet. - Patient has a contact number available for emergencies. The signs and symptoms of potential delayed complications were discussed with the patient. Return to normal activities tomorrow. Written discharge instructions were provided to the patient. - Monitor hgb - recommend to re-check CBC as outpt - hold eliquis and aspirin - pt wishes to be discharged , and from GI standpoint pt can be discharged - recommend close follow up with PCP which was arranged #NSTEMI likely type 2 in the setting of the above -resolved #Orthostatic hypotension/pre-syncope -stopped nitro patch #AF s/p PPM #CAD s/p DESHAWN, cont. metoprolol, hold coreg #HLD, HFpEF #Hypothyroidism -home meds Total Time Total Time Spent Total Time Spent (In Minutes): 40 Discharge Plan Discharge Items Patient Disposition: Home - Self-Care Reason For Visit: ANEMIA Discharge Diagnosis: Acute Blood Loss Anemia, unknown etiology Activity: Resume your previous activity Lifting: Gradually increase as tolerated Exercise/Sports: Gradually increase as tolerated Weightbearing: Full weightbearing Non-emergency contact: Primary Care Provider and Clinical Laboratory Technologist Call non-emergency contact if: you have any medication questions Follow-up/Referrals: Roberta Segura MD [Primary Care Provider] - (Date & Time 08/14/2024 10:40 AM Provider: Roberta Segura MD General Internal Medicine [facility] ) Diet: Regular Addtl Attending Provider Instructions: Follow up with your primary care doctor and Gastroenterology. The appointment with your primary care doctor was scheduled for you for 08/14/2024. Recommend to check your bloodwork - CBC - when seen by your primary care doctor. For now, do not take aspirin, eliquis, carvedilol. Discuss with your primary care physician if/ when to restart. Pending Studies at Discharge: No Stand-Alone Forms: My [employer], Smoking Cessation Medications and DC Order Prescriptions: New polyethylene glycol 3350 [Miralax] 17 gram Powder In Packet 17 g PO DAILY PRN (Reason: constipation) Qty: 14 0RF Continued docusate sodium [Colace] 100 mg capsule 100 mg PO BID Rx Instructions: otc unable to verify allopurinol [Zyloprim] 100 mg Tablet 100 mg PO UD Rx Instructions: 100 mg po qam. Not on active list from pharmacy atorvastatin [Lipitor] 80 mg tablet 80 mg PO UD Rx Instructions: 80 mg po qam. Per list from pharmacy medication is listed as "on hold" amiodarone [Pacerone] 200 mg tablet 200 mg PO QAM levothyroxine [Synthroid] 50 mcg Tablet 50 mcg PO DAILYBB Qty: 30 0RF ezetimibe [Zetia] 10 mg Tablet 10 mg PO QAM acetaminophen [Tylenol Extra Strength] 500 mg Tablet 1,000 mg PO TID Rx Instructions: otc unable to verify bisacodyl 10 mg Suppository 10 mg FL DAILY MDD 1 SUPP/WEEK PRN (Reason: Constipation) Rx Instructions: otc unable to verify cholecalciferol (vitamin D3) [Vitamin D3] 25 mcg (1,000 unit) Capsule 50 mcg PO QPM Rx Instructions: otc unable to verify Benefiber Sugar Free (dextrin) 1 gram Tablet,Chewable 1 tab PO DAILY Rx Instructions: otc unable to verify chew thoroughly before swallowing; do not swallow whole omeprazole 20 mg Tablet,Delayed Release (Dr/Ec) 20 mg PO DAILY PRN (Reason: HEARTBURN/INDIGESTION) Rx Instructions: otc/Not on active list from pharmacy sertraline 50 mg tablet 50 mg PO UD Rx Instructions: 50 mg po daily. Not on active list from pharmacy metoprolol succinate 25 mg tablet extended release 24 hr 0.5 mg PO HS tamsulosin 0.4 mg capsule 0.4 mg PO HS losartan 25 mg tablet 25 mg PO UD Rx Instructions: 25 mg po bid. Not on active list from pharmacy Held aspirin 81 mg Tablet,Delayed Release (Dr/Ec) 81 mg PO QAM Hold Instructions: Resume on 08/12/24. Rx Instructions: otc unable to verify Eliquis 5 mg Tablet 5 mg PO BID Hold Instructions: Resume on 08/09/24. Discontinued carvedilol 6.25 mg tablet 3.125 mg PO UD Rx Instructions: 3.125 mg po bid. Per list from pharmacy instructions are: 6.25 mg po bid nitroglycerin [Nitro-Dur] 0.1 mg/hr patch 24 hour 1 patch transdermal UD Rx Instructions: 1 patch transdermal daily. Not on active list from pharmacy allow nitrate-free interval of approx. 10-12 hrs per 24-hour period Discharge Orders: Discharge Order (Routine); Ordered 08/08/24 Ordered By: Fede Childs Admission Data Admit Date/Time: 08/03/24 13:19 Attending Provider: Fede Childs Admit Provider: Linda Doyle Primary Care Provider: Roberta Segura Other Providers: Davie Shaw; Reyes Ochoa Jr; Cuauhtemoc Mondragon Other Interventions: Discharge Summary Assessment (RN) Last Done: 08/08/24 11:16
[2024-08-08 15:44] VITALS: PULSE 61
== END 2024-08-08 16:30 | disposition home or self-care (01) | DRG 811 ==
LOC: ED 11:14 → 4W 13:19 → SUATTDRO 13:19 → 4W 15:55